=== PATIENT | male | born 1955 | race Caucasian/White ===

== ENCOUNTER → 2017-01-31 | Outpatient (REF) | payer OTHER, MEDICARE ==
[~2017-01-31] MED LIST: /AUGM875TA; /CELE20CA; /ESOM40CA OR; /MOXI40TA PO; ADV500INH INH; ALDA25TA2 PO; ALLO10TA PO; ALLO300T2 PO; ASPI81TA31 OR; COLA50CA3 PO; COLC0.6T OR; COMBAER6 INH; DEPA250T32 PO; DEPA500T OR; DEPA500T2 PO; DUONSOL NEB; EFFE75CA75 OR; FINA5TAB2 PO; FLOM5CAP PO; FOLI1TAB86 PO; FOLI400T OR; IBUP200T2 PO; LASI40TA PO; LISI5TAB PO; MOM30SS PO; MULTCAP PO; MULTIVIT PO; NIAS750T3 OR; NICO4GUM8 PO; OCEA0.65; PERC5TAB8; PRED10TA2 PO; PROS5TAB PO; REQU2TAB3 PO; RISP2TAB30 PO; RISP4TAB OR; STOO1CAP7 PO; TYLE325T5 PO; VICO5TAB PO; VITA10002 PO; VITA100041 PO; WELL75TA PO; XIFA550T PO; ZOCO20TA PO; ZOCO40TA OR; drisdol PO
[2017-01-31 12:45] LABS: MEAN CORPUSCULAR HEMOGLOBIN 33.7 pg (27.0-33.0); MEAN CORPUSCULAR HGB CONC 35.8 g/dl (32.0-36.5); RED CELL DISTRIBUTION WIDTH 13.2 % (11.5-14.5); WHITE BLOOD COUNT 6.3 K/mm3 (4.0-10.0)
[2017-01-31 13:03] LABS: ALBUMIN 4.2 GM/DL (3.2-5.2); ALBUMIN/GLOBULIN RATIO 1.27 (1.00-1.93); ALKALINE PHOSPHATASE 51 U/L (45-117); ALT/SGPT 27 U/L (12-78); ANION GAP 10 MEQ/L (8-16); AST/SGOT 13 U/L (15-37); BILIRUBIN,TOTAL 0.5 MG/DL (0.2-1.0); BLOOD UREA NITROGEN 13 MG/DL (7-18); CALCIUM LEVEL 9.3 MG/DL (8.8-10.2); CARBON DIOXIDE LEVEL 30 MEQ/L (21-32); CHLORIDE LEVEL 92 MEQ/L (98-107); CHOLESTEROL LEVEL 165 MG/DL (<200); CREATININE FOR GFR 0.93 MG/DL (0.70-1.30); GLOMERULAR FILTRATION RATE > 60.0 (>49); GLUCOSE, FASTING 87 MG/DL (80-110); SODIUM LEVEL 132 MEQ/L (136-145); TOTAL PROTEIN 7.5 GM/DL (6.4-8.2); TRIGLYCERIDES LEVEL 96 MG/DL (<150); URIC ACID 5.1 MG/DL (3.5-7.2)
== END ==
LOC: M SFHCADAM 11:04
PROVIDERS: ATTEND Family Medicine
DX: K70.30 Alcoholic cirrhosis of liver without ascites (principal); E78.5 Hyperlipidemia, unspecified; M10.9 Gout, unspecified; F31.9 Bipolar disorder, unspecified; E55.9 Vitamin D deficiency, unspecified

== ENCOUNTER → 2017-02-22 | Outpatient (CLI) | payer OTHER, MEDICARE ==
--- NOTE | 2017-02-22 09:37 | REP ---
ORBIT, TWO VIEWS: HISTORY: Foreign body. The sinuses are clear. There is no fracture, bone lesion, or radiopaque foreign body. IMPRESSION: Normal study. Signed by Brett Bañuelos MD 02/22/2017 09:59 A
== END ==
LOC: M RAD 08:42
PROVIDERS: ATTEND Psychiatry & Neurology Neurology
DX: S00.35XA Superficial foreign body of nose, initial encounter (principal); X58.XXXA Exposure to other specified factors, initial encounter; Y92.89 Other specified places as the place of occurrence of the external cause; Y93.89 Activity, other specified; Y99.8 Other external cause status

== ENCOUNTER → 2017-03-05 | Outpatient (CLI) | payer OTHER, MEDICARE ==
--- NOTE | 2017-03-05 10:00 | REP ---
CT CHEST WITHOUT IV CONTRAST: CT chest performed in the axial plane without IV contrast. Sagittal and coronal reconstruction images are performed. Comparison is made with multiple prior examination dating back to 04/02/2014, most recent is 03/01/2016. There is again somewhat nodular thickening along the right major fissure which has remained stable since 2013. Another smaller area of nodular thickening along the left major fissure is also stable. Scattered interstitial fibrotic changes appear similar to the prior studies. There are diffuse emphysematous changes. There is fibroatelectatic change in the lingula, which is stable. There is a calcified granuloma in the right pericardial region anteriorly. A couple of scattered tiny calcified granulomas are seen in the lungs as well. No mediastinal, hilar or chest wall lymphadenopathy is seen. There is n pleural or pericardial effusion. There are scattered atherosclerotic calcifications of the thoracic aorta without aneurysm. The heart is normal in size. There are degenerative changes of the spine. In the visualized portions of the upper abdomen, the gallbladder is visualized on the most inferior image containing a gallstone. Only the neck of the gallbladder is seen. There is a cyst in the upper pole of the left kidney. IMPRESSION: Stable benign nodular thickening along both major fissures as above. Underlying emphysematous and fibrotic changes. Calcified granulomas. Gallstones seen in the gallbladder, only partially visualized on the most inferior image. Signed by Yohan Headley MD 03/05/2017 04:21 P
== END ==
LOC: M RAD 09:03
PROVIDERS: ATTEND Internal Medicine
DX: R91.8 Other nonspecific abnormal finding of lung field (principal)

== ENCOUNTER → 2017-03-13 | Outpatient (CLI) | payer OTHER, MEDICARE | LOC: M SMT 10:19 | PROVIDERS: ATTEND Urology | DX: Z12.5 Encounter for screening for malignant neoplasm of prostate (principal) ==

== ENCOUNTER → 2017-03-20 | Outpatient (CLI) | payer OTHER, MEDICARE ==
--- NOTE | 2017-03-21 05:58 | REP ---
Clinical: Cirrhosis and left upper quadrant pain. Technique: Real time shirley scale ultrasound examination using curved array transducer. Findings: Liver demonstrates diffuse fatty infiltration without focal hepatic lesion identified. The pancreas is limited in evaluation but visualized portions appear grossly normal. The spleen is upper limits of normal in size without significant focal splenic lesion identified; 2 cm echogenic focus within the spleen is nonspecific and its appearance by ultrasound is relatively unremarkable. Gallbladder demonstrates 11 mm gallstone without wall thickening or pericholecystic fluid to suggest acute cholecystitis. No biliary ductal dilatation is appreciated and the common bile duct measures 4 mm diameter. The bilateral kidneys are normal in reniform shape without hydronephrosis. Right kidney measures 11.9 x 5.1 x 4.9 cm. Left kidney measures 11.2 x 6.1 x 5.2 cm with 1.9 cm and 2.0 cm cysts. Abdominal aorta is normal in appearance and measures 2.0 cm maximal diameter. No ascites. Impression: 1. Hepatosteatosis without focal hepatic lesion. 2. Cholelithiasis. 3. No ascites. 4. Left renal cysts up to 2 cm diameter. 5. 2 cm echogenic focus in the spleen is relatively unremarkable and nonspecific by ultrasound evaluation and is not identifiable when compared to CT dated 03/05/2017 and 11/16/2015. Signed by Froylan Olivo MD 03/21/2017 05:49 A
== END ==
LOC: M WHC 09:19
PROVIDERS: ATTEND Family Medicine
DX: R10.12 Left upper quadrant pain (principal)

== ENCOUNTER → 2017-06-10 | Outpatient (CLI) | payer OTHER, MEDICARE ==
[~2017-06-10] MED LIST changes: -RISP2TAB30 PO; +RISP2TAB32 PO; +VITA-182 PO; -VITA100041 PO
[2017-06-10 18:50] LABS: ALBUMIN/GLOBULIN RATIO 1.18 (1.00-1.93); BILIRUBIN,DIRECT 0.1 MG/DL (0.0-0.2); BILIRUBIN,TOTAL 0.4 MG/DL (0.2-1.0); TOTAL PROTEIN 7.4 GM/DL (6.4-8.2)
== END ==
LOC: M SMT 15:05
PROVIDERS: ATTEND Nurse Practitioner Family
DX: Z79.899 Other long term (current) drug therapy (principal)

== ENCOUNTER → 2017-07-10 | Outpatient (CLI) | payer OTHER ==
[2017-07-10 18:44] LABS: ALBUMIN 4.2 GM/DL (3.2-5.2); ALBUMIN/GLOBULIN RATIO 1.24 (1.00-1.93); ALKALINE PHOSPHATASE 45 U/L (45-117); ALT/SGPT 35 U/L (12-78); ANION GAP 7 MEQ/L (8-16); AST/SGOT 23 U/L (15-37); BILIRUBIN,TOTAL 0.6 MG/DL (0.2-1.0); BLOOD UREA NITROGEN 17 MG/DL (7-18); CALCIUM LEVEL 9.1 MG/DL (8.8-10.2); CARBON DIOXIDE LEVEL 30 MEQ/L (21-32); CHLORIDE LEVEL 99 MEQ/L (98-107); CREATININE FOR GFR 1.14 MG/DL (0.70-1.30); GLOMERULAR FILTRATION RATE > 60.0 (>49); GLUCOSE, FASTING 89 MG/DL (80-110); SODIUM LEVEL 136 MEQ/L (136-145); TOTAL PROTEIN 7.6 GM/DL (6.4-8.2)
[2017-07-10 18:45] LABS: BASO # 0.1 K/mm3 (0.0-0.2); BASO % 0.8 % (0.0-1.0); EOS # 0.1 K/mm3 (0.0-0.50); EOS % 0.8 % (0.0-3.0); LARGE UNSTAINED CELL # 0.1 K/mm3 (0.0-0.4); LARGE UNSTAINED CELL % 1.6 % (0.0-4.0); LYMPH # 1.1 K/mm3 (1.5-4.5); LYMPH % 12.4 % (24.0-44.0); MEAN CORPUSCULAR HEMOGLOBIN 35.1 pg (27.0-33.0); MEAN CORPUSCULAR HGB CONC 35.5 g/dl (32.0-36.5); MEAN CORPUSCULAR VOLUME 98.6 fl (80.0-96.0); MONO # 0.6 K/mm3 (0.0-0.8); MONO % 7.2 % (0.0-5.0); NEUTROPHILS # 5.8 K/mm3 (1.8-7.7); NEUTROPHILS % 77.2 % (36.0-66.0); PLATELET COUNT, AUTOMATED 259 k/mm3 (150-450); RED CELL DISTRIBUTION WIDTH 12.9 % (11.5-14.5); WHITE BLOOD COUNT 7.6 K/mm3 (4.0-10.0)
[2017-07-10 18:50] LABS: FOLATE > 24.0 NG/ML
[2017-07-10 18:53] LABS: POTASSIUM SERUM 5.3 MEQ/L (3.5-5.1)
[2017-07-10 19:26] LABS: VITAMIN B12 LEVEL 469 PG/ML
== END ==
LOC: M SMT 13:30
PROVIDERS: ATTEND Psychiatry & Neurology Neurology
DX: E03.9 Hypothyroidism, unspecified (principal); N18.9 Chronic kidney disease, unspecified; G25.0 Essential tremor; D51.9 Vitamin B12 deficiency anemia, unspecified; E55.9 Vitamin D deficiency, unspecified

== ENCOUNTER → 2017-08-20 | Outpatient (CLI) | payer OTHER ==
[2017-08-20 18:12] LABS: INR 0.89
== END ==
LOC: M SMT 15:04
PROVIDERS: ATTEND Physical Medicine & Rehabilitation
DX: M54.2 Cervicalgia (principal)

== ENCOUNTER → 2017-09-10 | Outpatient (CLI) | payer OTHER | LOC: M SMT 12:59 | PROVIDERS: ATTEND Urology | DX: R39.15 Urgency of urination (principal) ==

== ENCOUNTER → 2017-10-07 | Outpatient (CLI) | payer OTHER, MEDICARE ==
--- NOTE | 2017-10-07 11:21 | REP ---
RIGHT UPPER QUADRANT ULTRASOUND: Real-time sonographic evaluation of right upper quadrant performed and compared to prior studies, the most recent of which is 03/20/2017. There are gallstones in the gallbladder. The largest is 2.4 cm in diameter. There is no gallbladder wall thickening or pericholecystic fluid. There is no intrahepatic or extrahepatic biliary dilatation, common bile duct measuring 4 mm in diameter. Liver demonstrates diffuse heterogeneous increased echotexture compatible with diffuse fibrofatty infiltration. No gross liver or pancreatic mass is seen. There is no pancreatic duct dilatation. Right kidney is normal in size and echotexture with no hydronephrosis, with a length of 12 cm. IMPRESSION: Gallstones in the gallbladder without gallbladder wall thickening, pericholecystic fluid, or biliary dilatation. Diffuse fibrofatty infiltration of the liver.
== END ==
LOC: M WHC 08:47
PROVIDERS: ATTEND Family Medicine
DX: K70.30 Alcoholic cirrhosis of liver without ascites (principal)

== ENCOUNTER → 2017-10-07 | Outpatient (REF) | payer OTHER, MEDICARE ==
[2017-10-07 13:47] LABS: MEAN CORPUSCULAR HEMOGLOBIN 33.3 pg (27.0-33.0); MEAN CORPUSCULAR HGB CONC 33.4 g/dl (32.0-36.5); MEAN CORPUSCULAR VOLUME 99.5 fl (80.0-96.0); PLATELET COUNT, AUTOMATED 266 10^3/uL (150-450); RED CELL DISTRIBUTION WIDTH 12.8 % (11.5-14.5); WHITE BLOOD COUNT 5.4 10^3/uL (4.0-10.0)
[2017-10-07 13:56] LABS: INR 0.88
[2017-10-07 14:01] LABS: VITAMIN B12 LEVEL 548 PG/ML (247-911)
[2017-10-07 14:02] LABS: FOLATE > 24.0 NG/ML (>5.4)
[2017-10-07 14:10] LABS: ALBUMIN 3.9 GM/DL (3.2-5.2); ALBUMIN/GLOBULIN RATIO 1.11 (1.00-1.93); ALKALINE PHOSPHATASE 51 U/L (45-117); ALT/SGPT 31 U/L (12-78); ANION GAP 7 MEQ/L (8-16); AST/SGOT 12 U/L (7-37); BILIRUBIN,TOTAL 0.4 MG/DL (0.2-1.0); BLOOD UREA NITROGEN 18 MG/DL (7-18); CALCIUM LEVEL 9.9 MG/DL (8.8-10.2); CARBON DIOXIDE LEVEL 32 MEQ/L (21-32); CHLORIDE LEVEL 101 MEQ/L (98-107); CREATININE FOR GFR 1.17 MG/DL (0.70-1.30); FREE T4 0.92 NG/DL (0.76-1.46); GLOMERULAR FILTRATION RATE > 60.0 (>49); GLUCOSE, FASTING 116 MG/DL (80-110); POTASSIUM SERUM 4.7 MEQ/L (3.5-5.1); SODIUM LEVEL 140 MEQ/L (136-145); TOTAL PROTEIN 7.4 GM/DL (6.4-8.2)
== END ==
LOC: M SFHCADAM 08:16
PROVIDERS: ATTEND Physician Assistant
DX: K70.30 Alcoholic cirrhosis of liver without ascites (principal); D52.9 Folate deficiency anemia, unspecified; R53.83 Other fatigue

== ENCOUNTER → 2017-10-28 | Outpatient (REF) | payer OTHER, MEDICARE ==
[2017-10-28 14:07] LABS: ALBUMIN 3.6 GM/DL (3.2-5.2); ALBUMIN/GLOBULIN RATIO 1.03 (1.00-1.93); BILIRUBIN,DIRECT 0.1 MG/DL (0.0-0.2); BILIRUBIN,TOTAL 0.3 MG/DL (0.2-1.0); TOTAL PROTEIN 7.1 GM/DL (6.4-8.2)
== END ==
LOC: M LABDRWAD 12:26
PROVIDERS: ATTEND Nurse Practitioner Family
DX: F31.10 Bipolar disorder, current episode manic without psychotic features, unspecified (principal)

== ENCOUNTER → 2017-12-13 | Outpatient (CLI) | payer OTHER, MEDICARE ==
[2017-12-13 21:14] LABS: BASO % 0.6 % (0.0-1.0); EOS # 0.1 10^3/uL (0.0-0.50); EOS % 1.1 % (0.0-3.0); HEMATOCRIT 44.4 % (42.0-52.0); HEMOGLOBIN 14.8 g/dl (14.0-18.0); IMMATURE GRANULOCYTE % 0.3 % (0-0); LYMPH # 1.2 10^3/uL (1.5-4.5); LYMPH % 18.9 % (24.0-44.0); MEAN CORPUSCULAR HEMOGLOBIN 33.6 pg (27.0-33.0); MEAN CORPUSCULAR HGB CONC 33.3 g/dl (32.0-36.5); MEAN CORPUSCULAR VOLUME 100.7 fl (80.0-96.0); MONO # 0.7 10^3/uL (0.0-0.8); NEUTROPHILS # 4.3 10^3/uL (1.8-7.7); NEUTROPHILS % 68.1 % (36.0-66.0); PLATELET COUNT, AUTOMATED 214 10^3/uL (150-450); RED BLOOD COUNT 4.41 10^6/uL (4.30-6.10); RED CELL DISTRIBUTION WIDTH 12.1 % (11.5-14.5); WHITE BLOOD COUNT 6.3 10^3/uL (4.0-10.0)
[2017-12-13 21:54] LABS: ANION GAP 8 MEQ/L (8-16); BLOOD UREA NITROGEN 19 MG/DL (7-18); CARBON DIOXIDE LEVEL 27 MEQ/L (21-32); CHLORIDE LEVEL 101 MEQ/L (98-107); CREATININE FOR GFR 1.04 MG/DL (0.70-1.30); GLOMERULAR FILTRATION RATE > 60.0 (>49); GLUCOSE, FASTING 108 MG/DL (80-110); NT-PRO BNP 20 PG/ML (<125); POTASSIUM SERUM 4.6 MEQ/L (3.5-5.1); SODIUM LEVEL 136 MEQ/L (136-145)
== END ==
LOC: M ADAMS 09:23
DX: R06.02 Shortness of breath (principal); R63.5 Abnormal weight gain
CPT/HCPCS: 80048

== ENCOUNTER → 2018-02-10 | Outpatient (REF) | payer OTHER, MEDICARE | LOC: M LAB REF 20:34 | DX: J02.9 Acute pharyngitis, unspecified (principal) | CPT/HCPCS: 87081 ==

== ENCOUNTER → 2018-03-20 | Outpatient (CLI) | payer OTHER, MEDICARE | LOC: M RAD 08:23 | DX: F17.210 Nicotine dependence, cigarettes, uncomplicated (principal) | CPT/HCPCS: G0297 ==

== ENCOUNTER → 2018-03-31 | Outpatient (CLI) | payer OTHER, MEDICARE ==
[2018-03-31 14:37] LABS: PSA SCREENING 0.15 NG/ML (< 4.0)
== END ==
LOC: M SMT 10:16
DX: Z12.5 Encounter for screening for malignant neoplasm of prostate (principal)
CPT/HCPCS: G0103

== ENCOUNTER → 2018-04-03 | Outpatient (CLI) | payer OTHER, MEDICARE | LOC: M WHC 08:06 | DX: K70.30 Alcoholic cirrhosis of liver without ascites (principal) ==

== ENCOUNTER 2018-06-18 12:03 | Outpatient (RCR) | payer MEDICARE, OTHER | END 2018-06-24 | disposition home or self-care (01) | LOC: M CR 12:03 | DX: J44.9 Chronic obstructive pulmonary disease, unspecified (principal); Z51.89 Encounter for other specified aftercare | CPT/HCPCS: G0424 ==

== ENCOUNTER 2018-06-25 15:23 | Outpatient (RCR) | payer MEDICARE, OTHER | END 2018-07-25 | LOC: M CR 15:23 → M PR 07-02 10:36 | DX: J44.9 Chronic obstructive pulmonary disease, unspecified (principal); Z51.89 Encounter for other specified aftercare | CPT/HCPCS: G0424 ==

== ENCOUNTER → 2018-07-24 | Outpatient (REF) | payer MEDICARE, OTHER ==
[2018-07-24 12:20] LABS: HEMATOCRIT 42.9 % (42.0-52.0); HEMOGLOBIN 14.8 g/dl (13.5-17.5); MEAN CORPUSCULAR HEMOGLOBIN 34.3 pg (27.0-33.0); MEAN CORPUSCULAR HGB CONC 34.5 g/dl (32.0-36.5); MEAN CORPUSCULAR VOLUME 99.3 fl (80.0-96.0); PLATELET COUNT, AUTOMATED 241 10^3/uL (150-450); RED BLOOD COUNT 4.32 10^6/uL (4.30-6.10); RED CELL DISTRIBUTION WIDTH 11.9 % (11.5-14.5); WHITE BLOOD COUNT 6.6 10^3/uL (4.0-10.0)
[2018-07-24 12:39] LABS: INR 0.92; PROTHROMBIN TIME 12.5 SECONDS (12.1-14.4)
[2018-07-24 13:29] LABS: ALBUMIN 3.6 GM/DL (3.2-5.2); ALBUMIN/GLOBULIN RATIO 0.95 (1.00-1.93); ALKALINE PHOSPHATASE 47 U/L (45-117); ALT/SGPT 46 U/L (12-78); ANION GAP 7 MEQ/L (8-16); AST/SGOT 19 U/L (7-37); BILIRUBIN,TOTAL 0.4 MG/DL (0.2-1.0); BLOOD UREA NITROGEN 14 MG/DL (7-18); CALCIUM LEVEL 9.1 MG/DL (8.8-10.2); CARBON DIOXIDE LEVEL 28 MEQ/L (21-32); CHLORIDE LEVEL 105 MEQ/L (98-107); CHOLESTEROL LEVEL 161 MG/DL (<200); CREATININE FOR GFR 1.05 MG/DL (0.70-1.30); FREE T4 0.81 NG/DL (0.76-1.46); GLOMERULAR FILTRATION RATE > 60.0 (>49); GLUCOSE, FASTING 92 MG/DL (70-100); HDL CHOLESTEROL 50 MG/DL (>40); LDL CHOLESTEROL 81.4 MG/DL (<100); NON-HDL-C 111 MG/DL; POTASSIUM SERUM 4.7 MEQ/L (3.5-5.1); SODIUM LEVEL 140 MEQ/L (136-145); TOTAL PROTEIN 7.4 GM/DL (6.4-8.2); TRIGLYCERIDES LEVEL 148 MG/DL (<150); VALPROIC ACID (DEPAKOTE) 83.2 UG/ML (50.0-100.0)
[2018-07-25 11:29] LABS: ALPHA FETOPROTEIN TUMOR QUANT 5.8 NG/ML (<8.1)
== END ==
LOC: M SFHCADAM 08:57
DX: F31.89 Other bipolar disorder (principal); J44.9 Chronic obstructive pulmonary disease, unspecified; E78.5 Hyperlipidemia, unspecified; G25.1 Drug-induced tremor; K70.30 Alcoholic cirrhosis of liver without ascites; E55.9 Vitamin D deficiency, unspecified
CPT/HCPCS: 84443

== ENCOUNTER → 2018-10-09 | Outpatient (CLI) | payer MEDICARE, OTHER | LOC: M WHC 08:34 | DX: K80.20 Calculus of gallbladder without cholecystitis without obstruction (principal); K70.30 Alcoholic cirrhosis of liver without ascites | CPT/HCPCS: 76705 ==

== ENCOUNTER → 2018-10-12 | Outpatient (REF) | payer MEDICARE, OTHER | LOC: M LAB REF 17:21 | DX: J02.9 Acute pharyngitis, unspecified (principal) | CPT/HCPCS: 87081 ==

== ENCOUNTER → 2018-10-13 | Outpatient (CLI) | payer MEDICARE, OTHER ==
[2018-10-13 13:45] LABS: APPEARANCE, URINE CLEAR (CLEAR); BACTERIA, URINE AUTO NEGATIVE (NEGATIVE); BILIRUBIN, URINE AUTO NEGATIVE (NEGATIVE); BLOOD, URINE BLOOD NEGATIVE (NEGATIVE); COLOR, URINE YELLOW (YELLOW); GLUCOSE, URINE (UA) AUTO NEGATIVE (NEGATIVE); KETONE, URINE AUTO TRACE mg/dL (NEGATIVE); LEUKOCYTE ESTERASE, URINE AUTO NEGATIVE (NEGATIVE); NITRITE, URINE AUTO NEGATIVE (NEGATIVE); PROTEIN, URINE AUTO NEGATIVE (NEGATIVE); RBC, URINE AUTO 0 /HPF (0-3); SPECIFIC GRAVITY URINE AUTO 1.013 (1.002-1.035); SQUAMOUS EPITHELIAL CELL UR AU 0 /HPF (0-6); UROBILINOGEN, URINE AUTO 0.2 mg/dL (0.0-2.0); WBC, URINE AUTO 0 /HPF (0-3)
[2018-10-14 14:14] LABS: PSA TOTAL 0.7 ng/mL (0.0-4.0)
== END ==
LOC: M SMT 11:14
DX: N40.1 Benign prostatic hyperplasia with lower urinary tract symptoms (principal)
CPT/HCPCS: 84154

== ENCOUNTER → 2019-01-12 | Outpatient (REF) | payer MEDICARE, OTHER ==
[~2019-01-12] MED LIST changes: +DICL0.1S; +FLOM0.4C39 PO; -FLOM5CAP PO; +VENTAER INH; +[UNRECOGNIZED DRUG - OTHER] INH
[2019-01-12 18:28] LABS: BASO % 0.2 % (0.0-1.0); EOS # 0.2 10^3/uL (0.0-0.50); EOS % 2.3 % (0.0-3.0); HEMATOCRIT 42.4 % (42.0-52.0); HEMOGLOBIN 14.5 g/dl (13.5-17.5); LYMPH # 1.2 10^3/uL (1.5-4.5); LYMPH % 13.5 % (24.0-44.0); MEAN CORPUSCULAR HGB CONC 34.2 g/dl (32.0-36.5); MEAN CORPUSCULAR VOLUME 99.3 fl (80.0-96.0); MONO % 10.5 % (0.0-5.0); NEUTROPHILS # 6.6 10^3/uL (1.8-7.7); NEUTROPHILS % 73.2 % (36.0-66.0); PLATELET COUNT, AUTOMATED 238 10^3/uL (150-450); RED BLOOD COUNT 4.27 10^6/uL (4.30-6.10)
[2019-01-12 18:33] LABS: BLOOD UREA NITROGEN 11 MG/DL (7-18); CALCIUM LEVEL 8.9 MG/DL (8.8-10.2); CARBON DIOXIDE LEVEL 25 MEQ/L (21-32); CHLORIDE LEVEL 103 MEQ/L (98-107); CREATININE FOR GFR 1.21 MG/DL (0.70-1.30); GLOMERULAR FILTRATION RATE > 60.0 (>49); GLUCOSE, FASTING 106 MG/DL (70-100); MAGNESIUM LEVEL 2.2 MG/DL (1.8-2.4); POTASSIUM SERUM 4.4 MEQ/L (3.5-5.1); SODIUM LEVEL 137 MEQ/L (136-145)
== END ==
LOC: M SFHCADAM 13:47
PROVIDERS: ATTEND Physician Assistant Medical
DX: R19.5 Other fecal abnormalities (principal)
CPT/HCPCS: 80048; 83735; 85025; 87507; G0463

== ENCOUNTER → 2019-01-16 | Outpatient (CLI) | payer MEDICARE, OTHER ==
--- NOTE | 2019-01-16 17:54 | REP ---
Supine abdomen single AP view: The bowel gas pattern is normal. The ascending and descending colon are excluded at the film margins. There are surgical clips in the abdomen bilaterally. There is degenerative disease and scoliosis in the lumbar spine. There is spina bifida occulta versus bilateral laminectomies at L5 . Impression: Normal bowel gas pattern. Electronically Signed by Yohan Greenfield MD 01/16/2019 05:45 P
== END ==
LOC: M ADAMS 16:21
PROVIDERS: ATTEND Physician Assistant
DX: M41.86 Other forms of scoliosis, lumbar region (principal); R19.5 Other fecal abnormalities
CPT/HCPCS: 74018; G0463

== ENCOUNTER → 2019-06-24 | Outpatient (CLI) | payer MEDICARE, OTHER ==
[~2019-06-24] MED LIST changes: -/CELE20CA; -/ESOM40CA OR; -/MOXI40TA PO; +AVEL1TAB2 PO; +CELE1CAP4; +NEXI1CAP3 OR
--- NOTE | 2019-06-24 10:37 | REP ---
Clinical: Lung screening. History smoking. Comparison: 03/20/2018, 01/19/2016 Technique: Axial low-dose noncontrast images from the thoracic inlet to the upper abdomen using lung screening technique. Findings: The lung alvarez are well-aerated and demonstrate early advanced COPD/emphysematous changes with scattered scarring similar to prior examination. Small area of opacity inseparable from the left major fissure measures 6 mm and appears less pronounced than prior examination suggesting small scar (image 51). No acute consolidation, significant nodule or mass lesion is appreciated. No pleural effusion/reaction or pneumothorax. Tracheobronchial tree is patent. Mediastinum demonstrates mild atherosclerotic changes of the coronary arteries without cardiomegaly. Impression: 1. Lung-RADS category II. 2. Chronic COPD/emphysematous changes with scattered scarring. 3. Previously identified density inseparable from the right major fissure appears less pronounced and likely represents small scar. 4. Management recommendations include annual low-dose CT evaluation. Electronically Signed by Froylan Olivo MD 06/24/2019 10:28 A
== END ==
LOC: M RAD 09:43
PROVIDERS: ATTEND Internal Medicine Critical Care Medicine
DX: Z12.2 Encounter for screening for malignant neoplasm of respiratory organs (principal); Z87.891 Personal history of nicotine dependence

== ENCOUNTER → 2019-08-14 | Outpatient (REF) | payer MEDICARE, OTHER | LOC: M SFHCADAM 08:01 | PROVIDERS: ATTEND Family Medicine | DX: K70.30 Alcoholic cirrhosis of liver without ascites (principal); I50.32 Chronic diastolic (congestive) heart failure; R73.01 Impaired fasting glucose; E78.5 Hyperlipidemia, unspecified; M54.5 Low back pain; F31.9 Bipolar disorder, unspecified; Z53.9 Procedure and treatment not carried out, unspecified reason ==

== ENCOUNTER → 2019-08-14 | Outpatient (CLI) | payer MEDICARE, OTHER ==
[2019-08-14 12:59] LABS: HEMATOCRIT 44.5 % (42.0-52.0); HEMOGLOBIN 14.9 g/dl (13.5-17.5); MEAN CORPUSCULAR HEMOGLOBIN 34.8 pg (27.0-33.0); MEAN CORPUSCULAR HGB CONC 33.5 g/dl (32.0-36.5); PLATELET COUNT, AUTOMATED 240 10^3/uL (150-450); RED BLOOD COUNT 4.28 10^6/uL (4.30-6.10); WHITE BLOOD COUNT 6.3 10^3/uL (4.0-10.0)
[2019-08-14 13:10] LABS: ALBUMIN 3.9 GM/DL (3.2-5.2); ALT/SGPT 42 U/L (12-78); BILIRUBIN,TOTAL 0.5 MG/DL (0.2-1.0); BLOOD UREA NITROGEN 17 MG/DL (7-18); CALCIUM LEVEL 9.7 MG/DL (8.8-10.2); CARBON DIOXIDE LEVEL 26 MEQ/L (21-32); CHLORIDE LEVEL 98 MEQ/L (98-107); CHOLESTEROL LEVEL 144 MG/DL (<200); CHOLESTEROL RISK RATIO 2.618 (<5); CREATININE FOR GFR 1.19 MG/DL (0.70-1.30); GLOMERULAR FILTRATION RATE > 60.0 (>49); GLUCOSE, FASTING 105 MG/DL (70-100); HDL CHOLESTEROL 55 MG/DL (>40); LDL CHOLESTEROL 66 MG/DL (<100); NON-HDL-C 89 MG/DL; SODIUM LEVEL 136 MEQ/L (136-145); TOTAL PROTEIN 7.4 GM/DL (6.4-8.2); TRIGLYCERIDES LEVEL 115 MG/DL (<150); VALPROIC ACID (DEPAKOTE) 95.6 UG/ML (50.0-100.0)
[2019-08-14 15:05] LABS: HEMOGLOBIN A1c 5.9 %
== END ==
LOC: M SMT 08:38
PROVIDERS: ATTEND Family Medicine
DX: I50.32 Chronic diastolic (congestive) heart failure (principal); R73.01 Impaired fasting glucose; K70.30 Alcoholic cirrhosis of liver without ascites; E78.5 Hyperlipidemia, unspecified; M54.5 Low back pain; F31.9 Bipolar disorder, unspecified; F31.89 Other bipolar disorder

== ENCOUNTER → 2019-08-19 | Outpatient (CLI) | payer MEDICARE, OTHER ==
--- NOTE | 2019-08-19 10:02 | REP ---
Abdominal right upper quadrant ultrasound in a patient with known alcoholic cirrhosis. Comparison is 10/09/2018. There is a 12 ml mobile gallbladder calculus, unchanged. There is no gallbladder wall thickening or pericholecystic fluid. There is no intrahepatic or extrahepatic biliary duct dilatation. The common biliary duct measures 5.5 mm in diameter. The the hepatic parenchyma is hyperechoic compatible with the clinical diagnosis of cirrhosis. There are no hepatic masses. The liver is mildly enlarged measuring up to 19.5 cm craniocaudad in the midclavicular line. The visualized pancreatic parenchyma is unremarkable. The right kidney measures 11.0 x 4.7 x 4.6 cm and is normal size. There is no right renal calculus or hydronephrosis. There is no solid or cystic mass. There is no right upper quadrant ascites. Impression: There is a single mobile gallbladder calculus, unchanged. The hepatic parenchyma is hyperechoic, unchanged. There are no hepatic masses. There is no biliary duct dilatation. Otherwise, negative right upper quadrant abdominal ultrasound. Electronically Signed by Yohan Greenfield MD 08/19/2019 09:53 A
== END ==
LOC: M RAD 08:50
PROVIDERS: ATTEND Family Medicine
DX: K70.30 Alcoholic cirrhosis of liver without ascites (principal); K80.20 Calculus of gallbladder without cholecystitis without obstruction

== ENCOUNTER → 2019-10-28 | Outpatient (REF) | payer MEDICARE, OTHER | LOC: M SMT 12:46 → M LABDRWAD 12:46 | PROVIDERS: ATTEND Nurse Practitioner Women's Health | DX: Z12.5 Encounter for screening for malignant neoplasm of prostate (principal) | CPT/HCPCS: 36415; G0103 ==

== ENCOUNTER → 2020-01-27 | Outpatient (REF) | payer MEDICARE, OTHER | LOC: M SFHCADAM 07:56 | PROVIDERS: ATTEND Family Medicine | DX: K72.90 Hepatic failure, unspecified without coma (principal); K70.30 Alcoholic cirrhosis of liver without ascites; D52.9 Folate deficiency anemia, unspecified; E53.8 Deficiency of other specified B group vitamins ==

== ENCOUNTER → 2020-01-29 | Outpatient (REF) | payer MEDICARE, OTHER ==
[2020-01-29 13:20] LABS: BASO % 0.6 % (0.0-1.0); EOS # 0.1 10^3/uL (0.0-0.5); HEMATOCRIT 46.8 % (42.0-52.0); HEMOGLOBIN 15.7 g/dl (13.5-17.5); LYMPH # 1.6 10^3/uL (1.5-5.0); LYMPH % 24.6 % (24.0-44.0); MEAN CORPUSCULAR HEMOGLOBIN 33.3 pg (27.0-33.0); MEAN CORPUSCULAR HGB CONC 33.5 g/dl (32.0-36.5); MEAN CORPUSCULAR VOLUME 99.2 fl (80.0-96.0); MONO # 0.7 10^3/uL (0.0-0.8); MONO % 11.6 % (0.0-5.0); NEUTROPHILS # 3.9 10^3/uL (1.5-8.5); NEUTROPHILS % 61.9 % (36.0-66.0); PLATELET COUNT, AUTOMATED 230 10^3/uL (150-450); RED BLOOD COUNT 4.72 10^6/uL (4.30-6.10); WHITE BLOOD COUNT 6.3 10^3/uL (4.0-10.0)
[2020-01-29 13:32] LABS: ALBUMIN 3.7 GM/DL (3.2-5.2); ALT/SGPT 32 U/L (12-78); BILIRUBIN,TOTAL 0.5 MG/DL (0.2-1.0); BLOOD UREA NITROGEN 13 MG/DL (7-18); CALCIUM LEVEL 9.6 MG/DL (8.8-10.2); CARBON DIOXIDE LEVEL 32 MEQ/L (21-32); CHLORIDE LEVEL 99 MEQ/L (98-107); CHOLESTEROL LEVEL 190 MG/DL (<200); CHOLESTEROL RISK RATIO 4.318 (<5); CREATININE FOR GFR 1.11 MG/DL (0.70-1.30); GLOMERULAR FILTRATION RATE > 60.0 (>49); GLUCOSE, FASTING 124 MG/DL (70-100); HDL CHOLESTEROL 44 MG/DL (>40); LDL CHOLESTEROL 105 MG/DL (<100); NON-HDL-C 146 MG/DL; POTASSIUM SERUM 4.8 MEQ/L (3.5-5.1); SODIUM LEVEL 136 MEQ/L (136-145); TOTAL PROTEIN 7.3 GM/DL (6.4-8.2); TRIGLYCERIDES LEVEL 203 MG/DL (<150)
[2020-01-29 13:52] LABS: HEMOGLOBIN A1c 6.5 %
== END ==
LOC: M LABDRWAD 12:47
PROVIDERS: ATTEND Nurse Practitioner Family
DX: K72.90 Hepatic failure, unspecified without coma (principal); K70.30 Alcoholic cirrhosis of liver without ascites; D52.9 Folate deficiency anemia, unspecified; Z79.899 Other long term (current) drug therapy

== ENCOUNTER → 2020-01-29 | Outpatient (REF) | payer MEDICARE, OTHER ==
[2020-01-29 13:26] LABS: ALBUMIN 3.7 GM/DL (3.2-5.2); ALT/SGPT 33 U/L (12-78); BILIRUBIN,TOTAL 0.5 MG/DL (0.2-1.0); BLOOD UREA NITROGEN 14 MG/DL (7-18); CALCIUM LEVEL 9.7 MG/DL (8.8-10.2); CARBON DIOXIDE LEVEL 32 MEQ/L (21-32); CHLORIDE LEVEL 99 MEQ/L (98-107); CREATININE FOR GFR 1.12 MG/DL (0.70-1.30); GLOMERULAR FILTRATION RATE > 60.0 (>49); GLUCOSE, FASTING 125 MG/DL (70-100); POTASSIUM SERUM 4.8 MEQ/L (3.5-5.1); SODIUM LEVEL 136 MEQ/L (136-145); TOTAL PROTEIN 7.4 GM/DL (6.4-8.2)
[2020-01-29 13:34] LABS: FOLATE > 24.0 NG/ML; VITAMIN B12 LEVEL 996 PG/ML
== END ==
LOC: M LABDRWAD 12:43
PROVIDERS: ATTEND Family Medicine
DX: K72.90 Hepatic failure, unspecified without coma (principal); K70.30 Alcoholic cirrhosis of liver without ascites; D52.9 Folate deficiency anemia, unspecified

== ENCOUNTER → 2020-02-01 | Outpatient (CLI) | payer MEDICARE, OTHER ==
--- NOTE | 2020-02-01 11:02 | REP ---
Right upper quadrant sonography: History: Cirrhosis. Findings: There is a 1.1 x 1.0 cm shadowing calculus in the gallbladder dependent portion. Gallbladder wall is not visibly thickened. No pericholecystic fluid is seen. Liver parenchyma is somewhat difficult to penetrate sonographically raising question of fatty infiltration. It is borderline in size with midclavicular line vertical span of 18.6 cm. Normal direction flow is seen in the main portal vein. The main portal vein is near the upper range of normal in size measuring 1.6 cm. The common bile duct is normal measuring 0.3 cm in greatest diameter. Limited views of the pancreas show no abnormality. There is no evidence of ascites or right renal abnormality. The right kidney measures 11.7 x 4.8 x 4.2 cm. Impression: Cholelithiasis. Mildly prominent liver size question fatty infiltration. Electronically Signed by Jm Morrow MD 02/01/2020 05:40 P
== END ==
LOC: M RAD 08:54
PROVIDERS: ATTEND Physician Assistant
DX: K70.30 Alcoholic cirrhosis of liver without ascites (principal)

== ENCOUNTER → 2020-09-21 | Outpatient (REF) | payer MEDICARE, OTHER ==
[~2020-09-21] MED LIST changes: +CVS250CA2 PO; -STOO1CAP7 PO
== END ==
LOC: M LABDRWAD 12:44
PROVIDERS: ATTEND Nurse Practitioner Family
DX: F31.89 Other bipolar disorder (principal); Z51.81 Encounter for therapeutic drug level monitoring

== ENCOUNTER → 2020-09-21 | Outpatient (REF) | payer MEDICARE, OTHER ==
[2020-09-21 12:36] LABS: HEMOGLOBIN 15.6 g/dl (13.5-17.5); MEAN CORPUSCULAR HEMOGLOBIN 34.4 pg (27.0-33.0); MEAN CORPUSCULAR HGB CONC 33.2 g/dl (32.0-36.5); MEAN CORPUSCULAR VOLUME 103.8 fl (80.0-96.0); PLATELET COUNT, AUTOMATED 188 10^3/uL (150-450); RED BLOOD COUNT 4.53 10^6/uL (4.30-6.10); WHITE BLOOD COUNT 5.1 10^3/uL (4.0-10.0)
[2020-09-21 13:06] LABS: ALBUMIN 3.7 GM/DL (3.2-5.2); ALT/SGPT 63 U/L (12-78); BILIRUBIN,TOTAL 0.5 MG/DL (0.2-1.0); BLOOD UREA NITROGEN 16 MG/DL (7-18); CALCIUM LEVEL 9.3 MG/DL (8.8-10.2); CARBON DIOXIDE LEVEL 29 MEQ/L (21-32); CHLORIDE LEVEL 102 MEQ/L (98-107); CHOLESTEROL LEVEL 165 MG/DL (<200); CHOLESTEROL RISK RATIO 3.055 (<5); CREATININE FOR GFR 1.25 MG/DL (0.70-1.30); GLOMERULAR FILTRATION RATE > 60.0 (>49); GLUCOSE, FASTING 127 MG/DL (70-100); HDL CHOLESTEROL 54 MG/DL (>40); LDL CHOLESTEROL 89 MG/DL (<100); NON-HDL-C 111 MG/DL; POTASSIUM SERUM 4.6 MEQ/L (3.5-5.1); SODIUM LEVEL 138 MEQ/L (136-145); TOTAL PROTEIN 7.4 GM/DL (6.4-8.2); TRIGLYCERIDES LEVEL 111 MG/DL (<150); URIC ACID 6.7 MG/DL (3.5-7.2)
== END ==
LOC: M SFHCADAM 08:27
PROVIDERS: ATTEND Family Medicine
DX: D52.9 Folate deficiency anemia, unspecified (principal); K70.30 Alcoholic cirrhosis of liver without ascites; E78.5 Hyperlipidemia, unspecified; M10.9 Gout, unspecified; F31.89 Other bipolar disorder; Z51.81 Encounter for therapeutic drug level monitoring; Z12.5 Encounter for screening for malignant neoplasm of prostate
CPT/HCPCS: 80053; 80061; 80164; 84550; 85027; G0103

== ENCOUNTER 2020-11-07 15:19 | Emergency (ER) | payer MEDICARE, OTHER ==
[~2020-11-07] VITALS: Ht 175.3 cm; Wt 134.1 kg
[2020-11-07] MEDS ORDERED: ANOR1AER INH (16:18)
[2020-11-07] MEDS ORDERED: XIFA550T PO (16:29)
[2020-11-07] MEDS ORDERED: ALBU8.5H INH (16:29)
[2020-11-07] MEDS ORDERED: ARIP1TAB6 PO (16:29)
[2020-11-07] MEDS ORDERED: OXYB10TA23 PO (16:29)
[2020-11-07] MEDS ORDERED: FURO20TA2 PO (16:29)
[2020-11-07] MEDS ORDERED: D31000TA2 PO (16:29)
[2020-11-07] MEDS ORDERED: DIVA500T9 PO ×2 (16:29)
[2020-11-07] MEDS ORDERED: MYRB50TA PO (16:29)
[2020-11-07] MEDS ORDERED: RISP-11 PO (16:29)
[2020-11-07] MEDS ORDERED: TAMS1CAP17 PO (16:29)
[2020-11-07] MEDS ORDERED: FOLI1TAB11 PO (16:29)
[2020-11-07] MEDS ORDERED: PROS5TAB PO (16:29)
[2020-11-07] MEDS ORDERED: SIMV20TA22 PO (16:29)
[2020-11-07] MEDS ORDERED: GABA-843 PO (16:29)
[2020-11-07] MEDS ORDERED: ESOM40CA35 PO (16:29)
[2020-11-07] MEDS ORDERED: ALLO100T PO (16:29)
[2020-11-07] MEDS ORDERED: FUROSEMIDE 40MG/4ML VIAL (J1940) IV ONE (16:30)
[2020-11-07] MEDS ORDERED: ALBUTEROL 90 MCG/ACT 8GM HFA INHALER INH ONE (16:30)
[2020-11-07] MEDS ORDERED: COMBIVENT RESPIMAT 100-20MCG INHALER 4GM INH ONE (16:30)
--- NOTE | 2020-11-07 16:44 | REP ---
INDICATION: DYSPNEA/COUGH. COMPARISON: PA and lateral chest dated 07/16/2016. TECHNIQUE: Single AP view of the chest performed portably with the patient sitting. FINDINGS: The lung alvarez are clear. Cardiac size is normal. The ivet, mediastinum and skeletal structures are unremarkable. IMPRESSION: Essentially negative portable chest <Electronically signed by Yohan Greenfield > 11/07/20 1640
[2020-11-07 17:17] LABS: VENOUS BASE EXCESS 3.2 (-2.0-2.0); VENOUS HCO3 29.7 MEQ/L (23.0-27.0); VENOUS O2 SATURATION 72.2 % (60.0-80.0); VENOUS PARTIAL PRESSURE CO2 51.4 mmHg (38.0-50.0); VENOUS PARTIAL PRESSURE O2 40.5 mmHg (30.0-50.0); VENOUS PH 7.379 UNITS (7.330-7.430); VENOUS STANDARD HCO3 26.6 MEQ/L; VENOUS TOTAL CO2 31.2 MEQ/L (24.0-28.0)
[2020-11-07 17:31] LABS: BASO % 0.3 % (0.0-1.0); EOS % 0.5 % (0.0-3.0); HEMATOCRIT 45.2 % (42.0-52.0); HEMOGLOBIN 15.1 g/dl (13.5-17.5); LYMPH # 1.5 10^3/uL (1.5-5.0); LYMPH % 20.8 % (24.0-44.0); MEAN CORPUSCULAR HEMOGLOBIN 33.9 pg (27.0-33.0); MEAN CORPUSCULAR HGB CONC 33.4 g/dl (32.0-36.5); MEAN CORPUSCULAR VOLUME 101.6 fl (80.0-96.0); MONO # 0.8 10^3/uL (0.0-0.8); MONO % 11.1 % (0.0-5.0); NEUTROPHILS # 4.9 10^3/uL (1.5-8.5); NEUTROPHILS % 66.9 % (36.0-66.0); PLATELET COUNT, AUTOMATED 187 10^3/uL (150-450); RED BLOOD COUNT 4.45 10^6/uL (4.30-6.10); WHITE BLOOD COUNT 7.4 10^3/uL (4.0-10.0)
[2020-11-07 17:45] LABS: ALBUMIN 3.8 GM/DL (3.2-5.2); ALT/SGPT 64 U/L (12-78); BILIRUBIN,DIRECT 0.2 MG/DL (0.0-0.2); BILIRUBIN,TOTAL 0.5 MG/DL (0.2-1.0); BLOOD UREA NITROGEN 19 MG/DL (7-18); CALCIUM LEVEL 9.5 MG/DL (8.8-10.2); CARBON DIOXIDE LEVEL 29 MEQ/L (21-32); CHLORIDE LEVEL 101 MEQ/L (98-107); CK-MB VALUE MASS 1.7 NG/ML (<3.6); CPK CREATINE PHOSPHOKINASE 83 U/L (39-308); CREATININE FOR GFR 1.29 MG/DL (0.70-1.30); GLOMERULAR FILTRATION RATE 59.1 (>49); GLUCOSE, FASTING 126 MG/DL (70-100); MB/CK RELATIVE INDEX 2.05 (< OR =4); NT-PRO BNP 25 PG/ML (<125); POTASSIUM SERUM 3.8 MEQ/L (3.5-5.1); SODIUM LEVEL 138 MEQ/L (136-145); TOTAL PROTEIN 7.7 GM/DL (6.4-8.2); TROPONIN I < 0.02 NG/ML (< 0.10)
[2020-11-07] MEDS ORDERED: COMBAER6 INH (18:37)
[2020-11-07 18:40] VITALS: BP 131/69
--- NOTE | 2020-11-08 05:52 | ECGEPIP ---
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
== END 2020-11-07 18:56 | disposition home or self-care (01) ==
LOC: M ED 15:19 → EDBD 15:19 → M ED 18:56
DX: J44.1 Chronic obstructive pulmonary disease with (acute) exacerbation (principal); I11.0 Hypertensive heart disease with heart failure; Z87.891 Personal history of nicotine dependence; Z88.1 Allergy status to other antibiotic agents; Z88.8 Allergy status to other drugs, medicaments and biological substances; Z79.51 Long term (current) use of inhaled steroids; Z79.899 Other long term (current) drug therapy
CPT/HCPCS: 71045; 80048; 80076; 82550; 82553; 82803; 83880; 84484; 85025; 93005; 93041; 94640; 94760; 96374; 99284; J1940

== ENCOUNTER → 2020-12-12 | Outpatient (CLI) | payer MEDICARE, OTHER ==
[~2020-12-12] MED LIST changes: +ALBU8.5H INH; +ALLO100T PO; +ANOR1AER INH; +ARIP1TAB6 PO; +D31000TA2 PO; +DIVA500T9 PO; +ESOM40CA35 PO; +FOLI1TAB11 PO; +FURO20TA2 PO; +GABA-282 PO; +MYRB50TA PO; +OXYB10TA23 PO; +RISP-11 PO; +SIMV20TA22 PO; +TAMS1CAP17 PO
--- NOTE | 2020-12-12 10:23 | REP ---
INDICATION: SCREENING COMPARISON: 06/24/2019 TECHNIQUE: Axial noncontrast images from the thoracic inlet to the upper abdomen using low-dose lung screening technique (LDCT). FINDINGS: Lung alvarez again demonstrate COPD/emphysematous changes with bronchiectasis and scattered scarring. Small 4 mm perifissural triangular density inseparable from the right major fissure likely represents scar. No acute consolidation, significant nodule or mass lesion. No effusion. No pneumothorax. Tracheobronchial tree is patent. Mediastinum demonstrates atherosclerotic changes to the thoracic aorta and coronary arteries. IMPRESSION: Lung-RADS category 2. Stable somewhat triangular perifissural density likely representing scar. No further suspicious consolidation, nodule or mass. Management recommendations include annual low-dose CT evaluation. <Electronically signed by Froylan Olivo > 12/12/20 1018
== END ==
LOC: M RAD 09:55
PROVIDERS: ATTEND Family Medicine
DX: Z12.2 Encounter for screening for malignant neoplasm of respiratory organs (principal); Z87.891 Personal history of nicotine dependence; J43.9 Emphysema, unspecified; R91.8 Other nonspecific abnormal finding of lung field; I70.0 Atherosclerosis of aorta; I25.10 Atherosclerotic heart disease of native coronary artery without angina pectoris

== ENCOUNTER → 2020-12-22 | Outpatient (REF) | payer MEDICARE, OTHER ==
[2020-12-22 12:51] LABS: HEMATOCRIT 47.9 % (42.0-52.0); MEAN CORPUSCULAR HEMOGLOBIN 34.9 pg (27.0-33.0); MEAN CORPUSCULAR HGB CONC 33.4 g/dl (32.0-36.5); MEAN CORPUSCULAR VOLUME 104.6 fl (80.0-96.0); PLATELET COUNT, AUTOMATED 211 10^3/uL (150-450); RED BLOOD COUNT 4.58 10^6/uL (4.30-6.10); WHITE BLOOD COUNT 5.9 10^3/uL (4.0-10.0)
[2020-12-22 13:47] LABS: ALBUMIN 3.7 GM/DL (3.2-5.2); ALT/SGPT 54 U/L (12-78); BILIRUBIN,TOTAL 0.4 MG/DL (0.2-1.0); BLOOD UREA NITROGEN 17 MG/DL (7-18); CALCIUM LEVEL 9.6 MG/DL (8.8-10.2); CARBON DIOXIDE LEVEL 30 MEQ/L (21-32); CHLORIDE LEVEL 101 MEQ/L (98-107); CHOLESTEROL LEVEL 210 MG/DL (<200); CHOLESTEROL RISK RATIO 4.038 (<5); CREATININE FOR GFR 1.25 MG/DL (0.70-1.30); FOLATE > 24.0 NG/ML (>5.4); GLOMERULAR FILTRATION RATE > 60.0 (>49); GLUCOSE, FASTING 251 MG/DL (70-100); HDL CHOLESTEROL 52 MG/DL (>40); LDL CHOLESTEROL 114 MG/DL (<100); NON-HDL-C 158 MG/DL; POTASSIUM SERUM 4.3 MEQ/L (3.5-5.1); SODIUM LEVEL 139 MEQ/L (136-145); TOTAL PROTEIN 7.4 GM/DL (6.4-8.2); TRIGLYCERIDES LEVEL 219 MG/DL (<150); VITAMIN B12 LEVEL 1304 PG/ML (247-911)
[2020-12-22 15:32] LABS: HEMOGLOBIN A1c 7.9 %
== END ==
LOC: M SFHCADAM 08:39
PROVIDERS: ATTEND Family Medicine
DX: K70.30 Alcoholic cirrhosis of liver without ascites (principal); R73.01 Impaired fasting glucose; E78.5 Hyperlipidemia, unspecified; E53.8 Deficiency of other specified B group vitamins

== ENCOUNTER 2021-01-19 00:17 | Emergency (ER) | payer MEDICARE, OTHER ==
[~2021-01-19] VITALS: Ht 175.3 cm; Wt 131.8 kg
--- OUTSIDE RECORDS SUMMARY | 2021-01-19 00:22 | CCD ---
Author Author [facility] Organization [facility] Address Unknown Phone Unavailable Care Team Providers Care Fish Hatchery Supervisor Name Role Phone Matthew Maynard Unavailable PROBLEMS Type Condition ICD9-CM Code [id number] Code Onset Dates Condition S tatus W/U Status Risk SNOMED Code Notes Problem Bipolar disorder F31.9 Active confirmed 137 03640 Problem Folate deficiency anemia D52.9 Active confirmed 10600871 Problem Hepatic dysfunction K76.9 Active confirmed 208067413 Problem Chronic diastolic heart failure I50.32 Active confi rmed 958040648 Problem History of alcoholism F10.21 Active confirmed 403971927 Problem Purpura D69.2 Active confirmed 199671229 tr aumatic purpura left arm Problem Pulmonary nodule R91.1 Active confirmed 309 953715 Problem Benign prostatic hyperplasia without lower urina ry tract symptoms N40.0 Active confirmed 990496311 Problem Impaired fasting glucose R73.01 Active confirmed 644656941 Problem COPD with exacerbation J44.1 Active confirmed 719673303 Problem Tobacco use Z72.0 Active confirmed 69140371 0 quit 1/15 Problem Gout M10.9 Active confirmed 06165033 Problem Hyperlipidemia E78.5 Active confirmed 06708 004 Problem Sleep disorder, unspecified G47.9 Active confirmed 83317478 Problem Chronic pain G89.29 Active confirmed 4074469 1 Problem Adverse reaction to antidepressant drug T43.205A Active confirmed 935751176 Problem COPD (chronic obstructive pulmonary disease) J44.9 Active confirmed 27669610 Problem Fatigue due to sleep pattern disturbance R53.83 Active confirmed 14429375 Problem GERD (gastroesophageal reflux disease) K21.9 A ctive confirmed 840105366 Problem Hypertensive heart disease without heart failure I 11.9 Active confirmed 20493672 Problem Back pain M54.9 Active confirmed 881424518 Problem Cirrhosis, alcoholic K70.30 Active confirmed 434930873 Problem Obesity E66.9 Active confirmed 379795176 Problem 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 Active confirmed 14119637 Problem Vitamin D deficiency E55.9 Active confirmed 80034497 Problem 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 Active confirmed 09988036 Problem Depression F32.9 Active confirmed 15209397 Problem Disc disease, degenerative, cervical M50.30 Act giacomo confirmed 99331250 Problem Lower urinary tract symptoms due to benign prost atic hyperplasia N40.1 Active confirmed 538922500 Problem Hepatic encephalopathy K72.90 Active confirmed 98680514 Problem Type 2 diabetes mellitus wit hout complication, without long-term current use of insulin E11.9 Active confirmed 821720150 Problem Chronic bilateral low back pain without sciatica M 54.5 Active confirmed 335511107 Problem 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 Active confir med 085574688 Problem Right leg pain M79.604 Active confirmed 2870 68499 Problem Lumbar spinal stenosis M48.06 Active confirmed 60584413 Problem Chronic obstructive pulmonary disease, unspecified COPD ty pe J44.9 Active confirmed 68439594 Problem Plantar wart B07.0 Active confirmed 7583875 8 Problem B12 deficiency E53.8 Active confirmed 82584 4004 Problem RUBIO (obstructive sleep apnea) G47.33 Active confirm ed 12099913 Problem 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 Active confirmed 293800249 ALLERGIES Allergen (clinical drug ingredient) Drug/Non Drug Allergy do cumented on EMR Reaction Allergy Type Onset Date Status Amoxicillin-Pot Clavulanate itching, swelling Drug Allergy Active benztropine agitation, confusion Non Drug Allergy Active pseudoephedrine Pseudoephedrine HCl(NDC Code:[address]-40) Hear t beats fast Drug Allergy Active clindamycin Clindamycin HCl(NDC Code:[address]-91) itching swelling, facial edema Drug Allergy Active regadenoson SOB/COPD exac (see 10/24/16 note) Non Drug Al lergy Active naproxen Naproxen(NDC Code:[address]-63) depression Drug Allergy Active ENCOUNTERS from 1955 to 2021-01-12 Encounter Location Date Provider Diagnosis [facility] [address] [place] [address] 10 Dec, 2020 Sergio Maynard COPD (chronic obstructive pulmonary disease) J44.9 ; Type 2 diabetes mellitus without complication, without long-term current use of insulin E11.9 and Drug or chemical induced diabetes mellitus without complications E09.9 IMMUNIZATIONS Vaccine Route Administration Date Status COVID-19 dose #1 given elsewhere Unspecified Unknown Dec 21, 2020 Administered Influenza 18 yrs & older Flublok IM Intramuscular Oct 14, 2020 Administered Influenza 6mo & up Fluzone IM Intramuscular Oct 01, 2017 Admi nistered Influenza 18 yrs & older Flublok IM Intramuscular Sep 17, 2018 Administered Influenza 18 yrs & older Flublok IM Intramuscular Oct 13, 2019 Administered Influenza 6mo & up Fluzone IM Intramuscular Oct 08, 2012 Admi nistered Influenza 6mo & up Fluzone IM Intramuscular Sep 25, 2016 Admi nistered Pneumococcal Adult 0.5mL Pneumovax 23 IM Intramuscular Oct 03 015 Administered Influenza 6mo & up Fluzone IM Intramuscular Oct 03, 2015 Admi nistered Influenza 6mo & up Fluzone Unknown Jan 05, 2016 Refus ed Pneumococcal 0.5mL Prevnar 13 IM Intramuscular March 24, 2014 A dministered Influenza 6mo & up Fluzone Unknown Jan 19, 2015 Refus ed Influenza 6mo & up Fluzone IM Intramuscular Sep 10, 2014 Admi nistered Influenza 6mo & up Fluzone IM Intramuscular Sep 10, 2013 Admi nistered SOCIAL HISTORY Tobacco Use: Social History Observation Description Date Details (start date - stop date) Former Smoker Sex Assigned At : Social History Observation Description Sex Assigned At Unknown Audit Question Answer Notes Interpretation: Alcohol Education Total Score: 0 Language: Question Answer Notes Languages spoken: Divehi Sexual Hx: Question Answer Notes Had sex in the last 12 months (vaginal, oral, or anal)? No Have you ever had an STD? No Drug and Alcohol Question Answer Notes Interpretation: No problems reported Total Score: 0 BMI Care Goal Follow-Up Question Answer Notes Above Normal BMI Follow-Up Dietary management educatio n, guidance, and counseling Tobacco Use: Question Answer Notes Are you a: former smoker quit 2014 How long has it been since you last smoked? 1-5 years REASON FOR REFERRAL No Information VITAL SIGNS No information MEDICATIONS Medication SIG (Take, Route, Frequency, Duration) Notes Start Da te End Date Status ProAir HFA 108 (90 Base) mcg/act 2 puffs as needed Inhalation qid prn Not-Taking May Have - as directed four wheeled wal ker with seat as directed J44.9, M54.9 for 99 days Sep, Active Combivent Respimat 20-100 MCG/ACT INHALE ONE PUFF BY M RAFAEL THREE TIMES A DAY Inhalation Active Shower Chair without wheels as directed DX : M48.06, J 44.9 Daily Use for 30 days Jan, Active Xifaxan 550 MG 1 tablet Orally Twice a day for 90 days Active Multivitamins 1 capsule Orally once a day Active Walker - Heavy duty (current weight i s 309), rolling walker with the feet DX:J44.9,M54.9,I50.32 DX:J44.9,M54.9,I50.32 for 90 day(s) March Active Allopurinol 100 mg 1 tablet Orally Once a day for 90 day(s) Active Finasteride 5 MG TAKE ONE TABLET BY MOUTH ONCE A DAY Oral for 90 Active Tamsulosin HCl 0.4 MG TAKE ONE CAPSULE BY MOUTH 30 MINUTES AFTER THE SAME MEAL EACH DAY ONCE A DAY Oral for 90 Active Nexium 40 MG 1 capsule Orally Once a day for 90 days Active Risperidone 4 MG TAKE ONE TABLET BY MOUTH AT BEDTIME Oral for 90 Active Aripiprazole 5 MG TAKE ONE TABLET BY MOUTH AT BEDTIME Oral for 90 Not-Taking Vitamin D 1000 UNIT 1 tablet Orally Once a day for 90 days Active Folic Acid 1 MG 1 tablet Orally once a day for 90 day(s) Active Divalproex Sodium ER 500 MG TAKE ONE TABLET BY MOUTH E VERY MORNING AND TWO TABLETS AT BEDTIME Oral for 90 N ot-Taking Anoro Ellipta 62.5-25 MCG/INH 1 puff Inhalation Once a day Active Vitamin D3 25 MCG (1000 UT) TAKE ONE TABLET BY MOUTH ONCE A DAY for 9 0 Active Myrbetriq 50 MG TAKE ONE TABLET BY MOUTH ONCE A DAY Oral for 90 Active Simvastatin 20 MG 1 tablet in the evening Oral ly Once a day in the evening for 90 days Active Depakote ER 500 MG 2 tablets am 1 tab pm Orally bid Active Ipratropium-Albuterol 20-100 MCG/ACT 1 puff Inhalation tid Not-Taking PROCEDURES No Information RESULTS No Results REASON FOR VISIT 4 month MEDICAL (GENERAL) HISTORY Type Description Date Medical History Type 2 DM dx 12/15 (prob from yesy Rosa ich was d/c 12/15) Medical History COPD- Pulmonary [facility] 04/09 FEV1 1.83, ratio 56% Medical History diverticulosis/h/o diverticulitis Medical History tobacco abuse/Quit 12/09 Medical History alcohol abuse Medical History Dysthymic disorder- Dr Garcia [facility] Medical History Esophageal reflux Medical History metabolic syndrome/IFG- Iwwxtysht07/15 Medical History left helix actinic keratosis Medical History Pulmonary Nodule- Following with [facility] Pulm Dr Beltran 08/09 CT, 03/11, 03/12, 06/12-- no sig findings Medical History hyperlipidemia Medical History Congestive heart failure/HHD PET stress study [facility] 06/06 no ischemia- [facility] 07/09; PET NST at [facility] 10/10: EF 74%, no perfusion abnl Medical History Liver/Spleen Scan, done at [facility], 08/10/2013:" Mild hepatomegaly; mild hepatic dysfunction; the spleen is normal in size."- cirrhosis- We do liver US/AFP q 6 mo,does notneed to follow with GI/Deo any more; liver US 08/10 nl; US 03/11 steatohepatitis, nothing acute; 10/12--no changes, US unchanged 08/13, 02/11, AFP neg 07/2019, 01/14 Medical History lumbar and cervical Spinal S tenosis/Chronic back Pain- [facility], then [facility] (injectios, nerve blocks) Medical History Neuropathy in feet and hands- [facility]- Ali Medical History Sleep Study 12/09 Abn Home sl eep test- baseline hypoxia, patsy martinez phen. [facility]- Mod Sev RUBIO- BIPAP pending 07/10 ([facility]) Medical History BPH- Following with Urology Medical History testosterone deficiency, dx 06/07; not a candidate for TRT (cardiac, central RUBIO) Medical History left renal cysts CT 10/09, s aw nephro 2015 (benign, no f/u advised) Medical History prediabetes (misdiagnosed as T2DM by pre vious provider (AM ROLFER) Medical History tremors/Tarditive Dyskinesia --drug induced (Depakote/Risperdal), saw neuro in [facility] 07/10 Parkinson's Ruled Medical History probable subclavian steal left arm (see 3/17) Medical History RUBIO on CPAP Medical History H zoster left abd 09/13 Surgical History colonoscopy 01/04 Surgical History hernia repair 1956 Surgical History Vasectomy 1996 Surgical History teeth removed 06/2016 Hospitalization History CHF. 12/07 Hospitalization History ruptured bowel 2009 Goals Section No Information Health Concerns No Information MEDICAL EQUIPMENT No Information MENTAL STATUS No Information FUNCTIONAL STATUS No Information ASSESSMENTS Encounter Date Diagnosis Assessment Notes Treatment Notes Treatm ent Clinical Notes Dec, COPD (chronic obstructive pulmonary disease) (IC D-10 - J44.9) will bring in next week for O2 sat rest/walking, see if qualifies for O2 Dec, Type 2 diabetes mellitus wit hout complication, without long-term current use of insulin (ICD-10 - E11.9) HgbA1c went 5.9 to 7.9 on Abilifym, which was d/c by MH l;ast week. Will recheck labs in 6 weeks, if not trending back to nl will start metformin Dec, Drug or chemical induced lynn betes mellitus without complications (ICD-10 - E09.9) PLAN OF TREATMENT Treatment Notes Assessment Notes Clinical Notes COPD (chronic obstructive pulmonary disease) will bring in next week for O2 sat rest/walking, see if qualifies for O2 Type 2 diabetes mellitus without complic ation, without long-term current use of insulin HgbA1c went 5.9 to 7.9 on Ab ilifym, which was d/c by MH l;ast week. Will recheck labs in 6 weeks, if not trending back to nl will start metformin Future Test Test Name Order Date Basic Metabolic Profile (BMP) [id number] HEMOGLOBIN A1c [id number] Next Appt Details 1 Week RW, 6 wks JW Reason: Provider Name:Lisa Browning, 1 10:00:00 AM, [id number], [place], [address], Provider Name:Danny Kimbrough, 07-14 02:30:00 PM, [address] [facility], [address], [place], [address], Insurance Providers Payer Name Payer Address Payer Phone Insured Name Patient Relati onship to Insured Coverage Start Date Coverage End Date MEDICARE Part A and B [address] [facility] [id number] [phone] BEBA GODINEZ self [facility] [address] [address] [facility] [id number] BEBA GODINEZ [id number] [facility] [address] [address] [facility] [phone] BEBA GODINEZ self
--- OUTSIDE RECORDS SUMMARY | 2021-01-19 00:23 | CCD ---
Author Author Abhinav Mello MD [facility] Organization Abhinav Mello MD [facility] Address [address] [address] Phone Care Team Providers Care Territory Representative Name Role Phone Deo Dudley PORTILLO Unavailable [phone] Aleyda RUTLEDGE, Matthew PP [phone] Reason for Referral No Reason for Referral Recorded Problems Includes: Active, inactive, and resolved Problems All Visits Onset Date - Time Resolved Date - Time Provider Co ndition Status Cataract Senile Posterior Subcapsular Polar 07/26/2020 - 12:00AM Dudley Desouza DO Active Borderline Glaucoma Open Angle with Borderline Finding s Both Eyes 10/23/2017 - 12:00AM Dudley Desouza DO Active Cataract Senile Nuclear 10/23/2017 - 12:00AM Dudley Monroe [facility] DO Active Diabetes Mellitus Type 2 Without Complication 09/12/2017 - 12:00 AM Dudley Desouza DO Active Corneal Degeneration Arcus Senilis 09/12/2017 - 12:00AM Dudley Desouza DO Active Dry Eye Syndrome 09/12/2017 - 12:00AM Dudley sofia DO Active Vitreous Disorders Degeneration 09/12/2017 - 12:00AM Abisai Desouza DO Active Plan of Treatment Pending Tests Order Diagnosis Results Due Ordering Provi sofia Testing Ordered - Visual Field Visual Field 24-2 Type 2 di abetes mellitus without complications 01/22/21 Dudley Desouza DO Testing Ordered - OCT OCT DISC Type 2 diabetes mellitus w ithout complications 01/22/21 Dudley Desouza DO Future Appointments Date Time Location Provider 6 Month Follow-Up OCT Disc 02/07/2021 12:50PM Abhinav conley MD [facility] Dudley Brunnerkaveh PORTILLO Assessments Includes: Assessments for all patient encounters Findings Encounter Date 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 VISUAL FIE LD 24-2 with Dudley Brunnerkaveh PORTILLO 12/08/2020 Acute atopic conjunctivitis TRIAGE NON URGENT with Dudley verma DO 09/19/2020 Herpes zoster (shingles) TRIAGE NON URGENT with Dudley Wein kaveh DO 09/19/2020 Dry eye syndrome 10 Month Follow-Up with Dudley sofia DO 07/26/2020 Nuclear senile cataract 10 Month Follow-Up with Dudley Kannan linn DO 07/26/2020 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 10 Month F ollow-Up with Dudley Deo DO 07/26/2020 Posterior subcapsular polar senile cataract 10 Month F ollow-Up with Dudley Deo DO 07/26/2020 Type 2 diabetes mellitus without complication 10 Month Follow-Up with Dudley Deo DO 07/26/2020 Dry eye syndrome Insertion of Punctal Plug IN OFFICE-NEED AUTH with Dudley Desouza DO 01/11/2020 Dry eye syndrome Insertion of Punctal Plug IN OFFICE-NEED AUTH with Dudley Deo DO 10/01/2019 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 VISUAL FIE LD 24-2 with Dudley Deo DO 07/02/2019 Dry eye syndrome 6 Month Follow-Up with Dudley Desouza DO 06/09/2019 Nuclear senile cataract 6 Month Follow-Up with Dudley thakkar DO 06/09/2019 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 6 Month Fo llow-Up with Dudley Desouza DO 06/09/2019 Type 2 diabetes mellitus without complication 6 Month Follow-Up with Dudley Desouza DO 06/09/2019 Nuclear senile cataract 7 Month Follow-Up and Testing with Abisai Desouza DO 11/28/2018 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 7 Month Fo llow-Up and Testing with Dudley Desouza DO 11/28/2018 Type 2 diabetes mellitus without complication 7 Month Follow-Up and Testing with Dudley Desouza DO 11/28/2018 Dry eye syndrome 6 Month Follow-Up with Dudley Desouza DO 04/30/2018 Nuclear senile cataract 6 Month Follow-Up with Dudley thakkar DO 04/30/2018 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 6 Month Fo llow-Up with Dudley Desouza DO 04/30/2018 Type 2 diabetes mellitus without complication 6 Month Follow-Up with Dudley Desouza DO 04/30/2018 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 VISUAL FIE LD 24-2 with Dudley Desouza DO 02/03/2018 Dry eye syndrome Cataract Evaluation with Dudley Alvaresadele in DO 10/23/2017 Nuclear senile cataract Cataract Evaluation with Dudley Pagan rodney DO 10/23/2017 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 Cataract E valuation with Dudley Desouza DO 10/23/2017 Vitreous degeneration Cataract Evaluation with Dudley Borja bijan DO 10/23/2017 Arcus senilis was observed NEW PATIENT with Dudley Figueroa n DO 09/12/2017 Dry eye syndrome NEW PATIENT with Dudley Desouza DO 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 NEW PATIEN T with Dudley Desouza DO 09/12/2017 Type 2 diabetes mellitus without complication NEW KATELYNN ENT with Dudley Desouza DO 09/12/2017 Vitreous degeneration NEW PATIENT with Dudley Desouza DO 09/12/2017 Instructions Instructions not supported for this document typeNo Instructions Recorded Medical Equipment - Implanted Devices Includes: Current and historical DevicesNo Medical Equipment Recorded Medications Includes: Current and historical Medications Current Medications (continue as prescribed) Depakote 500MG Oral Tablet Delayed Release 09/12/2017 Provider: Diagnosis: Past Medications on file Wellbutrin SR 150MG Oral Tablet Extended Release 12 Ho ur 09/12/2017 - 01/11/2020 Provider: Diagnosis: Pilocarpine HCl 1% Ophthalmic Solution 09/12/2017 - 12/11/19 18 Provider: Dudley Desouza DO Diagnosis: use one drop once a day in both eyes in the evening Medications Administered Includes: Administered Medications in patient's chartNo Administered Medications Recorded Vital Signs Includes: Vital Signs from 01/10/2020 through 01/10/2021No Vital Signs Recorded For Specified Dates Results Includes: Results from 01/10/2020 through 01/10/2021No Results Recorded For Specified Dates History of Present Illness History of Present Illness not supported for this document typeNo History of Present Illness Recorded Social History Description Last Updated No consumption of alcohol 07/26/2020 No tobacco use 07/26/2020 Not using drugs 07/26/2020 Previous smoking history 07/26/2020 Smoking status : Former smoker 07/26/2020 Procedures and Surgical History Includes: Procedures from 01/10/2020 through 01/10/2021 Procedures Code Diagnosis Performing Provider Service Location Service Date Visual Field (WAIVER OF LIABILITY ON FILE (ABN)) 33434 Open angle with borderline findings, low risk, bilateral Dudley Cox MD [facility] 12/08/2020 Intermediate Eye Exam Established Patient [id number] Zoster without complications, Acute atopic conjunctivitis, bilateral Dudley Olivier MD [facility] 09/19/2020 Intermediate Eye Exam Established Patient 19334 Type 2 diabetes mellitus without complications, Open angle with borderline findings, low risk, bilateral, Age- related nuclear cataract, bilateral, Dry eye syndrome of bilateral lacrimal glands Dudley Baker MD [facility] 07/26/2020 Insertion of Punctum Plug (Bilateral Procedure) 90831 Dry eye syndrome of bilateral lacrimal glands Dudley Baker MD [facility] 01/11/2020 Surgical History Last Updated No surgical / procedural history 07/26/2020 Medical History Includes: Medical History in patient's chart Description Last Updated History of arthritis 07/26/2020 History of the retina was normal 06/09/2019 07/26/2020 Reported medical history Spinal Stenosis, Anxiety, De pression, Low T 07/26/2020 History of diabetes mellitus Type 2 Dx: 2008 A1C: unknown with Dr. Maynard in January FBS: does not check 07/26/2020 Currently wearing eyeglasses 07/26/2020 No recent change in medical history 07/26/2020 Family History Includes: Family History in patient's chart Description Last Updated Maternal history of arthritis 07/26/2020 Maternal history of family history of cancer 0 Maternal history of thyroid disorder 07/26/2020 Paternal history of arthritis 07/26/2020 Paternal history of family history of cancer 0 Review of Systems Review of Systems not supported for this document typeNo Review of Systems Recorded Mental Status Mental Status not supported for this document typeNo Mental Status Recorded Functional Status Functional Status not supported for this document typeNo Functional Status Recorded Physical Exam Physical Exam not supported for this document typeNo Physical Exam Recorded Immunizations Includes: Immunizations in patient's chartNo Immunizations Recorded Allergies Includes: Active, inactive, and resolved AllergiesNo Known Allergies Encounters Includes: Encounters from 01/10/2020 through 01/10/2021 Encounter Provider Location Date Check-In Time Check-Out Time D iagnosis VISUAL FIELD 24-2 Dudley Baker MD [facility] 8:49AM 9:05AM Borderline Glaucoma Open Ang le with Borderline Findings Both Eyes TRIAGE NON URGENT Dudley Baker MD [facility] 07/26/2020 8:30AM 9:39AM Herpes Zoster (Shingles), Co njunctivitis Acute Atopic 10 Month Follow-Up Dudley Baker MD [facility] 12:12PM 1:16PM Cataract Senile Nuclear, Dry Eye Syndrome, Borderline 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, Diabetes Mellitus Type 2 Without Complication, Cataract Senile Posterior Subcapsular Polar Insertion of Punctal Plug IN OFFICE-NEED AUTH Dudley Baker MD [facility] 01/11/2020 12:27PM 12:54PM Dry Eye Syndr ome Insurance Includes: Active Insurance Policies Plan Name Member ID Group # Subscriber Relationship Effective Da rohan 1 - Medicare Part B [facility] ([facility]) [id number] Terrence meyersman Self 2 - [employer] /PRIOR AUTHS NEEDED [id number] Clarke meadows Godinez Self 3 - [employer] /PRIOR AUTHS NEEDED [id number] Omid Pena Advance Directives Includes: Current Advance DirectivesNo Advance Directives Recorded Health Concerns Includes: Active Health ConcernsNo Active Health Concerns Recorded Goals Includes: Active GoalsNo Active Goals Recorded Interventions Includes: Interventions for active GoalsNo Interventions Recorded Evaluations & Outcomes Includes: Evaluations & Outcomes for active GoalsNo Outcomes Recorded
--- OUTSIDE RECORDS SUMMARY | 2021-01-19 00:23 | CCD | Continuity of Care Document ---
Author Author Terrence GARZA DPM Organization Unknown Address [address] [place] [address], [facility] [address] [place] [address] Phone [phone] Care Team Providers Care Biodiesel Plant Manager Name Role Phone Rosa M Leahy [phone] Problems Active Problems Provider Date Tenosynovitis Foot & Ankle Micah Garza DPM Onset: 08/01 Onychomycosis Micah Garza DPM Onset: 03/30/2014 Social History Type Date Description Comments Sex Unknown ETOH Use Has consumed alcohol in the past Tobacco Use Start: Unknown End: Unknown Patient is a former smoker Allergies, Adverse Reactions, Alerts Active Allergies Reaction Severity Comments Date Codeine upset stomach 08/01/2012 Pseudoephedrine heart palputations 2011 Sulfa 12/16/2020 Naproxen 12/16/2020 Clindamycin 12/16/2020 Regadenoson 12/16/2020 Gabapentin Doesn't work 12/16/2020 Benztropine 12/16/2020 Medications Active Medications SIG Qnty Indications Ordering Provide r Date Anoro Ellipta 62.5-25mcg/Inh Aeros ol Inhale 1 puff By Mouth Once A Day Unknown Furosemide 20mg Tablets Take One Tablet By Mouth Daily as Needed Unknown Risperidone 2mg Tablets Take One Tablet By Mouth AT Bedtime Unknown Myrbetriq 50mg Tablets ER 24HR Take One Tablet By Mouth Once A Day Unknown Depakote Unknown Allopurinol Unknown Simvastatin Unknown Nexium Unknown Xifaxan Unknown Risperdal Unknown Folic Acid Unknown Vitamin D Unknown Proscar Unknown Immunizations Description No Information Available Vital Signs Date Vital Result Comment 12/16/2020 2:42pm Height 69 inches 5'9" Weight 295.00 lb BP Systolic 114 mmHg BP Diastolic 80 mmHg Heart Rate 113 /min BMI (Body Mass Index) 43.6 kg/m2 08/01/2012 8:32am Height 69 inches 5'9" Weight 240.00 lb BMI (Body Mass Index) 35.4 kg/m2 Results Description No Information Available Procedures Description No Information Available Medical Devices Description No Information Available Encounters Description No Information Available Assessments Description No Information Available Plan of Treatment Future Appointment(s):* 02/24/2021 2:00 pm - Beto Garza DPM at [facility] Functional Status Description No Information Available Mental Status Description No Information Available Referrals Description No Information Available
--- OUTSIDE RECORDS SUMMARY | 2021-01-19 00:23 | CCD ---
Author Author [facility] Organization [facility] Address Unknown Phone Unavailable Care Team Providers Care Stock Transfer Clerk Name Role Phone Matthew Maynard Unavailable PROBLEMS Type Condition ICD9-CM Code ACE22-AV Code Onset Dates Condition S tatus SNOMED Code Notes Problem Chronic diastolic heart failure I50.32 Active 567894244 Problem Bipolar disorder F31.9 Active 73153395 Problem Pulmonary nodule R91.1 Active 770516928 Problem Gout M10.9 Active 07197342 Problem Hyperlipidemia E78.5 Active 50876799 Problem Folate deficiency anemia D52.9 Active 9739515 0 Problem Hepatic dysfunction K76.9 Active 046903827 Problem 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 Active 026138 01 Problem Vitamin D deficiency E55.9 Active 91094151 Problem 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 Active 01426554 Problem Depression F32.9 Active 38604453 Problem Impaired fasting glucose R73.01 Active 2008338 07 Problem Tobacco use Z72.0 Active 979213081 quit /15 Problem Lumbar spinal stenosis M48.06 Active 88525581 Problem Right leg pain M79.604 Active 246891065 Problem Chronic pain G89.29 Active 08013562 Problem B12 deficiency E53.8 Active 315681854 Problem Sleep disorder, unspecified G47.9 Active 3989 8005 Problem Adverse reaction to antidepressant drug T43.205A Active 805811912 Problem COPD (chronic obstructive pulmonary disease) J44.9 Active 12177862 Problem Fatigue due to sleep pattern disturbance R53.83 Active 85806901 Problem GERD (gastroesophageal reflux disease) K21.9 A ctive 071419106 Problem Hypertensive heart disease without heart failure I 11.9 Active 31279509 Problem Back pain M54.9 Active 067494796 Problem Cirrhosis, alcoholic K70.30 Active 115416959 Problem Obesity E66.9 Active 616199012 Problem COPD with exacerbation J44.1 Active 109994406 Problem Benign prostatic hyperplasia without lower urina ry tract symptoms N40.0 Active 505698363 Problem Disc disease, degenerative, cervical M50.30 Act giacomo 71647801 Problem RUBIO (obstructive sleep apnea) G47.33 Active 78 272125 Problem Purpura D69.2 Active 197643041 traumatic purp ura left arm Problem 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 Active 4 04845862 Problem History of alcoholism F10.21 Active 703439036 Problem Chronic bilateral low back pain without sciatica M 54.5 Active 939383902 Problem Lower urinary tract symptoms due to benign prost atic hyperplasia N40.1 Active 286726171 Problem Hepatic encephalopathy K72.90 Active 28638076 Problem Chronic obstructive pulmonary disease, unspecified COPD ty pe J44.9 Active 55131834 Problem Plantar wart B07.0 Active 95345765 ALLERGIES Allergen (clinical drug ingredient) Drug/Non Drug Allergy do cumented on EMR Reaction Allergy Type Onset Date Status benztropine agitation, confusion Non Drug Allergy Active pseudoephedrine Pseudoephedrine HCl([facility] Code:[address]-97) Hear t beats fast Drug Allergy Active regadenoson SOB/COPD exac (see 10/24/16 note) Non Drug Al lergy Active clindamycin Clindamycin HCl([facility] Code:[address]-12) itching swelling, facial edema Drug Allergy Active gabapentin "didn't work" Non Drug Allergy Activ e naproxen Naproxen([facility] Code:[address]-54) depression Drug Allergy Active Amoxicillin-Pot Clavulanate itching, swelling Drug Allergy Active ENCOUNTERS from 1955 to 2020-12-21 Encounter Location Date Provider Diagnosis [facility] [address] [place] [address] Nov, Sergio Maynard IMMUNIZATIONS Vaccine Route Administration Date Status Influenza (18 yrs & older) Flublok IM Intramuscular Oct 14, 2020 Administered Pneumococcal Adult 0.5mL (Pneumovax 23) IM Intramuscular Oct 03, 2015 Administered Influenza (18 yrs & older) Flublok IM Intramuscular Sep 17, 2018 Administered Influenza (18 yrs & older) Flublok IM Intramuscular Oct 13, 2019 Administered Influenza (6mo & up) Fluzone IM Intramuscular Oct 08, 2012 Ad ministered Pneumococcal 0.5mL (Prevnar 13) IM Intramuscular March 24, 2014 Administered Influenza (6mo & up) Fluzone IM Intramuscular Oct 01, 2017 Ad ministered Influenza (6mo & up) Fluzone IM Intramuscular Sep 25, 2016 Ad ministered Influenza (6mo & up) Fluzone Unknown Jan 05, 2016 Ref used Influenza (6mo & up) Fluzone IM Intramuscular Oct 03, 2015 Ad ministered Influenza (6mo & up) Fluzone Unknown Jan 19, 2015 Ref used Influenza (6mo & up) Fluzone IM Intramuscular Sep 10, 2014 Ad ministered Influenza (6mo & up) Fluzone IM Intramuscular Sep 10, 2013 Ad ministered SOCIAL HISTORY Tobacco Use: Social History Observation Description Date Details (start date - stop date) Former Smoker Sex Assigned At : Social History Observation Description Sex Assigned At Unknown Audit Question Answer Notes Total Score: 0 Interpretation: Alcohol Education Language: Question Answer Notes Languages spoken: Mohawk Sexual Hx: Question Answer Notes Had sex in the last 12 months (vaginal, oral, or anal)? No Have you ever had an STD? No Drug and Alcohol Question Answer Notes Total Score: 0 Interpretation: No problems reported BMI Care Goal Follow-Up Question Answer Notes [...] Notes Start Da te End Date Status Valtrex 500 MG 1 tablet Orally bid for 5 day(s) Sep, Not-Taking ProAir HFA 108 (90 Base) mcg/act 2 puffs as needed Inhalation qid prn Active Folic Acid 1 MG 1 tablet Orally once a day for 90 day(s) Active Gabapentin 300 MG 1 capsule Orally bid for 14 day(s) 2019 Not-Taking Anoro Ellipta 62.5-25 MCG/INH 1 puff Inhalation Once a day Active Finasteride 5 MG TAKE ONE TABLET BY MOUTH ONCE A DAY Oral for 90 Active Combivent Respimat 20-100 MCG/ACT INHALE ONE PUFF BY M OUTH THREE TIMES A DAY Inhalation Active Simvastatin 20 MG 1 tablet in the evening Oral ly Once a day in the evening for 90 days Active Furosemide 20 MG 1 tablet Orally Once a day as needed Not-Taking PredniSONE 20 MG 2 tablets Orally Once a day for 5 day(s) Aug, Not-Taking Aripiprazole 5 MG TAKE ONE TABLET BY MOUTH AT BEDTIME Oral for 90 Active Multivitamins 1 capsule Orally once a day Active Depakote ER 500 MG 1 tab in the morning 2 tabs at night Orally bid Active Myrbetriq 50 MG TAKE ONE TABLET BY MOUTH ONCE A DAY Oral for 90 Active Probiotic - 1 capsule Orally Twice a day Dec, Not-Taking Nexium 40 MG 1 capsule Orally Once a day for 90 days Active Allopurinol 100 mg 1 tablet Orally Once a day for 90 day(s) Active Risperidone 4 MG TAKE ONE TABLET BY MOUTH AT BEDTIME Oral for 90 Active Vitamin D 1000 UNIT 1 tablet Orally Once a day for 90 days Active Tamsulosin HCl 0.4 MG TAKE ONE CAPSULE BY MOUTH 30 MINUTES AFTER THE SAME MEAL EACH DAY ONCE A DAY Oral for 90 Active Divalproex Sodium ER 500 MG TAKE ONE TABLET BY MOUTH E VERY MORNING AND TWO TABLETS AT BEDTIME Oral for 90 A ctive Ipratropium-Albuterol 20-100 MCG/ACT 1 puff Inhalation tid Active Valacyclovir HCl 1 GM 1 tablet Orally three times daily for 7 da y(s) Aug, Not-Taking Metamucil Not-Taking PredniSONE 20 MG 1 tablet Orally bid for 5 day(s) Sep, Not-Taking Terbinafine HCl 1 % 1 application Externally bid for 7 day(s) Oct, Not-Taking Gabapentin 300 MG 1 capsule Orally bid for 90 days Apr, Not-Taking Walker - Heavy duty (current weight i s 309), rolling walker with the feet DX:J44.9,M54.9,I50.32 DX:J44.9,M54.9,I50.32 for 90 day(s) March Active Shower Chair without wheels as directed DX : M48.06, J 44.9 Daily Use for 30 days Jan, Active Xifaxan 550 MG 1 tablet Orally Twice a day for 90 days Active May Have - as directed four wheeled wal fidelia with seat as directed J44.9, M54.9 for 99 days Sep, Active PROCEDURES No Information RESULTS No Results REASON FOR VISIT phone visit MEDICAL (GENERAL) HISTORY Type Description Date Medical History COPD- Pulmonary [facility] 04/09 FEV1 1.83, ratio 56% Medical History diverticulosis/h/o diverticulitis Medical History tobacco abuse/Quit 12/09 Medical History alcohol abuse Medical History Dysthymic disorder- Dr Garcia [facility] Medical History Esophageal reflux Medical History metabolic syndrome/IFG- [id number]/15 Medical History left helix actinic keratosis Medical History Pulmonary Nodule- Following with [facility] Pulm Dr Beltran 08/09 CT, 03/11, 03/12, 06/12-- no sig findings Medical History hyperlipidemia Medical History Congestive heart failure/HHD PET stress study [facility] 06/06 no ischemia- [facility] 07/09; PET NST at [facility] 10/10: EF 74%, no perfusion abnl Medical History Liver/Spleen Scan, done at 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 12/07 Hospitalization History ruptured bowel 2009 Goals Section No Information Health Concerns No Information MEDICAL EQUIPMENT No Information MENTAL STATUS No Information FUNCTIONAL STATUS No Information ASSESSMENTS No Information PLAN OF TREATMENT Medication Medication Name Sig Start Date Stop Date ProAir HFA 108 (90 Base) mcg/act 2 puffs as needed Inhalation qi d prn Ipratropium-Albuterol 20-100 MCG/ACT 1 puff Inhalation tid Anoro Ellipta 62.5-25 MCG/INH 1 puff Inhalation Once a day Combivent Respimat 20-100 MCG/ACT INHALE ONE PUFF BY M OUTH THREE TIMES A DAY Inhalation Next Appt Details Provider Name:Matthew Maynard, 2020-12 08:30:00 AM, [address], [place], [address], Provider Name:Lisa Browning, 1 10:00:00 AM, [address] [facility], [place], [address], Provider Name:Danny Kimbrough, 07-14 02:30:00 PM, [address] [facility], [address] Floor, [place], [address], Insurance Providers Payer Name Payer Address Payer Phone Insured Name Patient Relati onship to Insured Coverage Start Date Coverage End Date MEDICARE Part A and B [address] [facility] [id number] BEBA GODINEZ self [employer]MR [facility] [address] [id number] [facility] [id number] BEBA GODINEZ self [facility] [address] [address] [facility] [place] [id number] BEBA GODINEZ [id number]
--- OUTSIDE RECORDS SUMMARY | 2021-01-19 00:23 | CCD ---
Author Author [facility] Organization [facility] Address Unknown Phone Unavailable Care Team Providers Care Roll Press Operator Name Role Phone Lisa Browning Unavailable PROBLEMS Type Condition ICD9-CM Code [id number] Code Onset Dates Condition S tatus SNOMED Code Notes Problem Chronic diastolic heart failure I50.32 Active 908264491 Problem Bipolar disorder F31.9 Active 83084019 Problem Pulmonary nodule R91.1 Active 149252366 Problem Gout M10.9 Active 62465221 Problem Hyperlipidemia E78.5 Active 87400166 Problem Folate deficiency anemia D52.9 Active 5930323 0 Problem Hepatic dysfunction K76.9 Active 466714801 Problem 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 Active 137121 01 Problem Vitamin D deficiency E55.9 Active 14091885 Problem 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 Active 96620433 Problem Depression F32.9 Active 53888310 Problem Impaired fasting glucose R73.01 Active 2659347 07 Problem Tobacco use Z72.0 Active 701945745 quit 1/15 Problem Lumbar spinal stenosis M48.06 Active 05662865 Problem Right leg pain M79.604 Active 289304373 Problem Chronic pain G89.29 Active 59809094 Problem B12 deficiency E53.8 Active 319658547 Problem Sleep disorder, unspecified G47.9 Active 3989 8005 Problem Adverse reaction to antidepressant drug T43.205A Active 775196550 Problem COPD (chronic obstructive pulmonary disease) J44.9 Active 80755311 Problem Fatigue due to sleep pattern disturbance R53.83 Active 67664632 Problem GERD (gastroesophageal reflux disease) K21.9 A ctive 969057118 Problem Hypertensive heart disease without heart failure I 11.9 Active 31973483 Problem Back pain M54.9 Active 191054546 Problem Cirrhosis, alcoholic K70.30 Active 717620914 Problem Obesity E66.9 Active 862005748 Problem COPD with exacerbation J44.1 Active 569135816 Problem Benign prostatic hyperplasia without lower urina ry tract symptoms N40.0 Active 636929618 Problem Disc disease, degenerative, cervical M50.30 Act giacomo 61442942 Problem RUBIO (obstructive sleep apnea) G47.33 Active 78 120374 Problem Purpura D69.2 Active 366597625 traumatic purp ura left arm Problem 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 Active 4 21784495 Problem History of alcoholism F10.21 Active 652383999 Problem Chronic bilateral low back pain without sciatica M 54.5 Active 545990742 Problem Lower urinary tract symptoms due to benign prost atic hyperplasia N40.1 Active 881234237 Problem Hepatic encephalopathy K72.90 Active 76742370 Problem Chronic obstructive pulmonary disease, unspecified COPD ty pe J44.9 Active 83157460 Problem Plantar wart B07.0 Active 10462303 ALLERGIES Allergen (clinical drug ingredient) Drug/Non Drug Allergy do cumented on EMR Reaction Allergy Type Onset Date Status benztropine agitation, confusion Non Drug Allergy Active pseudoephedrine Pseudoephedrine HCl([facility] Code:[address]-52) Hear t beats fast Drug Allergy Active regadenoson SOB/COPD exac (see 10/24/16 note) Non Drug Al lergy Active clindamycin Clindamycin HCl(ND Code:[address]-64) itching swelling, facial edema Drug Allergy Active gabapentin "didn't work" Non Drug Allergy Activ e naproxen Naproxen(ND Code:[address]-82) depression Drug Allergy Active Amoxicillin-Pot Clavulanate itching, swelling Drug Allergy Active ENCOUNTERS from 1953 to 2020-12-02 Encounter Location Date Provider Diagnosis [facility] [address] [place] [address] Oct Lisa Recore Lower urinary tract symptoms due to sarthak gn prostatic hyperplasia N40.1 ; Frequency of micturition R35.0 ; Nocturia R35.1 and Prostate cancer screening Z12.5 IMMUNIZATIONS Vaccine Route Administration Date Status Influenza [...] Education Language: Question Answer Notes Languages spoken: Korean Sexual Hx: Question Answer Notes Had sex [...] REASON FOR REFERRAL No Information VITAL SIGNS Weight 279 lbs Oct, Height 69 in Oct, BMI 41.20 kg/m2 Oct, Heart Rate 79 /min Oct, Respiratory Rate 18 /min Oct, Temperature 97.4 degrees Fahrenheit Oct, Oximetry 96% Oct, Blood pressure systolic 138 mm Hg Oct, Blood pressure diastolic 80 mm Hg Oct, MEDICATIONS Medication SIG (Take, Route, Frequency, Duration) [...] days Sep, Active PROCEDURES No Information RESULTS Component Value Reference Range PSA SCREENING Reviewed date:10/28/2019 14:14:49 Interpretation: Performing Lab:[facility], [facility] [address] [id number] , ,[id number] PSA SCREENING 0.12 < 4.00 REASON FOR VISIT LUTS, BPH MEDICAL (GENERAL) HISTORY Type Description Date Medical History COPD- Pulmonary [facility] 04/09 FEV1 1.83, ratio 56% Medical History diverticulosis/h/o diverticulitis Medical History tobacco abuse/Quit 12/09 Medical History alcohol abuse Medical History Dysthymic disorder- Dr Garcia [facility] Medical History Esophageal reflux Medical History metabolic syndrome/IFG- Dpkfbvfyi79/15 Medical History left helix actinic keratosis Medical History Pulmonary Nodule- Following with [facility] Pul Dr Beltran 08/09 CT, 03/11, 03/12, 06/12-- no sig findings Medical History hyperlipidemia Medical History Congestive heart failure/HHD PET stress study [facility] 06/06 no ischemia- [facility] 07/09; PET NST at [facility] 10/10: EF 74%, no perfusion abnl Medical History Liver/Spleen Scan, done at [facility], 08/10/2013:" Mild hepatomegaly; mild hepatic dysfunction; the spleen is normal in size."- cirrhosis- We do liver US/AFP q 6 mo,does notneed to follow with GI/Deo any more; liver US 08/10 nl; US 03/11 steatohepatitis, nothing acute; 10/12--no changes, US unchanged 08/13, 02/11, AFP neg 07/2019, 01/14 Medical History lumbar and cervical Spinal S tenosis/Chronic back Pain- [facility], then [facility] (injectios, nerve blocks) Medical [...] as T2DM by pre vious 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 12/07 Hospitalization History ruptured bowel 2008 Goals Section No Information Health Concerns No Information MEDICAL EQUIPMENT No Information MENTAL STATUS No Information FUNCTIONAL STATUS No Information ASSESSMENTS Encounter Date Diagnosis Assessment Notes Treatment Notes Treatm ent Clinical Notes Oct, Lower urinary tract symptoms due to benign prostatic hyperplasia (ICD-10 - N40.1) Oct, Frequency of micturition (ICD-10 - R35.0) Oct, Nocturia (ICD-10 - R35.1) Oct, Prostate cancer screening (ICD-10 - Z12.5) PLAN OF TREATMENT Medication Medication Name Sig Start Date Stop Date ProAir HFA 108 (90 Base) mcg/act 2 puffs as needed Inhalation qi d prn Ipratropium-Albuterol 20-100 MCG/ACT 1 puff Inhalation tid Anoro Ellipta 62.5-25 MCG/INH 1 puff Inhalation Once a day Combivent Respimat 20-100 MCG/ACT INHALE ONE PUFF BY M OUTH THREE TIMES A DAY Inhalation Next Appt Details 6 Months Reason:BPH/LUTS Provider Name:Danny Kimbrough, 12-22 02:00:00 PM, [address], [address], [place], [address], Provider Name:Matthew Maynard, 2020-12 08:30:00 AM, [address], [place], [address], Provider Name:Lisa Browning, 1 10:00:00 AM, [address], [place], [address], Follow Up:6 MonthsBPH/LUTS Insurance Providers Payer Name Payer Address Payer Phone Insured Name Patient Relati onship to Insured Coverage Start Date Coverage End Date MEDICARE Part A and B [address] [facility] [phone] BEBA GODINEZ self UMR [facility] [address] [address] [facility] T [id number] BEBA GODINEZ [id number] UMR [facility] [address] [address] [facility] [address] BEBA GODINEZ self
--- OUTSIDE RECORDS SUMMARY | 2021-01-19 00:24 | CCD ---
Author Author [facility] Organization [facility] Address Unknown Phone Unavailable Care Team Providers Care Director Of Product Management Name Role Phone Matthew Maynard Unavailable PROBLEMS Type Condition ICD9-CM Code [id number] Code Onset Dates Condition S tatus SNOMED Code Notes Problem Chronic diastolic heart failure I50.32 Active 459430036 Problem Bipolar disorder F31.9 Active 21128826 Problem Pulmonary nodule R91.1 Active 479729846 Problem Gout M10.9 Active 94954710 Problem Hyperlipidemia E78.5 Active 72406554 Problem Folate deficiency anemia D52.9 Active 1762110 0 Problem Hepatic dysfunction K76.9 Active 828149756 Problem 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 Active 838689 01 Problem Vitamin D deficiency E55.9 Active 36629898 Problem 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 Active 27613987 Problem Depression F32.9 Active 56538942 Problem Impaired fasting glucose R73.01 Active 1162548 07 Problem Tobacco use Z72.0 Active 322762184 quit /15 Problem Lumbar spinal stenosis M48.06 Active 98845539 Problem Right leg pain M79.604 Active 632778068 Problem Chronic pain G89.29 Active 80078301 Problem B12 deficiency E53.8 Active 541658839 Problem Sleep disorder, unspecified G47.9 Active 3989 8005 Problem Adverse reaction to antidepressant drug T43.205A Active 629964836 Problem COPD (chronic obstructive pulmonary disease) J44.9 Active 12856605 Problem Fatigue due to sleep pattern disturbance R53.83 Active 65989789 Problem GERD (gastroesophageal reflux disease) K21.9 A ctive 575560992 Problem Hypertensive heart disease without heart failure I 11.9 Active 42300815 Problem Back pain M54.9 Active 454198295 Problem Cirrhosis, alcoholic K70.30 Active 203558321 Problem Obesity E66.9 Active 849572179 Problem COPD with exacerbation J44.1 Active 037207324 Problem Benign prostatic hyperplasia without lower urina ry tract symptoms N40.0 Active 903312845 Problem Disc disease, degenerative, cervical M50.30 Act giacomo 84744017 Problem RUBIO (obstructive sleep apnea) G47.33 Active 78 312459 Problem Purpura D69.2 Active 698863607 traumatic purp ura left arm Problem 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 Active 4 01838455 Problem History of alcoholism F10.21 Active 882908625 Problem Chronic bilateral low back pain without sciatica M 54.5 Active 696026457 Problem Lower urinary tract symptoms due to benign prost atic hyperplasia N40.1 Active 044185822 Problem Hepatic encephalopathy K72.90 Active 67526841 Problem Chronic obstructive pulmonary disease, unspecified COPD ty pe J44.9 Active 34607559 Problem Plantar wart B07.0 Active 52278392 ALLERGIES Allergen (clinical drug ingredient) Drug/Non Drug Allergy do cumented on EMR Reaction Allergy Type Onset Date Status benztropine agitation, confusion Non Drug Allergy Active pseudoephedrine Pseudoephedrine HCl([facility] Code:[address]-01) Hear t beats fast Drug Allergy Active regadenoson SOB/COPD exac (see 10/24/16 note) Non Drug Al lergy Active clindamycin Clindamycin HCl(ND Code:[address]-02) itching swelling, facial edema Drug Allergy Active gabapentin "didn't work" Non Drug Allergy Activ e naproxen Naproxen(ND Code:[address]-24) depression Drug Allergy Active Amoxicillin-Pot Clavulanate itching, swelling Drug Allergy Active ENCOUNTERS from 1953 to 2020-11-15 Encounter Location Date Provider Diagnosis [facility] [address] [place] [address] Sep, Sergio Maynard Encounter for screening for lung cancer Z12.2 IMMUNIZATIONS Vaccine Route Administration Date Status Influenza (18 yrs & older) Flublok IM Intramuscular Oct 14, 2020 Administered Influenza (6mo & up) Fluzone IM Intramuscular Oct 01, 2017 Ad ministered Influenza (18 yrs & older) Flublok IM Intramuscular Sep 17, 2018 Administered Influenza (18 yrs & older) Flublok IM Intramuscular Oct 13, 2019 Administered Influenza (6mo & up) Fluzone IM Intramuscular Oct 08, 2012 Ad ministered Influenza (6mo & up) Fluzone IM Intramuscular Sep 25, 2016 Ad ministered Pneumococcal Adult 0.5mL (Pneumovax 23) IM Intramuscular Oct 03, 2015 Administered Influenza (6mo & up) Fluzone IM Intramuscular Oct 03, 2015 Ad ministered Influenza (6mo & up) Fluzone Unknown Jan 05, 2016 Ref used Pneumococcal 0.5mL (Prevnar 13) IM Intramuscular March 24, 2014 Administered Influenza (6mo & up) Fluzone Unknown Jan [...] Education Language: Question Answer Notes Languages spoken: Danish Sexual Hx: Question Answer Notes Had sex [...] Notes Start Da te End Date Status Nexium 40 MG 1 capsule Orally Once a day for 90 days Active Furosemide 20 MG 1 tablet Orally Once a day as needed Not-Taking Vitamin D 1000 UNIT 1 tablet Orally Once a day for 90 days Active Walker - Heavy duty (current weight i s 309), rolling walker with the feet DX:J44.9,M54.9,I50.32 DX:J44.9,M54.9,I50.32 for 90 day(s) March Active Flomax 0.4 MG 1 capsule 30 minutes after t he same meal each day Orally Once a day for 90 day(s) Active Ipratropium-Albuterol 20-100 MCG/ACT 1 puff Inhalation tid for 9 0 day(s) Oct, Active Proscar 5 mg 1 tablet Orally Once a day for 90 day(s) Active Gabapentin 300 MG 1 capsule Orally bid for 14 day(s) 2019 Not-Taking Folic Acid 1 MG 1 tablet Orally once a day for 90 day(s) Active Xifaxan 550 MG 1 tablet Orally Twice a day for 90 days Active Valtrex 500 MG 1 tablet Orally bid for 5 day(s) Sep, Not-Taking Multivitamins 1 capsule Orally once a day Active Probiotic - 1 capsule Orally Twice a day Dec, Not-Taking PredniSONE 20 MG 2 tablets Orally Once a day for 5 day(s) Aug, Not-Taking May Have - as directed four wheeled wal ker with seat as directed J44.9, M54.9 for 99 days Sep, Active Myrbetriq 50 MG 1 tablet Orally Once a day for 90 day(s) 0 Oct, Active Depakote ER 500 MG 1 tab in the morning 2 tabs at night Orally bid Active Terbinafine HCl 1 % 1 application Externally bid for 7 day(s) Oct, Not-Taking PredniSONE 20 MG 1 tablet Orally bid for 5 day(s) Sep, Not-Taking Anoro Ellipta 62.5-25 MCG/INH 1 puff Inhalation Once a day Active Shower Chair without wheels as directed DX : M48.06, J 44.9 Daily Use for 30 days Jan, Active ProAir HFA 108 (90 Base) mcg/act 2 puffs as needed Inh alation qid prn for 90 day(s) Active Risperdal 4 MG 1 tablet Orally Once a day Aug, Active Valacyclovir HCl 1 GM 1 tablet Orally three times daily for 7 da y(s) Aug, Not-Taking Simvastatin 20 MG 1 tablet in the evening Oral ly Once a day in the evening for 90 days Active Gabapentin 300 MG 1 capsule Orally bid for 90 days Apr, Not-Taking Metamucil Not-Taking Allopurinol 100 mg 1 tablet Orally Once a day for 90 day(s) Active PROCEDURES No Information RESULTS No Results REASON FOR VISIT low dose lung screen MEDICAL (GENERAL) HISTORY Type Description Date Medical History COPD- Pulmonary [facility] 04/09 FEV1 1.83, ratio 56% Medical History diverticulosis/h/o diverticulitis Medical History tobacco abuse/Quit 12/09 Medical History alcohol abuse Medical History Dysthymic disorder- Dr Garcia [facility] Medical History Esophageal reflux Medical History metabolic syndrome/IFG- Acaxiskzj08/15 Medical History left helix actinic keratosis Medical History Pulmonary Nodule- Following with [facility] Pulm Dr Beltran 08/09 CT, 03/11, 03/12, 06/12-- no sig findings Medical History hyperlipidemia Medical History Congestive heart failure/HHD PET stress study [facility] 06/06 no ischemia- [facility] 07/09; PET NST at 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 12/07 Hospitalization History ruptured bowel 2009 Goals Section No Information Health Concerns No Information MEDICAL EQUIPMENT No Information MENTAL STATUS No Information FUNCTIONAL STATUS No Information ASSESSMENTS Encounter Date Diagnosis Assessment Notes Treatment Notes Treatm ent Clinical Notes Sep, Encounter for screening for lung cancer (ICD-10 - Z12.2) PLAN OF TREATMENT Medication Medication Name Sig Start Date Stop Date Ipratropium-Albuterol 20-100 MCG/ACT 1 puff Inhalation tid f or 90 day(s) Oct, Anoro Ellipta 62.5-25 MCG/INH 1 puff Inhalation Once a day Treatment Notes Test Name Order Date Low Dose Lung Screening CT Chest 2020-11-15 Next Appt Details Provider Name:Danny Kimbrough, 12-22 02:00:00 PM, [address] [facility], [address], [place], [address], Provider Name:Matthew Maynard, 2020-12 08:30:00 AM, [address], [place], [address], Provider Name:Lisa Browning, 1 10:00:00 AM, [address], [place], [address], Insurance Providers Payer Name Payer Address Payer Phone Insured Name Patient Relati onship to Insured Coverage Start Date Coverage End Date MEDICARE Part A and B [address] [facility] [phone] BEBA GODINEZ [facility] [address] [address] [place] [address] BEBA GODINEZ [id number] [employer] [address] [address] [facility] [phone] BEBA GODINEZ
--- OUTSIDE RECORDS SUMMARY | 2021-01-19 00:24 | CCD ---
Author Author [facility] Organization [facility] Address Unknown Phone Unavailable Care Team Providers Care Rubber Covering Machine Operator Name Role Phone Matthew Maynard Unavailable PROBLEMS Type Condition ICD9-CM Code LPS10-CK Code Onset Dates Condition S tatus SNOMED Code Notes Problem Chronic diastolic heart failure I50.32 Active 299860390 Problem Bipolar disorder F31.9 Active 33401201 Problem Pulmonary nodule R91.1 Active 167282587 Problem Gout M10.9 Active 51640824 Problem Hyperlipidemia E78.5 Active 01739195 Problem Folate deficiency anemia D52.9 Active 8695569 0 Problem Hepatic dysfunction K76.9 Active 648813901 Problem 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 Active 536905 01 Problem Vitamin D deficiency E55.9 Active 14810260 Problem 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 Active 53651663 Problem Depression F32.9 Active 45405401 Problem Impaired fasting glucose R73.01 Active 4877983 07 Problem Tobacco use Z72.0 Active 587799434 quit /15 Problem Lumbar spinal stenosis M48.06 Active 69073757 Problem Right leg pain M79.604 Active 858985008 Problem Chronic pain G89.29 Active 96626930 Problem B12 deficiency E53.8 Active 756015392 Problem Sleep disorder, unspecified G47.9 Active 3989 8005 Problem Adverse reaction to antidepressant drug T43.205A Active 706359240 Problem COPD (chronic obstructive pulmonary disease) J44.9 Active 84804794 Problem Fatigue due to sleep pattern disturbance R53.83 Active 04633453 Problem GERD (gastroesophageal reflux disease) K21.9 A ctive 158424591 Problem Hypertensive heart disease without heart failure I 11.9 Active 83724828 Problem Back pain M54.9 Active 007874525 Problem Cirrhosis, alcoholic K70.30 Active 315145651 Problem Obesity E66.9 Active 871928655 Problem COPD with exacerbation J44.1 Active 666165078 Problem Benign prostatic hyperplasia without lower urina ry tract symptoms N40.0 Active 092824208 Problem Disc disease, degenerative, cervical M50.30 Act giacomo 42665263 Problem RUBIO (obstructive sleep apnea) G47.33 Active 78 425961 Problem Purpura D69.2 Active 451649738 traumatic purp ura left arm Problem 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 Active 4 92812067 Problem History of alcoholism F10.21 Active 487381140 Problem Chronic bilateral low back pain without sciatica M 54.5 Active 253118348 Problem Lower urinary tract symptoms due to benign prost atic hyperplasia N40.1 Active 336236780 Problem Hepatic encephalopathy K72.90 Active 31986160 Problem Chronic obstructive pulmonary disease, unspecified COPD ty pe J44.9 Active 84732450 Problem Plantar wart B07.0 Active 53604212 ALLERGIES Allergen (clinical drug ingredient) Drug/Non Drug Allergy do cumented on EMR Reaction Allergy Type Onset Date Status benztropine agitation, confusion Non Drug Allergy Active pseudoephedrine Pseudoephedrine HCl([facility][NOTE 3] Code:[address]-52) Hear t beats fast Drug Allergy Active regadenoson SOB/COPD exac (see 10/24/16 note) Non Drug Al lergy Active clindamycin Clindamycin HCl([facility][NOTE 3] Code:[address]-64) itching swelling, facial edema Drug Allergy Active gabapentin "didn't work" Non Drug Allergy Activ e naproxen Naproxen(ND Code:[address]-65) depression Drug Allergy Active Amoxicillin-Pot Clavulanate itching, swelling Drug Allergy Active ENCOUNTERS from 1953 to 2020-11-10 Encounter Location Date Provider Diagnosis [address] [address] Oct, Matthew Maynard IMMUNIZATIONS Vaccine Route Administration Date Status [...] Education Language: Question Answer Notes Languages spoken: Macedonian Sexual Hx: Question Answer Notes Had sex [...] Information RESULTS No Results REASON FOR VISIT PA Xifaxan 550mg tablets, BID MEDICAL (GENERAL) HISTORY Type Description Date Medical History COPD- Pulmonary [facility] 04/09 FEV1 1.83, ratio 56% Medical History diverticulosis/h/o diverticulitis Medical History tobacco abuse/Quit 12/09 Medical History alcohol abuse Medical History Dysthymic disorder- Dr Garcia [facility] Medical History Esophageal reflux Medical History metabolic syndrome/IFG- Xnffmtmli41/15 Medical History left helix actinic keratosis Medical History Pulmonary Nodule- Following with [facility] Pulm Dr Beltran 08/09 CT, 03/11, 03/12, 06/12-- no sig findings Medical History hyperlipidemia Medical History Congestive heart failure/HHD PET stress study [facility] 06/06 no ischemia- [facility] 07/09; PET NST at [facility] 10/10: EF 74%, no perfusion abnl Medical History Liver/Spleen Scan, done at [facility], 08/10/2013:" Mild hepatomegaly; mild hepatic dysfunction; the spleen is normal in size."- cirrhosis- We do liver US/AFP q 6 mo,does notneed to follow with GI/Deo any more; liver US 08/10 nl; US 03/11 steatohepatitis, nothing acute; 10/12--no changes, US unchanged 08/13, 02/11, AFP neg 07/2019, 01/14 Medical History lumbar and cervical Spinal S tenosis/Chronic back Pain- [facility] Pain Mgmt, then [facility] (injectios, nerve [...] as 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) Medical History tremors/Tarditive Dyskinesia --drug induced (Depakote/Risperdal), [...] MCG/INH 1 puff Inhalation Once a day Next Appt Details Provider Name:Danny Kimbruogh, 12-22 02:00:00 PM, [address] [facility], 1st Floor, [place], [address], Provider Name:Matthew Maynard, 2020-12 08:30:00 AM, [address], [place], [address], Provider Name:Lisa Browning, 1 10:00:00 AM, [address], [place], [address], Insurance Providers Payer Name Payer Address Payer Phone Insured Name Patient Relati onship to Insured Coverage Start Date Coverage End Date [facility] [address] [id number] [facility] [phone] BEBA GODINEZ self [facility] [address] [address] [place] [address] BEBA GODINEZ [id number] MEDICARE Part A and B [address] [facility] [phone] BEBA GODINEZ self
--- OUTSIDE RECORDS SUMMARY | 2021-01-19 00:24 | CCD ---
Author Author [facility] Organization [facility] Address Unknown Phone Unavailable Care Team Providers Care Ski Patrol Name Role Phone Matthew Maynard Unavailable PROBLEMS Type Condition ICD9-CM Code IYH74-KE Code Onset Dates Condition S tatus SNOMED Code Notes Problem Chronic diastolic heart failure I50.32 Active 843259866 Problem Bipolar disorder F31.9 Active 92904190 Problem Pulmonary nodule R91.1 Active 600564793 Problem Gout M10.9 Active 13315846 Problem Hyperlipidemia E78.5 Active 30007399 Problem Folate deficiency anemia D52.9 Active 0262463 0 Problem Hepatic dysfunction K76.9 Active 434944684 Problem 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 Active 934434 01 Problem Vitamin D deficiency E55.9 Active 28179953 Problem 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 Active 81475195 Problem Depression F32.9 Active 95547318 Problem Impaired fasting glucose R73.01 Active 0148963 07 Problem Tobacco use Z72.0 Active 247347679 quit 1/15 Problem Lumbar spinal stenosis M48.06 Active 61834008 Problem Right leg pain M79.604 Active 138076046 Problem Chronic pain G89.29 Active 91435774 Problem B12 deficiency E53.8 Active 031134015 Problem Sleep disorder, unspecified G47.9 Active 3989 8005 Problem Adverse reaction to antidepressant drug T43.205A Active 333435711 Problem COPD (chronic obstructive pulmonary disease) J44.9 Active 88205344 Problem Fatigue due to sleep pattern disturbance R53.83 Active 63987625 Problem GERD (gastroesophageal reflux disease) K21.9 A ctive 729196227 Problem Hypertensive heart disease without heart failure I 11.9 Active 41592982 Problem Back pain M54.9 Active 543775993 Problem Cirrhosis, alcoholic K70.30 Active 868735763 Problem Obesity E66.9 Active 411900357 Problem COPD with exacerbation J44.1 Active 901272229 Problem Benign prostatic hyperplasia without lower urina ry tract symptoms N40.0 Active 873225012 Problem Disc disease, degenerative, cervical M50.30 Act giacomo 51894093 Problem RUBIO (obstructive sleep apnea) G47.33 Active 78 430498 Problem Purpura D69.2 Active 021271375 traumatic purp ura left arm Problem 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 Active 4 09135361 Problem History of alcoholism F10.21 Active 041873745 Problem Chronic bilateral low back pain without sciatica M 54.5 Active 770695475 Problem Lower urinary tract symptoms due to benign prost atic hyperplasia N40.1 Active 125828306 Problem Hepatic encephalopathy K72.90 Active 43829929 Problem Chronic obstructive pulmonary disease, unspecified COPD ty pe J44.9 Active 42686743 Problem Plantar wart B07.0 Active 02721876 ALLERGIES Allergen (clinical drug ingredient) Drug/Non Drug Allergy do cumented on EMR Reaction Allergy Type Onset Date Status benztropine agitation, confusion Non Drug Allergy Active pseudoephedrine Pseudoephedrine HCl([facility] Code:[address]-45) Hear t beats fast Drug Allergy Active regadenoson SOB/COPD exac (see 10/24/16 note) Non Drug Al lergy Active clindamycin Clindamycin HCl(ND Code:[address]-56) itching swelling, facial edema Drug Allergy Active gabapentin "didn't work" Non Drug Allergy Activ e naproxen Naproxen(ND Code:[address]-74) depression Drug Allergy Active Amoxicillin-Pot Clavulanate itching, swelling Drug Allergy Active ENCOUNTERS from 1953 to 2020-11-24 Encounter Location Date Provider Diagnosis [id number] [place] [address] Oct, Sergio Maynard Chronic obstructive pulmonary disease, unspecified COPD type J44.9 ; Folate deficiency anemia D52.9 ; B12 deficiency E53.8 ; Hepatic encephalopathy K72.90 ; Chronic diastolic heart failure I50.32 ; Lower urinary tract symptoms due to benign prostatic hyperplasia N40.1 ; RUBIO (obstructive sleep apnea) G47.33 ; Cirrhosis, alcoholic K70.30 ; Encounter for screening for lung cancer Z12.2 ; Hyperlipidemia E78.5 and Impaired fasting glucose R73.01 IMMUNIZATIONS Vaccine Route Administration Date Status Influenza [...] Education Language: Question Answer Notes Languages spoken: Arabic Sexual Hx: Question Answer Notes Had sex [...] tablet Orally bid for 5 day(s) Sep, 20 Not-Taking ProAir HFA 108 (90 Base) mcg/act [...] Twice a day for 90 days Active March Have - as directed four wheeled wal ker with seat as directed J44.9, M54.9 for 99 days Sep, Active PROCEDURES No Information RESULTS No Results REASON FOR VISIT questions about referrals MEDICAL (GENERAL) HISTORY Type Description Date Medical History COPD- Pulmonary [facility] 04/09 FEV1 1.83, ratio 56% Medical History diverticulosis/h/o diverticulitis Medical History tobacco abuse/Quit 12/09 Medical History alcohol abuse Medical History Dysthymic disorder- Dr Garcia [facility] Medical History Esophageal reflux Medical History metabolic syndrome/IFG- Bnevsldyg92/15 Medical History left helix actinic keratosis Medical History Pulmonary Nodule- Following with [facility] Pul Dr Beltran 08/09 CT, 03/11, 03/12, 06/12-- no sig findings Medical History hyperlipidemia Medical History Congestive heart failure/HHD PET stress study [facility] 06/06 no ischemia- [facility] 07/09; PET NST at [facility] 10/10: EF 74%, no perfusion abnl Medical History Liver/Spleen Scan, done at [facility], 08/10/2013:" Mild hepatomegaly; mild hepatic dysfunction; the spleen is normal in size."- cirrhosis- We do liver US/AFP q 6 mo,does notneed to follow with GI/Deo any more; liver US 08/10 nl; US 03/11 steatohepatitis, nothing acute; 10/12--no changes, US unchanged 08/13, 02/11, AFP neg 07/2019, 01/14 Medical History lumbar and cervical Spinal S tenosis/Chronic back Pain- [facility] Pain Mgmt, then [facility] Spine and Wellness (injectios, nerve blocks) [...] as 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) Medical History tremors/Tarditive Dyskinesia --drug induced (Depakote/Risperdal), [...] Treatment Notes Treatm ent Clinical Notes Oct, Chronic obstructive pulmonar y disease, unspecified COPD type (ICD- 10 - J44.9) Oct, Folate deficiency anemia (ICD-10 - D52.9) Oct, B12 deficiency (ICD-10 - E53.8) Oct, Hepatic encephalopathy (ICD-10 - K72.90) Oct, Chronic diastolic heart failure (ICD-10 - I50.32 ) Oct, Lower urinary tract symptoms due to benign prostatic hyperplasia (ICD-10 - N40.1) Oct, RUBIO (obstructive sleep apnea) (ICD-10 - G47.33) Oct, Cirrhosis, alcoholic (ICD-10 - K70.30) AFP and US done 01/14 and 02/11Oct, Encounter for screening for lung cancer (ICD-10 - Z12.2) has scheduled in Oct, Hyperlipidemia (ICD-10 - E78.5) Oct, Impaired fasting glucose (ICD-10 - R73.01) PLAN OF TREATMENT Medication Medication Name Sig Start Date Stop Date ProAir HFA 108 (90 Base) mcg/act 2 puffs as needed Inhalation qi d prn Ipratropium-Albuterol 20-100 MCG/ACT 1 puff Inhalation tid Anoro Ellipta 62.5-25 MCG/INH 1 puff Inhalation Once a day Combivent Respimat 20-100 MCG/ACT INHALE ONE PUFF BY M AMERICAJesús THREE TIMES A DAY Inhalation Treatment Notes Assessment Notes Clinical Notes Cirrhosis, alcoholic AFP and US done and 02/11 Encounter for screening for lung cancer has scheduled in November Appt Details has 01/15 Reason: Provider Name:Danny Jose F Kaylan, 12-22 02:00:00 PM, [address] [facility], 1st Floor, [place], [address], Provider Name:Matthew Maynard, 2020-12 08:30:00 AM, [address], [place], [address], Provider Name:Lisa Browning, 1 10:00:00 AM, [address], [place], [address], Insurance Providers Payer Name Payer Address Payer Phone Insured Name Patient Relati onship to Insured Coverage Start Date Coverage End Date MEDICARE Part A and B [address] [facility] [phone] BEBA GODINEZ self [facility] SEC [address] [address] [facility] [place] [address] BEBA GODINEZ [id number] [employer] [facility] [address] [address] [facility] [id number] BEBA GODINEZ self
--- OUTSIDE RECORDS SUMMARY | 2021-01-19 00:24 | CCD ---
Author Author [facility] Organization [facility] Address Unknown Phone Unavailable Care Team Providers Care Compliance Vice President Name Role Phone Matthew Maynard Unavailable PROBLEMS Type Condition ICD9-CM Code NTA56-MS Code Onset Dates Condition S tatus SNOMED Code Notes Problem Chronic diastolic heart failure I50.32 Active 949215458 Problem Bipolar disorder F31.9 Active 98481668 Problem Pulmonary nodule R91.1 Active 815347133 Problem Gout M10.9 Active 62856706 Problem Hyperlipidemia E78.5 Active 87816402 Problem Folate deficiency anemia D52.9 Active 4701227 0 Problem Hepatic dysfunction K76.9 Active 942666131 Problem 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 Active 958152 01 Problem Vitamin D deficiency E55.9 Active 77486661 Problem 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 Active 04600434 Problem Depression F32.9 Active 53700069 Problem Impaired fasting glucose R73.01 Active 2854930 07 Problem Tobacco use Z72.0 Active 370948165 quit /15 Problem Lumbar spinal stenosis M48.06 Active 98220512 Problem Right leg pain M79.604 Active 627596230 Problem Chronic pain G89.29 Active 47598103 Problem B12 deficiency E53.8 Active 449597058 Problem Sleep disorder, unspecified G47.9 Active 3989 8005 Problem Adverse reaction to antidepressant drug T43.205A Active 054470395 Problem COPD (chronic obstructive pulmonary disease) J44.9 Active 89357761 Problem Fatigue due to sleep pattern disturbance R53.83 Active 66543053 Problem GERD (gastroesophageal reflux disease) K21.9 A ctive 925705383 Problem Hypertensive heart disease without heart failure I 11.9 Active 42745476 Problem Back pain M54.9 Active 878841434 Problem Cirrhosis, alcoholic K70.30 Active 367018878 Problem Obesity E66.9 Active 688463045 Problem COPD with exacerbation J44.1 Active 835595233 Problem Benign prostatic hyperplasia without lower urina ry tract symptoms N40.0 Active 812911636 Problem Disc disease, degenerative, cervical M50.30 Act giacomo 92637501 Problem RUBIO (obstructive sleep apnea) G47.33 Active 78 509776 Problem Purpura D69.2 Active 565826894 traumatic purp ura left arm Problem 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 Active 4 80630248 Problem History of alcoholism F10.21 Active 622166478 Problem Chronic bilateral low back pain without sciatica M 54.5 Active 432795437 Problem Lower urinary tract symptoms due to benign prost atic hyperplasia N40.1 Active 585101162 Problem Hepatic encephalopathy K72.90 Active 32045395 Problem Chronic obstructive pulmonary disease, unspecified COPD ty pe J44.9 Active 02959809 Problem Plantar wart B07.0 Active 39846738 ALLERGIES Allergen (clinical drug ingredient) Drug/Non Drug Allergy do cumented on EMR Reaction Allergy Type Onset Date Status benztropine agitation, confusion Non Drug Allergy Active pseudoephedrine Pseudoephedrine HCl([facility] Code:[address]-24) Hear t beats fast Drug Allergy Active regadenoson SOB/COPD exac (see 10/24/16 note) Non Drug Al lergy Active clindamycin Clindamycin HCl(ND Code:[address]-96) itching swelling, facial edema Drug Allergy Active gabapentin "didn't work" Non Drug Allergy Activ e naproxen Naproxen(ND Code:[address]-19) depression Drug Allergy Active Amoxicillin-Pot Clavulanate itching, swelling Drug Allergy Active ENCOUNTERS from 1953 to 2020-11-11 Encounter Location Date Provider Diagnosis [address] [place] [address] Oct, Sergio Maynard Chronic obstructive pulmonary disease, [...] 2015 Administered Influenza (6mo & up) Fluzone Unknown [...] Education Language: Question Answer Notes Languages spoken: Upper Sorbian Sexual Hx: Question Answer Notes Had sex [...] Information RESULTS No Results REASON FOR VISIT [facility] ED [phone] MEDICAL (GENERAL) HISTORY Type Description Date Medical History COPD- Pulmonary [facility] 04/09 FEV1 1.83, ratio 56% Medical History diverticulosis/h/o diverticulitis Medical History tobacco abuse/Quit 12/09 Medical History alcohol abuse Medical History Dysthymic disorder- Dr Garcia [facility] Medical History Esophageal reflux Medical History metabolic syndrome/IFG- Jhdkgnpod99/15 Medical History left helix actinic keratosis Medical History Pulmonary Nodule- Following with [facility] Pulm Dr Beltran 08/09 CT, 03/11, 03/12, 06/12-- no sig findings Medical History hyperlipidemia Medical History Congestive heart failure/HHD PET stress study [facility] 06/06 no ischemia- [facility] 07/09; PET NST at [facility] 10/10: EF 74%, no perfusion abnl Medical History Liver/Spleen Scan, done at [facility], 08/10/2013:" Mild hepatomegaly; mild hepatic dysfunction; the spleen is normal in size."- cirrhosis- We do liver US/AFP q 6 mo,does notneed to follow with GI/Deo any more; liver US 08/10 nl; US 03/11 steatohepatitis, nothing acute; 10/12--no changes, US unchanged 08/13, 02/11, AFP neg 07/2019, 01/14 Medical History lumbar and cervical Spinal S tenosis/Chronic back Pain- [facility] Pain Mgmt, then [facility] Spine and Wellness (injectios, nerve blocks) [...] as T2DM by pre vious 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) Medical History tremors/Tarditive Dyskinesia --drug induced (Depakote/Risperdal), [...] puff Inhalation Once a day Treatment Notes Assessment Notes Clinical Notes Cirrhosis, alcoholic AFP and US done and 02/11 Encounter for screening for lung cancer has scheduled in November Appt Details has in Dec Reason: Provider Name:Danny Kimbrough, 12-22 02:00:00 PM, [address] [facility], 1st Floor, [place], [address], Provider Name:Matthew Aleyda, 2020-12 08:30:00 AM, [address], [place], [address], Provider Name:Lisa Kumar Nallely, 1 10:00:00 AM, [address], [place], [address], Insurance Providers Payer Name Payer Address Payer Phone Insured Name Patient Relati onship to Insured Coverage Start Date Coverage End Date MEDICARE Part A and B [address] [place] [phone] BEBA GODINEZ self [facility] [address] [address] [facility] [place] [phone] BEBA GODINEZ [id number] [facility] [address] [address] [facility] [phone] BEBA GODINEZ self
--- OUTSIDE RECORDS SUMMARY | 2021-01-19 00:25 | CCD ---
Author Author [facility] Organization [facility] Address Unknown Phone Unavailable Care Team Providers Care Cognos Name Role Phone Lisa Browning Unavailable PROBLEMS Type Condition ICD9-CM Code [id number] Code Onset Dates Condition S tatus SNOMED Code Notes Problem Chronic diastolic heart failure I50.32 Active 475883493 Problem Bipolar disorder F31.9 Active 26541623 Problem Pulmonary nodule R91.1 Active 754537916 Problem Gout M10.9 Active 07395728 Problem Hyperlipidemia E78.5 Active 53574650 Problem Folate deficiency anemia D52.9 Active 1200501 0 Problem Hepatic dysfunction K76.9 Active 068613616 Problem 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 Active 879261 01 Problem Vitamin D deficiency E55.9 Active 96565162 Problem 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 Active 63877587 Problem Depression F32.9 Active 54515335 Problem Impaired fasting glucose R73.01 Active 7847192 07 Problem Tobacco use Z72.0 Active 183589352 quit /15 Problem Lumbar spinal stenosis M48.06 Active 71732810 Problem Right leg pain M79.604 Active 092067450 Problem Chronic pain G89.29 Active 22955379 Problem B12 deficiency E53.8 Active 980042581 Problem Sleep disorder, unspecified G47.9 Active 3989 8005 Problem Adverse reaction to antidepressant drug T43.205A Active 481263467 Problem COPD (chronic obstructive pulmonary disease) J44.9 Active 67199945 Problem Fatigue due to sleep pattern disturbance R53.83 Active 29001492 Problem GERD (gastroesophageal reflux disease) K21.9 A ctive 729525056 Problem Hypertensive heart disease without heart failure I 11.9 Active 31605218 Problem Back pain M54.9 Active 131465277 Problem Cirrhosis, alcoholic K70.30 Active 616059291 Problem Obesity E66.9 Active 029438638 Problem COPD with exacerbation J44.1 Active 742136958 Problem Benign prostatic hyperplasia without lower urina ry tract symptoms N40.0 Active 758386854 Problem Disc disease, degenerative, cervical M50.30 Act giacomo 87371681 Problem RUBIO (obstructive sleep apnea) G47.33 Active 78 244463 Problem Purpura D69.2 Active 944785073 traumatic purp ura left arm Problem 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 Active 4 48193829 Problem History of alcoholism F10.21 Active 784660361 Problem Chronic bilateral low back pain without sciatica M 54.5 Active 165529786 Problem Lower urinary tract symptoms due to benign prost atic hyperplasia N40.1 Active 063979517 Problem Hepatic encephalopathy K72.90 Active 59118571 Problem Chronic obstructive pulmonary disease, unspecified COPD ty pe J44.9 Active 24213350 Problem Plantar wart B07.0 Active 01896884 ALLERGIES Allergen (clinical drug ingredient) Drug/Non Drug Allergy do cumented on EMR Reaction Allergy Type Onset Date Status benztropine agitation, confusion Non Drug Allergy Active pseudoephedrine Pseudoephedrine HCl([facility] Code:[address]-07) Hear t beats fast Drug Allergy Active regadenoson SOB/COPD exac (see 10/24/16 note) Non Drug Al lergy Active clindamycin Clindamycin HCl(ND Code:[address]-07) itching swelling, facial edema Drug Allergy Active gabapentin "didn't work" Non Drug Allergy Activ e naproxen Naproxen(ND Code:[address]-55) depression Drug Allergy Active Amoxicillin-Pot Clavulanate itching, swelling Drug Allergy Active ENCOUNTERS from 1953 to 2020-10-27 Encounter Location Date Provider Diagnosis [facility] [address] [place] [address] Oct Lisa Recolandry Lower urinary tract symptoms due to sarthak gn prostatic hyperplasia N40.1 ; Frequency of micturition R35.0 and Nocturia R35.1 IMMUNIZATIONS Vaccine Route Administration Date Status Influenza [...] Education Language: Question Answer Notes Languages spoken: Djiboutian Sexual Hx: Question Answer Notes Had sex [...] FOR REFERRAL No Information VITAL SIGNS Weight 292 lbs Oct, Height 69 in Oct, BMI 43.12 kg/m2 Oct, Heart Rate 82 /min Oct, Respiratory Rate 22 /min Oct, Temperature 96.1 degrees Fahrenheit Oct, Oximetry 95% Oct, Blood pressure systolic 132 mm Hg Oct, Blood pressure diastolic 80 mm Hg Oct, MEDICATIONS Medication SIG (Take, Route, Frequency, Duration) Notes Start Da te End Date Status Myrbetriq 50 MG 1 tablet Orally Once a day for 90 day(s) 0 1 Oct, 2020 Active Terbinafine HCl 1 % 1 application Externally bid for 7 day(s) Oct, Not-Taking Gabapentin 300 MG 1 capsule Orally bid for 90 days Apr, Not-Taking Multivitamins 1 capsule Orally once a day Active Gabapentin 300 MG 1 capsule Orally bid for 14 day(s) 2019 Not-Taking Probiotic - 1 capsule Orally Twice a day Dec, Not-Taking Valtrex 500 MG 1 tablet Orally bid for 5 day(s) Sep, Not-Taking Risperdal 4 MG 1 tablet Orally Once a day Aug, Active Shower Chair without wheels as directed DX : M48.06, J 44.9 Daily Use for 30 days Jan, Active Depakote ER 500 MG 1 tab in the morning 2 tabs at night Orally bid Active PredniSONE 20 MG 2 tablets Orally Once a day for 5 day(s) Aug, Not-Taking Furosemide 20 MG 1 tablet Orally Once a day as needed Not-Taking PredniSONE 20 MG 1 tablet Orally bid for 5 day(s) Sep, Not-Taking Valacyclovir HCl 1 GM 1 tablet Orally three times daily for 7 da y(s) Aug, Not-Taking Allopurinol 100 mg 1 tablet Orally Once a day for 90 day(s) Active Walker - Heavy duty (current weight i s 309), rolling walker with the feet DX:J44.9,M54.9,I50.32 DX:J44.9,M54.9,I50.32 for 90 day(s) March Active Folic Acid 1 MG 1 tablet Orally once a day for 90 day(s) Active Nexium 40 MG 1 capsule Orally Once a day for 90 days Active Metamucil Not-Taking Proscar 5 mg 1 tablet Orally Once a day for 90 day(s) Active Simvastatin 20 MG 1 tablet in the evening Oral ly Once a day in the evening for 90 days Active Anoro Ellipta 62.5-25 MCG/INH 1 puff Inhalation Once a day Active Vitamin D 1000 UNIT 1 tablet Orally Once a day for 90 days Active Xifaxan 550 MG 1 tablet Orally Twice a day for 90 days Active Flomax 0.4 MG 1 capsule 30 minutes after t he same meal each day Orally Once a day for 90 day(s) Active May Have - as directed four wheeled [place] with seat as directed J44.9, M54.9 for 99 days Sep, Active ProAir HFA 108 (90 Base) mcg/act 2 puffs as needed Inh alation qid prn for 90 day(s) Active PROCEDURES No Information RESULTS No Results REASON FOR VISIT 6 month f/u MEDICAL (GENERAL) HISTORY Type Description Date Medical History COPD- Pulmonary [facility] 04/09 FEV1 1.83, ratio 56% Medical History diverticulosis/h/o diverticulitis Medical History tobacco abuse/Quit 12/09 Medical History alcohol abuse Medical History Dysthymic disorder- Dr Garcia [facility] Medical History Esophageal reflux Medical History metabolic syndrome/IFG- Vbcrlfvrb05/15 Medical History left helix actinic keratosis Medical History Pulmonary Nodule- Following with [facility] Pulm Dr Beltran 08/09 CT, 03/11, 03/12, 06/12-- no sig findings Medical History hyperlipidemia Medical History Congestive heart failure/HHD PET stress study [facility] 06/06 no ischemia- [facility] 07/09; PET NST at [facility] 10/10: EF 74%, no perfusion abnl Medical History Liver/Spleen Scan, done at [facility], 08/10/2013:" Mild hepatomegaly; mild hepatic dysfunction; the spleen is normal in size."- cirrhosis- We do liver US/AFP q 6 mo,does notneed to follow with GI/Deo any more; liver US 08/10 nl; US 03/11 steatohepatitis, nothing acute; 10/12--no changes, US unchanged 08/13, 02/11, AFP neg 07/2019, 01/14 Medical History lumbar and cervical Spinal S tenosis/Chronic back Pain- [facility], then [facility] (injectios, nerve blocks) Medical [...] as T2DM by pre vious provider ([facility]) Medical History tremors/Tarditive Dyskinesia --drug induced (Depakote/Risperdal), [...] - R35.0) Oct, Nocturia (ICD-10 - R35.1) PLAN OF TREATMENT Medication Medication Name Sig Start Date Stop Date Myrbetriq 50 MG 1 tablet Orally Once a day for 90 day(s) Oct, Next Appt Details 6 Months Reason: Provider Name:Danny Kimbrough, 12-22 02:00:00 PM, [address] [facility], [address], [place], [address], Provider Name:Matthew Maynard, 2020-12 08:30:00 AM, [address], [place], [address], Provider Name:Lisa Browning, 1 10:00:00 AM, [address], [place], [address], Insurance Providers Payer Name Payer Address Payer Phone Insured Name Patient Relati onship to Insured Coverage Start Date Coverage End Date R [facility] [address] [address] [facility] [phone] BEBA GODINEZ self [facility] SEC [address] [address] [facility] [place] [phone] BEBA GODINEZ [id number] MEDICARE Part A and B [address] [facility] [phone] BEBA GODINEZ self
--- OUTSIDE RECORDS SUMMARY | 2021-01-19 00:25 | CCD ---
Author Author [facility] Organization [facility] Address Unknown Phone Unavailable Care Team Providers Care Heel Emery Buffer Name Role Phone Lisa Browning Unavailable PROBLEMS Type Condition ICD9-CM Code ZSE17-OU Code Onset Dates Condition S tatus SNOMED Code Notes Problem Chronic diastolic heart failure I50.32 Active 054038723 Problem Bipolar disorder F31.9 Active 17632682 Problem Pulmonary nodule R91.1 Active 341693067 Problem Gout M10.9 Active 71589820 Problem Hyperlipidemia E78.5 Active 75964972 Problem Folate deficiency anemia D52.9 Active 7991019 0 Problem Hepatic dysfunction K76.9 Active 817921856 Problem 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 Active 094632 01 Problem Vitamin D deficiency E55.9 Active 63682821 Problem 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 Active 72432073 Problem Depression F32.9 Active 58208849 Problem Impaired fasting glucose R73.01 Active 7194619 07 Problem Tobacco use Z72.0 Active 953407587 quit /15 Problem Lumbar spinal stenosis M48.06 Active 16010644 Problem Right leg pain M79.604 Active 550464873 Problem Chronic pain G89.29 Active 75642497 Problem B12 deficiency E53.8 Active 892622357 Problem Sleep disorder, unspecified G47.9 Active 3989 8005 Problem Adverse reaction to antidepressant drug T43.205A Active 531349777 Problem COPD (chronic obstructive pulmonary disease) J44.9 Active 53410434 Problem Fatigue due to sleep pattern disturbance R53.83 Active 92412629 Problem GERD (gastroesophageal reflux disease) K21.9 A ctive 847804310 Problem Hypertensive heart disease without heart failure I 11.9 Active 73693808 Problem Back pain M54.9 Active 155178894 Problem Cirrhosis, alcoholic K70.30 Active 632498752 Problem Obesity E66.9 Active 993129482 Problem COPD with exacerbation J44.1 Active 110823551 Problem Benign prostatic hyperplasia without lower urina ry tract symptoms N40.0 Active 029732717 Problem Disc disease, degenerative, cervical M50.30 Act giacomo 53378071 Problem RUBIO (obstructive sleep apnea) G47.33 Active 78 740403 Problem Purpura D69.2 Active 500283847 traumatic purp ura left arm Problem 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 Active 4 01591708 Problem History of alcoholism F10.21 Active 488281479 Problem Chronic bilateral low back pain without sciatica M 54.5 Active 985375084 Problem Lower urinary tract symptoms due to benign prost atic hyperplasia N40.1 Active 711215699 Problem Hepatic encephalopathy K72.90 Active 62700359 Problem Chronic obstructive pulmonary disease, unspecified COPD ty pe J44.9 Active 03913277 Problem Plantar wart B07.0 Active 97649552 ALLERGIES Allergen (clinical drug ingredient) Drug/Non Drug Allergy do cumented on EMR Reaction Allergy Type Onset Date Status benztropine agitation, confusion Non Drug Allergy Active pseudoephedrine Pseudoephedrine HCl([facility] Code:[address]-28) Hear t beats fast Drug Allergy Active regadenoson SOB/COPD exac (see 10/24/16 note) Non Drug Al lergy Active clindamycin Clindamycin HCl(ND Code:[address]-56) itching swelling, facial edema Drug Allergy Active gabapentin "didn't work" Non Drug Allergy Activ e naproxen Naproxen(ND Code:[address]-68) depression Drug Allergy Active Amoxicillin-Pot Clavulanate itching, swelling Drug Allergy Active ENCOUNTERS from 1953 to 2020-10-24 Encounter Location Date Provider Diagnosis [facility] Urology [address] [place] [address] Oct Lisa Recolandry Lower urinary tract symptoms [...] 23) IM Intramuscular Oct 03, 2015 Administered Pneumococcal 0.5mL (Prevnar 13) IM Intramuscular March [...] Education Language: Question Answer Notes Languages spoken: Kazakh Sexual Hx: Question Answer Notes Had sex [...] Notes Start Da te End Date Status Oxybutynin Chloride ER 10 MG 1 tablet Orally Once a day for 90 day(s) Active Xifaxan 550 MG 1 tablet Orally Twice a day for 90 days Active Gabapentin 300 MG 1 capsule Orally bid for 14 day(s) 2019 Active PredniSONE 20 MG 2 tablets Orally Once a day for 5 day(s) Aug, Not-Taking Flomax 0.4 MG 1 capsule 30 minutes after t he same meal each day Orally Once a day for 90 day(s) Active Gabapentin 300 MG 1 capsule Orally bid for 90 days Apr, Not-Taking Walker - Heavy duty (current weight i s 309), rolling walker with the feet DX:J44.9,M54.9,I50.32 DX:J44.9,M54.9,I50.32 for 90 day(s) March Active Simvastatin 20 MG 1 tablet in the evening Oral ly Once a day in the evening for 90 days Active Proscar 5 mg 1 tablet Orally Once a day for 90 day(s) Active Folic Acid 1 MG 1 tablet Orally once a day for 90 day(s) Active Metamucil Not-Taking Nexium 40 MG 1 capsule Orally Once a day for 90 days Active Probiotic - 1 capsule Orally Twice a day Dec, Not-Taking ProAir HFA 108 (90 Base) mcg/act 2 puffs as needed Inh alation qid prn for 90 day(s) Active Anoro Ellipta 62.5-25 MCG/INH 1 puff Inhalation Once a day Active Vitamin D 1000 UNIT 1 tablet Orally Once a day for 90 days Active Terbinafine HCl 1 % 1 application Externally bid for 7 day(s) Oct, Not-Taking Valacyclovir HCl 1 GM 1 tablet Orally three times daily for 7 da y(s) Aug, Not-Taking Furosemide 20 MG 1 tablet Orally Once a day as needed Not-Taking Multivitamins 1 capsule Orally once a day Active May Have - as directed four wheeled wal ker with seat as directed J44.9, M54.9 for 99 days Sep, Active Shower Chair without wheels as directed DX : M48.06, J 44.9 Daily Use for 30 days Jan, Active Allopurinol 100 mg 1 tablet Orally Once a day for 90 day(s) Active Valtrex 500 MG 1 tablet Orally bid for 5 day(s) Sep, 20 Active Depakote ER 500 MG 1 tab in the morning 2 tabs at night Orally bid Active Risperdal 4 MG 1 tablet Orally Once a day Aug, Active PredniSONE 20 MG 1 tablet Orally bid for 5 day(s) Sep, Active PROCEDURES No Information RESULTS Component Value Reference Range PSA SCREENING Reviewed date:10/28/2019 14:14:49 Interpretation: Performing Lab:[facility], [facility] [address] [address] , ,[place] [address] PSA SCREENING 0.12 < 4.00 REASON FOR VISIT LUTS, BPH MEDICAL (GENERAL) HISTORY Type Description Date Medical History COPD- Pulmonary [email or web address] 04/09 FEV1 1.83, ratio 56% Medical History diverticulosis/h/o diverticulitis Medical History tobacco abuse/Quit 12/09 Medical History alcohol abuse Medical History Dysthymic disorder- Dr Garcia [facility] Medical History Esophageal reflux Medical History metabolic syndrome/IFG- Fjgwdvltq15/15 Medical History left helix actinic keratosis Medical History Pulmonary Nodule- Following with [facility] [[email or web address] Pulm Dr Beltran 08/09 CT, 03/11, 03/12, 06/12-- no sig findings Medical History hyperlipidemia Medical History Congestive heart failure/HHD PET stress study [facility] 06/06 no ischemia- [facility] 07/09; PET NST at [facility] 10/10: EF 74%, no perfusion abnl Medical History Liver/Spleen Scan, done at [facility], 08/10/2013:" Mild hepatomegaly; mild hepatic dysfunction; the spleen is normal in size."- cirrhosis- We do liver US/AFP q 6 mo,does notneed to follow with GI/Deo any more; liver US 08/10 nl; US 03/11 steatohepatitis, nothing acute; 10/12--no changes, US unchanged 08/13, 02/11, AFP neg 07/2019, 01/14 Medical History lumbar and cervical Spinal S tenosis/Chronic back Pain- [facility], then [facility] [[email or web address] Spine and Wellness (injectios, nerve blocks) Medical [...] as T2DM by pre vious provider ([facility]) Medical History tremors/Tarditive Dyskinesia --drug induced (Depakote/Risperdal), saw neuro [place] 07/10 Parkinson's Ruled Medical History probable subclavian steal left arm (see 02/08) Medical History RUBIO on CPAP Surgical History colonoscopy 01/04 Surgical History hernia [...] Medication Name Sig Start Date Stop Date Valtrex 500 MG 1 tablet Orally bid for 5 day(s) Sep, PredniSONE 20 MG 1 tablet Orally bid for 5 day(s) Sep, Gabapentin 300 MG 1 capsule Orally bid for 14 day(s) Sep, 0 Next Appt Details 6 Months Reason:BPH/LUTS Provider Name:Lisa Browning, 1 10:15:00 AM, [address], [place], [address], Provider Name:Danny Kimbrough, 12-22 02:00:00 PM, [address] [facility], 1[address] Floor, [place], [address], Provider Name:Matthew Maynard, 2020-12 08:30:00 AM, [address] [place] [address], [address], Follow Up:6 MonthsBPH/LUTS Insurance Providers Payer Name Payer Address Payer Phone Insured Name Patient Relati onship to Insured Coverage Start Date Coverage End Date MEDICARE Part A and B [address] [facility] [id number] BEBA GODINEZ self [facility] [address] [id number] [facility] [phone] BEBA GODINEZ self [facility] [address] [address] [facility] [id number] BEBA GODINEZ [id number]
--- OUTSIDE RECORDS SUMMARY | 2021-01-19 00:26 | CCD ---
Author Author [facility] Organization [facility] Address Unknown Phone Unavailable Care Team Providers Care Overnight Stocker Name Role Phone Kocan, J Sita TOWING PILOT Unavailable Unavailable Kocan, J Sita TOWING PILOT Unavailable Unavailable Kocan, J Sita TOWING PILOT Unavailable Unavailable Kocan, J Sita TOWING PILOT Unavailable Unavailable Kocan, J Sita TOWING PILOT Unavailable Unavailable Kocan, J Sita TOWING PILOT Unavailable Unavailable Kocan, J Sita TOWING PILOT Unavailable Unavailable Kocan, J Sita TOWING PILOT Unavailable Unavailable Kocan, J Sita TOWING PILOT Unavailable Unavailable Kocan, J Sita TOWING PILOT Unavailable Unavailable Kocan, J Sita TOWING PILOT Unavailable Unavailable Kocan, J Sita TOWING PILOT Unavailable Unavailable Kocan, J Sita TOWING PILOT Unavailable Unavailable Stacy Ortega MD Unavailable Unavailable Stacy Ortega MD Unavailable Unavailable Stacy Ortega MD Unavailable Unavailable Stacy Ortega MD Unavailable Unavailable Stacy Ortega MD Unavailable Unavailable Stacy Ortega MD Unavailable Unavailable Stacy Ortega MD Unavailable Unavailable Stacy Ortega MD Unavailable Unavailable Stacy Ortega MD Unavailable Unavailable Stacy Ortega MD Unavailable Unavailable Ortega, Stacy Nunez MD Unavailable Unavailable Ortega, Stacy Nunez MD Unavailable Unavailable Ortega, Stacy Nunez MD Unavailable Unavailable Ortega, Stacy Nunez MD Unavailable Unavailable Ortega, Stacy Nunez MD Unavailable Unavailable Ortega, Stacy Nunez MD Unavailable Unavailable Ortega, Stacy Nunez MD Unavailable Unavailable Ortega, Stacy Nunez MD Unavailable Unavailable Ortega, Stacy Nunez MD Unavailable Unavailable Ortega, Stacy Nunez MD Unavailable Unavailable Ortega, Stacy Nunez MD Unavailable Unavailable Ortega, Stacy Nunez MD Unavailable Unavailable Ortega, Stacy Nunez MD Unavailable Unavailable Ortega, Stacy Nunez MD Unavailable Unavailable Ortega, Stacy Nunez MD Unavailable Unavailable Ortega, Stacy Nunez MD Unavailable Unavailable Ortega, Stacy Nunez MD Unavailable Unavailable Ortega, Stacy Nunez MD Unavailable Unavailable Ortega, Stacy Nunez MD Unavailable Unavailable Ortega, Stacy Nunez MD Unavailable Unavailable Ortega, Stacy Nunez MD Unavailable Unavailable Ortega, Stacy Nunez MD Unavailable Unavailable Ortega, Stacy Nunez MD Unavailable Unavailable Ortega, Stacy Nunez MD Unavailable Unavailable Ortega, Stacy Nunez MD Unavailable Unavailable Ortega, Stacy Nunez MD Unavailable Unavailable Ortega, Stacy Nunez MD Unavailable Unavailable Ortega, Stacy Nunez MD Unavailable Unavailable Ortega, Stacy Nunez MD Unavailable Unavailable Ortega, Stacy Nunez MD Unavailable Unavailable Ortega, Stacy Nunez MD Unavailable Unavailable Ortega, Stacy Nunez MD Unavailable Unavailable Ortega, Stacy Nunez MD Unavailable Unavailable Rotega, Stacy Nunez MD Unavailable Unavailable Ortega, Stacy Nunez MD Unavailable Unavailable Ortega, Stacy Nunez MD Unavailable Unavailable Ortega, Stacy Nunez MD Unavailable Unavailable Ortega, Stacy Nunez MD Unavailable Unavailable Rogel, M Barratt PA Unavailable Unavailable Rogel, M Barratt PA Unavailable Unavailable Rogel, M Barratt PA Unavailable Unavailable Rogel, M Barratt PA Unavailable Unavailable Rogel, M Barratt PA Unavailable Unavailable Rogel, M Barratt PA Unavailable Unavailable Rogel, M Barratt PA Unavailable Unavailable Rogel, M Barratt PA Unavailable Unavailable Rogel, M Barratt PA Unavailable Unavailable Rogel, M Barratt PA Unavailable Unavailable Rogel, M Barratt PA Unavailable Unavailable Rogel, M Barratt PA Unavailable Unavailable Rogel, M Barratt PA Unavailable Unavailable Rogel, M Barratt PA Unavailable Unavailable Rogel, M Barratt PA Unavailable Unavailable Rogel, M Barratt PA Unavailable Unavailable Rogel, M Barratt PA Unavailable Unavailable Rogel, M Barratt PA Unavailable Unavailable Rogel, M Barratt PA Unavailable Unavailable Rogel, M Barratt PA Unavailable Unavailable Rogel, M Barratt PA Unavailable Unavailable Rogel, M Barratt PA Unavailable Unavailable Rogel, M Barratt PA Unavailable Unavailable Rogel, M Barratt PA Unavailable Unavailable Rogel, M Barratt PA Unavailable Unavailable Rogel, M Barratt PA Unavailable Unavailable Rogel, M Barratt PA Unavailable Unavailable Rogel, M Barratt PA Unavailable Unavailable Rogel, M Barratt PA Unavailable Unavailable Rogel, M Barratt PA Unavailable Unavailable Rogel, M Barratt PA Unavailable Unavailable Rogel, M Barratt PA Unavailable Unavailable Rogel, M Barratt PA Unavailable Unavailable Rogel, M Barratt PA Unavailable Unavailable Rogel, M Barratt PA Unavailable Unavailable Rogel, M Barratt PA Unavailable Unavailable Rogel, M Barratt PA Unavailable Unavailable Rogel, M Barratt PA Unavailable Unavailable Rogel, M Barratt PA Unavailable Unavailable Rogel, M Barratt PA Unavailable Unavailable Rogel, M Barratt PA Unavailable Unavailable Rgoel, M Barratt PA Unavailable Unavailable Rogel, M Barratt PA Unavailable Unavailable Rogel, M Barratt PA Unavailable Unavailable Rogel, M Barratt PA Unavailable Unavailable Rogel, M Barratt PA Unavailable Unavailable Rogel, M Barratt PA Unavailable Unavailable Rogel, M Barratt PA Unavailable Unavailable Rogel, M Barratt PA Unavailable Unavailable Rogel, M Barratt PA Unavailable Unavailable Rogel, M Barratt PA Unavailable Unavailable Rogel, M Barratt PA Unavailable Unavailable Rogel, M Barratt PA Unavailable Unavailable Rogel, M Barratt PA Unavailable Unavailable NED GTZ MD Unavailable Unavailable ULISSESNED MD Unavailable Unavailable ULISSESNED MD Unavailable Unavailable NED GTZ MD Unavailable Unavailable NED GTZ MD Unavailable Unavailable NED GTZ MD Unavailable Unavailable NED GTZ MD Unavailable Unavailable ULISSESNED MD Unavailable Unavailable ULISSESNED MD Unavailable Unavailable ULISSESNED MD Unavailable Unavailable ULISSESNED MD Unavailable Unavailable ULISSESNED MD Unavailable Unavailable ULISSESNED MD Unavailable Unavailable ULISSESNED MD Unavailable Unavailable ULISSESNED MD Unavailable Unavailable ULISSESNED MD Unavailable Unavailable NED GTZ MD Unavailable Unavailable NED GTZ MD Unavailable Unavailable ULISSESNED MD Unavailable Unavailable ULISSESNED MD Unavailable Unavailable ULISSESNED MD Unavailable Unavailable ULISSESNED MD Unavailable Unavailable NED GTZ MD Unavailable Unavailable NED GTZ MD Unavailable Unavailable NED GTZ MD Unavailable Unavailable ULISSESNED MD Unavailable Unavailable ULISSESNED MD Unavailable Unavailable ULISSESNED MD Unavailable Unavailable ULISSESNED MD Unavailable Unavailable ULISSES, MARINO MD Unavailable Unavailable ULISSES, MARINO MD Unavailable Unavailable ULISSES, MARINO MD Unavailable Unavailable ULISSES, MARINO MD Unavailable Unavailable ULISSES, MARINO MD Unavailable Unavailable ULISSES, MARINO MD Unavailable Unavailable ULISSES, MARINO MD Unavailable Unavailable ULISSES, MARINO MD Unavailable Unavailable ULISSES, MARINO MD Unavailable Unavailable ULISSES, MARINO MD Unavailable Unavailable ULISSES, MARINO MD Unavailable Unavailable ULISSES, MARINO MD Unavailable Unavailable ULISSES, MARINO MD Unavailable Unavailable ULISSES, MARINO MD Unavailable Unavailable ULISSES, MARINO MD Unavailable Unavailable ULISSES, MARINO MD Unavailable Unavailable ULISSES, MARINO MD Unavailable Unavailable ULISSES, MARINO MD Unavailable Unavailable ULISSES, MARINO MD Unavailable Unavailable ULISSES, MARINO MD Unavailable Unavailable ULISSES, MARINO MD Unavailable Unavailable ULISSES, MARINO MD Unavailable Unavailable ULISSES, MARINO MD Unavailable Unavailable ULISSES, MARINO MD Unavailable Unavailable ULISSES, MARINO MD Unavailable Unavailable Larry DESOUZAEW DO Unavailable [phone] Larry DESOUZA ESTELLE DO Unavailable [phone] Larry DESOUZAEW DO Unavailable [phone] Larry DESOUZA ESTELLE DO Unavailable [phone] Larry DESOUZA ESTELLE DO Unavailable [phone] Larry DESOUZA ESTELLE DO Unavailable [phone] Larry DESOUZA ESTELLE DO Unavailable [phone] Larry DESOUZA ESTELLE DO Unavailable [phone] Larry DESOUZA ESTELLE DO Unavailable [phone] Larry DESOUZA ESTELLE DO Unavailable [phone] Larry DESOUZA ESTELLE DO Unavailable [phone] Larry DESOUZA ESTELLE DO Unavailable [phone] Larry DESOUZA ESTELLE DO Unavailable [phone] Larry DESOUZA ESTELLE DO Unavailable [phone] Larry DESOUZA ESTELLE DO Unavailable [phone] Larry DESOUZA ESTELLE DO Unavailable [phone] Larry DESOUZA ESTELLE DO Unavailable [phone] Larry DESOUZA ESTELLE DO Unavailable [phone] Larry DESOUZA DO Unavailable [phone] Larry DESOUZA DO Unavailable [phone] Larry DESOUZA DO Unavailable [phone] Re-disclosure Warning The records that you are about to access may contain information from federally-assisted alcohol or drug abuse programs. If such information is present, then the following federally mandated warning applies: This information has been disclosed to you from records protected by federal confidentiality rules (42 CFR part 2). The federal rules prohibit you from making any further disclosure of this information unless further disclosure is expressly permitted by the written consent of the person to whom it pertains or as otherwise permitted by 42 CFR part 2. A general authorization for the release of medical or other information is NOT sufficient for this purpose. The Federal rules restrict any use of the information to criminally investigate or prosecute any alcohol or drug abuse patient.The records that you are about to access may contain highly sensitive health information, the redisclosure of which is protected by Article 27-F of the [facility] Public Health law. If you continue you may have access to information: Regarding HIV / AIDS; Provided by facilities licensed or operated by the [facility] Office of Mental Health; or Provided by the [facility] Office for People With Developmental Disabilities. If such information is present, then the following [facility] mandated warning applies: This information has been disclosed to you from confidential records which are protected by state law. State law prohibits you from making any further disclosure of this information without the specific written consent of the person to whom it pertains, or as otherwise permitted by law. Any unauthorized further disclosure in violation of state law may result in a fine or usp sentence or both. A general authorization for the release of medical or other information is NOT sufficient authorization for further disc losure. Allergies and Adverse Reactions Type Description Substance Reaction Status Data Source(s ) Allergy to substance No Known Allergies No known allergies (situation ) ALIE (Abhinav Burnham MD [facility]) Allergy to substance No Known Allergies No known allergies (situation ) ALIE (Abhinav Burnham MD [facility]) Drug allergy Naproxen Naproxen depression Active eCW1 ([facility]) Drug allergy Pseudoephedrine HCl Pseudoephedrine Heart beats fast Ac tive eCW1 ([facility]) Drug allergy Clindamycin HCl Clindamycin itching swelling, facial padilla ma Active eCW1 ([facility]) regadenoson regadenoson regadenoson SOB/COPD exac (see 10/24/16 note ) Active eC1 ([facility]) benztropine benztropine benztropine mesylate 1 MG/ML Inj ectable Solution agitation, confusion Active eCW1 ([facility]) Amoxicillin-Pot Clavulanate Amoxicillin-Pot Clavulanate Amox icillin-Pot Clavulanate itching, swelling Active eCW1 ([facility]) Family History Family Member Name Family Member Gender Family Member Status Date o f Status Description Data Source(s) Unknown Unknown Problem MEDENT ([facility]) Unknown Female Problem MEDENT ([facility]) Unknown Female Problem MEDENT ([facility]) Unknown Unknown Problem [facility] ([facility] Unknown Unknown Problem MED[facility] ([facility] Unknown Unknown Problem MEDENT ([facility]) Unknown Unknown Problem MEDENT ([facility]) Encounters Encounter Providers Location Date Indications Data Source(s ) TeleMedicine Est. Pt. Level 3 [address] [place] [address] 01/04/2021 12:00:00 AM EST eCW1 ([facility]) Unknown [address] [facility] [address] 12/19/2020 12:00:00 AM EST eCW1 ([facility]) Outpatient<td ID="encounterTypeDescripti onID0">VISUAL FIELD 24-2</td><td>Estelle Desouza DO</td><td>Abhinav Mello MD [facility]</td><td>12/08/2020</td><td>8:49AM</td><td>9:05AM</td><td><content ID="encounterDiagnosisID0-0">Borderline 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</content></td> Attender: ESTELLE Garrett MD [facility] 12/08/2020 08:49:00 AM EST - 12/08/2020 09:05:00 AM ES T Borderline 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 ALIE (Abhinav Burnham MD [facility]) Borderline Glaucoma Open Angle with Bord chloe Findings Both Eyes TeleMedicine Est. Pt. Level 2 [address] [place] [address] 11/23/2020 12:00:00 AM EST eCW1 ([facility]) TeleMedicine Est. Pt. Level 3 [address] [place] [address] 11/09/2020 12:00:00 AM EST eCW1 ([facility]) Unknown [address] [facility] [address] 11/07/2020 12:00:00 AM EST eCW1 ([facility]) Outpatient [address] [facility] [address] 10/25/2020 12:00:00 AM EST eCW1 ([facility]) [facility] Dermatology [address] [place] [address] 10/25/2020 12:00:00 AM EST eCW1 ([facility]) Outpatient [address] [facility] [place] [address] 10/14/2020 12:00:00 AM EST eCW1 ([facility]) Unknown [address] [facility] [place] [address] 10/10/2020 12:00:00 AM EST eCW1 ([facility]) Outpatient [address] [facility] [place] [address] 09/27/2020 12:00:00 AM EST eCW1 ([facility]) Unknown [address] [facility] [place] [address] 09/26/2020 12:00:00 AM EST eCW1 ([facility]) Unknown [address] [facility] [place] [address] 09/25/2020 12:00:00 AM EDT eCW1 ([facility]) [place] [address] [facility] [address] 09/23/2020 12:00:00 AM EDT eCW1 ([facility]) [place] [address] [facility] [address] 09/19/2020 12:00:00 AM EDT eCW1 ([facility]) [place] [address] [facility] [address] 09/19/2020 12:00:00 AM EDT eCW1 ([facility]) Outpatient Attender: Sita Cormier RNPAttender: NED GTZ MD [email or web address] 09/14/2020 12:00:00 AM EDT [facility] [place] [address] [facility] [address] 09/05/2020 12:00:00 AM EDT eCW1 ([facility]) [place] [address] [facility] [address] 09/01/2020 12:00:00 AM EDT eCW1 ([facility]) Outpatient<td ID="encounterTypeDescripti onID2">10 Month Follow- Up</td><td>Estelle Desouza DO</td><td>Abhinav Mello MD [facility]</td><td>07/26/2020</td><td>12:12PM</td><td>1:16PM</td><td><content ID="encounterDiagnosisID2-0">Cataract Senile Nuclear</content>, <content ID="encounterDiagnosisID2-1">Dry Eye Syndrome</content>, <content ID="encounterDiagnosisID2-2">Borderline 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</content>, <content ID="encounterDiagnosisID2-3">Diabetes Mellitus Type 2 Without Complication</content>, <content ID="encounterDiagno sisID2-4">Cataract Senile Posterior Subcapsular Polar</content></td> Attender: ESTELLE Baker MD [facility] 07/26/2020 12:12:00 PM EDT - 07/26/2020 01:16:00 PM EDT Cataract Senile Posterior Subcapsular Po larCataract Senile Posterior Subcapsular PolarBorderline 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Cataract Senile NuclearBorderline 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Cataract Senile NuclearDiabetes Mellitus Type 2 Without ComplicationDry Eye SyndromeDiabetes Mellitus Type 2 Without ComplicationDry Eye Syndrome ALIE (Abhinav Burnham MD [facility]) Cataract Senile Posterior Subcapsular Po lar Cataract Senile Posterior Subcapsular Po lar Borderline Glaucoma Open Angle with Bord chloe Findings Both Eyes Cataract Senile Nuclear Borderline Glaucoma Open Angle with Bord chloe Findings Both Eyes Cataract Senile Nuclear Diabetes Mellitus Type 2 Without Complic ation Dry Eye Syndrome Diabetes Mellitus Type 2 Without Complic ation Dry Eye Syndrome Outpatient<td ID="encounterTypeDescripti onID1">TRIAGE NON URGENT</td><td>Estelle Desozua DO</td><td>Abhinav Mello MD [facility]</td><td>09/19/2020</td><td>07/26/2020 8:30AM</td><td>9:39AM</td><td> <content ID="encounterDiagnosisID1-0">Herpes Zoster (Shingles)</content>, <content ID="encounterDiagnosisID1-1">Conjunctivitis Acute Atopic</content></td> Attender: ESTELLE Baker MD [facility] 11/2019 08:30:00 AM EDT - 09/19/2020 09:39:00 AM EDT Conjunctivitis Acute AtopicHerpes Zoster (Shingles) ALIE (Abhinav Burnham MD [facility]) Conjunctivitis Acute Atopic Herpes Zoster (Shingles) [place] [address] [facility] [address] 06/08/2020 12:00:00 AM EDT eCW1 ([facility]) [facility] [place] [address] [facility] [address] 06/07/2020 12:00:00 AM EDT eCW1 ([facility] [place]) Outpatient Attender: NED GTZ MD [email or web address] 0 12:00:00 AM EDT - 06/01/2020 09:32:15 AM EDT [facility] [place] [address] [facility] [address] 05/12/2020 12:00:00 AM EDT eCW1 [facility]) Outpatient Attender: NED CAALSJPAbdullahiMAXIMUS 05/11/2020 12:00:[address] [facility] [place] [address] [facility] [address] 05/09/2020 12:00:00 AM EDT eCW1 ([facility]) [place] [address] [facility] [address] 05/09/2020 12:00:00 AM EDT eCW1 ([facility]) [place] [address] [facility] [address] 04/26/2020 12:00:00 AM EDT eCW1 ([facility]) [facility] [address] [facility] [address] 04/19/2020 12:00:00 AM EDT eCW1 ([facility]) [facility] [address] [facility] [place] [address] 04/19/2020 12:00:00 AM EDT eCW1 ([facility]) [facility] [place] [address] [place] [address], [place] [address] 04/11/2020 12:00:00 AM EDT eCW1 ([facility] [place]) [facility] [address] [facility] [address] 03/28/2020 12:00:00 AM EDT eCW1 ([facility] [place]) [facility] [address] [facility] [place] [address] 03/28/2020 12:00:00 AM EDT eCW1 ([facility] [place]) [facility] [place] [address] [facility] [address] 03/24/2020 12:00:00 AM EDT eCW1 ([facility]) Outpatient Referrer: Louie GLOVER 03/16/2020 10:59:0 0 AM EDT [facility] [place] [address] [facility] [address] 02/23/2020 12:00:00 AM EDT eCW1 ([facility] [place]) [facility] [place] [address] [facility] [address] 02/11/2020 12:00:00 AM EDT eCW1 ([facility] [place] [place] [address] [facility] [address] 01/26/2020 12:00:00 AM EST eCW1 ([facility]) [facility] [place] [address] [facility] [address] 01/25/2020 12:00:00 AM EST eCW1 ([facility]) [facility] [address] [facility] [place] [address] 01/25/2020 12:00:00 AM EST eCW1 ([facility]) Outpatient Referrer: Louie GLOVER 01/12/2020 01:50:0 0 PM EST [facility] Outpatient Referrer: Louie GLOVER 01/12/2020 01:47:0 0 PM EST [facility] Outpatient<td ID="encounterTypeDescripti onID3">Insertion of Punctal Plug IN OFFICE-NEED AUTH</td><td>Estelle Desouza DO</td><td>Abhinav Mello MD [facility]</td><td>01/11/2020</td><td>12:27PM</td><td>12:54PM</td><td><content ID="encounterDiagnosisID3-0">Dry Eye Syndrome</content></td> Attender: ESTELLE Baker MD [facility] 01/11/2020 12:27:00 PM EST - 01/11/2020 12:54:00 PM EST Dry Eye SyndromeDry Eye Syndrome ALIE (Abhinav Burnham MD [facility]) Dry Eye Syndrome Dry Eye Syndrome Outpatient Referrer: Louie GLOVER 01/08/2020 01:40:0 0 PM EST [facility] Outpatient Referrer: Louie GLOVER 01/08/2020 01:38:0 0 PM EST [facility] Outpatient Referrer: Enrique Ortega MD 01/08/2020 01:27:00 PM EST [facility] Outpatient Referrer: Enrique Ortega MD 01/08/2020 12:47:00 PM EST [facility] Outpatient Attender: Louie GLOVER Physical Therapy 09:30:00 AM EST MEDENT ([facility]) [facility] [address] [place] [address] [address] 01/07/2020 12:00:00 AM EST eCW1 ([facility]) [place] [address] [facility] [address] 12/16/2019 12:00:00 AM EST eCW1 ([facility]) Immunizations Vaccine Date Status Description Data Source(s) COVID-19 VACCINE, MRNA-1273, LNP-S (MODERNA)/PF 01/17/2021 1 2:00:00 AM EST completed [facility] COVID-19 dose #1 given elsewhere Unspecified 12/21/2020 04:5 3:00 PM EST completed eCW1 ([facility]) COVID-19 VACCINE, MRNA-1273, LNP-S (MODERNA)/PF 12/21/2020 1 2:00:00 AM EST completed [facility] influenza, recombinant, quadrIvalent,injectable, prese rvative free 10/14/2020 08:22:00 AM EST completed eCW1 ([facility]) influenza, recombinant, quadrIvalent,injectable, prese rvative free 10/14/2020 08:22:00 AM EST completed eCW1 ([facility]) influenza, recombinant, quadrIvalent,injectable, prese rvative free 10/14/2020 08:22:00 AM EST completed eCW1 ([facility]) influenza, recombinant, quadrIvalent,injectable, prese rvative free 10/14/2020 08:22:00 AM EST completed eCW1 ([facility]) influenza, recombinant, quadrIvalent,injectable, prese rvative free 10/14/2020 08:22:00 AM EST completed eCW1 ([facility]) influenza, recombinant, quadrIvalent,injectable, prese rvative free 10/14/2020 08:22:00 AM EST completed eCW1 ([facility]) influenza, recombinant, quadrIvalent,injectable, prese rvative free 10/14/2020 08:22:00 AM EST completed eCW1 ([facility]) influenza, recombinant, quadrIvalent,injectable, prese rvative free 10/14/2020 08:22:00 AM EST completed eCW1 ([facility]) influenza, recombinant, quadrIvalent,injectable, prese rvative free 10/14/2020 08:22:00 AM EST completed eCW1 ([facility]) influenza, recombinant, quadrIvalent,injectable, prese rvative free 10/14/2020 08:22:00 AM EST completed [facility]CW1 [facility] [facility]) Medications Medication Brand Name Start Date Product Form Dose Route Admi nistrative Instructions Pharmacy Instructions Status Indications Reaction Description Data Source(s) 2 mg 11/29/2020 12:00:00 AM EST tablet 30 TAKE ONE TABLET BY MOUTH AT BEDTIME TAKE ONE TABLET BY MOUTH AT BEDTIME SOLD: 11/29/2020 [facility] 15 mg 11/29/2020 12:00:00 AM EST tablet 30 TAKE ONE TABLET BY MOUTH AT BEDTIME TAKE ONE TABLET BY MOUTH AT BEDTIME SOLD: 11/29/2020 [facility] Ipratropium-Albuterol 20-100 MCG/ACT UNK 11/09/2020 12:00: 00 AM EST 1.0 {puff} active Ipratropium-Albuterol 20 -100 MCG/ACT eCW1 ([facility]) Ipratropium-Albuterol 20-100 MCG/ACT UNK 11/09/2020 12:00: 00 AM EST 1.0 {puff} active Ipratropium-Albuterol 20 -100 MCG/ACT eCW1 ([facility]) Ipratropium-Albuterol 20-100 MCG/ACT UNK 11/09/2020 12:00: 00 AM EST 1.0 {puff} active Ipratropium-Albuterol 20 -100 MCG/ACT eCW1 ([facility]) 20-100 mcg/actuation 11/08/2020 12:00:00 AM EST mist 4 INHALE 1 PUFF BY MOUTH THREE TIMES A DAY INHALE 1 PUFF BY MOUTH THREE TIMES A DAY SOLD: 11/08/2020 [facility] Myrbetriq 50 MG UNK 10/25/2020 12:00:00 AM EST 1.0 {tablet} active Myrbetriq 50 MG eCW1 ([facility]) Myrbetriq 50 MG UNK 10/25/2020 12:00:00 AM EST 1.0 {tablet} active Myrbetriq 50 MG eCW1 ([facility]) Myrbetriq 50 MG UNK 10/25/2020 12:00:00 AM EST 1.0 {tablet} active Myrbetriq 50 MG eCW1 ([facility]) Myrbetriq 50 MG UNK 10/25/2020 12:00:00 AM EST 1.0 {tablet} active Myrbetriq 50 MG eCW1 ([facility]) gabapentin 300 MG Oral Capsule Gabapentin 300 MG Gabapentin 300 MG 09/27/2020 12:00:00 AM EST 1.0 {capsule} active G abapentin 300 MG eCW1 ([facility]) gabapentin 300 MG Oral Capsule Gabapentin 300 MG Gabapentin 300 MG 09/27/2020 12:00:00 AM EST 1.0 {capsule} active G abapentin 300 MG eCW1 ([facility]) valacyclovir 500 MG Oral Tablet [Valtrex] Valtrex 500 MG Ana trex 500 MG 09/27/2020 12:00:00 AM EST 1.0 {tablet} active Valtrex 500 MG eCW1 ([facility]) gabapentin 300 MG Oral Capsule Gabapentin 300 MG Gabapentin 300 MG 09/27/2020 12:00:00 AM EST 1.0 {capsule} suspended Gabapentin 300 MG eCW1 ([facility]) Prednisone 20 MG Oral Tablet PredniSONE 20 MG PredniSONE 20 MG 09/27/2020 12:00:00 AM EST 1.0 {tablet} suspended PredniSONE 20 MG eCW1 ([facility]) 500 mg 09/27/2020 12:00:00 AM EST tablet 10 TAKE ONE TABLET BY MOUTH TWICE A DAY FOR 5 DAYS TAKE ONE TABLET BY MOUTH TWICE A DAY FOR 5 DAYS SOLD: 09/27/2020 [facility] valacyclovir 500 MG Oral Tablet [Valtrex] Valtrex 500 MG Ana trex 500 MG 09/27/2020 12:00:00 AM EST 1.0 {tablet} active Valtrex 500 MG eCW1 ([facility]) valacyclovir 500 MG Oral Tablet [Valtrex] Valtrex 500 MG Ana trex 500 MG 09/27/2020 12:00:00 AM EST 1.0 {tablet} active Valtrex 500 MG eCW1 ([facility]) valacyclovir 500 MG Oral Tablet [Valtrex] Valtrex 500 MG Ana trex 500 MG 09/27/2020 12:00:00 AM EST 1.0 {tablet} active Valtrex 500 MG eCW1 ([facility]) gabapentin 300 MG Oral Capsule Gabapentin 300 MG Gabapentin 300 MG 09/27/2020 12:00:00 AM EST 1.0 {capsule} suspended Gabapentin 300 MG eCW1 ([facility]) gabapentin 300 MG Oral Capsule Gabapentin 300 MG Gabapentin 300 MG 09/27/2020 12:00:00 AM EST 1.0 {capsule} suspended Gabapentin 300 MG eCW1 ([facility]) gabapentin 300 MG Oral Capsule Gabapentin 300 MG Gabapentin 300 MG 09/27/2020 12:00:00 AM EST 1.0 {capsule} suspended Gabapentin 300 MG eCW1 ([facility]) 20 mg 09/27/2020 12:00:00 AM EST tablet 10 TAKE ONE TABLET BY MOUTH TWICE A DAY FOR 5 DAYS TAKE ONE TABLET BY MOUTH TWICE A DAY FOR 5 DAYS SOLD: 2019 [facility] Prednisone 20 MG Oral Tablet PredniSONE 20 MG PredniSONE 20 MG 09/27/2020 12:00:00 AM EST 1.0 {tablet} suspended PredniSONE 20 MG eCW1 ([facility]) Prednisone 20 MG Oral Tablet PredniSONE 20 MG PredniSONE 20 MG 09/27/2020 12:00:00 AM EST 1.0 {tablet} active Pr edniSONE 20 MG eCW1 ([facility]) Prednisone 20 MG Oral Tablet PredniSONE 20 MG PredniSONE 20 MG 09/27/2020 12:00:00 AM EST 1.0 {tablet} suspended PredniSONE 20 MG eCW1 ([facility]) valacyclovir 500 MG Oral Tablet [Valtrex] Valtrex 500 MG Ana trex 500 MG 09/27/2020 12:00:00 AM EST 1.0 {tablet} suspended Valtrex 500 MG eCW1 ([facility]) Prednisone 20 MG Oral Tablet PredniSONE 20 MG PredniSONE 20 MG 09/27/2020 12:00:00 AM EST 1.0 {tablet} active Pr edniSONE 20 MG eCW1 ([facility]) valacyclovir 500 MG Oral Tablet [Valtrex] Valtrex 500 MG Ana trex 500 MG 09/27/2020 12:00:00 AM EST 1.0 {tablet} suspended Valtrex 500 MG eCW1 ([facility]) valacyclovir 500 MG Oral Tablet [Valtrex] Valtrex 500 MG Ana trex 500 MG 09/27/2020 12:00:00 AM EST 1.0 {tablet} active Valtrex 500 MG eCW1 ([facility]) valacyclovir 500 MG Oral Tablet [Valtrex] Valtrex 500 MG Ana trex 500 MG 09/27/2020 12:00:00 AM EST 1.0 {tablet} suspended Valtrex 500 MG eCW1 ([facility]) Prednisone 20 MG Oral Tablet PredniSONE 20 MG PredniSONE 20 MG 09/27/2020 12:00:00 AM EST 1.0 {tablet} suspended PredniSONE 20 MG eCW1 ([facility]) Prednisone 20 MG Oral Tablet PredniSONE 20 MG PredniSONE 20 MG 09/27/2020 12:00:00 AM EST 1.0 {tablet} active Pr edniSONE 20 MG eCW1 ([facility]) Prednisone 20 MG Oral Tablet PredniSONE 20 MG PredniSONE 20 MG 09/27/2020 12:00:00 AM EST 1.0 {tablet} active Pr edniSONE 20 MG eCW1 ([facility]) gabapentin 300 MG Oral Capsule Gabapentin 300 MG Gabapentin 300 MG 09/27/2020 12:00:00 AM EST 1.0 {capsule} active G abapentin 300 MG eCW1 ([facility]) Prednisone 20 MG Oral Tablet PredniSONE 20 MG PredniSONE 20 MG 09/27/2020 12:00:00 AM EST 1.0 {tablet} suspended PredniSONE 20 MG eCW1 ([facility]) valacyclovir 500 MG Oral Tablet [Valtrex] Valtrex 500 MG Ana trex 500 MG 09/27/2020 12:00:00 AM EST 1.0 {tablet} suspended Valtrex 500 MG eCW1 ([facility]) gabapentin 300 MG Oral Capsule Gabapentin 300 MG Gabapentin 300 MG 09/27/2020 12:00:00 AM EST 1.0 {capsule} active G abapentin 300 MG eCW1 ([facility]) Prednisone 20 MG Oral Tablet PredniSONE 20 MG PredniSONE 20 MG 09/27/2020 12:00:00 AM EST 1.0 {tablet} suspended PredniSONE 20 MG eCW1 ([facility]) gabapentin 300 MG Oral Capsule Gabapentin 300 MG Gabapentin 300 MG 09/27/2020 12:00:00 AM EST 1.0 {capsule} suspended Gabapentin 300 MG eCW1 ([facility]) valacyclovir 500 MG Oral Tablet [Valtrex] Valtrex 500 MG Ana trex 500 MG 09/27/2020 12:00:00 AM EST 1.0 {tablet} suspended Valtrex 500 MG eCW1 ([facility]) valacyclovir 500 MG Oral Tablet [Valtrex] Valtrex 500 MG Ana trex 500 MG 09/27/2020 12:00:00 AM EST 1.0 {tablet} suspended Valtrex 500 MG eCW1 ([facility]) gabapentin 300 MG Oral Capsule Gabapentin 300 MG Gabapentin 300 MG 09/27/2020 12:00:00 AM EST 1.0 {capsule} active G abapentin 300 MG eCW1 ([facility]) valacyclovir 500 MG Oral Tablet [Valtrex] Valtrex 500 MG Ana trex 500 MG 09/27/2020 12:00:00 AM EST 1.0 {tablet} suspended Valtrex 500 MG eCW1 ([facility]) gabapentin 300 MG Oral Capsule Gabapentin 300 MG Gabapentin 300 MG 09/27/2020 12:00:00 AM EST 1.0 {capsule} suspended Gabapentin 300 MG eCW1 ([facility]) Prednisone 20 MG Oral Tablet PredniSONE 20 MG PredniSONE 20 MG 09/27/2020 12:00:00 AM EST 1.0 {tablet} active Pr edniSONE 20 MG eCW1 ([facility]) 300 mg 09/27/2020 12:00:00 AM EST capsule 28 TAKE ONE CAPSULE BY MOUTH TWICE A DAY FOR 14 DAYS TAKE ONE CAPSULE BY MOUTH TWICE A DAY FOR 14 DAYS SOLD : 09/27/2020 [facility] Prednisone 20 MG Oral Tablet PredniSONE 20 MG PredniSONE 20 MG 09/27/2020 12:00:00 AM EST 1.0 {tablet} suspended PredniSONE 20 MG eCW1 ([facility]) valacyclovir 500 MG Oral Tablet [Valtrex] Valtrex 500 MG Ana trex 500 MG 09/27/2020 12:00:00 AM EST 1.0 {tablet} active Valtrex 500 MG eCW1 ([facility]) gabapentin 300 MG Oral Capsule Gabapentin 300 MG Gabapentin 300 MG 09/27/2020 12:00:00 AM EST 1.0 {capsule} active G abapentin 300 MG eCW1 ([facility]) gabapentin 300 MG Oral Capsule Gabapentin 300 MG Gabapentin 300 MG 09/27/2020 12:00:00 AM EST 1.0 {capsule} suspended Gabapentin 300 MG eCW1 ([facility]) Prednisone 20 MG Oral Tablet PredniSONE 20 MG PredniSONE 20 MG 09/27/2020 12:00:00 AM EST 1.0 {tablet} active Pr edniSONE 20 MG eCW1 ([facility]) Prednisone 20 MG Oral Tablet PredniSONE 20 MG PredniSONE 20 MG 09/19/2020 12:00:00 AM EDT 2.0 {tablets} suspended PredniSONE 20 MG eCW1 ([facility]) Prednisone 20 MG Oral Tablet PredniSONE 20 MG PredniSONE 20 MG 09/19/2020 12:00:00 AM EDT 2.0 {tablets} active P redniSONE 20 MG eCW1 ([facility]) Prednisone 20 MG Oral Tablet PredniSONE 20 MG PredniSONE 20 MG 09/19/2020 12:00:00 AM EDT 2.0 {tablets} suspended PredniSONE 20 MG eCW1 ([facility]) Prednisone 20 MG Oral Tablet PredniSONE 20 MG PredniSONE 20 MG 09/19/2020 12:00:00 AM EDT 2.0 {tablets} suspended PredniSONE 20 MG eCW1 ([facility]) valacyclovir 1000 MG Oral Tablet Valacyclovir HCl 1 GM Valac yclovir HCl 1 GM 09/19/2020 12:00:00 AM EDT 1.0 {tablet} suspende d Valacyclovir HCl 1 GM eCW1 ([facility]) valacyclovir 1000 MG Oral Tablet Valacyclovir HCl 1 GM Valac yclovir HCl 1 GM 09/19/2020 12:00:00 AM EDT 1.0 {tablet} suspende d Valacyclovir HCl 1 GM eCW1 ([facility]) valacyclovir 1000 MG Oral Tablet Valacyclovir HCl 1 GM Valac yclovir HCl 1 GM 09/19/2020 12:00:00 AM EDT 1.0 {tablet} suspende d Valacyclovir HCl 1 GM eCW1 ([facility]) valacyclovir 1000 MG Oral Tablet Valacyclovir HCl 1 GM Valac yclovir HCl 1 GM 09/19/2020 12:00:00 AM EDT 1.0 {tablet} active Valacyclovir HCl 1 GM eCW1 ([facility]) valacyclovir 1000 MG Oral Tablet Valacyclovir HCl 1 GM Valac yclovir HCl 1 GM 09/19/2020 12:00:00 AM EDT 1.0 {tablet} suspende d Valacyclovir HCl 1 GM eCW1 ([facility]) 1 gram 09/19/2020 12:00:00 AM EDT tablet 21 TAKE ONE TABLET BY MOUTH THREE TIMES A DAY FOR 7 DAYS TAKE ONE TABLET BY MOUTH THREE TIMES A DAY FOR 7 DAYS SOLD: 09/19/2020 [facility] 20 mg 09/19/2020 12:00:00 AM EDT tablet 10 TAKE TWO TABLETS BY MOUTH EVERY DAY TAKE TWO TABLETS BY MOUTH EVERY DAY SOLD: 09/19/2020 [facility] Prednisone 20 MG Oral Tablet PredniSONE 20 MG PredniSONE 20 MG 09/19/2020 12:00:00 AM EDT 2.0 {tablets} suspended PredniSONE 20 MG eCW1 ([facility]) Prednisone 20 MG Oral Tablet PredniSONE 20 MG PredniSONE 20 MG 09/19/2020 12:00:00 AM EDT 2.0 {tablets} suspended PredniSONE 20 MG eCW1 ([facility]) valacyclovir 1000 MG Oral Tablet Valacyclovir HCl 1 GM Valac yclovir HCl 1 GM 09/19/2020 12:00:00 AM EDT 1.0 {tablet} suspende d Valacyclovir HCl 1 GM eCW1 ([facility]) Prednisone 20 MG Oral Tablet PredniSONE 20 MG PredniSONE 20 MG 09/19/2020 12:00:00 AM EDT 2.0 {tablets} suspended PredniSONE 20 MG eCW1 ([facility]) valacyclovir 1000 MG Oral Tablet Valacyclovir HCl 1 GM Valac yclovir HCl 1 GM 09/19/2020 12:00:00 AM EDT 1.0 {tablet} suspende d Valacyclovir HCl 1 GM eCW1 ([facility]) valacyclovir 1000 MG Oral Tablet Valacyclovir HCl 1 GM Valac yclovir HCl 1 GM 09/19/2020 12:00:00 AM EDT 1.0 {tablet} suspende d Valacyclovir HCl 1 GM eCW1 ([facility]) valacyclovir 1000 MG Oral Tablet Valacyclovir HCl 1 GM Valac yclovir HCl 1 GM 09/19/2020 12:00:00 AM EDT 1.0 {tablet} active Valacyclovir HCl 1 GM eCW1 ([facility]) valacyclovir 1000 MG Oral Tablet Valacyclovir HCl 1 GM Valac yclovir HCl 1 GM 09/19/2020 12:00:00 AM EDT 1.0 {tablet} suspende d Valacyclovir HCl 1 GM eCW1 ([facility]) valacyclovir 1000 MG Oral Tablet Valacyclovir HCl 1 GM Valac yclovir HCl 1 GM 09/19/2020 12:00:00 AM EDT 1.0 {tablet} suspende d Valacyclovir HCl 1 GM eCW1 ([facility]) valacyclovir 1000 MG Oral Tablet Valacyclovir HCl 1 GM Valac yclovir HCl 1 GM 09/19/2020 12:00:00 AM EDT 1.0 {tablet} suspende d Valacyclovir HCl 1 GM eCW1 ([facility]) Prednisone 20 MG Oral Tablet PredniSONE 20 MG PredniSONE 20 MG 09/19/2020 12:00:00 AM EDT 2.0 {tablets} suspended PredniSONE 20 MG eCW1 ([facility]) Prednisone 20 MG Oral Tablet PredniSONE 20 MG PredniSONE 20 MG 09/19/2020 12:00:00 AM EDT 2.0 {tablets} suspended PredniSONE 20 MG eCW1 ([facility]) Prednisone 20 MG Oral Tablet PredniSONE 20 MG PredniSONE 20 MG 09/19/2020 12:00:00 AM EDT 2.0 {tablets} suspended PredniSONE 20 MG eCW1 ([facility]) Prednisone 20 MG Oral Tablet PredniSONE 20 MG PredniSONE 20 MG 09/19/2020 12:00:00 AM EDT 2.0 {tablets} suspended PredniSONE 20 MG eCW1 ([facility]) valacyclovir 1000 MG Oral Tablet Valacyclovir HCl 1 GM Valac yclovir HCl 1 GM 09/19/2020 12:00:00 AM EDT 1.0 {tablet} suspende d Valacyclovir HCl 1 GM eCW1 ([facility]) Prednisone 20 MG Oral Tablet PredniSONE 20 MG PredniSONE 20 MG 09/19/2020 12:00:00 AM EDT 2.0 {tablets} suspended PredniSONE 20 MG eCW1 ([facility]) Prednisone 20 MG Oral Tablet PredniSONE 20 MG PredniSONE 20 MG 09/19/2020 12:00:00 AM EDT 2.0 {tablets} active P redniSONE 20 MG eCW1 ([facility]) valacyclovir 1000 MG Oral Tablet Valacyclovir HCl 1 GM Valac yclovir HCl 1 GM 09/19/2020 12:00:00 AM EDT 1.0 {tablet} suspende d Valacyclovir HCl 1 GM eCW1 ([facility]) Prednisone 20 MG Oral Tablet PredniSONE 20 MG PredniSONE 20 MG 09/19/2020 12:00:00 AM EDT 2.0 {tablets} suspended PredniSONE 20 MG eCW1 ([facility]) Prednisone 20 MG Oral Tablet PredniSONE 20 MG PredniSONE 20 MG 09/19/2020 12:00:00 AM EDT 2.0 {tablets} suspended PredniSONE 20 MG eCW1 ([facility]) valacyclovir 1000 MG Oral Tablet Valacyclovir HCl 1 GM Valac yclovir HCl 1 GM 09/19/2020 12:00:00 AM EDT 1.0 {tablet} suspende d Valacyclovir HCl 1 GM eCW1 ([facility]) Walker - Walker - 03/28/2020 12:00:00 AM EDT activ e Walker - eCW1 ([facility]) Walker - Walker - 03/28/2020 12:00:00 AM EDT activ e Walker - eCW1 ([facility]) Walker - Walker - 03/28/2020 12:00:00 AM EDT activ e Walker - eCW1 ([facility]) Walker - Walker - 03/28/2020 12:00:00 AM EDT activ e Walker - eCW1 ([facility]) Walker - Walker - 03/28/2020 12:00:00 AM EDT activ e Walker - eCW1 ([facility]) Walker - Walker - 03/28/2020 12:00:00 AM EDT activ e Walker - eCW1 ([facility]) Walker - Walker - 03/28/2020 12:00:00 AM EDT activ e Walker - eCW1 ([facility]) Walker - Walker - 03/28/2020 12:00:00 AM EDT activ e Walker - eCW1 ([facility]) Walker - Walker - 03/28/2020 12:00:00 AM EDT activ e Walker - eCW1 ([facility]) Walker - Walker - 03/28/2020 12:00:00 AM EDT active with 4 wheels and seat eCW1 ([facility]) Walker - Walker - 03/28/2020 12:00:00 AM EDT activ e Walker - eCW1 ([facility]) Walker - Walker - 03/28/2020 12:00:00 AM EDT activ e Walker - eCW1 ([facility]) Walker - Walker - 03/28/2020 12:00:00 AM EDT activ e Walker - eCW1 ([facility]) Walker - Walker - 03/28/2020 12:00:00 AM EDT activ e Walker - eCW1 ([facility]) Walker - Walker - 03/28/2020 12:00:00 AM EDT activ e Walker - eCW1 ([facility]) Walker - Walker - 03/28/2020 12:00:00 AM EDT activ e Walker - eCW1 ([facility]) Walker - Walker - 03/28/2020 12:00:00 AM EDT activ e Walker - eCW1 ([facility]) Walker - Walker - 03/28/2020 12:00:00 AM EDT activ e Walker - eCW1 ([facility]) Walker - Walker - 03/28/2020 12:00:00 AM EDT activ e Walker - eCW1 ([facility]) Walker - Walker - 03/28/2020 12:00:00 AM EDT activ e Walker - eCW1 ([facility]) Walker - Walker - 03/28/2020 12:00:00 AM EDT activ e Walker - eCW1 ([facility]) Walker - Walker - 03/28/2020 12:00:00 AM EDT activ e Walker - eCW1 ([facility]) Walker - Walker - 03/28/2020 12:00:00 AM EDT activ e Walker - eCW1 ([facility]) Diclofenac Sodium 0.01 MG/MG Topical Gel [Voltaren] Voltaren 01/29/2020 12:00:00 AM EST active [facility] ([facility]) 12 HR Bupropion Hydrochloride 150 MG Ext ended Release Oral Tablet [Wellbutrin] Wellbutrin SR 150MG Oral Tablet Extended Release 12 Hour Wellbutrin SR 150MG Oral Tablet Extended Release 12 Hour 09/12/2017 12:00:00 AM EDT 1 aborted 12 HR bupropion hydr ochloride 150 MG Extended Release Oral Tablet [Wellbutrin] ALIE (Abhinav Burnham MD [facility]) Insurance Providers Payer name Policy type / Coverage type Policy ID Covered republican ID Covered republican's relationship to carbajal Policy Carbajal Plan Information MEDICARE [id number] SP [id number] P[address] [facility] [id number] [place]2 [id number] [facility] [id number] SP [id number] [employer] [place] Other 0 Family Dep [facility] Omid Sandersman 0 [employer] [place] Other 0 Self 0 Medicare Part B [facility] 0 Se lf 0 UMR [facility] [id number] WI2 [id number] UMR [facility] [id number] SP [id number] UMR [id number] Spo [id number] UMR [id number] Anma [id number] MEDICARE [id number] Amna [id number] P45 [employer] [place] Other 0 Family Dep lazarus Godinez 0 [employer] [place] Other 0 Self 0 Medicare Part B of [place] Other 0 Se lf 0 UMR O [id number] S [id number] MEDICARE C [id number] S [id number] P45 UMR O [id number] S [id number] UMR F [id number] SELF [id number] UMR F [id number] SPOUSE [id number] Medicare C [id number] SELF [id number] P45 ANSI-Commercial [id number] ANSI-Medicare Part B [id number] ANSI-Not a Secondary Insurance [id number] ANSI-Commercial [id number] ANSI-Not a Secondary Insurance [id number] ANSI-Medicare Part B [id number] ANSI-Commercial [id number] ANSI-Medicare Part B [id number] ANSI-Not a Secondary Insurance [id number] Umr (pr) Medigap Part B [id number] Family Dependent [id number] Umr (pr) Medigap Part B [id number] Self [id number] [place] [id number] Self [id number] ANSI-Not a Secondary Insurance [id number] ANSI-Medicare Part B [id number] ANSI-Commercial [id number] UMR U [id number] Self [id number] MEDICARE A [id number] Self [id number] P45 UMR U [id number] Spouse [id number] Umr (pr) Medigap Part B [id number] Family Dependent [id number] Umr (pr) Medigap Part B [id number] Self [id number] [place] [id number] Self [id number] Umr (pr) Medigap Part B [id number] Family Dependent [id number] Umr (pr) Medigap Part B [id number] Self [id number] [place] [id number] Self [id number] Umr (pr) Medigap Part B [id number] Family Dependent [id number] Umr (pr) Medigap Part B [id number] Self [id number] [place] [id number] Self [id number] MEDICARE [id number] SP [id number] A UMR [facility] [id number] SP [id number] Umr (pr) Medigap Part B [id number] Family Dependent [id number] Umr (pr) Medigap Part B [id number] Self [id number] [place] [id number] Self [id number] ANSI-Commercial [id number] ANSI-Medicare Part B [id number] ANSI-Not a Secondary Insurance [id number] ANSI-Commercial [id number] ANSI-Medicare Part B [id number] ANSI-Not a Secondary Insurance [id number] ANSI-Medicare Part B [id number] ANSI-Commercial [id number] ANSI-Not a Secondary Insurance [id number] ANSI-Medicare Part B [id number] ANSI-Not a Secondary Insurance [id number] ANSI-Commercial [id number] ANSI-Medicare Part B [id number] ANSI-Not a Secondary Insurance [id number] ANSI-Commercial [id number] ANSI-Not a Secondary Insurance [id number] ANSI-Commercial [id number] ANSI-Medicare Part B [id number] ANSI-Commercial [id number]e ANSI-Medicare Part B 68028w70-7m7v-4678-20s5-154v324b2o5v 81991c27-5l5a-2761-31l6-051j701k2u5e ANSI-Not a Secondary Insurance 36k61054-25l0-467t-1gu5-852w5 k7j17dw 82r27061-78r3-270y-7vt1-999z0q9r56rk ANSI-Not a Secondary Insurance f4ob2m86-qcb1-8y85-i456-9624o sr2w7u1 p7ap2i17-gtq0-2o76-h964-5013wek5v9b2 ANSI-Commercial 6ji62yt4-q53b-8zpc-d9n7-5094l736q78g 2jn17pc3-j79v-0wzt-b7k2-2822g024k48s ANSI-Medicare Part B [id number]-imk0-2zve-e67s-444576867h4e 0l20hq47-gmx6-8vte-n93d-957918113u5z ANSI-Medicare Part B [id number]-1tmg-2a61-54yc9u0sk557 58240290-p55s-5qog-9p96-85qe3n9nn134 ANSI-Not a Secondary Insurance f9554tt1-38u9-35p2-al31-k59m4 vf8avm9 c6112mm9-63o6-54w1-ri47-n17d0br5xlj5 ANSI-Commercial 27u31z08-1879-5b62-t4u8-50831abp358y 87j53v27-3869-6n94-a8z8-73095brb186g ANSI-Commercial av97ck9f-y1t3-358l-5s42-06d8ob88p072 jh14rv0f-p0e2-875f-5c42-87m1xm74j110 ANSI-Medicare Part B [id number]-x7269q58v10t o6662351-vg00-73p7-0254-d9359a49g47c ANSI-Not a Secondary Insurance 7d5j0slg-9600-8i43-3w1y-d8h76 9p92z3n 5o8w6owg-6518-7u87-0s2m-m5x485y79p8t ANSI-Not a Secondary Insurance 83n5m080-99d3-906y-ja41-a0s0w g1t915i 96r5k694-02h7-850g-aj28-t9y9bn2h618g ANSI-Commercial 8a7549b2-122m-9381-2n7y-6441n7w5f57g 4h6179u3-468n-7616-5p0f-5256y2m6g94a ANSI-Medicare Part B [id number]-[id number] 2604497d-yap6-6h01-iw26-93m549d30669 [facility] [id number] Self [id number] ANSI-Not a Secondary Insurance s3z68xz5-1oa1-9t8n-di50-qmr6z 37320ro f1u99ei1-3yv5-7t2n-jx88-nzq8b80060ww ANSI-Commercial 719dkqpa-2280-8i5e9c9s-6216-72644t4dl3hu 464zfdbf-0912-9u1s7d8q-5340-37853m6xm6gk ANSI-Medicare Part B [id number]-ff3x-q71117t01m9a 3m442432-61f0-254v-vg8j-k71167s97m9f ANSI-Commercial xn4l378a-4c82-2v8w-42d4-zo2n1330t298 kg7l275u-3d12-0n6k-64n2-gf0b0594q504 ANSI-Not a Secondary Insurance 113rd3cs-93s0-9cia-l635-2y246 k7xpcg7 628lk7vo-13a5-0rng-p333-8n372v2izzi9 ANSI-Medicare Part B [id number]-5jz6-0y54-vv0320151q3c v2q14055-03xf-2ks6-2r83-jn6520021r2d ANSI-Not a Secondary Insurance k9m65742-9p42-2t16-4g48-6w860 91b61l5 z9b63600-5b80-8q75-8e40-1v97789y26a8 ANSI-Commercial 64390732-868o-2loc-oqcf-r8qg49at601b 71916080-979z-4krg-ytjv-i6sa63gn924h ANSI-Medicare Part B [id number]-95w1-prib-9tc88in06728 r62w33b3-511z-97w2-lzay-5hf08ey06671 [employer] Medigap Part B [id number] Family Dependent [id number] [employer] Medigap Part B [id number] Self [id number] Medicare Natl Gov't Servi Medicare Primary [id number] Self [id number] ANSI-Commercial ywi5qen4-3b05-8518-dj7m-qu4n4o304m74 sgb2eso2-3g94-2871-iu9n-nm7k5v126l10 ANSI-Medicare Part B 17qzx84n-0783-25dq-21vn-2z235kg9fn08 72txz64k-8022-51au-34yy-5s978ep4dz17 ANSI-Not a Secondary Insurance 4471cm03-1os8-0124-81qu-67057 2200441 4547fm68-8rb2-8591-04pm-653825932212 UMR F [id number] SELF [id number] UMR F [id number] SPOUSE [id number] ANSI-Medicare Part B [id number]-iia1-a231idym944z u36q6h42-4p88-1dw3-hcb4-y083wlfs815n ANSI-Not a Secondary Insurance 6x4f1c2o-h255-3o2q-wv7m-ae4d2 0z145yh 0z3c8v0h-u926-6a3n-ie2p-cn5z89w312bt ANSI-Commercial 9w14e30i-4258-37v0-zb89-u6dw63v3g11z 2c58w66c-7897-83m1-hh90-n5fr40g5g96b [facility] [id number] [facility] [id number] ANSI-Medicare Part B [id number]-90k6-695w-cx220vexu044 s9h5096q-97wm-20y7-411c-ux740umjg417 ANSI-Commercial 26637e98-9n76-9a1t-73ku-05cc98e962qg 55285y20-3l93-8k9u-06om-42kv02d990br ANSI-Not a Secondary Insurance 28485h84-u161-4l4v-gyg7-42657 36sw229 43305z86-o831-9g8h-evp8-4406006tu558 [facility] [id number] SELF [id number] Medicare C [id number] SELF [id number] Medicare C [id number] SELF [id number] A ANSI-Not a Secondary Insurance [id number] ANSI-Medicare Part B [id number] ANSI-Commercial [id number] ANSI-Commercial [id number] ANSI-Medicare Part B [id number] ANSI-Not a Secondary Insurance [id number] ANSI-Not a Secondary Insurance [id number] ANSI-Medicare Part B [id number] ANSI-Commercial [id number] ANSI-Commercial [id number] ANSI-Not a Secondary Insurance [id number] ANSI-Medicare Part B [id number] [facility]MR [facility] [id number] SP [id number] UMR [facility] [id number] WI2 [id number] MEDICARE [id number] SP [id number] A [facility] [id number] WI2 [id number] UMR [facility] [id number] WI2 [id number] UMR [facility] [id number] WI2 [id number] R [facility] [id number] WI2 [id number] Umr (pr) Medigap Part B [id number] Self [id number] [place] B [id number] Self [id number] Umr (pr) Commercial [id number] Family Dependent [id number] UMR U [id number] Spouse [id number] MEDICARE A [id number] Self [id number] A Umr (pr) Medigap Part B [id number] Self [id number] [place] Med[place] Part B [id number] Self [id number] Umr (pr) Commercial [id number] Family Dependent [id number] UMR O [id number] S [id number] MEDICARE C [id number] S [id number] A Umr (pr) Medigap Part B [id number] Self [id number] [place] Med[place] Part B [id number] Self [id number] Umr (pr) Commercial [id number] Family Dependent [id number] UMR [facility] [id number] SP [id number] POMCO U [id number] Self [id number] POMCO U [id number] Spouse [id number] POMCO [id number] WI2 [id number] POMCO [id number] SP [id number] UMR F [id number] SPOUSE [id number] [place] / UMR F [id number] SELF [id number] [place] / UMR F [id number] SPOUSE [id number] POMCO [id number] WI2 [id number] POMCO [id number] SP [id number] POMCO [id number] SP [id number] [place] Medigap Part B [id number] Self [id number] Medicare Natl Gov't Servi Medigap Part B [id number] Self [id number] [place] Commercial [id number] Family Dependent [id number] POMCO [id number] SP [id number] [place] Medigap Part B [id number] Self [id number] [phone] Medicare Natl Gov't Servi Medigap Part B [id number] Self [id number] [place] Commercial [id number] Family Dependent [id number] Medicare Natl Gov't Servi Medigap Part B [id number] Self [id number] [place] Medigap Part B [id number] Family Dependent [id number] [place] Commercial [id number] Self [id number] POMCO PPO O [id number] S [id number] POMCO PPO O [id number] P [id number] Ghi/Emblem HLTH (pr) Medigap Part B [id number] Family Depende nt [id number] Ghi/Emblem HLTH (pr) Medigap Part B [id number] Self [id number] [place] (pr) Medigap Part B [id number] Self [id number] [place] Med[place] Part B [id number] Self [id number] [place] (pr) Commercial [id number] Family Dependent 8 [id number] [place] F [id number] SELF [id number] [place] F [id number] SPOUSE [id number] Ghi/Emblem HLTH (pr) Medigap Part B [id number] Family Depende nt [id number] Ghi/Emblem HLTH (pr) Medigap Part B [id number] Self [id number] [place] (pr) Medigap Part B [id number] Self [id number] Medicare [facility] Medigap Part B [id number] Self [id number] [place] (pr) Commercial [id number] Family Dependent 8 [id number] Ghi/Emblem HLTH (pr) Medigap Part B [id number] Family Depende nt [id number] Ghi/Emblem HLTH (pr) Medigap Part B [id number] Self [id number] [place] (pr) Medigap Part B [id number] Self [id number] Medicare [facility] Medigap Part B [id number] Self [id number] [place] (pr) Commercial [id number] Family Dependent 8 [id number] [place] Medigap Part B [id number] Self [id number] [place] Medigap Part B [id number] Family Dependent [id number] Medicare Natl Gov't Servi Medicare Primary [id number] Self [id number] POMCO [id number] WI2 [id number] Ghi/Emblem HLTH (pr) Medigap Part B [id number] Family Depende nt [id number] Ghi/Emblem HLTH (pr) Medigap Part B [id number] Self [id number] [place] (pr) Medigap Part B [id number] Self [id number] [place] Med[place] Part B [id number] Self [id number] [place] (pr) Commercial [id number] Family Dependent 8 [id number] Ghi/Emblem HLTH (pr) Medigap Part B [id number] Family Depende nt [id number] Ghi/Emblem HLTH (pr) Medigap Part B [id number] Self [id number] [place] (pr) Medigap Part B [id number] Self [id number] [place] Med[place] Part B [id number] Self [id number] [place] (pr) Commercial [id number] Family Dependent 8 [id number] Ghi/Emblem HLTH (pr) Medigap Part B [id number] Family Depende nt [id number] Ghi/Emblem HLTH (pr) Medigap Part B [id number] Self [id number] [place] (pr) Medigap Part B [id number] Self [id number] [place] Med[place] Part B [id number] Self [id number] [place] (pr) Commercial [id number] Family Dependent 8 [id number] POMCO [id number] SP [id number] POMCO [id number] SP [id number] MEDICARE [id number] SP [id number] A POMCO [id number] WI2 [id number] POMCO [id number] SP [id number] POMCO [id number] WI2 [id number] POMCO [id number] SP [id number] POMCO [id number] WI2 [id number] POMCO [id number] WI2 [id number] POMCO [id number] SP [id number] POMCO [id number] SP [id number] POMCO [id number] WI2 [id number] Ghi/Emblem HLTH (pr) Medigap Part B Family Depende nt Ghi/Emblem HLTH (pr) Medigap Part B Self [place] (pr) Medigap Part B [place] Part B Self [place] (pr) Commercial Family Dependent POMCO [id number] WI2 [id number] Pom[place] Commercial Self Medicare [facility] Medicare Primary Self [place] Commercial Family Dependent [place] Medigap Part B Self Medicare [facility] Medicare Primary Self [place] Commercial Family Dependent POMCO [id number] WI2 [id number] POMCO -O/P [id number] 18 [id number] MEDICARE -O/P [id number] 18 [id number] POMCO -O/P [id number] 01 [id number] [employer] [id number] SP [id number] POMCO PPO P [id number] P [id number] POMCO PPO S [id number] S [id number] Problems, Conditions, and Diagnoses Code Display Name Description Problem Type Effective Dates Data Source(s) 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.9 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 Problem 01/04/2021 12:00:00 AM EST eCW1 ([facility]) E11.9 [id number] Type 2 diabetes hayley itus without complication, without long-term current use of insulin Problem 01/04/2021 12:00:00 AM EST eCW1 ([facility]) 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 I10 Essential (primary) hypertension Essential (primary) h ypertension Diagnosis 06/01/2020 08:43:[address] [facility] R91.8 Other nonspecific abnormal finding of bo ng field Other nonspecific abnormal finding of bo Diagnosis 05/11/2020 09:07:07 AM EDT [facility] E29.1 Testicular hypofunction Testicular hypofunction Diagno sis 05/11/2020 09:07:[address] [facility] Z86.79 Personal history of other diseases of th e circulatory system Personal history of other diseases of th Diagnosis 05/11/2020 09:07:07 AM EDT [facility] I31.3 Pericardial effusion (noninflammatory) P ericardial effusion (noninflammatory) Diagnosis 05/11/2020 09:07:[address] [facility] G47.33 Obstructive sleep apnea (adult) (pediatr ic) Obstructive sleep apnea (adult) (pediatr Diagnosis 05/11/2020 09:07:[address] [facility] E66.9 Obesity, unspecified Obesity, unspecified Diagnosis 05/11/2020 09:07:[address] [facility] F41.8 Other specified anxiety disorders Other specifie d anxiety disorders Diagnosis 05/11/2020 09:07:07 AM EDT [facility] J44.9 Chronic obstructive pulmonary disease, u nspecified Chronic obstructive pulmonary disease, u Diagnosis 05/11/2020 09:07:[address] [facility] E78.5 Hyperlipidemia, unspecified Hyperlipidemia, unspecifie d Diagnosis 05/11/2020 09:07:[address] [facility] M19.90 Unspecified osteoarthritis, unspecified site Unspecified osteoarthritis, unspecified Diagnosis 05/11/2020 09:07:[address] [facility] Surgeries/Procedures Procedure Description Date Indications Data Source(s) Visual Field (WAIVER OF LIABILITY ON FILE (ABN)) Visua l Field (WAIVER OF LIABILITY ON FILE (ABN)) 12/08/2020 12:00:00 AM EST ALIE (Abhinav Burnham MD [facility]) Immunization: Flublok Quadrivalent (18 years & older) 0.5mL IM (Influenza) 10/14/2020 12:00:00 AM EST eCW1 ([facility]) Intermediate Eye Exam Established Patient Intermediate Eye Exam Established Patient 09/19/2020 12:00:00 AM EDT ALIE (Luis Burnham MD [facility]) No surgical / procedural history No surgical / procedural hi story 07/26/2020 12:00:00 AM EDT ALIE (Abhinav Burnham MD [facility]) Intermediate Eye Exam Established Patient Intermediate Eye Exam Established Patient 07/26/2020 12:00:00 AM EDT ALIE (Luis Burnham MD [facility]) Intermediate Eye Exam Established Patient Intermediate Eye Exam Established Patient 07/26/2020 12:00:00 AM EDT ALIE (Luis Burnham MD [facility]) uro PVR (Post Voiding Residual) Bladder Scan 0 12:00:00 AM EDT eCW1 ([facility]) Remote Evaluation with Patient by an MD/QHP 02/11/2020 12:00:00 AM EDT eCW1 ([facility]) Insertion of Punctum Plug (Bilateral Procedure) Insert ion of Punctum Plug (Bilateral Procedure) 01/11/2020 12:00:00 AM EST ALIE (Sara Burnham MD [facility]) Results ID Date Data Source 01/12/2020 12:00:00 AM EST [facility] ology Imaging Louie Rogel Pa-C Patient Name: BEBA GODINEZ [id number] [facility] Date of : 1955 89 [facility]: [facility]2020[facility] [place] [address]#: Fax: [phone] EXAM: MRI KNEE LEFT WITHOUT CONTRASTCLINICAL INFORMATION: Meniscus tear. The patient complains of left kneepain for two years and states that his steroid injections are no longerworking.There are no comparison studies.3T multiplanar MRI imaging of the left knee was obtained using varioussequences.There is a small joint effusion.There is cartigalgenous surface irregularity of the lateral and medialfacets of the patellofemoral compartment. There is T2 signal in thepatellar lateral facet. These findings are compatible with patellofemoralchondromalacia. There is no fissuring or osteochondral defect.The articular cartilage in the medial and lateral compartments demonstratesno surface irregularity. No increased signal. No fissuring. Nosubcortical edema. No evidence of medial or lateral compartmentchondromalacia.There are small osteophytes of the femoral condyles consistent with mildosteoarthritis.There is focal T2 signal at the medial margin of the medial meniscus,possibly representing meniscocapsular separation.The medial and lateral menisci are otherwise unremarkable.The anterior and posterior cruciate ligaments are unremarkable.The medial and lateral collateral ligaments are unremarkable.The quadriceps and patellar tendons are unremarkable.IMPRESSION:Patellofemoral chondromalacia as described.Questionable medial meniscocapsular separation at the medial joint line.Mild tricompartment osteoarthritis.No osteochondral defects or subcortical marrow edema.The articular cartilage is otherwise unremarkable.Otherwise, negative left knee MRI.Accredited by the [employer] in MR.Yohan Jackson, MDDJW/jmcThank you for referring BEBA GODINEZ to our office. Electronically Signed - YOHAN JACKSON MD 01/12/20 16:32 Name Value Range Interpretation Code Description Data Carolina rce(s) Supporting Document(s) Procedure Social History Code Duration Value Status Description Data Source(s ) Smoking 01/12/2021 12:00:00 AM EST Former Smoker completed Former Smoker eCW1 ([facility]) Smoking 11/23/2020 12:00:00 AM EST Former Smoker completed Former Smoker eCW1 ([facility]) Smoking 11/23/2020 12:00:00 AM EST Former Smoker completed Former Smoker eCW1 ([facility]) Smoking 11/23/2020 12:00:00 AM EST Former Smoker completed Former Smoker eCW1 ([facility]) Smoking 11/09/2020 12:00:00 AM EST Former Smoker completed Former Smoker eCW1 ([facility]) Smoking 11/09/2020 12:00:00 AM EST Former Smoker completed Former Smoker eCW1 ([facility]) Smoking 11/09/2020 12:00:00 AM EST Former Smoker completed Former Smoker eCW1 ([facility]) Smoking 10/25/2020 12:00:00 AM EST Former Smoker completed Former Smoker eCW1 ([facility]) Smoking 09/27/2020 12:00:00 AM EST Former Smoker completed Former Smoker eCW1 ([facility]) Smoking 09/27/2020 12:00:00 AM EST Former Smoker completed Former Smoker eCW1 ([facility]) Smoking 09/27/2020 12:00:00 AM EST Former Smoker completed Former Smoker eCW1 ([facility]) Smoking 09/27/2020 12:00:00 AM EST Former Smoker completed Former Smoker eCW1 ([facility]) Smoking 09/27/2020 12:00:00 AM EST Former Smoker completed Former Smoker eCW1 ([facility]) Smoking 09/27/2020 12:00:00 AM EST Former Smoker completed Former Smoker eCW1 ([facility]) Smoking 09/23/2020 12:00:00 AM EDT Former Smoker completed Former Smoker eCW1 ([facility]) Smoking 09/19/2020 12:00:00 AM EDT Former Smoker completed Former Smoker eCW1 ([facility]) Smoking 07/26/2020 01:22:21 PM EDT Ex-smoker (finding) [facility] Ex-smoker (finding) ROMULUS (Abhinav Burnham MD [facility]) Smoking 06/08/2020 12:00:00 AM EDT Former Smoker completed Former Smoker eCW1 ([facility]) Smoking 06/08/2020 12:00:00 AM EDT Former Smoker completed Former Smoker eCW1 ([facility]) Smoking 06/08/2020 12:00:00 AM EDT Former Smoker completed Former Smoker eCW1 ([facility]) Smoking 04/26/2020 12:00:00 AM EDT Former Smoker completed Former Smoker eCW1 ([facility]) Smoking 04/26/2020 12:00:00 AM EDT Former Smoker completed Former Smoker eCW1 ([facility]) Smoking 04/26/2020 12:00:00 AM EDT Former Smoker completed Former Smoker eCW1 ([facility]) Vital Signs ID Date Data Source UNK Name Value Range Interpretation Code Description Data Source(s) Body height 69 [in_i] 69 [in_i] [facility] ([facility] 5'9" Body mass index (BMI) [Ratio] 43.6 kg/m2 43.6 k g/m2 [facility] ([facility] Heart rate 113 /min 113 /min [facility] ([facility] Diastolic blood pressure 80 mm[Hg] 80 mm[Hg] [facility] ([facility] Systolic blood pressure 114 mm[Hg] 114 mm[Hg] M EDENT ([facility] Body weight 295.00 [lb_av] 295.00 [lb_av] MEDEN T ([facility] Diastolic blood pressure 80 mm[Hg] 80 mm[Hg] eCW1 ([facility]) Systolic blood pressure 132 mm[Hg] 132 mm[Hg] e CW1 ([facility]) Body temperature 96.1 [degF] 96.1 [degF] eCW1 ( [facility]) Respiratory rate 22 /min 22 /min eCW1 ([facility]) Heart rate 82 /min 82 /min eCW1 ([facility]) Body mass index (BMI) [Ratio] 43.12 kg/m2 43.12 kg/m2 eCW1 ([facility]) Body height 69 [in_i] 69 [in_i] eCW1 ([facility]) Body weight 292 [lb_av] 292 [lb_av] eCW1 ([facility]) Diastolic blood pressure 86 mm[Hg] 86 mm[Hg] eCW1 ([facility]) Systolic blood pressure 140 mm[Hg] 140 mm[Hg] e CW1 ([facility]) Body temperature 97.1 [degF] 97.1 [degF] eCW1 ( [facility]) Respiratory rate 22 /min 22 /min eCW1 ([facility]) Heart rate 86 /min 86 /min eCW1 ([facility]) Body mass index (BMI) [Ratio] 42.97 kg/m2 42.97 kg/m2 eCW1 ([facility]) Body height 69 [in_i] 69 [in_i] eCW1 ([facility]) Body weight 291 [lb_av] 291 [lb_av] eCW1 ([facility]) Diastolic blood pressure 80 mm[Hg] 80 mm[Hg] eCW1 ([facility]) Systolic blood pressure 132 mm[Hg] 132 mm[Hg] e CW1 ([facility]) Body temperature 98.1 [degF] 98.1 [degF] eCW1 ( [facility]) Respiratory rate 20 /min 20 /min eCW1 ([facility]) Heart rate 131 /min 131 /min eCW1 ([facility]) Body mass index (BMI) [Ratio] 43.56 kg/m2 43.56 kg/m2 eCW1 ([facility]) Body height 69 [in_i] 69 [in_i] eCW1 ([facility]) Body weight 295 [lb_av] 295 [lb_av] eCW1 ([facility]) Diastolic blood pressure 82 mm[Hg] 82 mm[Hg] eCW1 ([facility]) Systolic blood pressure 126 mm[Hg] 126 mm[Hg] e CW1 ([facility]) Body temperature 97.5 [degF] 97.5 [degF] eCW1 ( [facility]) Respiratory rate 20 /min 20 /min eCW1 ([facility]) Heart rate 135 /min 135 /min eCW1 ([facility]) Body mass index (BMI) [Ratio] 43.71 kg/m2 43.71 kg/m2 eCW1 ([facility]) Body height 69 [in_i] 69 [in_i] eCW1 ([facility]) Body weight 296.0 [lb_av] 296.0 [lb_av] eCW1 ([facility]) Diastolic blood pressure 80 mm[Hg] 80 mm[Hg] eCW1 ([facility]) Systolic blood pressure 140 mm[Hg] 140 mm[Hg] e CW1 ([facility]) Body temperature 96.9 [degF] 96.9 [degF] eCW1 ( [facility]) Respiratory rate 20 /min 20 /min eCW1 ([facility]) Heart rate 110 /min 110 /min eCW1 ([facility]) Body mass index (BMI) [Ratio] 43.85 kg/m2 43.85 kg/m2 eCW1 ([facility]) Body height 69 [in_i] 69 [in_i] eCW1 ([facility]) Body weight 297 [lb_av] 297 [lb_av] eCW1 ([facility]) Diastolic blood pressure 66 mm[Hg] 66 mm[Hg] eCW1 ([facility]) Systolic blood pressure 124 mm[Hg] 124 mm[Hg] e CW1 ([facility]) Body temperature 97.9 [degF] 97.9 [degF] eCW1 ( [facility]) Respiratory rate 18 /min 18 /min eCW1 ([facility]) Heart rate 99 /min 99 /min eCW1 ([facility]) Body mass index (BMI) [Ratio] 43.41 kg/m2 43.41 kg/m2 eCW1 ([facility]) Body height 69 [in_i] 69 [in_i] eCW1 ([facility]) Body weight 294 [lb_av] 294 [lb_av] eCW1 ([facility]) Patient Treatment Plan of Care Planned Activity Planned Date Details Description Data Source (s) Ipratropium-Albuterol 20-100 MCG/ACT 11/09/2020 12:00:00 AM EST eCW1 ([facility]) Ipratropium-Albuterol 20-100 MCG/ACT 11/09/2020 12:00:00 AM EST eCW1 ([facility]) Ipratropium-Albuterol 20-100 MCG/ACT 11/09/2020 12:00:00 AM EST eCW1 ([facility]) Myrbetriq 50 MG 10/25/2020 12:00:00 AM EST eCW1 ([facility]) gabapentin 300 MG Oral Capsule 09/27/2020 12:00:00 AM EST eCW1 ([facility]) Prednisone 20 MG Oral Tablet 09/27/2020 12:00:00 AM EST eCW1 ([facility]) valacyclovir 500 MG Oral Tablet [Valtrex] 09/27/2020 12:00:00 AM ES T eCW1 ([facility]) gabapentin 300 MG Oral Capsule 09/27/2020 12:00:00 AM EST eCW1 ([facility]) Prednisone 20 MG Oral Tablet 09/27/2020 12:00:00 AM EST eCW1 ([facility]) valacyclovir 500 MG Oral Tablet [Valtrex] 09/27/2020 12:00:00 AM ES T eCW1 ([facility]) gabapentin 300 MG Oral Capsule 09/27/2020 12:00:00 AM EST eCW1 ([facility]) Prednisone 20 MG Oral Tablet 09/27/2020 12:00:00 AM EST eCW1 ([facility]) valacyclovir 500 MG Oral Tablet [Valtrex] 09/27/2020 12:00:00 AM ES T eCW1 ([facility]) gabapentin 300 MG Oral Capsule 09/27/2020 12:00:00 AM EST eCW1 ([facility]) Prednisone 20 MG Oral Tablet 09/27/2020 12:00:00 AM EST eCW1 ([facility]) valacyclovir 500 MG Oral Tablet [Valtrex] 09/27/2020 12:00:00 AM ES T eCW1 ([facility]) gabapentin 300 MG Oral Capsule 09/27/2020 12:00:00 AM EST eCW1 ([facility]) Prednisone 20 MG Oral Tablet 09/27/2020 12:00:00 AM EST eCW1 ([facility]) valacyclovir 500 MG Oral Tablet [Valtrex] 09/27/2020 12:00:00 AM ES T eCW1 ([facility]) gabapentin 300 MG Oral Capsule 09/27/2020 12:00:00 AM EST eCW1 ([facility]) Prednisone 20 MG Oral Tablet 09/27/2020 12:00:00 AM EST eCW1 ([facility]) valacyclovir 500 MG Oral Tablet [Valtrex] 09/27/2020 12:00:00 AM ES T eCW1 ([facility]) valacyclovir 1000 MG Oral Tablet 09/19/2020 12:00:00 AM EDT eCW1 ([facility]) Prednisone 20 MG Oral Tablet 09/19/2020 12:00:00 AM EDT eCW1 ([facility]) Walker - 03/28/2020 12:00:00 AM EDT e CW1 ([facility]) Walker - 03/28/2020 12:00:00 AM EDT e CW1 ([facility])
[2021-01-19] MEDS ORDERED: COMBAER6 INH (00:42)
[2021-01-19] MEDS ORDERED: ONDANSETRON 4MG/2ML VIAL IV ONE (01:15)
[2021-01-19 01:55] LABS: BASO % 0.3 % (0.0-1.0); EOS % 0.2 % (0.0-3.0); HEMATOCRIT 45.5 % (42.0-52.0); HEMOGLOBIN 15.4 g/dl (13.5-17.5); LYMPH # 0.9 10^3/uL (1.5-5.0); LYMPH % 8.6 % (24.0-44.0); MEAN CORPUSCULAR HEMOGLOBIN 34.5 pg (27.0-33.0); MEAN CORPUSCULAR HGB CONC 33.8 g/dl (32.0-36.5); MEAN CORPUSCULAR VOLUME 101.8 fl (80.0-96.0); MONO # 1.3 10^3/uL (0.0-0.8); MONO % 12.6 % (2.0-8.0); NEUTROPHILS # 7.8 10^3/uL (1.5-8.5); NEUTROPHILS % 77.8 % (36.0-66.0); PLATELET COUNT, AUTOMATED 180 10^3/uL (150-450); RED BLOOD COUNT 4.47 10^6/uL (4.30-6.10)
--- OUTSIDE RECORDS SUMMARY | 2021-01-19 01:57 | CCD ---
Author Author [facility] Organization [facility] Address Unknown Phone Unavailable Care Team Providers Care Customer Support Associate Name Role Phone Kocan, J Sita CARE MANAGER CNA Unavailable Unavailable Kocan, J Sita CARE MANAGER CNA Unavailable Unavailable Kocan, J Sita CARE MANAGER CNA Unavailable Unavailable Kocan, J Sita CARE MANAGER CNA Unavailable Unavailable Kocan, J Sita CARE MANAGER CNA Unavailable Unavailable Kocan, J Sita CARE MANAGER CNA Unavailable Unavailable Kocan, J Sita CARE MANAGER CNA Unavailable Unavailable Kocan, J Sita CARE MANAGER CNA Unavailable Unavailable Kocan, J Sita CARE MANAGER CNA Unavailable Unavailable Kocan, J Sita CARE MANAGER CNA Unavailable Unavailable Kocan, J Sita CARE MANAGER CNA Unavailable Unavailable Kocan, J Sita CARE MANAGER CNA Unavailable Unavailable Kocan, J Sita CARE MANAGER CNA Unavailable Unavailable Stacy Ortega MD Unavailable Unavailable [...] Unavailable ULISSES, MARINO MD Unavailable Unavailable ULISSES, MRAINO MD Unavailable Unavailable ULISSES, MARINO MD Unavailable Unavailable ULISSES, MARINO MD Unavailable Unavailable ULISSES, MARINO MD Unavailable Unavailable ULISSES, MARINO MD Unavailable Unavailable Larry DESOUZAEW DO Unavailable [phone] Larry DESOUZA ESETLLE DO Unavailable [phone] Larry DESOUZAEW DO [...] Unavailable [phone] Larry DESOUZA DO Unavailable [phone] Larry DESOUZA DO Unavailable [phone] Larry DESOUZA DO Unavailable [phone] Re-disclosure Warning The records that you are [...] is protected by Article 27-F of the [place] [facility] Public Health law. If you continue you may have access to information: Regarding HIV / AIDS; Provided by facilities licensed or operated by the [facility] Office of Mental Health; or Provided by the [facility] Office for People With Developmental Disabilities. If such information is present, then the following [facility] mandated warning applies: This information has been [...] allergies (situation ) ALIE (Abhinav Burnham MD [facility]) Allergy to substance No Known Allergies No known allergies (situation ) ALIE (Abhinav Burnham MD [facility]) Drug allergy Naproxen Naproxen depression [facility] Drug allergy Pseudoephedrine HCl Pseudoephedrine Heart beats fast Ac tive eCW1 ([facility]) Drug allergy Clindamycin HCl Clindamycin itching swelling, facial padilla ma Active eCW1 ([facility]) regadenoson regadenoson regadenoson SOB/COPD exac (see 10/24/16 note ) Active eC1 ([facility]) benztropine benztropine benztropine mesylate 1 MG/ML Inj ectable Solution agitation, confusion Active eCW1 ([facility]) Amoxicillin-Pot Clavulanate Amoxicillin-Pot Clavulanate Amox icillin-Pot Clavulanate itching, swelling Active eCW1 ([facility]) Family History Family Member Name Family Member Gender Family Member Status Date o f Status Description Data Source(s) Unknown Unknown Problem MEDENT ([facility]) Unknown Female Problem MEDENT ([facility]) Unknown Female Problem MEDENT ([facility]) Unknown Unknown Problem [facility] Unknown Unknown Problem [facility] ([facility] Unknown Unknown Problem MEDENT ([facility] Unknown Unknown Problem MEDENT ([facility]) Encounters Encounter Providers Location Date Indications Data Source(s ) TeleMedicine Est. Pt. Level 3 [address] [place] [address] 01/04/2021 12:00:00 AM EST eCW1 ([facility]) Unknown [address] [facility] [address] 12/19/2020 12:00:00 AM EST eCW1 ([facility]) Outpatient<td ID="encounterTypeDescripti onID0">VISUAL FIELD 24-2</td><td>Estelle Desouza DO</td><td>Abhinav Mello MD [facility]</td><td>12/08/2020</td><td>8:49AM</td><td>9:05AM</td><td><content ID="encounterDiagnosisID0-0">Borderline 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</content></td> Attender: ESTELLE Garrett MD [facility] 12/08/2020 08:49:00 AM EST - 12/08/2020 09:05:00 AM ES T Borderline 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 ALIE (Abhinav Burnham MD [facility]) Borderline Glaucoma Open Angle with Bord chloe Findings Both Eyes TeleMedicine Est. Pt. Level 2 [address] [place] [address] 11/23/2020 12:00:00 AM EST eCW1 ([facility]) TeleMedicine Est. Pt. Level 3 [address] [place] [address] 11/09/2020 12:00:00 AM EST eCW1 ([facility]) Unknown [address] [facility] [address] 11/07/2020 12:00:00 AM EST eCW1 ([facility]) Outpatient [address] [facility] [address] 10/25/2020 12:00:00 AM EST eCW1 ([facility]) [facility] [address] [place] [address] 10/25/2020 12:00:00 AM EST eCW1 ([facility]) Outpatient [address] [facility] [place] [address] 10/14/2020 12:00:00 AM EST eCW1 ([facility]) Unknown [address] [facility] [place] [address] 10/10/2020 12:00:00 AM EST eCW1 ([facility]) Outpatient [address] [facility] [place] [address] 09/27/2020 12:00:00 AM EST eCW1 ([facility]) Unknown [address] [facility] [place] [address] 09/26/2020 12:00:00 AM EST eCW1 ([facility]) Unknown [address] [facility] [place] [address] 09/25/2020 12:00:00 AM EDT eCW1 ([facility]) [place] [address] [facility] [address] 09/23/2020 12:00:00 AM EDT eCW1 ([facility]) [place] [address] [facility] [address] 09/19/2020 12:00:00 AM EDT eCW1 ([facility]) [place] [address] [facility] [address] 09/19/2020 12:00:00 AM EDT eCW1 ([facility]) Outpatient Attender: Sita Cormier RNPAttender: NED GTZ MD [email or web address] 09/14/2020 12:00:00 AM EDT [facility] [place] [address] [facility] [address] 09/05/2020 12:00:00 AM EDT eCW1 ([facility]) [place] [address] [facility] [address] 09/01/2020 12:00:00 AM EDT eCW1 ([facility]) Outpatient<td ID="encounterTypeDescripti onID2">10 Month Follow- Up</td><td>Estelle Desouza DO</td><td>Abhinav Mello MD [facility]</td><td>07/26/2020</td><td>12:12PM</td><td>1:16PM</td><td><content ID="encounterDiagnosisID2-0">Cataract Senile Nuclear</content>, <content ID="encounterDiagnosisID2-1">Dry Eye Syndrome</content>, <content ID="encounterDiagnosisID2-2">Borderline 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</content>, <content ID="encounterDiagnosisID2-3">Diabetes Mellitus Type 2 Without Complication</content>, <content ID="encounterDiagno sisID2-4">Cataract Senile Posterior Subcapsular Polar</content></td> Attender: ESTELLE Baker MD [facility] 07/26/2020 12:12:00 PM EDT - 07/26/2020 01:16:00 PM EDT Cataract Senile Posterior Subcapsular Po larCataract Senile Posterior Subcapsular PolarBorderline 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Cataract Senile NuclearBorderline 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Cataract Senile NuclearDiabetes Mellitus Type 2 Without ComplicationDry Eye SyndromeDiabetes Mellitus Type 2 Without ComplicationDry Eye Syndrome ALIE (Abhinav Burnham MD [facility]) Cataract Senile Posterior Subcapsular Po lar Cataract Senile Posterior Subcapsular Po lar Borderline Glaucoma Open Angle with Bord chloe Findings Both Eyes Cataract Senile Nuclear Borderline Glaucoma Open Angle with Bord chloe Findings Both Eyes Cataract Senile Nuclear Diabetes Mellitus Type 2 Without Complic ation Dry Eye Syndrome Diabetes Mellitus Type 2 Without Complic ation Dry Eye Syndrome Outpatient<td ID="encounterTypeDescripti onID1">TRIAGE NON URGENT</td><td>Estelle Desouza DO</td><td>Abhinav Mello MD [facility]</td><td>09/19/2020</td><td>07/26/2020 8:30AM</td><td>9:39AM</td><td> <content ID="encounterDiagnosisID1-0">Herpes Zoster (Shingles)</content>, <content ID="encounterDiagnosisID1-1">Conjunctivitis Acute Atopic</content></td> Attender: ESTELLE Baker MD [facility] 11/2019 08:30:00 AM EDT - 09/19/2020 09:39:00 AM EDT Conjunctivitis Acute AtopicHerpes Zoster (Shingles) ALIE (Abhinav Burnham MD [facility]) Conjunctivitis Acute Atopic Herpes Zoster (Shingles) Out[place] [address] [facility] [address] 06/08/2020 12:00:00 AM EDT eCW1 ([facility]) [facility] [place] [address] [facility] [address] 06/07/2020 12:00:00 AM EDT eCW1 ([facility]) Outpatient Attender: NED GTZ MD [email or web address] 0 12:00:00 AM EDT - 06/01/2020 09:32:15 AM EDT [facility] [place] [address] [facility] [address] 05/12/2020 12:00:00 AM EDT eCW1 ([facility]) Outpatient Attender: NED CAALSJPAbdullahiMAXIMUS 05/11/2020 12:00:00 AM EDT [facility] [place] [address] [facility] [address] 05/09/2020 12:00:00 AM EDT eCW1 ([facility]) [place] [address] [facility] [place] [address] 05/09/2020 12:00:00 AM EDT eCW1 ([facility]) Out[place] [address] [facility] [place] [address] 04/26/2020 12:00:00 AM EDT eCW1 ([facility]) [facility] [address] [facility] [address] 04/19/2020 12:00:00 AM EDT eCW1 ([facility]) [facility] [address] [facility] [place] [address] 04/19/2020 12:00:00 AM EDT eCW1 ([facility]) [facility] [place] [address] [place] [address], [place] [address] 04/11/2020 12:00:00 AM EDT eCW1 ([facility]) [facility] [address] [facility] [place] [address] 03/28/2020 12:00:00 AM EDT eCW1 ([facility]) [facility] [address] [facility] [place] [address] 03/28/2020 12:00:00 AM EDT eCW1 ([facility]) [facility] [place] [address] [facility] [address] 03/24/2020 12:00:00 AM EDT eCW1 ([facility]) Outpatient Referrer: Louie GLOVER 03/16/2020 10:59:0 0 AM EDT [facility] [place] [address] [facility] [address] 02/23/2020 12:00:00 AM EDT eCW1 ([facility]) [facility] [place] [address] [facility] [place] [address] 02/11/2020 12:00:00 AM EDT eCW1 ([facility]) [facility] [place] [address] [facility] [address] 01/26/2020 12:00:00 AM EST eCW1 ([facility]) [facility] [place] [address] [facility] [address] 01/25/2020 12:00:00 AM EST eCW1 ([facility]) [facility] [address] [facility] [place] [address] 01/25/2020 12:00:00 AM EST eCW1 ([facility]) Outpatient Referrer: Louie GLOVER 01/12/2020 01:50:0 0 PM EST [facility] Outpatient Referrer: Louie GLOVER 01/12/2020 01:47:0 0 PM EST [facility] Outpatient<td ID="encounterTypeDescripti onID3">Insertion of Punctal Plug IN OFFICE-NEED AUTH</td><td>Estelle Desouza DO</td><td>Abhinav Mello MD [facility]</td><td>01/11/2020</td><td>12:27PM</td><td>12:54PM</td><td><content ID="encounterDiagnosisID3-0">Dry Eye Syndrome</content></td> Attender: ESTELLE Baker MD [facility] 01/11/2020 12:27:00 PM EST - 01/11/2020 12:54:00 PM EST Dry Eye SyndromeDry Eye Syndrome ALIE (Abhinav Burnham MD [facility]) Dry Eye Syndrome Dry Eye Syndrome Outpatient [...] [facility] 09:30:00 AM EST MEDENT ([facility]) [facility] [address] [place] [address], [place] [address] 01/07/2020 12:00:00 AM EST eCW1 ([facility]) [place] [address] [facility] [place] [address] 12/16/2019 12:00:00 AM EST eCW1 ([facility]) Immunizations Vaccine Date Status Description Data Source(s) COVID-19 VACCINE, MRNA-1273, LNP-S (MODERNA)/PF 01/17/2021 1 2:00:00 AM EST completed [facility] COVID-19 dose #1 given elsewhere Unspecified 12/21/2020 04:5 3:00 PM EST completed eCW1 ([facility]) COVID-19 VACCINE, MRNA-1273, LNP-S (MODERNA)/PF 12/21/2020 1 2:00:00 AM EST completed [facility] influenza, recombinant, quadrIvalent,injectable, prese rvative free 10/14/2020 08:22:00 AM EST completed eCW1 ([facility]) influenza, recombinant, quadrIvalent,injectable, prese rvative free 10/14/2020 08:22:00 AM EST completed eCW1 ([facility]) influenza, recombinant, quadrIvalent,injectable, prese rvative free 10/14/2020 08:22:00 AM EST completed eCW1 ([facility]) influenza, recombinant, quadrIvalent,injectable, prese rvative free 10/14/2020 08:22:00 AM EST completed eCW1 ([facility]) influenza, recombinant, quadrIvalent,injectable, prese rvative free 10/14/2020 08:22:00 AM EST completed eCW1 ([facility]) influenza, recombinant, quadrIvalent,injectable, prese rvative free 10/14/2020 08:22:00 AM EST completed eCW1 ([facility]) influenza, recombinant, quadrIvalent,injectable, prese rvative free 10/14/2020 08:22:00 AM EST completed eCW1 ([facility]) influenza, recombinant, quadrIvalent,injectable, prese rvative free 10/14/2020 08:22:00 AM EST completed eCW1 ([facility]) influenza, recombinant, quadrIvalent,injectable, prese rvative free 10/14/2020 08:22:00 AM EST completed eCW1 ([facility]) influenza, recombinant, quadrIvalent,injectable, prese rvative free 10/14/2020 08:22:00 AM EST completed eCW1 ([facility]) Medications Medication Brand Name Start Date Product [...] {puff} active Ipratropium-Albuterol 20 -100 MCG/ACT eCW1 ([facility]) Ipratropium-Albuterol 20-100 MCG/ACT UNK 11/09/2020 12:00: 00 AM EST 1.0 {puff} active Ipratropium-Albuterol 20 -100 MCG/ACT eCW1 ([facility]) Ipratropium-Albuterol 20-100 MCG/ACT UNK 11/09/2020 12:00: 00 AM EST 1.0 {puff} active Ipratropium-Albuterol 20 -100 MCG/ACT eCW1 ([facility]) 20-100 mcg/actuation 11/08/2020 12:00:00 AM EST mist 4 INHALE 1 PUFF BY MOUTH THREE TIMES A DAY INHALE 1 PUFF BY MOUTH THREE TIMES A DAY SOLD: 11/08/2020 [facility] Myrbetriq 50 MG UNK 10/25/2020 12:00:00 AM EST 1.0 {tablet} active Myrbetriq 50 MG eCW1 ([facility]) Myrbetriq 50 MG UNK 10/25/2020 12:00:00 AM EST 1.0 {tablet} active Myrbetriq 50 MG eCW1 ([facility]) Myrbetriq 50 MG UNK 10/25/2020 12:00:00 AM EST 1.0 {tablet} active Myrbetriq 50 MG eCW1 ([facility]) Myrbetriq 50 MG UNK 10/25/2020 12:00:00 AM EST 1.0 {tablet} active Myrbetriq 50 MG eCW1 ([facility]) gabapentin 300 MG Oral Capsule Gabapentin 300 MG Gabapentin 300 MG 09/27/2020 12:00:00 AM EST 1.0 {capsule} active G abapentin 300 MG eCW1 ([facility]) gabapentin 300 MG Oral Capsule Gabapentin 300 MG Gabapentin 300 MG 09/27/2020 12:00:00 AM EST 1.0 {capsule} active G abapentin 300 MG eCW1 ([facility]) valacyclovir 500 MG Oral Tablet [Valtrex] Valtrex 500 MG Ana trex 500 MG 09/27/2020 12:00:00 AM EST 1.0 {tablet} active Valtrex 500 MG eCW1 ([facility]) gabapentin 300 MG Oral Capsule Gabapentin 300 MG Gabapentin 300 MG 09/27/2020 12:00:00 AM EST 1.0 {capsule} suspended Gabapentin 300 MG eCW1 ([facility]) Prednisone 20 MG Oral Tablet PredniSONE 20 MG PredniSONE 20 MG 09/27/2020 12:00:00 AM EST 1.0 {tablet} suspended PredniSONE 20 MG eCW1 ([facility]) 500 mg 09/27/2020 12:00:00 AM EST tablet 10 TAKE ONE TABLET BY MOUTH TWICE A DAY FOR 5 DAYS TAKE ONE TABLET BY MOUTH TWICE A DAY FOR 5 DAYS SOLD: 09/27/2020 [facility] valacyclovir 500 MG Oral Tablet [Valtrex] Valtrex 500 MG Ana trex 500 MG 09/27/2020 12:00:00 AM EST 1.0 {tablet} active Valtrex 500 MG eCW1 ([facility]) valacyclovir 500 MG Oral Tablet [Valtrex] Valtrex 500 MG Ana trex 500 MG 09/27/2020 12:00:00 AM EST 1.0 {tablet} active Valtrex 500 MG eCW1 ([facility]) valacyclovir 500 MG Oral Tablet [Valtrex] Valtrex 500 MG Ana trex 500 MG 09/27/2020 12:00:00 AM EST 1.0 {tablet} active Valtrex 500 MG eCW1 ([facility]) gabapentin 300 MG Oral Capsule Gabapentin 300 MG Gabapentin 300 MG 09/27/2020 12:00:00 AM EST 1.0 {capsule} suspended Gabapentin 300 MG eCW1 ([facility]) gabapentin 300 MG Oral Capsule Gabapentin 300 MG Gabapentin 300 MG 09/27/2020 12:00:00 AM EST 1.0 {capsule} suspended Gabapentin 300 MG eCW1 ([facility]) gabapentin 300 MG Oral Capsule Gabapentin 300 MG Gabapentin 300 MG 09/27/2020 12:00:00 AM EST 1.0 {capsule} suspended Gabapentin 300 MG eCW1 ([facility]) 20 mg 09/27/2020 12:00:00 AM EST tablet 10 TAKE ONE TABLET BY MOUTH TWICE A DAY FOR 5 DAYS TAKE ONE TABLET BY MOUTH TWICE A DAY FOR 5 DAYS SOLD: 2019 [facility] Prednisone 20 MG Oral Tablet PredniSONE 20 MG PredniSONE 20 MG 09/27/2020 12:00:00 AM EST 1.0 {tablet} suspended PredniSONE 20 MG eCW1 ([facility]) Prednisone 20 MG Oral Tablet PredniSONE 20 MG PredniSONE 20 MG 09/27/2020 12:00:00 AM EST 1.0 {tablet} active Pr edniSONE 20 MG eCW1 ([facility]) Prednisone 20 MG Oral Tablet PredniSONE 20 MG PredniSONE 20 MG 09/27/2020 12:00:00 AM EST 1.0 {tablet} suspended PredniSONE 20 MG eCW1 ([facility]) valacyclovir 500 MG Oral Tablet [Valtrex] Valtrex 500 MG Ana trex 500 MG 09/27/2020 12:00:00 AM EST 1.0 {tablet} suspended Valtrex 500 MG eCW1 ([facility]) Prednisone 20 MG Oral Tablet PredniSONE 20 MG PredniSONE 20 MG 09/27/2020 12:00:00 AM EST 1.0 {tablet} active Pr edniSONE 20 MG eCW1 ([facility]) valacyclovir 500 MG Oral Tablet [Valtrex] Valtrex 500 MG Ana trex 500 MG 09/27/2020 12:00:00 AM EST 1.0 {tablet} suspended Valtrex 500 MG eCW1 ([facility]) valacyclovir 500 MG Oral Tablet [Valtrex] Valtrex 500 MG Ana trex 500 MG 09/27/2020 12:00:00 AM EST 1.0 {tablet} active Valtrex 500 MG eCW1 ([facility]) valacyclovir 500 MG Oral Tablet [Valtrex] Valtrex 500 MG Ana trex 500 MG 09/27/2020 12:00:00 AM EST 1.0 {tablet} suspended Valtrex 500 MG eCW1 ([facility]) Prednisone 20 MG Oral Tablet PredniSONE 20 MG PredniSONE 20 MG 09/27/2020 12:00:00 AM EST 1.0 {tablet} suspended PredniSONE 20 MG eCW1 ([facility]) Prednisone 20 MG Oral Tablet PredniSONE 20 MG PredniSONE 20 MG 09/27/2020 12:00:00 AM EST 1.0 {tablet} active Pr edniSONE 20 MG eCW1 ([facility]) Prednisone 20 MG Oral Tablet PredniSONE 20 MG PredniSONE 20 MG 09/27/2020 12:00:00 AM EST 1.0 {tablet} active Pr edniSONE 20 MG eCW1 ([facility]) gabapentin 300 MG Oral Capsule Gabapentin 300 MG Gabapentin 300 MG 09/27/2020 12:00:00 AM EST 1.0 {capsule} active G abapentin 300 MG eCW1 ([facility]) Prednisone 20 MG Oral Tablet PredniSONE 20 MG PredniSONE 20 MG 09/27/2020 12:00:00 AM EST 1.0 {tablet} suspended PredniSONE 20 MG eCW1 ([facility]) valacyclovir 500 MG Oral Tablet [Valtrex] Valtrex 500 MG Ana trex 500 MG 09/27/2020 12:00:00 AM EST 1.0 {tablet} suspended Valtrex 500 MG eCW1 ([facility]) gabapentin 300 MG Oral Capsule Gabapentin 300 MG Gabapentin 300 MG 09/27/2020 12:00:00 AM EST 1.0 {capsule} active G abapentin 300 MG eCW1 ([facility]) Prednisone 20 MG Oral Tablet PredniSONE 20 MG PredniSONE 20 MG 09/27/2020 12:00:00 AM EST 1.0 {tablet} suspended PredniSONE 20 MG eCW1 ([facility]) gabapentin 300 MG Oral Capsule Gabapentin 300 MG Gabapentin 300 MG 09/27/2020 12:00:00 AM EST 1.0 {capsule} suspended Gabapentin 300 MG eCW1 ([facility]) valacyclovir 500 MG Oral Tablet [Valtrex] Valtrex 500 MG Ana trex 500 MG 09/27/2020 12:00:00 AM EST 1.0 {tablet} suspended Valtrex 500 MG eCW1 ([facility]) valacyclovir 500 MG Oral Tablet [Valtrex] Valtrex 500 MG Ana trex 500 MG 09/27/2020 12:00:00 AM EST 1.0 {tablet} suspended Valtrex 500 MG eCW1 ([facility]) gabapentin 300 MG Oral Capsule Gabapentin 300 MG Gabapentin 300 MG 09/27/2020 12:00:00 AM EST 1.0 {capsule} active G abapentin 300 MG eCW1 ([facility]) valacyclovir 500 MG Oral Tablet [Valtrex] Valtrex 500 MG Ana trex 500 MG 09/27/2020 12:00:00 AM EST 1.0 {tablet} suspended Valtrex 500 MG eCW1 ([facility]) gabapentin 300 MG Oral Capsule Gabapentin 300 MG Gabapentin 300 MG 09/27/2020 12:00:00 AM EST 1.0 {capsule} suspended Gabapentin 300 MG eCW1 ([facility]) Prednisone 20 MG Oral Tablet PredniSONE 20 MG PredniSONE 20 MG 09/27/2020 12:00:00 AM EST 1.0 {tablet} active Pr edniSONE 20 MG eCW1 ([facility]) 300 mg 09/27/2020 12:00:00 AM EST capsule 28 TAKE ONE CAPSULE BY MOUTH TWICE A DAY FOR 14 DAYS TAKE ONE CAPSULE BY MOUTH TWICE A DAY FOR 14 DAYS SOLD : 09/27/2020 [facility] Prednisone 20 MG Oral Tablet PredniSONE 20 MG PredniSONE 20 MG 09/27/2020 12:00:00 AM EST 1.0 {tablet} suspended PredniSONE 20 MG eCW1 ([facility]) valacyclovir 500 MG Oral Tablet [Valtrex] Valtrex 500 MG Ana trex 500 MG 09/27/2020 12:00:00 AM EST 1.0 {tablet} active Valtrex 500 MG eCW1 ([facility]) gabapentin 300 MG Oral Capsule Gabapentin 300 MG Gabapentin 300 MG 09/27/2020 12:00:00 AM EST 1.0 {capsule} active G abapentin 300 MG eCW1 ([facility]) gabapentin 300 MG Oral Capsule Gabapentin 300 MG Gabapentin 300 MG 09/27/2020 12:00:00 AM EST 1.0 {capsule} suspended Gabapentin 300 MG eCW1 ([facility]) Prednisone 20 MG Oral Tablet PredniSONE 20 MG PredniSONE 20 MG 09/27/2020 12:00:00 AM EST 1.0 {tablet} active Pr edniSONE 20 MG eCW1 ([facility]) Prednisone 20 MG Oral Tablet PredniSONE 20 MG PredniSONE 20 MG 09/19/2020 12:00:00 AM EDT 2.0 {tablets} suspended PredniSONE 20 MG eCW1 ([facility]) Prednisone 20 MG Oral Tablet PredniSONE 20 MG PredniSONE 20 MG 09/19/2020 12:00:00 AM EDT 2.0 {tablets} active P redniSONE 20 MG eCW1 ([facility]) Prednisone 20 MG Oral Tablet PredniSONE 20 MG PredniSONE 20 MG 09/19/2020 12:00:00 AM EDT 2.0 {tablets} suspended PredniSONE 20 MG eCW1 ([facility]) Prednisone 20 MG Oral Tablet PredniSONE 20 MG PredniSONE 20 MG 09/19/2020 12:00:00 AM EDT 2.0 {tablets} suspended PredniSONE 20 MG eCW1 ([facility]) valacyclovir 1000 MG Oral Tablet Valacyclovir HCl 1 GM Valac yclovir HCl 1 GM 09/19/2020 12:00:00 AM EDT 1.0 {tablet} suspende d Valacyclovir HCl 1 GM eCW1 ([facility]) valacyclovir 1000 MG Oral Tablet Valacyclovir HCl 1 GM Valac yclovir HCl 1 GM 09/19/2020 12:00:00 AM EDT 1.0 {tablet} suspende d Valacyclovir HCl 1 GM eCW1 ([facility]) valacyclovir 1000 MG Oral Tablet Valacyclovir HCl 1 GM Valac yclovir HCl 1 GM 09/19/2020 12:00:00 AM EDT 1.0 {tablet} suspende d Valacyclovir HCl 1 GM eCW1 ([facility]) valacyclovir 1000 MG Oral Tablet Valacyclovir HCl 1 GM Valac yclovir HCl 1 GM 09/19/2020 12:00:00 AM EDT 1.0 {tablet} active Valacyclovir HCl 1 GM eCW1 ([facility]) valacyclovir 1000 MG Oral Tablet Valacyclovir HCl 1 GM Valac yclovir HCl 1 GM 09/19/2020 12:00:00 AM EDT 1.0 {tablet} suspende d Valacyclovir HCl 1 GM eCW1 ([facility]) 1 gram 09/19/2020 12:00:00 AM EDT tablet [...] 2.0 {tablets} suspended PredniSONE 20 MG eCW1 ([facility]) Prednisone 20 MG Oral Tablet PredniSONE 20 MG PredniSONE 20 MG 09/19/2020 12:00:00 AM EDT 2.0 {tablets} suspended PredniSONE 20 MG eCW1 ([facility]) valacyclovir 1000 MG Oral Tablet Valacyclovir HCl 1 GM Valac yclovir HCl 1 GM 09/19/2020 12:00:00 AM EDT 1.0 {tablet} suspende d Valacyclovir HCl 1 GM eCW1 ([facility]) Prednisone 20 MG Oral Tablet PredniSONE 20 MG PredniSONE 20 MG 09/19/2020 12:00:00 AM EDT 2.0 {tablets} suspended PredniSONE 20 MG eCW1 ([facility]) valacyclovir 1000 MG Oral Tablet Valacyclovir HCl 1 GM Valac yclovir HCl 1 GM 09/19/2020 12:00:00 AM EDT 1.0 {tablet} suspende d Valacyclovir HCl 1 GM eCW1 ([facility]) valacyclovir 1000 MG Oral Tablet Valacyclovir HCl 1 GM Valac yclovir HCl 1 GM 09/19/2020 12:00:00 AM EDT 1.0 {tablet} suspende d Valacyclovir HCl 1 GM eCW1 ([facility]) valacyclovir 1000 MG Oral Tablet Valacyclovir HCl 1 GM Valac yclovir HCl 1 GM 09/19/2020 12:00:00 AM EDT 1.0 {tablet} active Valacyclovir HCl 1 GM eCW1 ([facility]) valacyclovir 1000 MG Oral Tablet Valacyclovir HCl 1 GM Valac yclovir HCl 1 GM 09/19/2020 12:00:00 AM EDT 1.0 {tablet} suspende d Valacyclovir HCl 1 GM eCW1 ([facility]) valacyclovir 1000 MG Oral Tablet Valacyclovir HCl 1 GM Valac yclovir HCl 1 GM 09/19/2020 12:00:00 AM EDT 1.0 {tablet} suspende d Valacyclovir HCl 1 GM eCW1 ([facility]) valacyclovir 1000 MG Oral Tablet Valacyclovir HCl 1 GM Valac yclovir HCl 1 GM 09/19/2020 12:00:00 AM EDT 1.0 {tablet} suspende d Valacyclovir HCl 1 GM eCW1 ([facility]) Prednisone 20 MG Oral Tablet PredniSONE 20 MG PredniSONE 20 MG 09/19/2020 12:00:00 AM EDT 2.0 {tablets} suspended PredniSONE 20 MG eCW1 ([facility]) Prednisone 20 MG Oral Tablet PredniSONE 20 MG PredniSONE 20 MG 09/19/2020 12:00:00 AM EDT 2.0 {tablets} suspended PredniSONE 20 MG eCW1 ([facility]) Prednisone 20 MG Oral Tablet PredniSONE 20 MG PredniSONE 20 MG 09/19/2020 12:00:00 AM EDT 2.0 {tablets} suspended PredniSONE 20 MG eCW1 ([facility]) Prednisone 20 MG Oral Tablet PredniSONE 20 MG PredniSONE 20 MG 09/19/2020 12:00:00 AM EDT 2.0 {tablets} suspended PredniSONE 20 MG eCW1 ([facility]) valacyclovir 1000 MG Oral Tablet Valacyclovir HCl 1 GM Valac yclovir HCl 1 GM 09/19/2020 12:00:00 AM EDT 1.0 {tablet} suspende d Valacyclovir HCl 1 GM eCW1 ([facility]) Prednisone 20 MG Oral Tablet PredniSONE 20 MG PredniSONE 20 MG 09/19/2020 12:00:00 AM EDT 2.0 {tablets} suspended PredniSONE 20 MG eCW1 ([facility]) Prednisone 20 MG Oral Tablet PredniSONE 20 MG PredniSONE 20 MG 09/19/2020 12:00:00 AM EDT 2.0 {tablets} active P redniSONE 20 MG eCW1 ([facility]) valacyclovir 1000 MG Oral Tablet Valacyclovir HCl 1 GM Valac yclovir HCl 1 GM 09/19/2020 12:00:00 AM EDT 1.0 {tablet} suspende d Valacyclovir HCl 1 GM eCW1 ([facility]) Prednisone 20 MG Oral Tablet PredniSONE 20 MG PredniSONE 20 MG 09/19/2020 12:00:00 AM EDT 2.0 {tablets} suspended PredniSONE 20 MG eCW1 ([facility]) Prednisone 20 MG Oral Tablet PredniSONE 20 MG PredniSONE 20 MG 09/19/2020 12:00:00 AM EDT 2.0 {tablets} suspended PredniSONE 20 MG eCW1 ([facility]) valacyclovir 1000 MG Oral Tablet Valacyclovir HCl 1 GM Valac yclovir HCl 1 GM 09/19/2020 12:00:00 AM EDT 1.0 {tablet} suspende d Valacyclovir HCl 1 GM eCW1 ([facility]) Walker - Walker - 03/28/2020 12:00:00 AM EDT activ e Walker - eCW1 ([facility]) Walker - Walker - 03/28/2020 12:00:00 AM EDT activ e Walker - eCW1 ([facility]) Walker - Walker - 03/28/2020 12:00:00 AM EDT activ e Walker - eCW1 ([facility]) Walker - Walker - 03/28/2020 12:00:00 AM EDT activ e Walker - eCW1 ([facility]) Walker - Walker - 03/28/2020 12:00:00 AM EDT activ e Walker - eCW1 ([facility]) Walker - Walker - 03/28/2020 12:00:00 AM EDT activ e Walker - eCW1 ([facility]) Walker - Walker - 03/28/2020 12:00:00 AM EDT activ e Walker - eCW1 ([facility]) Walker - Walker - 03/28/2020 12:00:00 AM EDT activ e Walker - eCW1 ([facility]) Walker - Walker - 03/28/2020 12:00:00 AM EDT activ e Walker - eCW1 ([facility]) Walker - Walker - 03/28/2020 12:00:00 AM EDT active with 4 wheels and seat eCW1 ([facility]) Walker - Walker - 03/28/2020 12:00:00 AM EDT activ e Walker - eCW1 ([facility]) Walker - Walker - 03/28/2020 12:00:00 AM EDT activ e Walker - eCW1 ([facility]) Walker - Walker - 03/28/2020 12:00:00 AM EDT activ e Walker - eCW1 ([facility]) Walker - Walker - 03/28/2020 12:00:00 AM EDT activ e Walker - eCW1 ([facility]) Walker - Walker - 03/28/2020 12:00:00 AM EDT activ e Walker - eCW1 ([facility]) Walker - Walker - 03/28/2020 12:00:00 AM EDT activ e Walker - eCW1 ([facility]) Walker - Walker - 03/28/2020 12:00:00 AM EDT activ e Walker - eCW1 ([facility]) Walker - Walker - 03/28/2020 12:00:00 AM EDT activ e Walker - eCW1 ([facility]) Walker - Walker - 03/28/2020 12:00:00 AM EDT activ e Walker - eCW1 ([facility]) Walker - Walker - 03/28/2020 12:00:00 AM EDT activ e Walker - eCW1 ([facility]) Walker - Walker - 03/28/2020 12:00:00 AM EDT activ e Walker - eCW1 ([facility]) Walker - Walker - 03/28/2020 12:00:00 AM EDT activ e Walker - eCW1 ([facility]) Walker - Walker - 03/28/2020 12:00:00 AM EDT activ e Walker - eCW1 ([facility]) Diclofenac Sodium 0.01 MG/MG Topical Gel [Voltaren] [...] Oral Tablet [Wellbutrin] ALIE (Abhinav Burnham MD [facility]) Insurance Providers Payer name Policy type / Coverage type Policy ID Covered democrat ID Covered democrat's relationship to carbajal Policy Carbajal Plan Information MEDICARE [id number] SP [id number] [facility] [id number] WI2 [id number] [facility] [id number] SP [id number] [employer] Other 0 Family Dep [facility] Omid Sandersman 0 [employer] Other 0 Self 0 Medicare Part B [facility] 0 Se lf 0 UMR [facility] [id number] WI2 [id number] UMR [facility] [id number] SP [id number] UMR [id number] Spo [id number] UMR [id number] Amna [id number] MEDICARE [id number] Amna [id number] P45 [employer] [place] Other 0 Family Dep lazarus Godinez 0 [employer] [place] Other 0 Self 0 Medicare Part B of [place] Other 0 Se lf 0 UMR O [id number] S [id number] MEDICARE C [id number] S [id number] P45 UMR O [id number] S [id number] UMR F [id number] SELF [id number] UMR F [id number] SPOUSE [id number] Medicare C [id number] SELF [id number] P45 ANSI-Commercial [id number] ANSI-Medicare Part B [id number] ANSI-Not a Secondary Insurance [id number] ANSI-Commercial [id number]-4261-ra56-486f68mszboh [id number]-5700-[id number] ANSI-Not a Secondary Insurance [id number] ANSI-Medicare Part B [id number]-[id number] ANSI-Commercial [id number]-[id number] [id number]-35ff-[id number] ANSI-Medicare Part B [id number] ANSI-Not a Secondary Insurance [id number]-[id number] Umr (pr) Medigap Part B [id number] Family Dependent [id number] Umr (pr) Medigap Part B [id number] Self [id number] [place] Primary [id number] Self [id number] ANSI-Not a Secondary Insurance [id number]-13r9-2493-[id number] ANSI-Medicare Part B [id number] ANSI-Commercial [id number]-1qn4-g4bn-[id number]-2q6o-8ub5-e3yj-[id number] UMR U [id number] Self [id number] MEDICARE A [id number] Self [id number] [id number] UMR U [id number] Spouse [id number] Umr (pr) Medigap Part B [id number] Family Dependent [id number] Umr (pr) Medigap Part B [id number] Self [id number] [place] Primary [id number] Self [id number] Umr (pr) Medigap Part B [id number] Family Dependent [id number] Umr (pr) Medigap Part B [id number] Self [id number] [place] Medicare Primary [id number] Self [id number] Umr (pr) Medigap Part B [id number] Family Dependent [id number] Umr (pr) Medigap Part B [id number] Self [id number] [place] Primary [id number] Self [id number] MEDICARE [id number] SP [id number] A UMR [facility] [id number] SP [id number] Umr (pr) Medigap Part B [id number] Family Dependent [id number] Umr (pr) Medigap Part B [id number] Self [id number] [place] Primary [id number] Self [id number] ANSI-Commercial [id number] ANSI-Medicare Part B [id number] ANSI-Not a Secondary Insurance 63506pzq-p865-2008-3638-0iofm [id number]-j602-6322-5196-5nvlnjjexx78 ANSI-Commercial [id number]-r9e5-0438-n5d7-ifh355t15ars 9sj384xx-t0a6-6053-w6i9-plm722t24xsk ANSI-Medicare Part B [id number]-a47m-[id number] ANSI-Not a Secondary Insurance [id number]-k42w-w5830 a8c0k9p 20083032-5014-7bpf-u57i-y8627d8e8j1w ANSI-Medicare Part B [id number]-[id number] ANSI-Commercial [id number]-n142-5h7p-jf0t-131n2wdivf5s 3n8511z1-w266-8g4j-nh8u-401d1ypyik4k ANSI-Not a Secondary Insurance [id number]-1ywv-jwuz-1t7w3 95aq59z 8vc49184-719n-9cgr-zugv-3w0j883qw07q ANSI-Medicare Part B [id number]-bxw6-[id number] ANSI-Not a Secondary Insurance 416p8o3c-31eq-92i4-6441-4685c [id number] 648l1o9k-60wv-62q4-3058-0934kf353981 ANSI-Commercial 88326cba-87v7-1ce9-c122-0e0406r7ki8u 61144ggo-46e1-1io3-r147-6w1869d5yx5v ANSI-Medicare Part B [id number]-a8x0-0n6d0298w33t ANSI-Not a Secondary Insurance [id number]-0hw8-6643-i78c-2xa22 [id number] b4o953mm-0ge4-0724-w24b-9wk155498855 ANSI-Commercial 64m96103-pd98-0837-414g-00p6750897x7 85z31633-py13-2285-432b-03n5078811w4 ANSI-Not a Secondary Insurance q3v9h1q2-3049-8161-x038-0g8xt ka9ue62 t3i3b1u1-0578-7177-e734-0j5rris0jz02 ANSI-Commercial 79859872-59k2-806t-eebj-0bf5bx7i5213 92466892-35g7-555l-rfad-1mk4tt8l6495 ANSI-Medicare Part B [id number]-[id number] ANSI-Commercial bf3e9fi2-uj46-6720-70q2-139325346d7i ay0o6lo4-tw98-7684-17m5-714906821r5e ANSI-Medicare Part B [id number]-[id number] ANSI-Not a Secondary Insurance [id number]-4fy6-469s3 e3i76zg 90d39997-07p2-369c-5ob0-917u8p2z59kz ANSI-Not a Secondary Insurance u8yo1k76-dqz2-1x08-y142-0134n bq9n6r1 h1hq3l32-efb5-5k09-x057-4050bbu8k0b0 ANSI-Commercial 4ir89ss5-j67w-5jiy-b9q7-3174n135i25j 2is17ii0-q71r-3rry-v9w8-3564e068w33y ANSI-Medicare Part B [id number] 5s75lc59-lup2-3pmc-u71a-077242572v6r ANSI-Medicare Part B [id number]-p93x-4jgc-0g79-54pi1u6vj712 ANSI-Not a Secondary Insurance u1074li6-42o5-99t3-cm11-c76s3 jl8sph1 c8279an8-70d6-30g9-tb34-f22g9he3yvf6 ANSI-Commercial 72z73e52-9146-1x76-p9r5-85158jjw302u 69r16u09-9143-7c20-p9i6-91389bry819l ANSI-Commercial ub30oc0g-b4y0-417k-5j69-90o3rl97d807 uy33ld3x-q1s0-991f-9u89-86f5he93p773 ANSI-Medicare Part B [id number]-h9115y22z34y ANSI-Not a Secondary Insurance 4h4o3kof-2847-7x60-4e3u-v7z08 6r06a7m 9h6x5otg-3023-9v08-1e7r-w5g292z07t2g ANSI-Not a Secondary Insurance 43e8m705-54a0-171l-tm09-r7n4v j5m479n 45a9g213-24d0-707w-tj27-u7r3gr0b271d ANSI-Commercial 8i2382w4-264x-2748-4n6p-4032g9j4e94b 8d5550m9-423k-6794-5w4d-8511p2i4s59c ANSI-Medicare Part B [id number]-vsh6-1d20-mk91-89b879g98743 [facility] [id number] Self [id number] ANSI-Not a Secondary Insurance o7v46ca6-1sm2-2w3l-qa12-dcz0s 22764jq n3z29iq8-2xa4-5s2p-je14-ktw6s90471wv ANSI-Commercial 310qzhoz-8242-5n7b6o5z-7922-85679k7zy1hb 476mdbwx-1637-8i0w9d7d-5253-71259r1av6rr ANSI-Medicare Part B [id number]-uy7o-n04216j56e3q ANSI-Commercial vd7v530j-9l44-4a7e-09a4-rk5p5386h639 sb8s789q-0i37-5o0e-96q2-hu7b6367l867 ANSI-Not a Secondary Insurance 985od3gh-79x4-7hka-y953-5b961 v3wofs9 043or9md-20r6-4jqc-i091-1h670h7tkws1 ANSI-Medicare Part B [id number]-5ga2-4o66-va8597177i4o ANSI-Not a Secondary Insurance [id number]m673 59g58x3 p5g92492-7m87-6z12-0r50-7d72039r24z9 ANSI-Commercial 14571615-801u-2nlp-hkte-e2kd23bp369l 68402804-351h-3lzj-klhs-p0tb70ye397c ANSI-Medicare Part B [id number]-56n1-yvgx-7wm81re94188 [facility] Medigap Part B [id number] Family Dependent [id number] Umr[facility] Medigap Part B [id number] Self [id number] Medicare Natl Gov't Servi Medicare Primary [id number] Self [id number] ANSI-Commercial nlb6ekn2-7l97-6032-uu1y-hu7j5s006j13 hmm2naj1-6l67-2213-po6h-xp4c2x038t70 ANSI-Medicare Part B [id number] 23qmv73o-3224-95mi-47pt-4b739ra5no74 ANSI-Not a Secondary Insurance 3751lx60-6fi0-9682-92of-91843 [id number] 7553fq10-2iq8-9562-08zh-209570876259 UMR F [id number] SELF [id number] UMR F [id number] SPOUSE [id number] ANSI-Medicare Part B [id number]-[id number] y99j9s80-5p59-4iz0-dlx9-f925mpth980v ANSI-Not a Secondary Insurance 3p3w3c8p-r114-2h1j-tu7g-qg6s4 5q082la 0c8l9r2j-i218-4w2b-ny0a-ep9f19g381yt ANSI-Commercial 3u83i88a-7399-57h4-ao86-y3rw70h0t92r 6i48x75m-2692-41q3-hi89-l9cy15c2i81o [facility] [id number] [facility] [id number] ANSI-Medicare Part B [id number] [id number]-36o7-136h-dw108zufz245 ANSI-Commercial 24336e81-9b70-8f7v-01ku-29zm98r340ub 01558l30-8e88-2b3x-64ch-98px56h672mh ANSI-Not a Secondary Insurance 06050f25-g083-0v9n-iiz5-20462 38xq183 09649o41-w010-7z2i-wnj4-0978542qc543 [facility] [id number] SELF [id number] Medicare C [id number] SELF [id number] Medicare C [id number] SELF [id number] A ANSI-Not a Secondary Insurance q0x9u9l6-2w4w-6q47-wtx8-hk08t [id number] d4k2a3j0-8w9v-7l39-hqn8-he94ti141410 ANSI-Medicare Part B [id number]-8n103814k51q ANSI-Commercial 81b226n7-l370-802u-s4c0-w67e4fdz04xu 40l676d4-a307-487f-m5y2-j53c7fzb33aa ANSI-Commercial og22r1f2-7906-2187-16b5-83h998080lgh eu53h6s7-4467-3849-88f9-42b689985tbe ANSI-Medicare Part B [id number] 27lr63o9-9mi4-97n2-1mc1-680t8s7zn6td ANSI-Not a Secondary Insurance 552am916-00l9-49r2-3324-0704e 9n2075h 766nc280-83p8-46p2-8534-7364z7x9658s ANSI-Not a Secondary Insurance 80904vee-x74w-437n-4267-25v51 decef67 76842xey-d36e-888q-0133-38g49tdbyd11 ANSI-Medicare Part B [id number]-[id number] x1088ci7-1o96-6431-sk0x-k54j9t8f8108 ANSI-Commercial 00290572-5848-32r9-5hi6-sb022613bc63 61872819-1069-74b0-0cl0-co094043yg25 ANSI-Commercial sa4mx47v-xzc4-9x37-73yq-5qd63kiv9882 jn9ul14g-mfr5-9l00-73qv-2km54bzy2288 ANSI-Not a Secondary Insurance 3013z691-d306-3559-ioa4-31l58 47qh68s 6645t073-w426-2579-uit7-65y5238qm86r ANSI-Medicare Part B [id number]-2ne9-8wtj-[id number] UMR [facility] [id number] SP [id number] UMR [facility] [id number] WI2 [id number] MEDICARE [id number] SP [id number] A [facility] [id number] WI2 [id number] UMR [facility] [id number] WI2 [id number] UMR [facility] CARE [id number] WI2 [id number] R [facility] [id number] WI2 [id number] Umr (pr) Medigap Part B [id number] Self [id number] [place] Med[place] Part B [id number] Self [id number] Umr (pr) Commercial [id number] Family Dependent [id number] UMR U [id number] Spouse [id number] MEDICARE A [id number] Self [id number] A Umr (pr) Medigap Part B [id number] Self [id number] [place] Medig[place] Part B [id number] Self [id number] Umr (pr) Commercial [id number] Family Dependent [id number] UMR O [id number] S [id number] MEDICARE C [id number] S [id number] A Umr (pr) Medigap Part B [id number] Self [id number] [place] Medig[place] Part B [id number] Self [id number] Umr (pr) Commercial [id number] Family Dependent [id number] UMR [facility] [id number] SP [id number] [employer] U [id number] Self [id number] [facility] U [id number] Spouse [id number] [facility] [id number] WI2 [id number] [facility] [id number] SP [id number] UMR F [id number] SPOUSE [id number] [employer] / UMR F [id number] SELF [id number] [employer] / UMR F [id number] SPOUSE [id number] [facility] [id number] WI2 [id number] [facility] [id number] SP [id number] [facility] [id number] SP [id number] [employer] Medigap Part B [id number] Self [id number] Medicare Natl Gov't Servi Medigap Part B [id number] Self [id number] [employer] Commercial [id number] Family Dependent [id number] [facility] [id number] SP [id number] [employer] Medigap Part B [id number] Self [id number] Medicare Natl Gov't Servi Medigap Part B [id number] Self [id number] [place] Commercial [id number] Family Dependent [id number] Medicare Natl Gov't Servi Medigap Part B [id number] Self [id number] [place] Medigap Part B [id number] Family Dependent [id number] [place] Commercial [id number] Self [id number] POM[facility] PPO O [id number] S [id number] POM[facility] PPO O [id number] P [id number] Ghi/Emblem HLTH (pr) Medigap Part B [id number] Family Depende nt [id number] Ghi/Emblem HLTH (pr) Medigap Part B [id number] Self [id number] [place] (pr) Medigap Part B 757535349 Self [id number] [place] [id number] Self [id number] [place] (pr) Commercial [id number] Family Dependent 8 [id number] [place] F [id number] SELF [id number] [place] F [id number] SPOUSE [id number] Ghi/Emblem HLTH (pr) Medigap Part B 762356017 Family Depende nt [id number] Ghi/Emblem HLTH (pr) Medigap Part B 846465277 Self [id number] [place] (pr) Medigap Part B 385374263 Self 8906 46359 Medicare [facility] Medigap Part B [id number] Self [id number] [place] (pr) Commercial [id number] Family Dependent 8 [id number] Ghi/Emblem HLTH (pr) Medigap Part B 417840720 Family Depende nt [id number] Ghi/Emblem HLTH (pr) Medigap Part B [id number] Self [id number] [place] (pr) Medigap Part B 366347438 Self 8906 64708 Medicare [facility] Medigap Part B [id number] Self [id number] [place] (pr) Commercial [id number] Family Dependent 8 [id number] [place] Medigap Part B [id number] Self [id number] [id number] [place] Medigap Part B [id number] Family Dependent [id number] Medicare Natl Gov't Servi Medicare Primary [id number] Self [id number] POMCO [id number] WI2 [id number] Ghi/Emblem HLTH (pr) Medigap Part B 966630924 Family Depende nt [id number] Ghi/Emblem HLTH (pr) Medigap Part B 678903050 Self [id number] [place] (pr) Medigap Part B 281893258 Self [phone] [place] Med[place] Part B [id number] Self [id number] [place] (pr) Commercial [id number] Family Dependent 8 [id number] Ghi/Emblem HLTH (pr) Medigap Part B 037527833 Family Depende nt [id number] Ghi/Emblem HLTH (pr) Medigap Part B 729931656 Self [id number] [place] (pr) Medigap Part B 836488026 Self 8906 44208 [place] Med[place] Part B [id number] Self [id number] [place] (pr) Commercial [id number] Family Dependent 8 [id number] Ghi/Emblem HLTH (pr) Medigap Part B 412917920 Family Depende nt [id number] Ghi/Emblem HLTH (pr) Medigap Part B 735463341 Self [id number] [place] (pr) Medigap Part B 141810494 Self [id number] 86306 [place] Med[place] B [id number] Self [id number] [place] (pr) Commercial [id number] Family Dependent 8 [id number] POMCO [id number] SP [id number] POMCO [id number] SP [id number] MEDICARE [id number] SP [id number] POMCO [id number] WI2 [id number] POMCO [id number] SP [id number] POMCO [id number] WI2 [id number] POMCO [id number] SP [id number] POMCO [id number] WI2 [id number] POMCO [id number] WI2 [id number] POMCO [id number] SP [id number] POMCO [id number] SP [id number] POMCO [id number] WI2 [id number] Ghi/Emblem HLTH (pr) Medigap Part B Family Depende nt Ghi/Emblem HLTH (pr) Medigap Part B Self [place] (pr) Medigap Part B [place] Part B Self [place] (pr) Commercial Family Dependent POMCO [id number] WI2 [id number] [place] Commercial Self Medicare [facility] Medicare Primary Self [place] Commercial Family Dependent [place] Medigap Part B Self Medicare [facility] Medicare Primary Self [place] Commercial Family Dependent POMCO [id number] WI2 [id number] POMCO -O/P [id number] 18 [id number] MEDICARE -O/P [id number] 18 [id number] POMCO -O/P [id number] 01 [id number] [employer] [id number] SP [id number] [facility]OM[facility] PPO P [id number] P [id number] [facility]OM[facility] PPO S [id number] S [id number] Problems, Conditions, and Diagnoses Code Display Name Description Problem Type Effective Dates Data Source(s) E09.9 346274894 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 Problem 01/04/2021 12:00:00 AM EST eCW1 ([facility]) E11.9 839856180 Type 2 diabetes hayley itus without complication, without long-term current use of insulin Problem 01/04/2021 12:00:00 AM EST eCW1 ([facility]) 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 Problem 09/27/2020 12:00:00 AM EST eCW1 ([facility]) 366.14 Cataract Senile Posterior Subcapsular Po lar Cataract Senile Posterior Subcapsular Polar Problem 07/26/2020 12:00:00 AM EDT ALIE (Luis Burnham [facility]) 366.14 Cataract Senile Posterior Subcapsular Po lar Cataract Senile Posterior Subcapsular Polar Problem 07/26/2020 12:00:00 AM EDT ALIE (Luis Burnham MD [facility]) R06.02 Shortness of breath Shortness of breath Diagnosis 0 06/01/2020 08:43:36 AM EDT [facility] I10 Essential (primary) hypertension Essential (primary) h ypertension Diagnosis 06/01/2020 08:43:36 AM EDT [facility] R91.8 Other nonspecific abnormal finding of bo ng field Other nonspecific abnormal finding of bo Diagnosis 05/11/2020 09:07:07 AM EDT [facility] E29.1 Testicular hypofunction Testicular hypofunction Diagno sis 05/11/2020 09:07:07 AM EDT [facility] Z86.79 Personal history of other diseases of th e circulatory system Personal history of other diseases of th Diagnosis 05/11/2020 09:07:07 AM EDT [facility] I31.3 Pericardial effusion (noninflammatory) P ericardial effusion (noninflammatory) Diagnosis 05/11/2020 09:07:07 AM EDT [facility] G47.33 Obstructive sleep apnea (adult) (pediatr ic) Obstructive sleep apnea (adult) (pediatr Diagnosis 05/11/2020 09:07:07 AM EDT [facility] E66.9 Obesity, unspecified Obesity, unspecified Diagnosis 05/11/2020 09:07:07 AM EDT [facility] F41.8 Other specified anxiety disorders Other specifie d anxiety disorders Diagnosis 05/11/2020 09:07:07 AM EDT [facility] J44.9 Chronic obstructive pulmonary disease, u nspecified Chronic obstructive pulmonary disease, u Diagnosis 05/11/2020 09:07:07 AM EDT [facility] E78.5 Hyperlipidemia, unspecified Hyperlipidemia, unspecifie d Diagnosis 05/11/2020 09:07:07 AM EDT [facility] M19.90 Unspecified osteoarthritis, unspecified site Unspecified osteoarthritis, unspecified Diagnosis 05/11/2020 09:07:07 AM EDT [facility] [facility] Surgeries/Procedures Procedure Description Date Indications Data Source(s) Visual Field (WAIVER OF LIABILITY ON FILE (ABN)) Visua l Field (WAIVER OF LIABILITY ON FILE (ABN)) 12/08/2020 12:00:00 AM EST ALIE (Abhinav Burnham MD [facility]) Immunization: Flublok Quadrivalent (18 years & older) 0.5mL IM (Influenza) 10/14/2020 12:00:00 AM EST eCW1 ([facility]) Intermediate Eye Exam Established Patient Intermediate Eye Exam Established Patient 09/19/2020 12:00:00 AM EDT ALIE (Luis Burnham MD [facility]) No surgical / procedural history No surgical / procedural hi story 07/26/2020 12:00:00 AM EDT ALIE (Abhinav Burnham MD [facility]) Intermediate Eye Exam Established Patient Intermediate Eye Exam Established Patient 07/26/2020 12:00:00 AM EDT ALIE (Luis Burnham MD [facility]) Intermediate Eye Exam Established Patient Intermediate Eye Exam Established Patient 07/26/2020 12:00:00 AM EDT ALIE (Luis Burnham MD [facility]) uro PVR (Post Voiding Residual) Bladder Scan 0 12:00:00 AM EDT eCW1 ([facility]) Remote Evaluation with Patient by an MD/QHP 02/11/2020 12:00:00 AM EDT eCW1 ([facility]) Insertion of Punctum Plug (Bilateral Procedure) Insert ion of Punctum Plug (Bilateral Procedure) 01/11/2020 12:00:00 AM EST ALIE (Sara Burnham MD [facility]) Results ID Date Data Source 01/12/2020 12:00:00 AM EST [facility] ology Imaging Louie Rogel Pa-C Patient Name: BEBA GODINEZ [id number] [facility] Date of : 1955 89 Date [facility]: [facility]2020[facility] [place] [address]#: Fax: [phone] EXAM: MRI KNEE LEFT WITHOUT [...] unremarkable.Otherwise, negative left knee MRI.Accredited by the [employer] in MR.Yohan Jackson, MDDJW/jmcThank you for referring BEBA GODINEZ to our office. Electronically Signed - YOHAN JACKSON MD 01/12/20 16:32 Name Value Range Interpretation Code Description Data Carolina rce(s) Supporting Document(s) Procedure Social History Code Duration Value Status Description Data Source(s ) Smoking 01/12/2021 12:00:00 AM EST Former Smoker completed Former Smoker eCW1 ([facility]) Smoking 11/23/2020 12:00:00 AM EST Former Smoker completed Former Smoker eCW1 ([facility]) Smoking 11/23/2020 12:00:00 AM EST Former Smoker completed Former Smoker eCW1 ([facility]) Smoking 11/23/2020 12:00:00 AM EST Former Smoker completed Former Smoker eCW1 ([facility]) Smoking 11/09/2020 12:00:00 AM EST Former Smoker completed Former Smoker eCW1 ([facility]) Smoking 11/09/2020 12:00:00 AM EST Former Smoker completed Former Smoker eCW1 ([facility]) Smoking 11/09/2020 12:00:00 AM EST Former Smoker completed Former Smoker eCW1 ([facility]) Smoking 10/25/2020 12:00:00 AM EST Former Smoker completed Former Smoker eCW1 ([facility]) Smoking 09/27/2020 12:00:00 AM EST Former Smoker completed Former Smoker eCW1 ([facility]) Smoking 09/27/2020 12:00:00 AM EST Former Smoker completed Former Smoker eCW1 ([facility]) Smoking 09/27/2020 12:00:00 AM EST Former Smoker completed Former Smoker eCW1 ([facility]) Smoking 09/27/2020 12:00:00 AM EST Former Smoker completed Former Smoker eCW1 ([facility]) Smoking 09/27/2020 12:00:00 AM EST Former Smoker completed Former Smoker eCW1 ([facility]) Smoking 09/27/2020 12:00:00 AM EST Former Smoker completed Former Smoker eCW1 ([facility]) Smoking 09/23/2020 12:00:00 AM EDT Former Smoker completed Former Smoker eCW1 ([facility]) Smoking 09/19/2020 12:00:00 AM EDT Former Smoker completed Former Smoker eCW1 ([facility]) Smoking 07/26/2020 01:22:21 PM EDT Ex-smoker (finding) [facility] Ex-smoker (finding) TROY (Abhinav Burnham MD [facility]) Smoking 06/08/2020 12:00:00 AM EDT Former Smoker completed Former Smoker eCW1 ([facility]) Smoking 06/08/2020 12:00:00 AM EDT Former Smoker completed Former Smoker eCW1 ([facility]) Smoking 06/08/2020 12:00:00 AM EDT Former Smoker completed Former Smoker eCW1 ([facility]) Smoking 04/26/2020 12:00:00 AM EDT Former Smoker completed Former Smoker eCW1 ([facility]) Smoking 04/26/2020 12:00:00 AM EDT Former Smoker completed Former Smoker eCW1 ([facility]) Smoking 04/26/2020 12:00:00 AM EDT Former Smoker completed Former Smoker eCW1 ([facility]) Vital Signs ID Date Data Source UNK [...] blood pressure 80 mm[Hg] 80 mm[Hg] eCW1 ([facility]) Systolic blood pressure 132 mm[Hg] 132 mm[Hg] e CW1 ([facility]) Body temperature 96.1 [degF] 96.1 [degF] eCW1 ( [facility]) Respiratory rate 22 /min 22 /min eCW1 ([facility]) Heart rate 82 /min 82 /min eCW1 ([facility]) Body mass index (BMI) [Ratio] 43.12 kg/m2 43.12 kg/m2 eCW1 ([facility]) Body height 69 [in_i] 69 [in_i] eCW1 ([facility]) Body weight 292 [lb_av] 292 [lb_av] eCW1 ([facility]) Diastolic blood pressure 86 mm[Hg] 86 mm[Hg] eCW1 ([facility]) Systolic blood pressure 140 mm[Hg] 140 mm[Hg] e CW1 ([facility]) Body temperature 97.1 [degF] 97.1 [degF] eCW1 ( [facility]) Respiratory rate 22 /min 22 /min eCW1 ([facility]) Heart rate 86 /min 86 /min eCW1 ([facility]) Body mass index (BMI) [Ratio] 42.97 kg/m2 42.97 kg/m2 eCW1 ([facility]) Body height 69 [in_i] 69 [in_i] eCW1 ([facility]) Body weight 291 [lb_av] 291 [lb_av] eCW1 ([facility]) Diastolic blood pressure 80 mm[Hg] 80 mm[Hg] eCW1 ([facility]) Systolic blood pressure 132 mm[Hg] 132 mm[Hg] e CW1 ([facility]) Body temperature 98.1 [degF] 98.1 [degF] eCW1 ( [facility]) Respiratory rate 20 /min 20 /min eCW1 ([facility]) Heart rate 131 /min 131 /min eCW1 ([facility]) Body mass index (BMI) [Ratio] 43.56 kg/m2 43.56 kg/m2 eCW1 ([facility]) Body height 69 [in_i] 69 [in_i] eCW1 ([facility]) Body weight 295 [lb_av] 295 [lb_av] eCW1 ([facility]) Diastolic blood pressure 82 mm[Hg] 82 mm[Hg] eCW1 ([facility]) Systolic blood pressure 126 mm[Hg] 126 mm[Hg] e CW1 ([facility]) Body temperature 97.5 [degF] 97.5 [degF] eCW1 ( [facility]) Respiratory rate 20 /min 20 /min eCW1 ([facility]) Heart rate 135 /min 135 /min eCW1 ([facility]) Body mass index (BMI) [Ratio] 43.71 kg/m2 43.71 kg/m2 eCW1 ([facility]) Body height 69 [in_i] 69 [in_i] eCW1 ([facility]) Body weight 296.0 [lb_av] 296.0 [lb_av] eCW1 ([facility]) Diastolic blood pressure 80 mm[Hg] 80 mm[Hg] eCW1 ([facility]) Systolic blood pressure 140 mm[Hg] 140 mm[Hg] e CW1 ([facility]) Body temperature 96.9 [degF] 96.9 [degF] eCW1 ( [facility]) Respiratory rate 20 /min 20 /min eCW1 ([facility]) Heart rate 110 /min 110 /min eCW1 ([facility]) Body mass index (BMI) [Ratio] 43.85 kg/m2 43.85 kg/m2 eCW1 ([facility]) Body height 69 [in_i] 69 [in_i] eCW1 ([facility]) Body weight 297 [lb_av] 297 [lb_av] eCW1 ([facility]) Diastolic blood pressure 66 mm[Hg] 66 mm[Hg] eCW1 ([facility]) Systolic blood pressure 124 mm[Hg] 124 mm[Hg] e CW1 ([facility]) Body temperature 97.9 [degF] 97.9 [degF] eCW1 ( [facility]) Respiratory rate 18 /min 18 /min eCW1 ([facility]) Heart rate 99 /min 99 /min eCW1 ([facility]) Body mass index (BMI) [Ratio] 43.41 kg/m2 43.41 kg/m2 eCW1 ([facility]) Body height 69 [in_i] 69 [in_i] eCW1 ([facility]) Body weight 294 [lb_av] 294 [lb_av] eCW1 ([facility]) Patient Treatment Plan of Care Planned Activity Planned Date Details Description Data Source (s) Ipratropium-Albuterol 20-100 MCG/ACT 11/09/2020 12:00:00 AM EST eCW1 ([facility]) Ipratropium-Albuterol 20-100 MCG/ACT 11/09/2020 12:00:00 AM EST eCW1 ([facility]) Ipratropium-Albuterol 20-100 MCG/ACT 11/09/2020 12:00:00 AM EST eCW1 ([facility]) Myrbetriq 50 MG 10/25/2020 12:00:00 AM EST eCW1 ([facility]) gabapentin 300 MG Oral Capsule 09/27/2020 12:00:00 AM EST eCW1 ([facility]) Prednisone 20 MG Oral Tablet 09/27/2020 12:00:00 AM EST eCW1 ([facility]) valacyclovir 500 MG Oral Tablet [Valtrex] 09/27/2020 12:00:00 AM ES T eCW1 ([facility]) gabapentin 300 MG Oral Capsule 09/27/2020 12:00:00 AM EST eCW1 ([facility]) Prednisone 20 MG Oral Tablet 09/27/2020 12:00:00 AM EST eCW1 ([facility]) valacyclovir 500 MG Oral Tablet [Valtrex] 09/27/2020 12:00:00 AM ES T eCW1 ([facility]) gabapentin 300 MG Oral Capsule 09/27/2020 12:00:00 AM EST eCW1 ([facility]) Prednisone 20 MG Oral Tablet 09/27/2020 12:00:00 AM EST eCW1 ([facility]) valacyclovir 500 MG Oral Tablet [Valtrex] 09/27/2020 12:00:00 AM ES T eCW1 ([facility]) gabapentin 300 MG Oral Capsule 09/27/2020 12:00:00 AM EST eCW1 ([facility]) Prednisone 20 MG Oral Tablet 09/27/2020 12:00:00 AM EST eCW1 ([facility]) valacyclovir 500 MG Oral Tablet [Valtrex] 09/27/2020 12:00:00 AM ES T eCW1 ([facility]) gabapentin 300 MG Oral Capsule 09/27/2020 12:00:00 AM EST eCW1 ([facility]) Prednisone 20 MG Oral Tablet 09/27/2020 12:00:00 AM EST eCW1 ([facility]) valacyclovir 500 MG Oral Tablet [Valtrex] 09/27/2020 12:00:00 AM ES T eCW1 ([facility]) gabapentin 300 MG Oral Capsule 09/27/2020 12:00:00 AM EST eCW1 ([facility]) Prednisone 20 MG Oral Tablet 09/27/2020 12:00:00 AM EST eCW1 ([facility]) valacyclovir 500 MG Oral Tablet [Valtrex] 09/27/2020 12:00:00 AM ES T eCW1 ([facility]) valacyclovir 1000 MG Oral Tablet 09/19/2020 12:00:00 AM EDT eCW1 ([facility]) Prednisone 20 MG Oral Tablet 09/19/2020 12:00:00 AM EDT eCW1 ([facility]) Walker - 03/28/2020 12:00:00 AM EDT e CW1 ([facility]) Walker - 03/28/2020 12:00:00 AM EDT e CW1 ([facility])
[2021-01-19 02:23] LABS: ALBUMIN 3.4 GM/DL (3.2-5.2); BILIRUBIN,TOTAL 0.7 MG/DL (0.2-1.0); CALCIUM LEVEL 8.7 MG/DL (8.8-10.2); CREATININE FOR GFR 1.36 MG/DL (0.70-1.30); GLOMERULAR FILTRATION RATE 55.6 (>49); TOTAL PROTEIN 7.1 GM/DL (6.4-8.2)
--- NOTE | 2021-01-19 03:05 | REPVR ---
PROCEDURE INFORMATION: Exam: XR Chest Exam date and time: 01/19/2021 2:04 AM Age: 65 years old Clinical indication: Other: SOB TECHNIQUE: Imaging protocol: XR of the chest Views: 1 view. COMPARISON: [facility] PORTABLE CHEST X-RAY 11/07/2020 4:27 PM FINDINGS: Lungs: Persistent scarring or atelectasis in the right lung base. Lungs are otherwise clear. Pleural spaces: Unremarkable. No pleural effusion. No pneumothorax. Heart/Mediastinum: Unremarkable. No cardiomegaly. Bones/joints: Unremarkable. IMPRESSION: No acute findings. Electronically signed by: Clemente Pollock On 01/19/2021 03:06:03 AM
[2021-01-19 06:20] VITALS: BP 130/70
== END 2021-01-19 05:20 | disposition home or self-care (01) ==
LOC: M ED 00:17
DX: R53.1 Weakness (principal); T50.Z95A Adverse effect of other vaccines and biological substances, initial encounter; X58.XXXA Exposure to other specified factors, initial encounter; Y92.89 Other specified places as the place of occurrence of the external cause; I50.9 Heart failure, unspecified; J43.9 Emphysema, unspecified; K21.9 Gastro-esophageal reflux disease without esophagitis; N40.0 Benign prostatic hyperplasia without lower urinary tract symptoms; Z79.899 Other long term (current) drug therapy; Z88.0 Allergy status to penicillin; Z88.1 Allergy status to other antibiotic agents; Z88.8 Allergy status to other drugs, medicaments and biological substances

== ENCOUNTER → 2021-02-13 | Outpatient (REF) | payer MEDICARE, OTHER ==
[2021-02-13 13:20] LABS: CALCIUM LEVEL 9.4 MG/DL (8.8-10.2); CREATININE FOR GFR 1.38 MG/DL (0.70-1.30); GLOMERULAR FILTRATION RATE 54.7 (>49); POTASSIUM SERUM 4.6 MEQ/L (3.5-5.1)
== END ==
LOC: M SFHCADAM 09:00
PROVIDERS: ATTEND Family Medicine
DX: E11.9 Type 2 diabetes mellitus without complications (principal); Z51.81 Encounter for therapeutic drug level monitoring

== ENCOUNTER → 2021-03-24 | Outpatient (REF) | payer MEDICARE, OTHER ==
[2021-03-24 14:01] LABS: HEMOGLOBIN A1c 8.6 %
[2021-03-24 14:08] LABS: CALCIUM LEVEL 10.5 MG/DL (8.8-10.2); CREATININE FOR GFR 1.3 MG/DL (0.70-1.30); GLOMERULAR FILTRATION RATE 58.6 (>49); POTASSIUM SERUM 4.8 MEQ/L (3.5-5.1)
== END ==
LOC: M SFHCADAM 07:46
PROVIDERS: ATTEND Family Medicine
DX: E11.9 Type 2 diabetes mellitus without complications (principal)

== ENCOUNTER 2021-04-10 09:30 | Inpatient (IN) | payer MEDICARE, OTHER ==
[~2021-04-10] VITALS: Ht 177.8 cm; Wt 127.5 kg
[2021-04-10] MEDS ORDERED: ONDANSETRON 4MG/2ML VIAL IV ONE ×3 (09:55→13:10)
[2021-04-10] MEDS ORDERED: NS 1,000 ML IV SCH (09:55)
[2021-04-10] MEDS: MORPHINE 2 MG/ML 1ML VIAL (J2270) IV PRN ×2 (10:14→12:01)
[2021-04-10] MEDS ORDERED: ISOVUE-370 76% 100ML VIAL As Ordered ONE (10:14)
[2021-04-10 10:20] LABS: BASO % 0.2 % (0.0-1.0); EOS % 0.1 % (0.0-3.0); HEMATOCRIT 47.5 % (42.0-52.0); HEMOGLOBIN 15.9 g/dl (13.5-17.5); LYMPH # 0.5 10^3/uL (1.5-5.0); LYMPH % 4.4 % (24.0-44.0); MEAN CORPUSCULAR HEMOGLOBIN 34.3 pg (27.0-33.0); MEAN CORPUSCULAR HGB CONC 33.5 g/dl (32.0-36.5); MEAN CORPUSCULAR VOLUME 102.4 fl (80.0-96.0); MONO # 0.5 10^3/uL (0.0-0.8); MONO % 4.6 % (2.0-8.0); NEUTROPHILS # 9.7 10^3/uL (1.5-8.5); NEUTROPHILS % 90.2 % (36.0-66.0); PLATELET COUNT, AUTOMATED 218 10^3/uL (150-450); RED BLOOD COUNT 4.64 10^6/uL (4.30-6.10); WHITE BLOOD COUNT 10.8 10^3/uL (4.0-10.0)
[2021-04-10 10:46] LABS: ALBUMIN 3.6 GM/DL (3.2-5.2); ALT/SGPT 60 U/L (12-78); AMYLASE 56 U/L (25-115); BILIRUBIN,DIRECT < 0.1 MG/DL (0.0-0.2); BILIRUBIN,TOTAL 0.6 MG/DL (0.2-1.0); LIPASE 141 U/L (73-393); TOTAL PROTEIN 7.9 GM/DL (6.4-8.2)
[2021-04-10 11:23] LABS: INR 0.83; PARTIAL THROMBOPLASTIN TIME 23.4 SECONDS (24.2-38.5); PROTHROMBIN TIME 11.6 SECONDS (12.5-14.3)
--- NOTE | 2021-04-10 12:22 | REP ---
INDICATION: midepigast ain rad to mid back COMPARISON: The latest prior contrast-enhanced chest CT of 01/19/2016 in the latest prior chest CT of 12/12/2020 which is a low-dose screening CT of the lungs. TECHNIQUE: CT angiography chest attention aorta, after the intravenous administration of 75 cc Isovue 370. MIP reformatted 3D images of the thoracic aorta were obtained. FINDINGS: The thoracic aorta is within normal limits. There is no aneurysm, dissection, or abnormal narrowing. There is excellent visualization of the pulmonary arterial vasculature. No focal filling defects are present that would be considered consistent with acute pulmonary emboli. There are no pleural or pericardial effusions. There is no mediastinal or hilar adenopathy. The imaged upper abdomen is within normal limits. The imaged osseous structures are within normal limits for the patient's age. Evaluation of the lung alvarez shows emphysematous changes status quo. Note is again made of cylindrical bronchiectasis. Once again, there is a nodular density seen abutting the major fissure in the right lower lobe. This appears stable. No new abnormal nodules, masses, or opacities have developed. IMPRESSION: 1. There is no evidence of an aortic or other intrathoracic vascular abnormality as described above. 2. Stable appearing chronic lung field changes. <Electronically signed by Rickie Romeo > 04/10/21 [id number]
--- NOTE | 2021-04-10 12:37 | REP ---
INDICATION: midepigast ain rad to mid back. COMPARISON: 11/16/2015 the latest prior TECHNIQUE: Standard helical technique after the intravenous administration of 100 cc Isovue 370 FINDINGS: The liver, spleen, pancreas, adrenal glands, and kidneys are centrally unchanged. Although the previously noted left renal cysts have increased in size there remains simple in appearance. Since the last examination, cholelithiasis has developed. In addition, a mm sized calculus is now seen in the common bile duct. There is very subtle Larissa choledochal fatty infiltration. The abdominal aorta and para-aortic regions are within normal limits. There is no significant change in the appearance of the imaged osseous structures. Once again, there is bilateral L5 spondylolysis and chronic spinal degenerative changes. There is no significant change in appearance of the bowel loops or the mesenteries. There is no free fluid or free air. IMPRESSION: 1. Since the last examination there has been interim development of cholelithiasis and choledocholithiasis as described above. There is mild Larissa choledochal fatty infiltration consistent with inflammation. 2. Other findings as described above. <Electronically signed by Rickie Romeo > 04/10/21 [id number]
[2021-04-10] MEDS ORDERED: MEROPENEM INJ 1 GM in IV 1 EA IV ONE (13:05)
[2021-04-10] MEDS ORDERED: MORPHINE 2 MG/ML 1ML VIAL (J2270) IV PRN (13:10)
--- NOTE | 2021-04-10 13:35 | ECGEPIP ---
[facility] - ED Test Date: 2021-04-10 Pat Name: BEBA HERNANDEZ Department: Room: - Gender: Male [employer]: MARTY : 1955 Requested By: Eli Rice Order Number: [id number] Reading MD: Toshia Feldman Measurements Intervals [place] Rate: 79 P: 60 MO: 204 QRS: -9 QRSD: 96 T: 28 QT: 382 QTc: 438 Interpretive Statements Sinus rhythm with marked sinus arrhythmia Low voltage QRS prwp NSTTW abnormalities decreased rate 11/07/20 Electronically Signed on 04-10-2021 13:35:01 EDT by Toshia Feldman
[2021-04-10] MEDS ORDERED: AMMO12CR7 TOP (13:41)
[2021-04-10] MEDS ORDERED: ANOR1AER INH (13:41)
[2021-04-10] MEDS ORDERED: STEG5TAB PO (13:41)
[2021-04-10] MEDS ORDERED: METF850T4 PO (13:41)
[2021-04-10] MEDS ORDERED: COMBAER6 INH (13:41)
[2021-04-10] MEDS ORDERED: VITMTA PO (13:41)
[2021-04-10] MEDS ORDERED: NS 500 ML IV ONE (13:45)
[2021-04-10] MEDS ORDERED: MOM 30ML SUSPENSION UDC PO PRN (16:45)
[2021-04-10] MEDS ORDERED: MAALOX 30 ML SUSP *UDC PO PRN (16:45)
[2021-04-10] MEDS ORDERED: ONDANSETRON 4MG/2ML VIAL IV PRN (17:00)
--- NOTE | 2021-04-10 17:00 | REP ---
INDICATION: midepig pain radiating to mid back. COMPARISON: 01/19/2021. TECHNIQUE: Single portable AP view of the chest was performed. FINDINGS: There are stable chronic bibasilar fibrotic changes. No acute infiltrate is seen. There is stable biapical pleural thickening. The heart is not significantly enlarged. There is mild calcification of the thoracic aorta. The mediastinal silhouette is unchanged. IMPRESSION: No acute pulmonary disease.Stable chronic findings as above. <Electronically signed by Yohan Headley > 04/10/21 0811
[2021-04-10] MEDS ORDERED: LACTIC ACID 12% LOTION 225 GM BTL TOP PRN (17:10)
[2021-04-10 18:00] VITALS: BP 147/86
[2021-04-10] MEDS ORDERED: GLUCAGON INJ 1MG VIAL SC PRN (18:20)
[2021-04-10] MEDS ORDERED: DEXTROSE 50% 50 ML SYRINGE IV PRN (18:20)
[2021-04-10] MEDS ORDERED: GLUCOSE 4GM CHEW TABLET PO PRN (18:20)
[2021-04-10] MEDS: LR 1,000 ML IV SCH (18:22)
[2021-04-10] MEDS: FINASTERIDE 5 MG TAB PO SCH (18:22)
[2021-04-10] MEDS: TAMSULOSIN 0.4 MG CAP PO SCH (18:22)
[2021-04-10] MEDS: HumaLOG INSULIN (NovoLOG) PER UNIT SC SCH ×2 (18:38→21:00)
--- NOTE | 2021-04-10 18:42 | HPEPDOC ---
[facility] Medical History & Physical Date of Admission April 10, 2021 Date of Service: April 10, 2021 History and Physical CHIEF COMPLAINT: Abdominal pain HISTORY OF PRESENT ILLNESS: The patient reports that approximately 2 AM this morning he began to suffer from abdominal pain, he did have some radiation to his back as well, and being concerned he decided to present to the emergency department. He did have some nausea, no vomiting. Because of the fact that the pain was radiating to his back a chest x-ray and CT angiogram of the chest were performed, both of which were unremarkable for any acute changes, please see report for full details. On his CT abdomen and pelvis did show interim development of cholelithiasis and choledocholithiasis with mild pericoledochal fatty infiltration consistent with inflammation. Lipase and liver enzymes are within normal limits, but he did have an elevated lactic acidosis and white count, therefore he would qualify for sepsis with known etiology. The patient does have multiple allergies to antibiotics, therefore meropenem was selected as the most appropriate antibiotic. He was also given a bolus of fluid in the ED, and we'll continue him on fluids at this time as well. Dr. Casey was contacted by the ED provider since we do not have GI on at this time. Given that it is a small stone and his liver and pancreatic enzymes are not elevated, there is a strong suspicion that he might be able to pass the stone. He supposedly follow along with the case, I personally have not been able to get in contact with him despite trying to call, apparently he is in surgery. CODE STATUS: Full code PAST MEDICAL HISTORY: Type 2 diabetes mellitus COPD - requiring 2 L oxygen / Diverticulosis with history of diverticulitis Fatty liver disease Cirrhosis Tobacco abuse, quit 2014 Alcohol abuse, quit approximately 10 years ago Patient states that he has bipolar disorder, dysthymic disorder is listed in the chart GERD Metabolic syndrome Hyperlipidemia Congestive heart failure with preserved ejection fraction Lumbar and cervical spinal stenosis/chronic back pain Neuropathy in bilateral hands and feet Severe RUBIO and Monty-Hebert phenomenon, on BiPAP Benign prostatic hypertrophy Testosterone deficiency Tremors/tardive rwwdlpdmmk-llep-fmejxqs secondary to Depakote/Risperdal 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 Denies any illicit drug use. FAMILY HISTORY: Multiple family members with melanoma. REVIEW OF SYSTEMS: Constitutional: Patient denies fevers, chills, night sweats, recent weight gain/loss. HEENT: Patient denies blurred or double vision, transient visual disturbances, postnasal drip, epistaxis, sore throat, difficulty chewing or swallowing food. Cardiovascular: Patient denies chest discomfort/pain, palpitations, exertional dyspnea, orthopnea, edema of the extremities, claudication. Respiratory: Patient denies dyspnea, wheezing, cough, hemoptysis, sputum production. Gastrointestinal: Patient admits abdominal pain that radiates to his back and to nausea with only dry heaving, no vomiting. Denies diarrhea, constipation, melena, hematochezia, hematemesis, jaundice. PHYSICAL EXAMINATION: General: Awake, alert, oriented 3. He is not in any acute distress at this time HEENT: Head normocephalic atraumatic, conjunctiva are pink, sclera are nonicteric, buccal mucosa is pink and moist with no lesions in the oropharynx. Hearing is grossly intact to conversation. Respiratory: Clear to auscultation bilaterally with no wheezes, rales, or rhonchi. Cardiovascular: Regular rate and rhythm, with no rubs, gallops, or murmur. Abdomen: Soft, minimally tender to palpation, nondistended, no hepatosplenomegaly appreciated. Bowel sounds present. Extremities: 2+ pulses in the radial and dorsalis pedis bilaterally. No evidence of clubbing or cyanosis. ASSESSMENT: Choledocholithiasis with surrounding inflammation and suspicion for localized intra-abdominal infection Sepsis Lactic acidosis Leukocytosis Type 2 diabetes mellitus COPD - requiring 2 L oxygen 17/06 Fatty liver disease Bipolar disorder/dysthymic disorder GERD Hyperlipidemia Congestive heart failure with preserved ejection fraction, not in acute decompensation at this time Baseline tachycardia, he had a rate of 109 at his last outpatient family practice visit PLAN: Will admit the staff to [facility] floor. IV fluids with lactated Ringer's, bolus was already given in the emergency department. Meropenem 1 g IV every 8 hours Hold diabetic medications, and start on sliding scale insulin before meals and at bedtime Vital Signs Vital Signs Date Time Temp Pulse Resp B/P (MAP) Pulse Ox O2 Delivery O2 Flow Rate FiO2 04/10/21 18:00 98.6 124 20 147/86 (106) 96 Nasal Cannula 2.0 Laboratory Data Labs 24H Laboratory Tests 2 04/10/21 09:54: Immature Granulocyte % (Auto) 0.5, Neutrophils (%) (Auto) 90.2H, Lymphocytes (%) (Auto) 4.4L, Monocytes (%) (Auto) 4.6, Eosinophils (%) (Auto) 0.1, Basophils (%) (Auto) 0.2, Neutrophils # (Auto) 9.7H, Lymphocytes # (Auto) 0.5L, Monocytes # (Auto) 0.5, Eosinophils # (Auto) 0.0, Basophils # (Auto) 0.0, Nucleated Red Blood Cells % (auto) 0.0, Prothrombin Time 11.6L, Prothromb Time International Ratio 0.83, Activated Partial Thromboplast Time 23.4L, Lactic Acid Level 2.5*H, Total Bilirubin 0.6, Direct Bilirubin < 0.1, Aspartate Amino Transf (AST/SGOT) 52H, Alanine Aminotransferase (ALT/SGPT) 60, Alkaline Phosphatase 86, Total Protein 7.9, Albumin 3.6, Albumin/Globulin Ratio 0.8, Amylase Level 56, Lipase 141 04/10/21 10:06: POC Glucose (Misc Panel) 154H, POC Sodium (Misc Panel) 135L, POC Potassium (Misc Panel) 5.5H, POC Chloride (Misc Panel) 100, POC Total CO2 (Misc Panel) 30.0H, POC Blood Urea Nitrogen (Misc Panel 20, POC Ionized Calcium (Misc Panel) 4.3L, POC Creatinine (Misc Panel) 1.0, POC Hematocrit (Misc Panel) 48.0 04/10/21 11:04: POC Troponin I (Misc) 0.01 04/10/21 11:28: Urine Color YELLOW, Urine Appearance CLEAR, Urine pH 7.0, Urine Specific [place] 1.023, Urine Protein NEGATIVE, Urine Glucose (UA) 3+H, Urine Ketones 2+H, Urine Blood NEGATIVE, Urine Nitrite NEGATIVE, Urine Bilirubin NEGATIVE, Urine Urobilinogen 0.2, Urine Leukocyte Esterase NEGATIVE, Urine WBC (Auto) 0, Urine RBC (Auto) 0, Urine Hyaline Casts (Auto) 0, Urine Bacteria (Auto) NEGATIVE, Urine Squamous Epithelial Cells 0, Urine Sperm (Auto) 04/10/21 15:45: Lactic Acid Followup at 4 Hours 2.3*H 04/10/21 18:31: Bedside Glucose (Misc Panel) 153H CBC/BMP Laboratory Tests 04/10/21 09:54 Microbiology Microbiology 04/10/21 Respiratory Virus Panel (PCR) (TONY) - Final, Complete 04/10/21 Blood Culture, Received Pending 04/10/21 Blood Culture, Received Pending Home Medications Scheduled Allopurinol (Allopurinol) 100 Mg Tablet, 100 MG PO QHS Cholecalciferol (Vitamin D3) (Vitamin D3) 1,000 Unit Tablet, 1,000 UNITS PO DAILY Divalproex Sodium (Divalproex Sodium ER) 500 Mg Tab.er.24h, 1,000 MG PO DAILY Divalproex Sodium (Divalproex Sodium ER) 500 Mg Tab.er.24h, 500 MG PO QHS Ertugliflozin Pidolate (Steglatro) 5 Mg Tablet, 5 MG PO DAILY Esomeprazole Magnesium (Esomeprazole Magnesium Dr) 40 Mg Capsule.dr, 40 MG PO DAILY Finasteride (Proscar) 5 Mg Tablet, 5 MG PO QPM Folic Acid (Folic Acid) 1 Mg Tablet, 1 MG PO QHS Ipratropium/Albuterol Sulfate (Combivent Respimat 20-100 Mcg) 4 Gm Mist.inhal, 1 PUFF INH TID Metformin HCl (Metformin HCl) 850 Mg Tablet, 850 MG PO BID Mirabegron (Myrbetriq) 50 Mg Tab.er.24h, 50 MG PO QPM Multivitamins (Thera M Plus Tablet) 1 Each Tablet, 1 TAB PO DAILY Rifaximin (Xifaxan) 550 Mg Tablet, 550 MG PO BID Risperidone (Risperidone) 4 Mg Tablet, 4 MG PO QHS Simvastatin (Simvastatin) 20 Mg Tablet, 20 MG PO QHS Tamsulosin Hcl (Tamsulosin HCl) 0.4 Mg Capsule, 0.4 MG PO QPM Umeclidinium Brm/Vilanterol Tr (Anoro Ellipta 62.5-25 Mcg INH) 1 Each Blst.w.dev, 1 PUFF INH DAILY Scheduled PRN Ammonium Lactate (Ammonium Lactate) 12% Cream..g., 1 DOSE TOP DAILY PRN for DRY SKIN APPLY TO FEET Furosemide (Furosemide) 20 Mg Tablet, 20 MG PO DAILY PRN for SWELLING Allergies Coded Allergies: clindamycin (Verified Allergy, Intermediate, ITCHING, SWELLING, FACIAL EDEMA, 11/07/20) regadenoson (Verified Allergy, Intermediate, COPD EXACERBATION, 11/07/20) amoxicillin (Verified Allergy, Mild, ITCHING, SWELLING, 11/07/20) clavulanic acid (Verified Allergy, Mild, ITCHING, SWELLING, 11/07/20) benztropine (Verified Adverse Reaction, Intermediate, AGITATION, CONFUSION, 11/07/20) naproxen (Verified Adverse Reaction, Intermediate, DEPRESSION, 11/07/20) pseudoephedrine (Verified Adverse Reaction, Intermediate, TACHYCARDIA, 11/07/20) A-FIB/CHADSVASC A-FIB History Current/History of A-Fib/PAF?: No JUDE ALCALA DO April 10, 2021 18:42
[2021-04-10] MEDS: COMBIVENT RESPIMAT 100-20MCG INHALER 4GM INH SCH (19:39)
[2021-04-10] MEDS ORDERED: SIMVASTATIN 20 MG TAB PO SCH (21:00)
[2021-04-10] MEDS ORDERED: FOLIC ACID 1 MG TAB PO SCH (21:00)
[2021-04-10] MEDS: MEROPENEM INJ 1 GM in IV 1 EA IV SCH (21:30)
[2021-04-10] MEDS: risperiDONE 2 MG TAB PO SCH (21:31)
[2021-04-10] MEDS: DIVALPROEX 500MG *ER* TAB PO SCH (21:32)
[2021-04-10] MEDS: allopurinoL 100 MG TAB PO SCH (21:32)
[2021-04-10] MEDS: rifAXIMin 550 MG TAB (XIFAXAN) PO SCH (21:32)
[2021-04-10 22:00] VITALS: BP 124/65
[2021-04-10] MEDS: ACETAMINOPHEN TAB 650MG DOSE (2X325MG) PO PRN (23:23)
[2021-04-11] MEDS: LR 1,000 ML IV SCH ×3 (03:26→22:49)
--- NOTE | 2021-04-11 04:19 | CR.PDOC ---
General Surgery Consultation Date of Consultation 04/11/21 History and Physical CONSULT REPORT FOR: emergency room provider/hospitalist service REASON FOR CONSULTATION: abdominal pain HISTORY OF PRESENT ILLNESS: I was asked consult on the case of Mr. Godinez. He presented to the emergency room early this morning. He reportedly was woken at about 2 in the morning with severe midepigastric pain with radiation to his back area associated with nausea and vomiting. Reports severity of 10 out of 10 when this started. At that time that I saw him about 6:30 in the evening reports his pain is about 3 out of 10 though he is receiving narcotic pain medications with this. He denies any prior episodes of similar symptoms. He is known for a while that he has cholelithiasis no she he has never been symptomatic from it. Reportedly he also has liver cirrhosis that is being followed on with interval ultrasounds as well as test for AFP,CEA. He reports he was heavy drinker in the past but has been abstinent from alcohol since the diagnosis of liver cirrhosis. He is morbidly obese with a very protuberant abdomen. In the emergency room he was worked up and noted to have very minimal leukocytosis, normal LFTs, amylase and lipase but mildly e levated lactic acidosis. He had a CT abdomen and pelvis likewise CT angiography was performed. In particular and this CT abdomen and pelvis there is, in addition to the known cholelithiasis, a small calculi noted in the colon bile duct with mild pat-choledochal fatty infiltration/inflammation. He was subsequently admitted under the hospitalist service. We do not have gastroenterology service and consult this week, unfortunately. Type 2 diabetes mellitus COPD - requiring 2 L oxygen 17/06 Diverticulosis with history of diverticulitis Fatty liver disease Cirrhosis Tobacco abuse, quit 2014 Alcohol abuse, quit approximately 10 years ago Patient states that he has bipolar disorder, dysthymic disorder is listed in the chart GERD Metabolic syndrome Hyperlipidemia Congestive heart failure with preserved ejection fraction Lumbar and cervical spinal stenosis/chronic back pain Neuropathy in bilateral hands and feet Severe RUBIO and Monty-Hebert phenomenon, on BiPAP Benign prostatic hypertrophy Testosterone deficiency Tremors/tardive [id number] secondary to Depakote/Risperdal 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 . HOME MEDICATIONS: Please see below. REVIEW OF SYSTEMS: GENERAL: Symptoms are acute in nature otherwise was at his baseline. He denies any fevers or chills, any unexplained weight loss. NECK: Denies any neck pain. MUSCULOSKELETAL: Reports back pain but denies any chronic back pain. SKIN: Denies any history of jaundice. NEUROLOGIC: Denies any prior stroke. ENDOCRINE: Denies thyroid disease. Denies diabetes HEMATOLOGY/ONCOLOGY: Denies bleeding or clotting disorder. Patient is not on any anticoagulant HEART: Denies any chest pains, palpitations, paroxysmal dyspnea, orthopnea. PULMONARY: Denies chronic cough, dyspnea and wheezing. GASTROINTESTINAL: See HPI. Reports that he has been previously diagnosed with cirrhosis, compensated. He is on rifaximin for this.. GENITOURINARY: Denies dysuria, frequency, hematuria and nocturia. INFECTIOUS: Denies any recent upper respiratory tract infection, UTI, need for use of antibiotics. NUTRITION: Reports good appetite has baseline. PHYSICAL EXAMINATION: VITALS SIGNS: Please see below. GENERAL APPEARANCE: Patient seen sitting up on the room, was eating some Jell-O at the time that I saw him. Seems to be tolerating it. Reports his pain is about 3 out of 10. Over all looks fairly comfortable. SKIN: Warm and dry, no jaundice. HEENT: Normocephalic, atraumatic. [place] palpebral conjunctiva, anicteric sclerae. Lips and mucosa appear moist. NECK: Short, supple. LUNGS: Clear to auscultation bilaterally. No wheezing appreciated. HEART: No chest wall abnormalities. Regular rate and rhythm with no murmurs appreciated. ABDOMEN: Abdomen is morbidly obese, markedly to recurrent and rounded, somewhat distended though this is hard to ascertain given his body habitus, soft, he has a prior midline vertical incision just above the umbilicus from his exploratory laparotomy. No noticeable incisional hernia. . Mildly tender over the epigastric area on deep palpation without any rebound or guarding. Nontender over the right upper quadrant area.. EXTREMITIES: Mild peripheral edema ANCILLARIES: . LABORATORY DATA: Please see below. IMAGING STUDIES: CT abdomen and pelvis. I reviewed the imaging and this shows cholelithiasis also was noted a distal common bile duct stone. IMPRESSION AND PLAN: Patient has a known cholelithiasis, previously asymptomatic now presenting with pain secondary to choledocholithiasis. At this time no evidence of elevation of his LFTs nor any extrahepatic biliary tree dilation. He still has some mild symptoms. He rates this as 3 out of 10 pain and he seems to be requiring narcotic still to control his pain. He is tolerating by mouth clear liquids at this time. He is not showing severe inflammatory response though his heart rate is elevated in the 120s. It is hoped that he will pass his colon bile duct stone without any intervention. I will get an ultrasound in the morning to follow up on the choledocholithiasis if it is visible specially so that his LFTs remained normal. If his LFTs Elevated. His pain does not resolve he may need to ask our academic adviser to consider doing an ERCP. I explained to him that as a surgeon the role of cholecystectomy prevent recurrent attacks and would not solve the pain he is currently having from the choledocholithiasis. I will follow along at this point. Vital Signs Vital Signs Date Time Temp Pulse Resp B/P (MAP) Pulse Ox O2 Delivery O2 Flow Rate FiO2 04/10/21 22:00 98.1 108 18 124/65 (84) 94 Nasal Cannula 1.0 I&Os I&O- Last 24 Hours up to 6 AM 04/11/21 06:00 Intake Total 2200 ml Output Total 500 ml Balance 1700 ml Laboratory Data Labs 24H Laboratory Tests 2 04/10/21 09:54: Immature Granulocyte % (Auto) 0.5, Neutrophils (%) (Auto) 90.2H, Lymphocytes (%) (Auto) 4.4L, Monocytes (%) (Auto) 4.6, Eosinophils (%) (Auto) 0.1, Basophils (%) (Auto) 0.2, Neutrophils # (Auto) 9.7H, Lymphocytes # (Auto) 0.5L, Monocytes # (Auto) 0.5, Eosinophils # (Auto) 0.0, Basophils # (Auto) 0.0, Nucleated Red Bloo d Cells % (auto) 0.0, Prothrombin Time 11.6L, Prothromb Time International Ratio 0.83, Activated Partial Thromboplast Time 23.4L, Lactic Acid Level 2.5*H, Total Bilirubin 0.6, Direct Bilirubin < 0.1, Aspartate Amino Transf (AST/SGOT) 52H, Alanine Aminotransferase (ALT/SGPT) 60, Alkaline Phosphatase 86, Total Protein 7.9, Albumin 3.6, Albumin/Globulin Ratio 0.8, Amylase Level 56, Lipase 141 04/10/21 10:06: POC Glucose (Misc Panel) 154H, POC Sodium (Misc Panel) 135L, POC Potassium (Misc Panel) 5.5H, POC Chloride (Misc Panel) 100, POC Total CO2 (Misc Panel) 30.0H, POC Blood Urea Nitrogen (Misc Panel 20, POC Ionized Calcium (Misc Panel) 4.3L, POC Creatinine (Misc Panel) 1.0, POC Hematocrit (Misc Panel) 48.0 04/10/21 11:04: POC Troponin I (Misc) 0.01 04/10/21 11:28: Urine Color YELLOW, Urine Appearance CLEAR, Urine pH 7.0, Urine Specific [place] 1.023, Urine Protein NEGATIVE, Urine Glucose (UA) 3+H, Urine Ketones 2+H, Urine Blood NEGATIVE, Urine Nitrite NEGATIVE, Urine Bilirubin NEGATIVE, Urine Urobilinogen 0.2, Urine Leukocyte Esterase NEGATIVE, Urine WBC (Auto) 0, Urine RBC (Auto) 0, Urine Hyaline Casts (Auto) 0, Urine Bacteria (Auto) NEGATIVE, Urine Squamous Epithelial Cells 0, Urine Sperm (Auto) 04/10/21 15:45: Lactic Acid Followup at 4 Hours 2.3*H 04/10/21 18:31: Bedside Glucose (Misc Panel) 153H 04/10/21 19:53: Bedside Glucose (Misc Panel) 164H CBC/BMP Laboratory Tests 04/10/21 09:54 Microbiology Microbiology 04/10/21 Respiratory Virus Panel (PCR) (TONY) - Final, Complete 04/10/21 Blood Culture, Received Pending 04/10/21 Blood Culture, Received Pending Home Medications Scheduled Allopurinol (Allopurinol) 100 Mg Tablet, 100 MG PO QHS, (Reported) Cholecalciferol (Vitamin D3) (Vitamin D3) 1,000 Unit Tablet, 1,000 UNITS PO DAILY, (Reported) Divalproex Sodium (Divalproex Sodium ER) 500 Mg Tab.er.24h, 1,000 MG PO DAILY, (Reported) Divalproex Sodium (Divalproex Sodium ER) 500 Mg Tab.er.24h, 500 MG PO QHS, (Reported) Ertugliflozin Pidolate (Steglatro) 5 Mg Tablet, 5 MG PO DAILY, (Reported) Esomeprazole Magnesium (Esomeprazole Magnesium Dr) 40 Mg Capsule.dr, 40 MG PO DAILY, (Reported) Finasteride (Proscar) 5 Mg Tablet, 5 MG PO QPM, (Reported) Folic Acid (Folic Acid) 1 Mg Tablet, 1 MG PO QHS, (Reported) Ipratropium/Albuterol Sulfate (Combivent Respimat 20-100 Mcg) 4 Gm Mist.inhal, 1 PUFF INH TID, (Reported) Metformin HCl (Metformin HCl) 850 Mg Tablet, 850 MG PO BID, (Reported) Mirabegron (Myrbetriq) 50 Mg Tab.er.24h, 50 MG PO QPM, (Reported) Multivitamins (Thera M Plus Tablet) 1 Each Tablet, 1 TAB PO DAILY, (Reported) Rifaximin (Xifaxan) 550 Mg Tablet, 550 MG PO BID, (Reported) Risperidone (Risperidone) 4 Mg Tablet, 4 MG PO QHS, (Reported) Simvastatin (Simvastatin) 20 Mg Tablet, 20 MG PO QHS, (Reported) Tamsulosin Hcl (Tamsulosin HCl) 0.4 Mg Capsule, 0.4 MG PO QPM, (Reported) Umeclidinium Brm/Vilanterol Tr (Anoro Ellipta 62.5-25 Mcg INH) 1 Each Blst.w.dev, 1 PUFF INH DAILY, (Reported) Scheduled PRN Ammonium Lactate (Ammonium Lactate) 12% Cream..g., 1 DOSE TOP DAILY PRN for DRY SKIN, (Reported) APPLY TO FEET Furosemide (Furosemide) 20 Mg Tablet, 20 MG PO DAILY PRN for SWELLING, (Reported) Allergies Coded Allergies: clindamycin (Verified Allergy, Intermediate, ITCHING, SWELLING, FACIAL EDEMA, 11/07/20) regadenoson (Verified Allergy, Intermediate, COPD EXACERBATION, 11/07/20) amoxicillin (Verified Allergy, Mild, ITCHING, SWELLING, 11/07/20) clavulanic acid (Verified Allergy, Mild, ITCHING, SWELLING, 11/07/20) benztropine (Verified Adverse Reaction, Intermediate, AGITATION, CONFUSION, 11/07/20) naproxen (Verified Adverse Reaction, Intermediate, DEPRESSION, 11/07/20) pseudoephedrine (Verified Adverse Reaction, Intermediate, TACHYCARDIA, 11/07/20) AUTUMN MAK MD April 11, 2021 04:19
[2021-04-11] MEDS: MEROPENEM INJ 1 GM in IV 1 EA IV SCH ×3 (05:00→20:46)
[2021-04-11 06:00] VITALS: BP 132/66
[2021-04-11 06:04] LABS: HEMATOCRIT 45.2 % (42.0-52.0); HEMOGLOBIN 14.9 g/dl (13.5-17.5); MEAN CORPUSCULAR HEMOGLOBIN 34.3 pg (27.0-33.0); MEAN CORPUSCULAR VOLUME 104.1 fl (80.0-96.0); PLATELET COUNT, AUTOMATED 227 10^3/uL (150-450); RED BLOOD COUNT 4.34 10^6/uL (4.30-6.10); WHITE BLOOD COUNT 13.9 10^3/uL (4.0-10.0)
[2021-04-11 06:33] LABS: ALBUMIN 3.2 GM/DL (3.2-5.2); ALT/SGPT 84 U/L (12-78); BILIRUBIN,TOTAL 0.9 MG/DL (0.2-1.0); BLOOD UREA NITROGEN 11 MG/DL (7-18); CARBON DIOXIDE LEVEL 26 MEQ/L (21-32); CHLORIDE LEVEL 104 MEQ/L (98-107); CREATININE FOR GFR 1.04 MG/DL (0.70-1.30); GLOMERULAR FILTRATION RATE > 60.0 (>49); GLUCOSE, FASTING 126 MG/DL (70-100); POTASSIUM SERUM 4.1 MEQ/L (3.5-5.1); SODIUM LEVEL 135 MEQ/L (136-145); TOTAL PROTEIN 7.5 GM/DL (6.4-8.2)
[2021-04-11] MEDS: TIOTROPIUM INHALER/CAPSULE (SPIRIVA) INH SCH (07:20)
[2021-04-11] MEDS: COMBIVENT RESPIMAT 100-20MCG INHALER 4GM INH SCH ×3 (07:20→20:00)
--- NOTE | 2021-04-11 07:26 | REPVR ---
PROCEDURE INFORMATION: Exam: US Abdomen, Limited; Right Upper Quadrant Exam date and time: 04/11/2021 5:42 AM Age: 65 years old Clinical indication: Pain and abnormal findings; Abnormal radiologic finding of the abdomen; Radiologic exam and body structure: CT abd; Abdominal pain; Flank; Right upper quadrant (ruq); Additional info: Cbd stone seen on CT, follow up TECHNIQUE: Imaging protocol: US abdomen. Real time ultrasound with image documentation. Limited exam focused on the right upper quadrant. COMPARISON: ABDOMEN COMPLETE US 03/20/2017 9:28 AM FINDINGS: Liver: Heterogeneous enlarged liver measuring 22.1 cm. Gallbladder: 15 mm solitary stone in the gallbladder. Gallbladder wall is thickened measuring 8 mm. Mild Pericholecystic fluid. Findings are concerning for acute cholecystitis. Common bile duct: Common bile duct is not visualized. Pancreas: Pancreas is difficult to evaluate and partially seen. Right kidney: Right kidney is unremarkable measuring 12.3 cm. Intraperitoneal space: Trace free fluid adjacent to the gallbladder. IMPRESSION: 15 mm solitary stone in the gallbladder. Gallbladder wall is thickened measuring 8 mm. Mild Pericholecystic fluid. Findings are concerning for acute cholecystitis. Common bile duct is not visualized. Heterogeneous enlarged liver measuring 22.1 cm. Electronically signed by: Brittany Bautista On 04/11/2021 07:26:31 AM
[2021-04-11] MEDS: HumaLOG INSULIN (NovoLOG) PER UNIT SC SCH ×4 (07:30→21:00)
[2021-04-11] MEDS: rifAXIMin 550 MG TAB (XIFAXAN) PO SCH ×2 (08:20→20:46)
[2021-04-11] MEDS: ENOXAPARIN 40MG/0.4ML SYRINGE (J1650 PER 10MG) SC SCH (08:20)
[2021-04-11] MEDS: ACETAMINOPHEN TAB 650MG DOSE (2X325MG) PO PRN (08:21)
[2021-04-11] MEDS: DIVALPROEX 500MG *ER* TAB PO SCH ×2 (08:21→20:48)
[2021-04-11] MEDS ORDERED: VITAMIN D 1,000 INTERNATIONAL UNITS TABLET PO SCH (09:00)
[2021-04-11] MEDS ORDERED: MULTIVITAMINS/MINERALS THERAP 1 TAB PO SCH (09:00)
[2021-04-11] MEDS ORDERED: OMEPRAZOLE 20 MG CAP PO SCH (09:00)
[2021-04-11] MEDS: MORPHINE 4 MG/ML 1ML VIAL/SYRINGE (J2270) IV PRN ×3 (09:43→19:19)
--- NOTE | 2021-04-11 11:46 | IPNPDOC ---
Subjective Date Seen The patient was seen on 04/11/21. Subjective Chief Complaint/HPI Continues to have abdominal pain, poor appetite and intermittent nausea. Objective Physical Examination General Exam: Positive: Alert, Cooperative, No Acute Distress Eye Exam: Positive: PERRLA, Conjunctiva & lids normal, EOMI; Negative: Sclera icteric ENT Exam: Positive: Atraumatic, Mucous membr. moist/pink, Pharynx Normal Chest Exam: Positive: Clear to auscultation, Diminished Heart Exam: Positive: Rate Normal, Regular Rhythm, Normal S1, Normal S2; Negative: Murmurs, Rubs Abdomen Exam: Positive: Normal bowel sounds, Soft, Tenderness (RUQ, epigastrium); Negative: Hepatospenomegaly Extremity Exam: Negative: Clubbing, Cyanosis, Edema Assessment /Plan Assessment 65 year old male with multiple medical problems presented tot he ED with sudden onset mid epigastrium and right upper quadrant pain with nausea which started at 2 AM on 04/10/2021. Because of the fact that the pain was radiating to his back a chest x-ray and CT angiogram of the chest were performed, both of which were unremarkable for any acute changes, please see report for full details. On his CT abdomen and pelvis did show interim development of cholelithiasis and choledocholithiasis with mild pericholedochal fatty infiltration consistent with inflammation. Patient was admitted for choledocholithiasis versus acute cholecystitis Choledocholithiasis Continues to have persistent pain MRCP ordered to see if the stone has passed on, not This mild elevation of the LFTs today. If stone is seen in MRCP may need ERCP Acute cholecystitis Ultrasound abdomen and this morning is suggestive of acute cholecystitis. surgery is following Continue meropenem Morbid Obesity, BMI 40.2 Severe RUBIO and Monty-Hebert phenomenon, on BiPAP Type 2 diabetes mellitus Fingerstick before meals and at bedtime, clear liquids diet for now lispro before meals and at bedtime COPD with Chronic resp failure- requiring 2 L oxygen 24/7 Spiriva Alcoholic Cirrhosis Alcohol abuse, quit approximately 10 years ago Continue rifaximin Bipolar disorder, dysthymic disorder is listed in the chart Continue Depakote GERD PPI Hyperlipidemia On statin Benign prostatic hypertrophy Finasteride and Flomax Congestive heart failure with preserved ejection fraction Appears compensated Gout Allopurinol Other Chronic Medical Issues: Lumbar and cervical spinal stenosis/chronic back pain Neuropathy in bilateral hands and feet Testosterone deficiency Tremors/tardive kfylnmykxs-wcci-rblakoz secondary to Depakote/Risperdal 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, left arm Diverticulosis with history of diverticulitis Plan/VTE VTE Prophylaxis Ordered?: Yes VS, I&O, 24H, Fishbone Vital Signs/I&O Vital Signs Date Time Temp Pulse Resp B/P (MAP) Pulse Ox O2 Delivery O2 Flow Rate FiO2 04/11/21 09:53 17 04/11/21 09:43 Room Air 04/11/21 06:00 98.2 111 132/66 (88) 95 1.0 I&O- Last 24 Hours up to 6 AM 04/11/21 06:00 Intake Total 2800 ml Output Total 650 ml Balance 2150 ml Laboratory Data 24H LABS Laboratory Tests 2 04/10/21 15:45: Lactic Acid Followup at 4 Hours 2.3*H 04/10/21 18:31: Bedside Glucose (Misc Panel) 153H 04/10/21 19:53: Bedside Glucose (Misc Panel) 164H 04/11/21 05:33: Nucleated Red Blood Cells % (auto) 0.0, Anion Gap 5L, Glomerular Filtration Rate > 60.0, Calcium Level 9.0, Total Bilirubin 0.9, Aspartate Amino Transf (AST/SGOT) 65H, Alanine Aminotransferase (ALT/SGPT) 84H, Alkaline Phosphatase 84, C-Reactive Protein, Quantitative 7.20H, Total Protein 7.5, Albumin 3.2, Albumin/Globulin Ratio 0.7 CBC/BMP Laboratory Tests 04/11/21 05:33 Microbiology Microbiology 04/10/21 Respiratory Virus Panel (PCR) (TONY) - Final, Complete 04/10/21 Blood Culture - Preliminary, Resulted No growth after 24 hours . All specim... 04/10/21 Blood Culture - Preliminary, Resulted No growth after 24 hours . All specim... NIMESH WEBB MD April 11, 2021 11:46
[2021-04-11 14:00] VITALS: BP 141/80
[2021-04-11] MEDS: TAMSULOSIN 0.4 MG CAP PO SCH (17:59)
[2021-04-11] MEDS: FINASTERIDE 5 MG TAB PO SCH (17:59)
[2021-04-11] MEDS: allopurinoL 100 MG TAB PO SCH (20:47)
[2021-04-11] MEDS: risperiDONE 2 MG TAB PO SCH (20:47)
--- NOTE | 2021-04-11 21:16 | REPVR ---
PROCEDURE INFORMATION: Exam: MR Abdomen Without Contrast Exam date and time: 04/11/2021 8:10 PM Age: 65 years old Clinical indication: Abdominal pain; Epigastric; Patient HX: Fu cbd stone; Additional info: Ffup cbd stone TECHNIQUE: Imaging protocol: MR of the abdomen without contrast. COMPARISON: CT ABD/PEL W/IV CONTRAST ONLY 04/10/2021 11:37 AM FINDINGS: Liver: No mass. Gallbladder and bile ducts: Cholelithiasis. Common bile duct measures 4 mm. 4 mm calculus in the cystic duct. Gallbladder wall thickening. Trace pericholecystic fluid. Pancreas: Unremarkable. No ductal dilation. Spleen: Unremarkable. No splenomegaly. Adrenal glands: Unremarkable. No mass. Kidneys and ureters: Multiple left renal cysts with the largest measuring 4.1 cm at the upper pole. Stomach and bowel: Visualized stomach and intestines are unremarkable. Intraperitoneal space: No free fluid. Arteries: No abdominal aortic aneurysm. Bones/joints: Unremarkable. Soft tissues: Unremarkable. IMPRESSION: Cholelithiasis with findings suggestive of acute cholecystitis. No evidence for choledocholithiasis. COMMENTS: Consistent with the [employer]'s Incidental Findings Committee white paper (J Am Gudelia Radiol 2018): Any incidental renal lesion less than 1 cm or classified as too small to characterize, or any incidental cystic renal lesion characterized as simple-appearing, is likely benign. No follow-up imaging is recommended for these lesions per consensus recommendations based on imaging criteria. Electronically signed by: Marcin Lopez On 04/11/2021 21:16:19 PM
[2021-04-11 22:00] VITALS: BP 149/72
[2021-04-12] MEDS: MEROPENEM INJ 1 GM in IV 1 EA IV SCH ×3 (05:10→20:34)
[2021-04-12] MEDS: MORPHINE 4 MG/ML 1ML VIAL/SYRINGE (J2270) IV PRN ×5 (05:45→20:34)
[2021-04-12 06:00] VITALS: BP 118/68
[2021-04-12 06:05] LABS: HEMATOCRIT 41.7 % (42.0-52.0); MEAN CORPUSCULAR HEMOGLOBIN 34.2 pg (27.0-33.0); MEAN CORPUSCULAR HGB CONC 33.6 g/dl (32.0-36.5); PLATELET COUNT, AUTOMATED 190 10^3/uL (150-450); RED BLOOD COUNT 4.09 10^6/uL (4.30-6.10); WHITE BLOOD COUNT 16.5 10^3/uL (4.0-10.0)
[2021-04-12 06:41] LABS: ALBUMIN 2.8 GM/DL (3.2-5.2); ALT/SGPT 196 U/L (12-78); BILIRUBIN,TOTAL 1.4 MG/DL (0.2-1.0); BLOOD UREA NITROGEN 9 MG/DL (7-18); CALCIUM LEVEL 8.9 MG/DL (8.8-10.2); CARBON DIOXIDE LEVEL 27 MEQ/L (21-32); CHLORIDE LEVEL 101 MEQ/L (98-107); CREATININE FOR GFR 0.87 MG/DL (0.70-1.30); GLOMERULAR FILTRATION RATE > 60.0 (>49); GLUCOSE, FASTING 113 MG/DL (70-100); POTASSIUM SERUM 3.8 MEQ/L (3.5-5.1); SODIUM LEVEL 134 MEQ/L (136-145); TOTAL PROTEIN 7.1 GM/DL (6.4-8.2)
[2021-04-12] MEDS: HumaLOG INSULIN (NovoLOG) PER UNIT SC SCH ×4 (07:30→23:56)
[2021-04-12] MEDS: COMBIVENT RESPIMAT 100-20MCG INHALER 4GM INH SCH ×3 (07:47→19:41)
[2021-04-12] MEDS: TIOTROPIUM INHALER/CAPSULE (SPIRIVA) INH SCH (07:47)
[2021-04-12] MEDS: PANTOPRAZOLE 40MG VIAL (C9113 PER 1) IV SCH (08:48)
[2021-04-12] MEDS: DIVALPROEX 500MG *ER* TAB PO SCH ×2 (08:48→20:33)
[2021-04-12] MEDS: rifAXIMin 550 MG TAB (XIFAXAN) PO SCH ×2 (08:48→20:33)
[2021-04-12] MEDS: LR 1,000 ML IV SCH ×3 (08:49→23:56)
--- NOTE | 2021-04-12 10:35 | IPNPDOC ---
Text Note Date of Service The patient was seen on 04/12/21. NOTE Gen. surgery. Dr. Casey The patient is a 65-year-old male with known cholelithiasis, previously asymptomatic now presenting with pain secondary to choledocholithiasis. This morning, the patient states he is still having pain. He states once IV morphine wears off his pain as 7-8. With pain medications it is down to 4-5. The patient had morphine at 5:45 AM this morning and is asking for additional pain medication currently. He states any movement makes this pain worse. Afebrile. Heart rate 98, respiratory rate 20, blood pressure 118/68, 92% 2 L nasal cannula Sitting up in bed, awake and alert. Complains of pain with movement. Lungs with decreased breath sounds bilaterally, no wheezes or rales noted. S1 and S2 regular rate rhythm. Abdomen is protuberant, distended, tenderness with palpation in the epigastric area and right upper quadrant, no guarding but complains of pain with moving in the bed. WBC 16.5, hemoglobin 14.0. AST 122, ALT 196. Both increased from yesterday. Right upper quadrant ultrasound 04/11/21 indicating gallbladder wall thickening 8 mm, mild pericolic cystic fluid, concerning for acute cholecystitis. Common bile duct was not visualized. MRCP 04/11/21 with cholelithiasis and findings suggestive of cholecystitis. No evidence for choledocholithiasis. Common bile duct measured 4 mm. Assessment/plan Patient with history of cholelithiasis resenting with pain secondary to choledocholithiasis, acute cholecystitis. The patient is reviewed and discussed with Dr. Casey this morning. NPO. IVF IV meropenem Plan is to proceed with percutaneous cholecystostomy with IR. VS,Fishbone, I+O VS, Fishbone, I+O Laboratory Tests 04/12/21 05:33 Vital Signs Date Time Temp Pulse Resp B/P (MAP) Pulse Ox O2 Delivery O2 Flow Rate FiO2 04/12/21 08:48 18 04/12/21 06:00 98.0 98 118/68 (85) 92 Nasal Cannula 2.0 I&O- Last 24 Hours up to 6 AM 04/12/21 05:59 Intake Total 2520 ml Output Total 1500 ml Balance 1020 ml Adeline Telles April 12, 2021 10:35
--- NOTE | 2021-04-12 12:42 | IPNPDOC ---
Subjective Date Seen The patient was seen on 04/12/21. Subjective Chief Complaint/HPI Continues to have RUQ pain and needing morphine regularly every 4 to 6 hours. Could not tolerate clear liquids yesterday as the pain was getting worse with oral intake. Objective Physical Examination General Exam: Positive: Alert, Cooperative, No Acute Distress Eye Exam: Positive: PERRLA, Conjunctiva & lids normal, EOMI; Negative: Sclera icteric ENT Exam: Positive: Atraumatic, Mucous membr. moist/pink, Pharynx Normal Chest Exam: Positive: Clear to auscultation, Diminished Heart Exam: Positive: Rate Normal, Regular Rhythm, Normal S1, Normal S2; Negative: Murmurs, Rubs Abdomen Exam: Positive: Normal bowel sounds, Soft, Tenderness (RUQ, epigastrium); Negative: Hepatospenomegaly Extremity Exam: Negative: Clubbing, Cyanosis, Edema Assessment /Plan Assessment 65 year old male with multiple medical problems presented tot he ED with sudden onset mid epigastrium and right upper quadrant pain with nausea which started at 2 AM on 04/10/2021. Because of the fact that the pain was radiating to his back a chest x-ray and CT angiogram of the chest were performed, both of which were unremarkable for any acute changes, please see report for full details. On his CT abdomen and pelvis did show interim development of cholelithiasis and choledocholithiasis with mild pericholedochal fatty infiltration consistent with inflammation. Patient was admitted for choledocholithiasis and acute cholecystitis. Choledocholithiasis seems to have resolved as no stone seen in MRCP likey passed spontaneously. Choledocholithiasis resolved, No stone seen in MRCP, CBD 4 mm. Likely passed spontaneously. Acute cholecystitis Continue meropenem Planned for percutaneous cholecystostomy drain by IR today. Morbid Obesity, BMI 40.2 Severe RUBIO and Monty-Hebert phenomenon, on BiPAP Type 2 diabetes mellitus Fingerstick before meals and at bedtime, clear liquids diet for now lispro before meals and at bedtime COPD with Chronic resp failure- requiring 2 L oxygen 24/7 Spiriva Alcoholic Cirrhosis quit approximately 10 years ago Continue rifaximin Bipolar disorder, dysthymic disorder is listed in the chart Continue Depakote GERD PPI Hyperlipidemia On statin Benign prostatic hypertrophy Finasteride and Flomax Congestive heart failure with preserved ejection fraction Appears compensated Gout Allopurinol Plan/VTE VTE Prophylaxis Ordered?: Yes VS, I&O, 24H, Fishbone Vital Signs/I&O Vital Signs Date Time Temp Pulse Resp B/P (MAP) Pulse Ox O2 Delivery O2 Flow Rate FiO2 04/12/21 10:56 2.0 04/12/21 08:58 16 04/12/21 06:00 98.0 98 118/68 (85) 92 Nasal Cannula I&O- Last 24 Hours up to 6 AM 04/12/21 06:00 Intake Total 1970 ml Output Total 1350 ml Balance 620 ml Laboratory Data 24H LABS Laboratory Tests 2 04/11/21 16:35: Bedside Glucose (Misc Panel) 125H 04/11/21 21:04: Bedside Glucose (Misc Panel) 127H 04/12/21 05:33: Nucleated Red Blood Cells % (auto) 0.0, Anion Gap 6L, Glomerular Filtration Rate > 60.0, Calcium Level 8.9, Total Bilirubin 1.4#H, Aspartate Amino Transf (AST/SGOT) 122H, Alanine Aminotransferase (ALT/SGPT) 196H, Alkaline Phosphatase 104, Total Protein 7.1, Albumin 2.8L, Albumin/Globulin Ratio 0.7 04/12/21 11:34: Bedside Glucose (Misc Panel) 105 CBC/BMP Laboratory Tests 04/12/21 05:33 Microbiology Microbiology 04/10/21 Respiratory Virus Panel (PCR) (TONY) - Final, Complete 04/10/21 Blood Culture - Preliminary, Resulted No Growth after 48 hours. All Specime... 04/10/21 Blood Culture - Preliminary, Resulted No Growth after 48 hours. All Specime... NIMESH WEBB MD April 12, 2021 12:42
[2021-04-12 14:00] VITALS: BP 129/74
[2021-04-12] MEDS ORDERED: diphenhydrAMINE 50MG/ML VIAL (J1200) As Ordered ONE (15:14)
[2021-04-12] MEDS ORDERED: fentaNYL 100 MCG/2 ML INJECTION (J3010) As Ordered ONE (15:14)
[2021-04-12] MEDS ORDERED: MIDAZOLAM INJ 2MG/2ML VIAL (J2250 PER 1MG) As Ordered ONE (15:14)
[2021-04-12] MEDS ORDERED: LIDOCAINE 1% MDV 20ML VIAL As Ordered ONE (15:20)
[2021-04-12] MEDS: TAMSULOSIN 0.4 MG CAP PO SCH (18:16)
[2021-04-12] MEDS: FINASTERIDE 5 MG TAB PO SCH (18:16)
[2021-04-12] MEDS: risperiDONE 2 MG TAB PO SCH (20:33)
[2021-04-12] MEDS: allopurinoL 100 MG TAB PO SCH (20:33)
[2021-04-12 22:00] VITALS: BP 130/71
[2021-04-13] MEDS: MORPHINE 4 MG/ML 1ML VIAL/SYRINGE (J2270) IV PRN ×6 (00:02→20:49)
[2021-04-13] MEDS: MEROPENEM INJ 1 GM in IV 1 EA IV SCH ×3 (05:08→20:48)
[2021-04-13] MEDS: HumaLOG INSULIN (NovoLOG) PER UNIT SC SCH ×3 (05:42→18:00)
[2021-04-13 06:00] VITALS: BP 128/70
[2021-04-13 07:01] LABS: HEMATOCRIT 40.2 % (42.0-52.0); HEMOGLOBIN 13.5 g/dl (13.5-17.5); MEAN CORPUSCULAR HEMOGLOBIN 34.7 pg (27.0-33.0); MEAN CORPUSCULAR HGB CONC 33.6 g/dl (32.0-36.5); MEAN CORPUSCULAR VOLUME 103.3 fl (80.0-96.0); PLATELET COUNT, AUTOMATED 202 10^3/uL (150-450); RED BLOOD COUNT 3.89 10^6/uL (4.30-6.10)
[2021-04-13] MEDS: TIOTROPIUM INHALER/CAPSULE (SPIRIVA) INH SCH (07:35)
[2021-04-13 07:36] LABS: ALBUMIN 2.7 GM/DL (3.2-5.2); ALT/SGPT 619 U/L (12-78); BLOOD UREA NITROGEN 13 MG/DL (7-18); CALCIUM LEVEL 8.5 MG/DL (8.8-10.2); CARBON DIOXIDE LEVEL 25 MEQ/L (21-32); CHLORIDE LEVEL 102 MEQ/L (98-107); CREATININE FOR GFR 0.89 MG/DL (0.70-1.30); GLOMERULAR FILTRATION RATE > 60.0 (>49); GLUCOSE, FASTING 104 MG/DL (70-100); POTASSIUM SERUM 3.9 MEQ/L (3.5-5.1); SODIUM LEVEL 136 MEQ/L (136-145); TOTAL PROTEIN 6.3 GM/DL (6.4-8.2)
[2021-04-13] MEDS: COMBIVENT RESPIMAT 100-20MCG INHALER 4GM INH SCH ×3 (07:36→19:22)
[2021-04-13] MEDS: rifAXIMin 550 MG TAB (XIFAXAN) PO SCH ×2 (07:58→20:47)
[2021-04-13] MEDS: PANTOPRAZOLE 40MG VIAL (C9113 PER 1) IV SCH (07:59)
[2021-04-13] MEDS: DIVALPROEX 500MG *ER* TAB PO SCH ×2 (07:59→20:47)
[2021-04-13 08:33] LABS: BILIRUBIN,DIRECT 3.7 MG/DL (0.0-0.2)
[2021-04-13] MEDS: ENOXAPARIN 40MG/0.4ML SYRINGE (J1650 PER 10MG) SC SCH (09:00)
--- NOTE | 2021-04-13 09:58 | IRMSE ---
[facility] IR Moderate Sedation Eval. Date and Time Date: April 12, 2021 Time: 16:00 ASA Classification ASA Classification: III-Severe systemic dis. Mallampati Score: II NPO: Yes Obstructive Sleep Apnea: Yes Interval Plan: moderate sedation ROGER DOWNEY MD April 13, 2021 09:58
--- NOTE | 2021-04-13 10:07 | IRPON ---
IR Postoperative Note Date Of Procedure: April 12, 2021 Time Of Procedure: 16:00 IR Postoperative Note IR Cholecystostomy using CT guidance. IR Moderate sedation. Clinical Information:Acute cholecystitis. Deemed not a surgical candidate by surgery. Physician: Dr. Candelario. Procedure: The patient was advised of the benefits, risks, and alternatives of the procedure and informed consent was obtained. A time out was performed with verification of the patient's name, MRN, site of procedure, and type of procedure to be performed. Moderate sedation was performed by the physician including the presence of an independent trained RN, who assisted in monitoring the patient's level of consciousness and physiological status. Following the administration of Fentanyl and Versed, the physician spent 45 minutes of continuous fgwv-dr-glew time with the patient. The patient was placed in the supine position on the CT gantry and a scan was performed through the region of interest. This demonstrates large body habitus. There is bowel anterior to the liver and gallbladder. The only percutaneous window is laterally, measuring 20 cm skin to gallbladder. After marking the overlying skin, the patient was prepped and draped in the usual sterile fashion. The soft tissues overlying the anticipated puncture site were anesthetized with lidocaine. Through this anesthetized region, an 18 G Chiba needle was passed into the gallbladder, with difficulty as the length of our needle is only 15 cm. This was done under intermittent CT guidance.Bile was aspirated. An Amplatz wire was advanced into the gallbladder, under CT guidance. The needle was removed over the wire. A 10 Setswana all-purpose drain was passed, over the wire, under intermittent CT guidance but buckled in the subcutaneous fat and could not be advanced over the wire, into the gallbladder. Sample of bile was sent. The patient tolerated the procedure well and was returned to the PRU in stable condition. EBL: < 5 mL. Complications: None. Conclusion: 1. No anterior window for percutaneous cholecystostomy due to bowel. 2. Lateral window for percutaneous access to the gallbladder measures 20 cm, skin to gallbladder. 3. Failed cholecystostomy placement secondary to distance from skin to gallbladder and body habitus. Thank you for this referral. Cc ROGER Brownlee MD April 13, 2021 10:07
--- NOTE | 2021-04-13 11:31 | IPNPDOC ---
Text Note Date of Service The patient was seen on 04/13/21. NOTE Gen. surgery. Dr. Casey The patient is a 65-year-old male with known cholelithiasis, previously asymptomatic who presented with pain secondary to choledocholithiasis. The patient states his pain is about the same. He has had 3 doses of IV morphine so far today, last dose at 7:58 AM and states his pain is still 4-5. He states once IV morphine wears off his pain as 8-9. With pain medications it is down to 4-5, but not resolved. He is currently out of bed sitting in the chair. Afebrile. Heart rate 96, respiratory rate 18, blood pressure 128/70, 94 % 2 L nasal cannula Sitting in chair, awake and alert. Reports pain with movement. Lungs with decreased breath sounds bilaterally, no wheezes or rales noted. S1 and S2 regular rate rhythm. Abdomen is protuberant, distended, tenderness with palpation in the epigastric area and right upper quadrant, no guarding. Today's labs WBC 12.0, hemoglobin 13.5. Total bilirubin is noted to be 5.0, direct bilirubin 3.7, AST 650, ALT 619, alkaline phosphatase 430. LFTs are increased compared with yesterday. Imaging. Right upper quadrant ultrasound 04/11/21 indicating gallbladder wall thickening 8 mm, mild pericolic cystic fluid, concerning for acute cholecystitis. Common bile duct was not visualized. MRCP 04/11/21 with cholelithiasis and findings suggestive of cholecystitis. No evidence for choledocholithiasis. Common bile duct measured 4 mm. Assessment/plan Patient with history of cholelithiasis presenting with pain secondary to choledocholithiasis, acute cholecystitis. The patient is reviewed and examined by Dr. Casey this morning. Currently clear liquids IVF IV meropenem Attempted percutaneous cholecystostomy with IR, this was unable to be placed. LFTs are noted to be increased today suggestive of possible obstructing stone. Unable to proceed with ERCP as there is no gastroenterology coverage at this [facility]. Dr. Casey has discussed possible options including proceeding with cholecystectomy understanding of potential risks and complicated by the fact the patient has cirrhosis versus transfer for ERCP prior to proceeding with cholecystectomy. Plan is to pursue transfer for possible ERCP. Dr. Casey has discussed with Dr. Mendez, hospitalist. VS,Fishbone, I+O VS, Fishbone, I+O Laboratory Tests 04/13/21 06:48 Vital Signs Date Time Temp Pulse Resp B/P (MAP) Pulse Ox O2 Delivery O2 Flow Rate FiO2 04/13/21 11:04 2.0 04/13/21 08:08 18 04/13/21 06:00 98.5 96 128/70 (89) 94 Nasal Cannula I&O- Last 24 Hours up to 6 AM 04/13/21 06:00 Intake Total 1100 ml Output Total 1025 ml Balance 75 ml Adeline Telles April 13, 2021 11:31
[2021-04-13 14:00] VITALS: BP 146/74
--- NOTE | 2021-04-13 16:25 | DS.PDOC ---
Discharge Summary General Date of Admission April 11, 2021 at 11:46 Date of Discharge 04/13/21 Discharge Summary PROCEDURES PERFORMED DURING STAY: [None]. DISCHARGE DIAGNOSES: Choledocholithiasis Acute cholecystitis. 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 HOSPITAL COURSE: 65 year old male with multiple medical problems presented to the ED with sudden onset mid epigastrium and right upper quadrant pain with nausea which started at 2 AM on 04/10/2021. Because of the fact that the pain was radiating to his back a chest x-ray and CT angiogram of the chest were performed, both of which were unremarkable for any acute changes. On his CT abdomen and pelvis did show interim development of cholelithiasis and choledocholithiasis with mild pericholedochal fatty infiltration consistent with inflammation. Patient was admitted for choledocholithiasis and acute cholecystitis. An MRCP was performed which failed to reveal any stone on 04/11/21 so it was felt that the stone may have spontaneously passed. He still continued to have abdominal pain with mildly elevated AST and ALT. It was concluded that he may have ongoing acute cholecystitis. Patient was referred to IR on 04/12/21 for placement of a cholecystostomy drain however there was technical failure due to position of bowel and body habitus. IR was able to reach the GB with difficulty as needle was only 15 cm and his skin to gb depth was 20 cm and was able to aspirate some bile which was sent for culture. On 04/13/21 danilo remains in pain with poor appetite, unable to tolerate po diet and his LFTs have worsened with AST/ ALT of 650/619 and newly elevated alkaline phosphatase of 430. His bilirubin went up from 1.4 to 5.0 with a direct bili of 3.7. It seems like patient has CBD obstruction and needs an ERCP. Unfortunately we do not have GI coverage this week so the Pateint has been placed for transfer. Choledocholithiasis No stone seen in MRCP, CBD 4 mm on 04/11. Has IR manipulation of GB on 04/12/21 with now much elevated LFts and bilirubin Likely stones got dislodged from the GB and now causing CBD obstruction. Needs ERCP. Placed for transfer. No bed at [facility] or [facility], awaiting to hear back from [facility] continue meropenem. Acute cholecystitis Continue meropenem failed percutaneous cholecystostomy. Morbid Obesity, BMI 40.2 Severe RUBIO and Monty-Hebert phenomenon, on BiPAP at home 08/30 wit oxygen bleed in. Type 2 diabetes mellitus Fingerstick before meals and at bedtime, clear liquids diet for now lispro before meals and at bedtime COPD with Chronic resp failure- requiring 2 L oxygen 17/06 Spiriva Alcoholic Cirrhosis quit approximately 10 years ago Continue rifaximin compensated at present. Bipolar disorder, dysthymic disorder is listed in the chart Continue Depakote GERD PPI Hyperlipidemia On statin Benign prostatic hypertrophy Finasteride and Flomax Congestive heart failure with preserved ejection fraction Appears compensated Gout Allopurinol DISCHARGE MEDICATIONS: Please see below. ALLERGIES: Please see below. PHYSICAL EXAMINATION ON DISCHARGE: VITAL SIGNS: Please see below. General Exam: Positive: Alert, Cooperative, No Acute Distress Eye Exam: Positive: PERRLA, Conjunctiva & lids normal, EOMI; Negative: Sclera icteric ENT Exam: Positive: Atraumatic, Mucous membr. moist/pink, Pharynx Normal Chest Exam: Positive: Clear to auscultation, Diminished at tthe bases with some crackles. Heart Exam: Positive: Rate Normal, Regular Rhythm, Normal S1, Normal S2; Negative: Murmurs, Rubs Abdomen Exam: Positive: Normal bowel sounds, Soft, Tenderness (RUQ, epigastrium); No guarding or rigidity. Negative: Hepatosplenomegaly Extremity Exam: Negative: Clubbing, Cyanosis, Edema LABORATORY DATA: Please see below. ACTIVITY: [As tolerated]. DIET: Clear liquids DISCHARGE PLAN: Transfer to other facility DISCHARGE CONDITION: [Stable]. TIME SPENT ON DISCHARGE: 40 minutes. Vital Signs/I&Os Vital Signs Date Time Temp Pulse Resp B/P (MAP) Pulse Ox O2 Delivery O2 Flow Rate FiO2 04/13/21 14:34 16 04/13/21 14:00 98.3 96 146/74 (98) 95 Nasal Cannula 2.0 I&O- Last 24 Hours up to 6 AM 04/13/21 07:00 Intake Total 1100 ml Output Total 1025 ml Balance 75 ml Laboratory Data Labs 24H Laboratory Tests 2 04/12/21 16:49: Bedside Glucose (Misc Panel) 113 04/12/21 23:50: Bedside Glucose (Misc Panel) 111 04/13/21 05:33: Bedside Glucose (Misc Panel) 107 04/13/21 06:48: Nucleated Red Blood Cells % (auto) 0.0, Anion Gap 9, Glomerular Filtration Rate > 60.0, Calcium Level 8.5L, Total Bilirubin 5.0#H, Direct Bilirubin 3.7H, Aspar moyer Amino Transf (AST/SGOT) 650H, Alanine Aminotransferase (ALT/SGPT) 619H, Alkaline Phosphatase 430H, Total Protein 6.3L, Albumin 2.7L, Albumin/Globulin Ratio 0.8 04/13/21 11:18: Bedside Glucose (Misc Panel) 101 CBC/BMP Laboratory Tests 04/13/21 06:48 FSBS Laboratory Tests Test 04/12/21 16:49 04/12/21 23:50 04/13/21 05:33 04/13/21 11:18 Range/Units Bedside Glucose (Misc Panel) 113 111 107 101 80-115 MG/DL Microbiology Microbiology 04/12/21 Gram Stain - Final, Resulted 04/12/21 Body Fluid Culture, Resulted Pending 04/10/21 Respiratory Virus Panel (PCR) (TONY) - Final, Complete 04/10/21 Blood Culture - Preliminary, Resulted No Growth after 72 hours. All specime... 04/10/21 Blood Culture - Preliminary, Resulted No Growth after 72 hours. All specime... Discharge Medications Scheduled Allopurinol (Allopurinol) 100 Mg Tablet, 100 MG PO QHS, (Reported) Cefdinir (Cefdinir) 300 Mg Capsule, 300 MG PO BID Cholecalciferol (Vitamin D3) (Vitamin D3) 1,000 Unit Tablet, 1,000 UNITS PO DAILY Divalproex Sodium (Divalproex Sodium ER) 500 Mg Tab.er.24h, 1,000 MG PO DAILY, (Reported) Divalproex Sodium (Divalproex Sodium ER) 500 Mg Tab.er.24h, 500 MG PO QHS, (Reported) Ertugliflozin Pidolate (Steglatro) 5 Mg Tablet, 5 MG PO DAILY Esomeprazole Magnesium (Esomeprazole Magnesium Dr) 40 Mg Capsule.dr, 40 MG PO DAILY, (Reported) Finasteride (Proscar) 5 Mg Tablet, 5 MG PO QPM, (Reported) Folic Acid (Folic Acid) 1 Mg Tablet, 1 MG PO QHS, (Reported) Ipratropium/Albuterol Sulfate (Combivent Respimat 20-100 Mcg) 4 Gm Mist.inhal, 1 PUFF INH TID, (Reported) Metformin HCl (Metformin HCl) 850 Mg Tablet, 850 MG PO BID Metronidazole (Flagyl) 500 Mg Tablet, 500 MG PO TID Mirabegron (Myrbetriq) 50 Mg Tab.er.24h, 50 MG PO QPM Multivitamins (Thera M Plus Tablet) 1 Each Tablet, 1 TAB PO DAILY Rifaximin (Xifaxan) 550 Mg Tablet, 550 MG PO BID, (Reported) Risperidone (Risperidone) 4 Mg Tablet, 4 MG PO QHS, (Reported) Simvastatin (Simvastatin) 20 Mg Tablet, 20 MG PO QHS Tamsulosin Hcl (Tamsulosin HCl) 0.4 Mg Capsule, 0.4 MG PO QPM, (Reported) Umeclidinium Brm/Vilanterol Tr (Anoro Ellipta 62.5-25 Mcg INH) 1 Each Blst.w.dev, 1 PUFF INH DAILY, (Reported) Scheduled PRN Ammonium Lactate (Ammonium Lactate) 12% Cream..g., 1 DOSE TOP DAILY PRN for DRY SKIN, (Reported) APPLY TO FEET Furosemide (Furosemide) 20 Mg Tablet, 20 MG PO DAILY PRN for SWELLING, (Reported) Allergies Coded Allergies: clindamycin (Verified Allergy, Intermediate, ITCHING, SWELLING, FACIAL EDEMA, 11/07/20) regadenoson (Verified Allergy, Intermediate, COPD EXACERBATION, 11/07/20) amoxicillin (Verified Allergy, Mild, ITCHING, SWELLING, 11/07/20) clavulanic acid (Verified Allergy, Mild, ITCHING, SWELLING, 11/07/20) benztropine (Verified Adverse Reaction, Intermediate, AGITATION, CONFUSION, 11/07/20) naproxen (Verified Adverse Reaction, Intermediate, DEPRESSION, 11/07/20) pseudoephedrine (Verified Adverse Reaction, Intermediate, TACHYCARDIA, 11/07/20) NIMESH WEBB MD April 13, 2021 16:25
[2021-04-13] MEDS: FINASTERIDE 5 MG TAB PO SCH (17:51)
[2021-04-13] MEDS: TAMSULOSIN 0.4 MG CAP PO SCH (17:51)
[2021-04-13] MEDS: risperiDONE 2 MG TAB PO SCH (20:47)
[2021-04-13] MEDS: allopurinoL 100 MG TAB PO SCH (20:47)
[2021-04-13 22:00] VITALS: BP 137/82
[2021-04-14] MEDS: MORPHINE 4 MG/ML 1ML VIAL/SYRINGE (J2270) IV PRN ×2 (05:56→08:24)
[2021-04-14] MEDS: MEROPENEM INJ 1 GM in IV 1 EA IV SCH ×3 (05:57→20:17)
[2021-04-14 06:00] VITALS: BP 164/78
[2021-04-14] MEDS: HumaLOG INSULIN (NovoLOG) PER UNIT SC SCH ×5 (06:02→23:37)
[2021-04-14 06:51] LABS: HEMOGLOBIN 12.8 g/dl (13.5-17.5); MEAN CORPUSCULAR HEMOGLOBIN 34.1 pg (27.0-33.0); MEAN CORPUSCULAR HGB CONC 33.7 g/dl (32.0-36.5); MEAN CORPUSCULAR VOLUME 101.3 fl (80.0-96.0); PLATELET COUNT, AUTOMATED 220 10^3/uL (150-450); RED BLOOD COUNT 3.75 10^6/uL (4.30-6.10); WHITE BLOOD COUNT 10.2 10^3/uL (4.0-10.0)
[2021-04-14] MEDS: TIOTROPIUM INHALER/CAPSULE (SPIRIVA) INH SCH (07:22)
[2021-04-14] MEDS: COMBIVENT RESPIMAT 100-20MCG INHALER 4GM INH SCH ×3 (07:22→20:59)
[2021-04-14 07:59] LABS: ALBUMIN 2.6 GM/DL (3.2-5.2); ALT/SGPT 534 U/L (12-78); BILIRUBIN,TOTAL 1.9 MG/DL (0.2-1.0); BLOOD UREA NITROGEN 12 MG/DL (7-18); C REACTIVE PROTEIN QUANTITATIV 9.51 MG/DL (0.00-0.30); CALCIUM LEVEL 8.1 MG/DL (8.8-10.2); CARBON DIOXIDE LEVEL 27 MEQ/L (21-32); CHLORIDE LEVEL 101 MEQ/L (98-107); CREATININE FOR GFR 0.78 MG/DL (0.70-1.30); GLOMERULAR FILTRATION RATE > 60.0 (>49); GLUCOSE, FASTING 103 MG/DL (70-100); POTASSIUM SERUM 3.7 MEQ/L (3.5-5.1); SODIUM LEVEL 134 MEQ/L (136-145); TOTAL PROTEIN 6.2 GM/DL (6.4-8.2)
[2021-04-14] MEDS: PANTOPRAZOLE 40MG VIAL (C9113 PER 1) IV SCH (08:15)
[2021-04-14] MEDS: ENOXAPARIN 40MG/0.4ML SYRINGE (J1650 PER 10MG) SC SCH (08:15)
[2021-04-14] MEDS: rifAXIMin 550 MG TAB (XIFAXAN) PO SCH ×2 (08:16→20:16)
[2021-04-14] MEDS: DIVALPROEX 500MG *ER* TAB PO SCH ×2 (08:16→20:16)
--- NOTE | 2021-04-14 12:27 | IPNPDOC ---
Subjective Date Seen The patient was seen on 04/14/21. Subjective Chief Complaint/HPI Denies any abdominal pain today, tolerated full liquids diet yesterday. Had a good bowel movement. Will advance diet. LFTs looking better Objective Physical Examination General Exam: Positive: Alert, Cooperative, No Acute Distress Eye Exam: Positive: PERRLA, Conjunctiva & lids normal, EOMI; Negative: Sclera icteric ENT Exam: Positive: Atraumatic, Mucous membr. moist/pink, Pharynx Normal Chest Exam: Positive: Clear to auscultation, Diminished Heart Exam: Positive: Rate Normal, Regular Rhythm, Normal S1, Normal S2; Negative: Murmurs, Rubs Abdomen Exam: Positive: Normal bowel sounds, Soft, Tenderness (RUQ, epigastrium); Negative: Hepatospenomegaly Extremity Exam: Negative: Clubbing, Cyanosis, Edema Assessment /Plan Assessment 65 year old male with multiple medical problems presented to the ED with sudden onset mid epigastrium and right upper quadrant pain with nausea which started at 2 AM on 04/10/2021. Because of the fact that the pain was radiating to his back a chest x-ray and CT angiogram of the chest were performed, both of which were unremarkable for any acute changes. On his CT abdomen and pelvis did show interim development of cholelithiasis and choledocholithiasis with mild pericholedochal fatty infiltration consistent with inflammation. Patient was admitted for choledocholithiasis and acute cholecystitis. An MRCP was performed which failed to reveal any stone on 04/11/21 so it was felt that the stone may have spontaneously passed. He still continued to have abdominal pain with mildly elevated AST and ALT. It was concluded that he may have ongoing acute cholecystitis. Patient was referred to IR on 04/12/21 for placement of a cholecystostomy drain however there was technical failure due to position of bowel and body habitus. IR was able to reach the GB with difficulty as needle was only 15 cm and his skin to gb depth was 20 cm and was able to aspirate some bile which was sent for culture. On 04/13/21 danilo remains in pain with poor appetite, unable to tolerate po diet and his LFTs have worsened with AST/ ALT of 650/619 and newly elevated alkaline phosphatase of 430. His bilirubin went up from 1.4 to 5.0 with a direct bili of 3.7. It seems like patient has CBD obstruction and needs an ERCP. Unfortunately we do not have GI coverage this week so the Pateint has been placed for transfer. Choledocholithiasis No stone seen in MRCP, CBD 4 mm on 04/11. Has IR manipulation of GB on 04/12/21 then on 04/13 much elevated LFTs and bilirubin Likely stones got dislodged from the GB during IR procedure and caused CBD obstruction. Now looks like it has passed. will advance diet continue meropenem. Acute cholecystitis Continue meropenem failed percutaneous cholecystostomy. Morbid Obesity, BMI 40.2 Severe RUBIO and Monty-Hebert phenomenon, on BiPAP at home 08/30 wit oxygen bleed in. Type 2 diabetes mellitus Fingerstick before meals and at bedtime, clear liquids diet for now lispro before meals and at bedtime COPD with Chronic resp failure- requiring 2 L oxygen 17/06 Spiriva Alcoholic Cirrhosis quit approximately 10 years ago Continue rifaximin compensated at present. Bipolar disorder, dysthymic disorder is listed in the chart Continue Depakote GERD PPI Hyperlipidemia On statin Benign prostatic hypertrophy Finasteride and Flomax Congestive heart failure with preserved ejection fraction Appears compensated Gout Allopurinol Plan/VTE VTE Prophylaxis Ordered?: Yes VS, I&O, 24H, Fishbone Vital Signs/I&O Vital Signs Date Time Temp Pulse Resp B/P (MAP) Pulse Ox O2 Delivery O2 Flow Rate FiO2 04/14/21 08:34 16 04/14/21 06:00 98.0 99 164/78 (106) 93 Nasal Cannula 2.0 I&O- Last 24 Hours up to 6 AM 04/14/21 06:00 Intake Total 700 ml Output Total 1375 ml Balance -675 ml Laboratory Data 24H LABS Laboratory Tests 2 04/13/21 16:17: Bedside Glucose (Misc Panel) 99 04/14/21 01:00: Bedside Glucose (Misc Panel) 108 04/14/21 05:58: Bedside Glucose (Misc Panel) 116H 04/14/21 06:01: Nucleated Red Blood Cells % (auto) 0.0, Anion Gap 6L, Glomerular Filtration Rate > 60.0, Calcium Level 8.1L, Total Bilirubin 1.9#H, Aspartate Amino Transf (AST/SGOT) 328H, Alanine Aminotransferase (ALT/SGPT) 534H, Alkaline Phosphatase 497H, C-Reactive Protein, Quantitative 9.51H, Total Protein 6.2L, Albumin 2.6L, Albumin/Globulin Ratio 0.7 04/14/21 12:05: Bedside Glucose (Misc Panel) 93 CBC/BMP Laboratory Tests 04/14/21 06:01 Microbiology Microbiology 04/12/21 Gram Stain - Final, Resulted 04/12/21 Body Fluid Culture, Resulted Pending 04/10/21 Respiratory Virus Panel (PCR) (TONY) - Final, Complete 04/10/21 Blood Culture - Preliminary, Resulted No Growth after 72 hours. All specime... 04/10/21 Blood Culture - Preliminary, Resulted No Growth after 72 hours. All specime... NIMESH WEBB MD April 14, 2021 12:27
[2021-04-14] MEDS ORDERED: MORPHINE 2 MG/ML 1ML VIAL (J2270) IV PRN (14:35)
[2021-04-14 14:50] LABS: BILIRUBIN,DIRECT 1.2 MG/DL (0.0-0.2)
[2021-04-14 16:08] LABS: ALBUMIN 2.6 GM/DL (3.2-5.2); BILIRUBIN,DIRECT 0.7 MG/DL (0.0-0.2); BILIRUBIN,TOTAL 1.4 MG/DL (0.2-1.0); TOTAL PROTEIN 6.5 GM/DL (6.4-8.2)
[2021-04-14] MEDS: TAMSULOSIN 0.4 MG CAP PO SCH (17:53)
[2021-04-14] MEDS: FINASTERIDE 5 MG TAB PO SCH (17:53)
[2021-04-14] MEDS: risperiDONE 2 MG TAB PO SCH (20:16)
[2021-04-14] MEDS: allopurinoL 100 MG TAB PO SCH (20:16)
[2021-04-14 22:00] VITALS: BP 104/69
[2021-04-15] MEDS: HumaLOG INSULIN (NovoLOG) PER UNIT SC SCH ×3 (05:34→17:30)
[2021-04-15] MEDS: MEROPENEM INJ 1 GM in IV 1 EA IV SCH ×3 (05:44→22:49)
[2021-04-15 06:00] VITALS: BP 109/68
[2021-04-15 06:25] LABS: HEMATOCRIT 38.3 % (42.0-52.0); HEMOGLOBIN 12.7 g/dl (13.5-17.5); MEAN CORPUSCULAR HEMOGLOBIN 33.5 pg (27.0-33.0); MEAN CORPUSCULAR HGB CONC 33.2 g/dl (32.0-36.5); MEAN CORPUSCULAR VOLUME 101.1 fl (80.0-96.0); PLATELET COUNT, AUTOMATED 243 10^3/uL (150-450); RED BLOOD COUNT 3.79 10^6/uL (4.30-6.10); WHITE BLOOD COUNT 9.7 10^3/uL (4.0-10.0)
[2021-04-15 06:52] LABS: ALBUMIN 2.5 GM/DL (3.2-5.2); ALT/SGPT 396 U/L (12-78); BILIRUBIN,TOTAL 1.1 MG/DL (0.2-1.0); BLOOD UREA NITROGEN 9 MG/DL (7-18); CALCIUM LEVEL 8.5 MG/DL (8.8-10.2); CARBON DIOXIDE LEVEL 28 MEQ/L (21-32); CHLORIDE LEVEL 102 MEQ/L (98-107); GLOMERULAR FILTRATION RATE > 60.0 (>49); GLUCOSE, FASTING 121 MG/DL (70-100); POTASSIUM SERUM 3.4 MEQ/L (3.5-5.1); SODIUM LEVEL 136 MEQ/L (136-145); TOTAL PROTEIN 7.1 GM/DL (6.4-8.2)
[2021-04-15] MEDS: TIOTROPIUM INHALER/CAPSULE (SPIRIVA) INH SCH (07:14)
[2021-04-15] MEDS: COMBIVENT RESPIMAT 100-20MCG INHALER 4GM INH SCH ×3 (07:14→20:04)
[2021-04-15] MEDS: rifAXIMin 550 MG TAB (XIFAXAN) PO SCH ×2 (08:26→22:49)
[2021-04-15] MEDS: DIVALPROEX 500MG *ER* TAB PO SCH ×2 (08:26→22:49)
[2021-04-15] MEDS: PANTOPRAZOLE 40MG VIAL (C9113 PER 1) IV SCH (09:20)
[2021-04-15 09:30] VITALS: BP 132/70
[2021-04-15 14:00] VITALS: BP 110/70
[2021-04-15] MEDS: FINASTERIDE 5 MG TAB PO SCH (17:39)
[2021-04-15] MEDS: TAMSULOSIN 0.4 MG CAP PO SCH (17:39)
[2021-04-15] MEDS ORDERED: HumaLOG INSULIN (NovoLOG) PER UNIT SC SCH (21:00)
[2021-04-15 22:00] VITALS: BP 143/72
[2021-04-15] MEDS: allopurinoL 100 MG TAB PO SCH (22:49)
[2021-04-15] MEDS: risperiDONE 2 MG TAB PO SCH (22:49)
[2021-04-16] MEDS: MEROPENEM INJ 1 GM in IV 1 EA IV SCH ×2 (05:12→13:30)
[2021-04-16 06:00] VITALS: BP 133/67
[2021-04-16 06:39] LABS: MEAN CORPUSCULAR HEMOGLOBIN 34.4 pg (27.0-33.0); MEAN CORPUSCULAR HGB CONC 33.3 g/dl (32.0-36.5); MEAN CORPUSCULAR VOLUME 103.2 fl (80.0-96.0); PLATELET COUNT, AUTOMATED 260 10^3/uL (150-450); RED BLOOD COUNT 3.78 10^6/uL (4.30-6.10); WHITE BLOOD COUNT 9.4 10^3/uL (4.0-10.0)
[2021-04-16 06:58] LABS: ALBUMIN 2.5 GM/DL (3.2-5.2); ALT/SGPT 314 U/L (12-78); BILIRUBIN,TOTAL 0.8 MG/DL (0.2-1.0); BLOOD UREA NITROGEN 9 MG/DL (7-18); CALCIUM LEVEL 8.6 MG/DL (8.8-10.2); CARBON DIOXIDE LEVEL 27 MEQ/L (21-32); CHLORIDE LEVEL 105 MEQ/L (98-107); CREATININE FOR GFR 0.82 MG/DL (0.70-1.30); GLOMERULAR FILTRATION RATE > 60.0 (>49); GLUCOSE, FASTING 109 MG/DL (70-100); POTASSIUM SERUM 3.4 MEQ/L (3.5-5.1); SODIUM LEVEL 138 MEQ/L (136-145)
[2021-04-16] MEDS: TIOTROPIUM INHALER/CAPSULE (SPIRIVA) INH SCH (07:25)
[2021-04-16] MEDS: COMBIVENT RESPIMAT 100-20MCG INHALER 4GM INH SCH (07:25)
[2021-04-16] MEDS: HumaLOG INSULIN (NovoLOG) PER UNIT SC SCH ×2 (07:30→12:00)
[2021-04-16] MEDS ORDERED: POTASSIUM CHLORIDE 10 MEQ SR TABLET PO ONE (08:00)
[2021-04-16] MEDS: PANTOPRAZOLE 40MG VIAL (C9113 PER 1) IV SCH (08:38)
[2021-04-16] MEDS: DIVALPROEX 500MG *ER* TAB PO SCH (08:39)
[2021-04-16] MEDS: rifAXIMin 550 MG TAB (XIFAXAN) PO SCH (08:39)
[2021-04-16] MEDS ORDERED: CEFD300CAP PO (08:57)
[2021-04-16] MEDS ORDERED: SIMV20TA22 PO (08:57)
[2021-04-16] MEDS ORDERED: D31000TA2 PO (08:57)
[2021-04-16] MEDS ORDERED: FLAG500T PO (08:57)
[2021-04-16] MEDS ORDERED: METF850T4 PO (08:57)
[2021-04-16] MEDS ORDERED: STEG5TAB PO (08:57)
[2021-04-16] MEDS ORDERED: MYRB50TA PO (08:57)
[2021-04-16] MEDS ORDERED: VITMTA PO (08:58)
--- NOTE | 2021-04-16 12:50 | DS.PDOC ---
Discharge Summary General Date of Admission April 11, 2021 at 11:46 Date of Discharge 04/16/21 Discharge Summary PROCEDURES PERFORMED DURING STAY: Attempted IR guided cholecystostomy drain placement. DISCHARGE DIAGNOSES: Choledocholithiasis Acute cholecystitis. SECONDARY DIAGNOSIS: Morbid obesity Type 2 diabetes mellitus COPD - requiring 2 L oxygen 17/06 Diverticulosis with history of diverticulitis Cirrhosis of liver Tobacco abuse, quit 2014 Alcohol abuse, quit approximately 10 years ago Bipolar disorder, dysthymic disorder is listed in the chart GERD Hyperlipidemia Congestive heart failure with preserved ejection fraction Lumbar and cervical spinal stenosis/chronic back pain Neuropathy in bilateral hands and feet Severe RUBIO and Monty-Hebert phenomenon, on BiPAP Benign prostatic hypertrophy Testosterone deficiency Tremors/tardive imfheajovf-gmym-aoecsed secondary to Depakote/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 HOSPITAL COURSE: 65 year old male with multiple medical problems presented to the ED with sudden onset mid epigastrium and right upper quadrant pain with nausea which started at 2 AM on 04/10/2021. Because of the fact that the pain was radiating to his back a chest x-ray and CT angiogram of the chest were performed, both of which were unremarkable for any acute changes. On his CT ab domen and pelvis did show interim development of cholelithiasis and choledocholithiasis with mild pericholedochal fatty infiltration consistent with inflammation. Patient was admitted for choledocholithiasis and acute cholecystitis. An MRCP was performed which failed to reveal any stone on 04/11/21 so it was felt that the stone may have spontaneously passed. He still continued to have abdominal pain with mildly elevated AST and ALT. It was concluded that he may have ongoing acute cholecystitis. Patient was referred to IR on 04/12/21 for placement of a cholecystostomy drain however there was te chnical failure due to position of bowel and body habitus. IR was able to reach the GB with difficulty as needle was only 15 cm and his skin to gb depth was 20 cm and was able to aspirate some bile which was sent for culture. On 04/13/21 patient remains in pain with poor appetite, unable to tolerate po diet and his LFTs have worsened with AST/ ALT of 650/619 and newly elevated alkaline phosphatase of 430. His bilirubin went up from 1.4 to 5.0 with a direct bili of 3.7. It seems like patient has CBD obstruction and needs an ERCP. Unfortunately we do not have GI coverage this week so the Patient was placed for transfer. No hospital shad any bed on 04/13/21. On 04/14/21 morning patient's labs showed improvement and patient reported that his abdominal pain has resolved and he had a bowel movement and was starting to feel hungry. We concluded that he had passed the stone . His transfer was cancelled and his diet was advanced to full liquids which he tolerated. On 04/15/21 his labs continued to improve and his diet was advanced to low fat and low cholesterol diet. Today his labs showed further improvement iwth normalization of bilirubin and decreased liver enzymes. He is being discharged home with follow up set up with surgery in 2 weeks. Choledocholithiasis No stone seen in MRCP, CBD 4 mm on 04/11. Has IR manipulation of GB on 04/12/21 with now much elevated LFts and bilirubin Likely stones got dislodged from the GB and caused CBD obstruction. stone / sludge has now passed spontaneously and LFTs are improving. culture from the GB fluid grew staph epi. meropenem x 6 days in hospital will give cefdinir and metronidazole Acute cholecystitis meropenem x 6 days in hospital will give cefdinir and metronidazole failed percutaneous cholecystostomy by IR Follow up with Dr Casey . Morbid Obesity, BMI 40.2 Severe RUBIO and Monty-Hebert phenomenon, on BiPAP at home 08/30 wit oxygen bleed in. Type 2 diabetes mellitus restart home meds COPD with Chronic resp failure- requiring 2 L oxygen / Spiriva Alcoholic Cirrhosis quit approximately 10 years ago Continue rifaximin compensated at present. Bipolar disorder, dysthymic disorder is listed in the chart Continue Depakote GERD PPI Hyperlipidemia On statin Benign prostatic hypertrophy Finasteride and Flomax Congestive heart failure with preserved ejection fraction Appears compensated Gout Allopurinol PHYSICAL EXAMINATION ON DISCHARGE: VITAL SIGNS: Please see below. General Exam: Positive: Alert, Cooperative, No Acute Distress Eye Exam: Positive: PERRLA, Conjunctiva & lids normal, EOMI; Negative: Sclera icteric ENT Exam: Positive: Atraumatic, Mucous membr. moist/pink, Pharynx Normal Chest Exam: Positive: Clear to auscultation, Diminished Heart Exam: Positive: Rate Normal, Regular Rhythm, Normal S1, Normal S2; Negative: Murmurs, Rubs Abdomen Exam: Positive: Normal bowel sounds, Soft, Tenderness (RUQ, epigastrium); Negative: Hepatosplenomegaly Extremity Exam: Negative: Clubbing, Cyanosis, Edema LABORATORY DATA: Please see below. ACTIVITY: [As tolerated]. DIET: Low fat and low cholesterol, carb consistent. DISCHARGE PLAN: Home DISCHARGE INSTRUCTIONS: follow up with Dr Casey in 2 weeks follow up with PMD in 1 week DISCHARGE CONDITION: [Stable]. TIME SPENT ON DISCHARGE: 40 minutes. Vital Signs/I&Os Vital Signs Date Time Temp Pulse Resp B/P (MAP) Pulse Ox O2 Delivery O2 Flow Rate FiO2 04/16/21 09:00 2.0 04/16/21 06:00 98.5 84 20 133/67 (89) 93 Nasal Cannula I&O- Last 24 Hours up to 6 AM 04/16/21 06:00 Intake Total 920 ml Output Total 1725 ml Balance -805 ml Laboratory Data Labs 24H Laboratory Tests 2 04/15/21 17:06: Bedside Glucose (Misc Panel) 110 04/15/21 19:55: Bedside Glucose (Misc Panel) 125H 04/16/21 06:03: Nucleated Red Blood Cells % (auto) 0.0, Anion Gap 6L, Glomerular Filtration Rate > 60.0, Calcium Level 8.6L, Total Bilirubin 0.8, Aspartate Amino Transf (AST/SGOT) 107H, Alanine Aminotransferase (ALT/SGPT) 314H, Alkaline Phosphatase 421H, Total Protein 7.0, Albumin 2.5L, Albumin/Globulin Ratio 0.6 04/16/21 11:39: Bedside Glucose (Misc Panel) 123H CBC/BMP Laboratory Tests 04/16/21 06:03 FSBS Laboratory Tests Test 04/15/21 17:06 04/15/21 19:55 04/16/21 11:39 Range/Units Bedside Glucose (Misc Panel) 110 125 123 80-115 MG/DL Microbiology Microbiology 04/12/21 Gram Stain - Final, Complete 04/12/21 Body Fluid Culture - Final, Complete Staphylococcus Epidermidis 04/10/21 Respiratory Virus Panel (PCR) (TONY) - Final, Complete 04/10/21 Blood Culture - Final, Complete NO GROWTH AFTER 5 DAYS 04/10/21 Blood Culture - Final, Complete NO GROWTH AFTER 5 DAYS Discharge Medications Scheduled Allopurinol (Allopurinol) 100 Mg Tablet, 100 MG PO QHS, (Reported) Cefdinir (Cefdinir) 300 Mg Capsule, 300 MG PO BID Cholecalciferol (Vitamin D3) (Vitamin D3) 1,000 Unit Tablet, 1,000 UNITS PO DAILY Divalproex Sodium (Divalproex Sodium ER) 500 Mg Tab.er.24h, 1,000 MG PO DAILY, (Reported) Divalproex Sodium (Divalproex Sodium ER) 500 Mg Tab.er.24h, 500 MG PO QHS, (Reported) Ertugliflozin Pidolate (Steglatro) 5 Mg Tablet, 5 MG PO DAILY Esomeprazole Magnesium (Esomeprazole Magnesium Dr) 40 Mg Capsule.dr, 40 MG PO DAILY, (Reported) Finasteride (Proscar) 5 Mg Tablet, 5 MG PO QPM, (Reported) Folic Acid (Folic Acid) 1 Mg Tablet, 1 MG PO QHS, (Reported) Ipratropium/Albuterol Sulfate (Combivent Respimat 20-100 Mcg) 4 Gm Mist.inhal, 1 PUFF INH TID, (Reported) Metformin HCl (Metformin HCl) 850 Mg Tablet, 850 MG PO BID Metronidazole (Flagyl) 500 Mg Tablet, 500 MG PO TID Mirabegron (Myrbetriq) 50 Mg Tab.er.24h, 50 MG PO QPM Multivitamins (Thera M Plus Tablet) 1 Each Tablet, 1 TAB PO DAILY Rifaximin (Xifaxan) 550 Mg Tablet, 550 MG PO BID, (Reported) Risperidone (Risperidone) 4 Mg Tablet, 4 MG PO QHS, (Reported) Simvastatin (Simvastatin) 20 Mg Tablet, 20 MG PO QHS Tamsulosin Hcl (Tamsulosin HCl) 0.4 Mg Capsule, 0.4 MG PO QPM, (Reported) Umeclidinium Brm/Vilanterol Tr (Anoro Ellipta 62.5-25 Mcg INH) 1 Each Blst.w.dev, 1 PUFF INH DAILY, (Reported) Scheduled PRN Ammonium Lactate (Ammonium Lactate) 12% Cream..g., 1 DOSE TOP DAILY PRN for DRY SKIN, (Reported) APPLY TO FEET Furosemide (Furosemide) 20 Mg Tablet, 20 MG PO DAILY PRN for SWELLING, (Reported) Allergies Coded Allergies: clindamycin (Verified Allergy, Intermediate, ITCHING, SWELLING, FACIAL EDEMA, 11/07/20) regadenoson (Verified Allergy, Intermediate, COPD EXACERBATION, 11/07/20) amoxicillin (Verified Allergy, Mild, ITCHING, SWELLING, 11/07/20) clavulanic acid (Verified Allergy, Mild, ITCHING, SWELLING, 11/07/20) benztropine (Verified Adverse Reaction, Intermediate, AGITATION, CONFUSION, 11/07/20) naproxen (Verified Adverse Reaction, Intermediate, DEPRESSION, 11/07/20) pseudoephedrine (Verified Adverse Reaction, Intermediate, TACHYCARDIA, 11/07/20) NIMESH WEBB MD April 16, 2021 12:50
--- NOTE | 2021-04-16 13:15 | IPNPDOC ---
Subjective Date Seen The patient was seen on 04/15/21. Subjective Chief Complaint/HPI Abdominal pain has resolved, has tolerated full liquids yesterday. Will advance to low fat and low cholesterol. No fever or chills, did not need any morphine for 24 hours. Had a bowel movement. appetite better. Objective Physical Examination General Exam: Positive: Alert, Cooperative, No Acute Distress Eye Exam: Positive: PERRLA, Conjunctiva & lids normal, EOMI; Negative: Sclera icteric ENT Exam: Positive: Atraumatic, Mucous membr. moist/pink, Pharynx Normal Chest Exam: Positive: Clear to auscultation, Diminished Heart Exam: Positive: Rate Normal, Regular Rhythm, Normal S1, Normal S2; Negative: Murmurs, Rubs Abdomen Exam: Positive: Normal bowel sounds, Soft, Tenderness (RUQ, e pigastrium); Negative: Hepatospenomegaly Extremity Exam: Negative: Clubbing, Cyanosis, Edema Assessment /Plan Assessment 65 year old male with multiple medical problems presented to the ED with sudden onset mid epigastrium and right upper quadrant pain with nausea which started at 2 AM on 04/10/2021. Because of the fact that the pain was radiating to his back a chest x-ray and CT angiogram of the chest were performed, both of which were unremarkable for any acute changes. On his CT abdomen and pelvis did show interim development of cholelithiasis and choledocholithiasis with mild pericholedochal fatty infiltration consistent with inflammation. Patient was admitted for choledocholithiasis and acute cholecystitis. An MRCP was per formed which failed to reveal any stone on 04/11/21 so it was felt that the stone may have spontaneously passed. He still continued to have abdominal pain with mildly elevated AST and ALT. It was concluded that he may have ongoing acute cholecystitis. Patient was referred to IR on 04/12/21 for placement of a cholecystostomy drain however there was technical failure due to position of bowel and body habitus. IR was able to reach the GB with difficulty as needle was only 15 cm and his skin to gb depth was 20 cm and was able to aspirate some bile which was sent for culture. On 04/13/21 danilo remains in pain with poor appetite, unable to tolerate po diet and his LFTs have worsened with AST/ ALT of 650/619 and newly elevated alkaline phosphatase of 430. His bilirubin went up from 1.4 to 5.0 with a direct bili of 3.7. It seems like patient has CBD obstruction and needs an ERCP. Unfortunately we do not have GI coverage this week so the Pateint has been placed for transfer. Choledocholithiasis No stone seen in MRCP, CBD 4 mm on 04/11. Has IR manipulation of GB on 04/12/21 then on 04/13 much elevated LFTs and bilirubin Likely stones got dislodged from the GB during IR procedure and caused CBD obstruction. Now looks like it has passed. will advance diet continue meropenem. Acute cholecystitis Continue meropenem failed percutaneous cholecystostomy. Morbid Obesity, BMI 40.2 Severe RUBIO and Monty-Hebert phenomenon, on BiPAP at home 08/30 wit oxygen bleed in. Type 2 diabetes mellitus Fingerstick before meals and at bedtime, clear liquids diet for now lispro before meals and at bedtime COPD with Chronic resp failure- requiring 2 L oxygen 17/06 Spiriva Alcoholic Cirrhosis quit approximately 10 years ago Continue rifaximin compensated at present. Bipolar disorder, dysthymic disorder is listed in the chart Continue Depakote GERD PPI Hyperlipidemia On statin Benign prostatic hypertrophy Finasteride and Flomax Congestive heart failure with preserved ejection fraction Appears compensated Gout Allopurinol Plan/VTE VTE Prophylaxis Ordered?: Yes VS, I&O, 24H, Fishbone Vital Signs/I&O Vital Signs Date Time Temp Pulse Resp B/P (MAP) Pulse Ox O2 Delivery O2 Flow Rate FiO2 04/16/21 09:00 2.0 04/16/21 06:00 98.5 84 20 133/67 (89) 93 Nasal Cannula I&O- Last 24 Hours up to 6 AM 04/16/21 06:00 Intake Total 920 ml Output Total 1725 ml Balance -805 ml Laboratory Data 24H LABS Laboratory Tests 2 04/15/21 17:06: Bedside Glucose (Misc Panel) 110 04/15/21 19:55: Bedside Glucose (Misc Panel) 125H 04/16/21 06:03: Nucleated Red Blood Cells % (auto) 0.0, Anion Gap 6L, Glomerular Filtration Rate > 60.0, Calcium Level 8.6L, Total Bilirubin 0.8, Aspartate Amino Transf (AST/SGOT) 107H, Alanine Aminotransferase (ALT/SGPT) 314H, Alkaline Phosphatase 421H, Total Protein 7.0, Albumin 2.5L, Albumin/Globulin Ratio 0.6 04/16/21 11:39: Bedside Glucose (Misc Panel) 123H CBC/BMP Laboratory Tests 04/16/21 06:03 Microbiology Microbiology 04/12/21 Gram Stain - Final, Complete 04/12/21 Body Fluid Culture - Final, Complete Staphylococcus Epidermidis 04/10/21 Respiratory Virus Panel (PCR) (TONY) - Final, Complete 04/10/21 Blood Culture - Final, Complete NO GROWTH AFTER 5 DAYS 04/10/21 Blood Culture - Final, Complete NO GROWTH AFTER 5 DAYS NIMESH WEBB MD April 16, 2021 13:15
[2021-04-16 14:00] VITALS: BP 136/68
== END 2021-04-16 15:14 | disposition home or self-care (01) | DRG 445 ==
LOC: M ED 09:30 → M ED INP 15:04 → ENRESERV 17:30 → M MSPAV 17:59 → OBSVTOIN 04-11 11:46
PROVIDERS: ADMIT Neuromusculoskeletal Medicine & OMM; ATTEND Internal Medicine Nephrology
PROC: 0F943ZX Drainage of Gallbladder, Percutaneous Approach, Diagnostic (ICD-10-PCS; principal; 2021-04-12 14:30)
DX: K80.62 Calculus of gallbladder and bile duct with acute cholecystitis without obstruction (principal); G45.8 Other transient cerebral ischemic attacks and related syndromes; Z68.41 Body mass index [BMI] 40.0-44.9, adult; J96.10 Chronic respiratory failure, unspecified whether with hypoxia or hypercapnia; I50.32 Chronic diastolic (congestive) heart failure; E11.42 Type 2 diabetes mellitus with diabetic polyneuropathy; K76.0 Fatty (change of) liver, not elsewhere classified; K74.60 Unspecified cirrhosis of liver; F34.1 Dysthymic disorder; E78.5 Hyperlipidemia, unspecified; E88.01 Alpha-1-antitrypsin deficiency; M48.061 Spinal stenosis, lumbar region without neurogenic claudication; J44.9 Chronic obstructive pulmonary disease, unspecified; F10.11 Alcohol abuse, in remission; E66.01 Morbid (severe) obesity due to excess calories; M48.02 Spinal stenosis, cervical region; G47.33 Obstructive sleep apnea (adult) (pediatric); N40.0 Benign prostatic hyperplasia without lower urinary tract symptoms; G24.01 Drug induced subacute dyskinesia; Z87.891 Personal history of nicotine dependence; Z79.899 Other long term (current) drug therapy; Z88.1 Allergy status to other antibiotic agents; Z88.0 Allergy status to penicillin; Z88.6 Allergy status to analgesic agent; Z88.8 Allergy status to other drugs, medicaments and biological substances; Z99.81 Dependence on supplemental oxygen; Z53.09 Procedure and treatment not carried out because of other contraindication

== ENCOUNTER 2021-04-29 08:54 | Inpatient (IN) | payer MEDICARE, OTHER ==
[~2021-04-29] VITALS: Ht 177.8 cm; Wt 118.9 kg
[~2021-04-29 08:54] MED LIST changes: +AMMO12CR7 TOP; +CEFD300CAP PO; +FLAG500T PO; +METF850T4 PO; +STEG5TAB PO; +VITMTA PO
[2021-04-29 09:39] LABS: BASO % 0.5 % (0.0-1.0); EOS # 0.1 10^3/uL (0.0-0.5); EOS % 1.5 % (0.0-3.0); HEMATOCRIT 44.5 % (42.0-52.0); HEMOGLOBIN 14.7 g/dl (13.5-17.5); LYMPH # 0.9 10^3/uL (1.5-5.0); LYMPH % 9.9 % (24.0-44.0); MONO # 0.7 10^3/uL (0.0-0.8); MONO % 8.2 % (2.0-8.0); NEUTROPHILS # 6.8 10^3/uL (1.5-8.5); NEUTROPHILS % 79.4 % (36.0-66.0); PLATELET COUNT, AUTOMATED 338 10^3/uL (150-450); RED BLOOD COUNT 4.32 10^6/uL (4.30-6.10); WHITE BLOOD COUNT 8.6 10^3/uL (4.0-10.0)
--- NOTE | 2021-04-29 11:08 | REP ---
INDICATION: ruq pain COMPARISON: None. TECHNIQUE: Real time shirley scale ultrasound examination using curved array transducer. FINDINGS: Gallbladder demonstrates sludge and small stones with wall thickening to 5.2 mm and pericholecystic fluid consistent with acute cholecystitis. No evidence for biliary ductal dilatation. Hepatosteatosis noted without focal hepatic lesion. The pancreas is incompletely evaluated due to interposed bowel gas. The right kidney is normal in reniform shape without hydronephrosis and measures 10.5 x 5.4 x 4.3 cm. IMPRESSION: Findings consistent with acute cholecystitis and correlation is recommended. Hepatosteatosis. <Electronically signed by Froylan Olivo > 04/29/21 1101
[2021-04-29 12:20] LABS: RSV AMPLIFICATION NEGATIVE (NEGATIVE)
[2021-04-29 12:20] LABS: ALBUMIN 3.3 GM/DL (3.2-5.2); ALT/SGPT 497 U/L (12-78); BILIRUBIN,DIRECT 2.2 MG/DL (0.0-0.2); BILIRUBIN,TOTAL 2.6 MG/DL (0.2-1.0); BLOOD UREA NITROGEN 14 MG/DL (7-18); CALCIUM LEVEL 9.3 MG/DL (8.8-10.2); CARBON DIOXIDE LEVEL 28 MEQ/L (21-32); CHLORIDE LEVEL 104 MEQ/L (98-107); CK-MB VALUE MASS < 1.0 NG/ML (<3.6); CPK CREATINE PHOSPHOKINASE 36 U/L (39-308); CREATININE FOR GFR 1.03 MG/DL (0.70-1.30); GLOMERULAR FILTRATION RATE > 60.0 (>49); GLUCOSE, FASTING 100 MG/DL (70-100); LIPASE 1014 U/L (73-393); MB/CK RELATIVE INDEX 2.78 (< OR =4); POTASSIUM SERUM 4.3 MEQ/L (3.5-5.1); SODIUM LEVEL 139 MEQ/L (136-145); TROPONIN I < 0.02 NG/ML (< 0.10)
[2021-04-29] MEDS ORDERED: SIMV20TA22 PO (12:35)
[2021-04-29] MEDS ORDERED: MYRB50TA PO (12:35)
[2021-04-29] MEDS ORDERED: VITMTA PO (12:35)
[2021-04-29] MEDS ORDERED: STEG5TAB PO (12:35)
[2021-04-29] MEDS ORDERED: METF-954 PO (12:35)
[2021-04-29] MEDS ORDERED: D31000TA2 PO (12:35)
[2021-04-29] MEDS ORDERED: GLUCOSE 4GM CHEW TABLET PO PRN (13:20)
[2021-04-29] MEDS ORDERED: ACETAMINOPHEN TAB 650MG DOSE (2X325MG) PO PRN ×2 (13:20→19:58)
[2021-04-29] MEDS ORDERED: GLUCAGON INJ 1MG VIAL SC PRN (13:20)
[2021-04-29] MEDS ORDERED: MOM 30ML SUSPENSION UDC PO PRN (13:20)
[2021-04-29] MEDS ORDERED: DEXTROSE 50% 50 ML SYRINGE IV PRN (13:20)
[2021-04-29] MEDS: COMBIVENT RESPIMAT 100-20MCG INHALER 4GM INH SCH ×2 (14:00→19:47)
--- NOTE | 2021-04-29 14:06 | HPEPDOC ---
[facility] Medical History & Physical Date of Admission Apr 29, 2021 Date of Service: Apr 29, 2021 History and Physical Chief complaint: Who presented to the ER with R upper abdominal pain History of present illness: Patient is a 65-year-old male who presented to the emergency room complaints of right upper abdominal pain that started yesterday after dinner. Patient reports that after he ate dinner. He was experiencing right upper quadrant pain described as 8/10, sharp, achy, non-radiating, alleviated by staying still and aggravated movement. Patient slept the night and came to the emergency room this morning for further evaluation. Currently, he reports the pain as 2/10. Patient denies any fevers, chills. Reports nausea without vomiting. Reports constipated. Last bowel movement was 2-3 days ago. Denies any urinary discomfort. Denies any chest pain, palpitations. Denies any changes baseline shortness of breath or cough. Patient reports his last meal was yesterday at 5 PM, he did have sips of water this morning. Patient was recently admitted from 04/10 to 04/16 for the similar complaint. At that point. Patient was suspected of having choledocholithiasis. An MRCP was completed that was negative. General surgery was on consultation. Patient had an attempted cholecystostomy tube placement, however was unsuccessful. Patient was subsequently discharged home with instructions to follow up with gastroenterology and general surgery as an outpatient. Patient reported that he was discharged with antibiotics (Cefdinir and Flagyl) and has just completed them last week. Past Medical History: Diastolic CHF NIDDM2 DLP COPD Chronic hypoxic respiratory failure (on 2L of [place] oxygen) Central Sleep Apnea on BIPAP Cirrhosis / Fatty liver disease Hx of Nicotine dependence (Quit 2014) Hx of Alcohol dependence (Quit 2010) Bipolar II Chronic back pain 2/2 Lumbar and cervical spinal stenosis Neuropathy BPH Testosterone deficiency Tremors / Tardive dyskinesia 2/2 Depakote / Risperdal GERD Past Surgical History: Colonoscopy w/ Bowel perforation followed by exploratory laparotomy (2009) Vasectomy 1977 Hernia repair 1956 Allergies: See below Medications: See below Family History: - Family history of melanoma Social History: - Denies illicit drugs; quit smoking 2014 quit alcohol 2010 - Denies recent travel or sick contacts; reports hes cut both doses of COVID19 vaccine - Lives with - 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; 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 Review of Systems: 10 point review of systems complete, all negative otherwise stated in HPI Physical exam: - Vitals: BP [133/72], HR [94], RR [20], Sat [100%NC2L], Temp [97.0F] - General: Lying in bed, No acute distress, Speaking in full sentences, AAOx3 - HEENT: NC, AT, PERRLA - CVS: RRR, +S1S2, - Murmurs / rubs / gallops - Lungs: Fair air entry bilaterally, No appreciable wheezing / rales / rhonchi - Abdomen: Soft, Non-distended, Slight tenderness appreciated at RUQ - Extremities: No lower extremity edema, No calf tenderness - Neuro: No focal motor or sensory deficit - Skin: No visible rashes Labs: See below Imaging: Gallbladder US 04/29: Findings consistent with acute cholecystitis and correlation is recommended. Hepatosteatosis. EKG: See below Assessment and Plan: Abdominal pain / Transaminitis - likely 2/2 choledocholithiasis - Patient presented to emergency room with complaints of RUQ pain that started yesterday - Physical reveals right upper quadrant tenderness - Afebrile. Hemodynamically stable - No leukocytosis - Will check blood cultures / lactic acid / procalcitonin - Will start Meropenem for intra-abdominal coverage - MRCP is currently pending - Consulted GI and General surgery for likely ERCP followed by laparoscopic removal of GB - Will keep patient NPO and start gentle IV fluid hydration Chronic Diastolic CHF - No evidence of decompensation - Patient reports that he does not take any diuretics as an outpatient NIDDM2 - Will start ISS DLP - c/w Simvastatin Chronic COPD - Chronic hypoxic respiratory failure (on 2L of [place] oxygen) - Currently patient is on baseline level of oxygen - No evidence of exacerbation - Continue with inhaled therapy as ordered Central Sleep Apnea on BIPAP - May allow home BIPAP use while inpatient Cirrhosis / Fatty liver disease - c/w Rifaxamin Hx of Nicotine dependence (Quit 2014) Hx of Alcohol dependence (Quit 2010) Bipolar II - Reported tremors / tardive dyskinesia 2/2 current medications hes on - c/w Risperidone - c/w Divalproex on hold (re: Transaminitis) Chronic back pain 2/2 Lumbar and cervical spinal stenosis / Neuropathy - c/w Tylenol PRN BPH - c/w Tamsulosin and Finasteride Gout - c/w Allopurinol Testosterone deficiency GERD - c/w Omeprazole DVT prophylaxis - Will start TEDs/Sequentials (will hold Heparin pending decision for ERCP) Vital Signs Vital Signs Date Time Temp Pulse Resp B/P (MAP) Pulse Ox O2 Delivery O2 Flow Rate FiO2 04/29/21 09:30 94 20 133/72 (92) 100 Nasal Cannula 2.0 04/29/21 09:03 97.0 Laboratory Data Labs 24H Laboratory Tests 2 04/29/21 09:28: Immature Granulocyte % (Auto) 0.5, Neutrophils (%) (Auto) 79.4H, Lymphocytes (%) (Auto) 9.9L, Monocytes (%) (Auto) 8.2H, Eosinophils (%) (Auto) 1.5, Basophils (%) (Auto) 0.5, Neutrophils # (Auto) 6.8, Lymphocytes # (Auto) 0.9L, Monocytes # (Auto) 0.7, Eosinophils # (Auto) 0.1, Basophils # (Auto) 0.0, Nucleated Red Blood Cells % (auto) 0.0 04/29/21 10:13: Anion Gap 7L, Glomerular Filtration Rate > 60.0, Calcium Level 9.3, Total Bilirubin 2.6H, Direct Bilirubin 2.2H, Aspartate Amino Transf (AST/SGOT) 673H, Alanine Aminotransferase (ALT/SGPT) 497H, Alkaline Phosphatase 273H, Total Creatine Kinase 36L, Creatine Kinase MB < 1.0, Creatine Kinase MB Relative Index 2.78, Troponin I < 0.02, Total Protein 7.0, Albumin 3.3, Albumin/Globulin Ratio 0.9, Lipase 1014H 04/29/21 10:31: Urine Color KARLY, Urine Appearance CLEAR, Urine pH 5.0, Urine Specific [place] 1.023, Urine Protein 1+H, Urine Glucose (UA) NEGATIVE, Urine Ketones TRACEH, Urine Blood NEGATIVE, Urine Nitrite NEGATIVE, Urine Bilirubin 2+H, Urine Urobilinogen 4.0H, Urine Leukocyte Esterase NEGATIVE, Urine WBC (Auto) 0, Urine RBC (Auto) 1, Urine Hyaline Casts (Auto) 0, Urine Bacteria (Auto) NEGATIVE, Urine Squamous Epithelial Cells 0, Urine Mucus (Auto) SMALL, Urine Sperm (Auto) 04/29/21 11:33: Coronavirus (COVID-19)(PCR) NEGATIVE, Influenza Type A (RT-PCR) NEGATIVE, Influenza Type B (RT-PCR) NEGATIVE, Respiratory Syncytial Virus (PCR) NEGATIVE CBC/BMP Laboratory Tests 04/29/21 09:28 04/29/21 10:13 Home Medications Scheduled Allopurinol (Allopurinol) 100 Mg Tablet, 100 MG PO QHS Cholecalciferol (Vitamin D3) (Vitamin D3) 1,000 Unit Tablet, 1,000 UNITS PO DAILY Divalproex Sodium (Divalproex Sodium ER) 500 Mg Tab.er.24h, 1,000 MG PO DAILY Divalproex Sodium (Divalproex Sodium ER) 500 Mg Tab.er.24h, 500 MG PO QHS Ertugliflozin Pidolate (Steglatro) 5 Mg Tablet, 5 MG PO DAILY Esomeprazole Magnesium (Esomeprazole Magnesium Dr) 40 Mg Capsule.dr, 40 MG PO DAILY Finasteride (Proscar) 5 Mg Tablet, 5 MG PO QPM Folic Acid (Folic Acid) 1 Mg Tablet, 1 MG PO QHS Ipratropium/Albuterol Sulfate (Combivent Respimat 20-100 Mcg) 4 Gm Mist.inhal, 1 PUFF INH TID Metformin HCl (Metformin HCl) 850 Mg Tablet, 850 MG PO BID Mirabegron (Myrbetriq) 50 Mg Tab.er.24h, 50 MG PO QHS Multivitamins (Thera M Plus Tablet) 1 Each Tablet, 1 TAB PO DAILY Rifaximin (Xifaxan) 550 Mg Tablet, 550 MG PO BID Risperidone (Risperidone) 4 Mg Tablet, 4 MG PO QHS Simvastatin (Simvastatin) 20 Mg Tablet, 20 MG PO QHS Tamsulosin Hcl (Tamsulosin HCl) 0.4 Mg Capsule, 0.4 MG PO QPM Umeclidinium Brm/Vilanterol Tr (Anoro Ellipta 62.5-25 Mcg INH) 1 Each Blst.w.de v, 1 PUFF INH DAILY Allergies Coded Allergies: clindamycin (Verified Allergy, Intermediate, ITCHING, SWELLING, FACIAL EDEMA, 11/07/20) regadenoson (Verified Allergy, Intermediate, COPD EXACERBATION, 11/07/20) amoxicillin (Verified Allergy, Mild, ITCHING, SWELLING, 11/07/20) clavulanic acid (Verified Allergy, Mild, ITCHING, SWELLING, 11/07/20) benztropine (Verified Adverse Reaction, Intermediate, AGITATION, CONFUSION, 11/07/20) naproxen (Verified Adverse Reaction, Intermediate, DEPRESSION, 11/07/20) pseudoephedrine (Verified Adverse Reaction, Intermediate, TACHYCARDIA, 11/07/20) MARY LOU ORTA MD Apr 29, 2021 14:06
[2021-04-29 14:55] VITALS: BP 133/65
[2021-04-29 16:00] VITALS: BP 118/62
[2021-04-29] MEDS: NS 1,000 ML IV SCH (17:23)
[2021-04-29] MEDS: MEROPENEM INJ 1 GM in IV 1 EA IV SCH ×2 (17:23→23:00)
[2021-04-29] MEDS: HumaLOG INSULIN (NovoLOG) PER UNIT SC SCH ×2 (17:30→20:19)
--- NOTE | 2021-04-29 17:51 | REPVR ---
PROCEDURE INFORMATION: Exam: MR Abdomen Without Contrast Exam date and time: 04/29/2021 4:32 PM Age: 65 years old Clinical indication: Abdominal pain; Patient HX: Epigastric pain, HX stones; Additional info: RO stone in duct TECHNIQUE: Imaging protocol: MR of the abdomen without contrast. COMPARISON: MRI ABDOMEN WITHOUT CONTRAST 04/11/2021 7:53 PM FINDINGS: Liver: The liver is enlarged measuring 18.9 cm in the craniocaudad dimension. The liver is incompletely imaged. No hepatic mass, as visualized. Gallbladder and bile ducts: Gallbladder wall thickening is identified with a hypointense gallstone and pericholecystic stranding and possible fluid. These findings are concerning for acute cholecystitis. No definitive filling defect identified within the common bile duct to suggest a common bile duct stone. No significant biliary dilatation. The common bile duct measures 4-5 mm in diameter. Pancreas: Unremarkable as visualized. No ductal dilation. Spleen: Incompletely imaged. Mild splenomegaly. Adrenal glands: No mass. Kidneys and ureters: A few simple appearing left renal cysts are identified. At the upper pole of the left kidney, this measures 4.1 cm in diameter. A few subcentimeter T2 hyperintense lesions are identified within the kidneys bilaterally, which are too small to characterize further. Nonspecific perinephric stranding bilaterally. No hydronephrosis. Stomach and bowel: Stranding is identified adjacent to the proximal duodenum, suggestive of duodenitis Intraperitoneal space: See above. Arteries: No abdominal aortic aneurysm. Bones/joints: Mild convexity of the lumbar spine to the left. Degenerative changes are identified at multiple lumbar levels. Modic endplate changes are identified within the lower lumbar spine. Soft tissues: Unremarkable. Other findings: Minimal bilateral pleural effusions. IMPRESSION: 1. Gallbladder wall thickening is identified with a hypointense gallstone and pericholecystic stranding and possible fluid. These findings are concerning for acute cholecystitis. Similar findings are visualized on the prior study. Clinical correlation is recommended. 2. Stranding is identified adjacent to the proximal duodenum, suggestive of duodenitis 3. No definitive filling defect identified within the common bile duct to suggest a common bile duct stone. No significant biliary dilatation. 4. Mild hepatosplenomegaly. 5. Left renal cysts. A few subcentimeter T2 hyperintense lesions are identified within the kidneys bilaterally, which are too small to characterize further. 6. Minimal bilateral pleural effusions. 7. Additional findings described above. COMMENTS: Consistent with the [employer]'s Incidental Findings Committee white paper (J Am Gudelia Radiol 2018): Any incidental renal lesion less than 1 cm or classified as too small to characterize, or any incidental cystic renal lesion characterized as simple-appearing, is likely benign. No follow-up imaging is recommended for these lesions per consensus recommendations based on imaging criteria. Electronically signed by: Man Meza On 04/29/2021 17:51:06 PM
[2021-04-29] MEDS: ADVAIR HFA 115/21MCG INHALER INH SCH (19:47)
--- NOTE | 2021-04-29 19:49 | ECGEPIP ---
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
[2021-04-29 20:00] VITALS: BP 116/59
[2021-04-29] MEDS: SIMVASTATIN 20 MG TAB PO SCH (20:17)
[2021-04-29] MEDS: allopurinoL 100 MG TAB PO SCH (20:17)
[2021-04-29] MEDS: FINASTERIDE 5 MG TAB PO SCH (20:17)
[2021-04-29] MEDS: TAMSULOSIN 0.4 MG CAP PO SCH (20:17)
[2021-04-29] MEDS: FOLIC ACID 1 MG TAB PO SCH (20:18)
[2021-04-29] MEDS: rifAXIMin 550 MG TAB (XIFAXAN) PO SCH (20:21)
[2021-04-29] MEDS: risperiDONE 2 MG TAB PO SCH (20:21)
[2021-04-29] MEDS ORDERED: DIVALPROEX 500MG *ER* TAB PO SCH (21:00)
[2021-04-29] MEDS ORDERED: SODIUM CHLORIDE 0.9% INJ 10 ML SYR IV ONE (21:45)
[2021-04-30] VITALS (8 sets, daily range): BP systolic 108–142; BP diastolic 65–70; O2SAT 93–96
[2021-04-30 05:05] LABS: BASO # 0.1 10^3/uL (0.0-0.2); BASO % 1.1 % (0.0-1.0); EOS # 0.2 10^3/uL (0.0-0.5); EOS % 3.3 % (0.0-3.0); HEMATOCRIT 41.7 % (42.0-52.0); HEMOGLOBIN 13.5 g/dl (13.5-17.5); LYMPH # 0.9 10^3/uL (1.5-5.0); LYMPH % 15.7 % (24.0-44.0); MEAN CORPUSCULAR HEMOGLOBIN 33.7 pg (27.0-33.0); MEAN CORPUSCULAR HGB CONC 32.4 g/dl (32.0-36.5); MONO # 0.5 10^3/uL (0.0-0.8); MONO % 9.2 % (2.0-8.0); NEUTROPHILS % 70.2 % (36.0-66.0); PLATELET COUNT, AUTOMATED 296 10^3/uL (150-450); RED BLOOD COUNT 4.01 10^6/uL (4.30-6.10); WHITE BLOOD COUNT 5.7 10^3/uL (4.0-10.0)
[2021-04-30] MEDS: NS 1,000 ML IV SCH (05:07)
[2021-04-30 05:27] LABS: ALBUMIN 3.2 GM/DL (3.2-5.2); ALT/SGPT 809 U/L (12-78); BILIRUBIN,TOTAL 2.4 MG/DL (0.2-1.0); BLOOD UREA NITROGEN 12 MG/DL (7-18); CALCIUM LEVEL 9.1 MG/DL (8.8-10.2); CARBON DIOXIDE LEVEL 27 MEQ/L (21-32); CHLORIDE LEVEL 106 MEQ/L (98-107); CREATININE FOR GFR 1.02 MG/DL (0.70-1.30); GLOMERULAR FILTRATION RATE > 60.0 (>49); GLUCOSE, FASTING 98 MG/DL (70-100); MAGNESIUM LEVEL 2.2 MG/DL (1.8-2.4); POTASSIUM SERUM 3.9 MEQ/L (3.5-5.1); SODIUM LEVEL 140 MEQ/L (136-145); TOTAL PROTEIN 7.2 GM/DL (6.4-8.2)
[2021-04-30] MEDS ORDERED: INDOCYANINE GREEN 25MG VIAL (IC-GREEN) IV ONE (06:00)
[2021-04-30] MEDS: MEROPENEM INJ 1 GM in IV 1 EA IV SCH ×2 (06:54→17:16)
[2021-04-30] MEDS: HumaLOG INSULIN (NovoLOG) PER UNIT SC SCH ×4 (07:30→21:00)
[2021-04-30 07:56] LABS: LIPASE 236 U/L (73-393)
[2021-04-30] MEDS: COMBIVENT RESPIMAT 100-20MCG INHALER 4GM INH SCH ×3 (08:00→19:35)
[2021-04-30] MEDS: ADVAIR HFA 115/21MCG INHALER INH SCH ×2 (08:00→19:35)
[2021-04-30] MEDS ORDERED: ROCURONIUM BROMIDE 50 MG/5 ML VIAL As Ordered ONE ×3 (08:01→12:48)
[2021-04-30] MEDS ORDERED: propofoL 200 MG/20 ML VIAL As Ordered ONE (08:01)
[2021-04-30] MEDS ORDERED: fentaNYL 250 MCG/5 ML INJECTION (J3010) As Ordered ONE (08:01)
[2021-04-30] MEDS ORDERED: MIDAZOLAM INJ 2MG/2ML VIAL (J2250 PER 1MG) As Ordered ONE (08:01)
[2021-04-30] MEDS ORDERED: LIDOCAINE 2% 100MG/5ML SDV (FOR ANES.) As Ordered ONE (08:01)
[2021-04-30] MEDS ORDERED: LIDOCAINE 1% SDV 30ML VIAL As Ordered ONE (08:40)
[2021-04-30] MEDS ORDERED: BUPIVACAINE HCL 0.25% 30ML VIAL As Ordered ONE (08:40)
--- NOTE | 2021-04-30 08:42 | IPNPDOC ---
Text Note Date of Service The patient was seen on 04/30/21. NOTE Patient admitted for cholecystitis, choledocholithiasis 2 weeks ago resolved all this nonoperatively. (GI was not available, and he was due for transfer to [place] when he improved). He was supposed to see us in the clinic but returned yesterday with another onset of epigastric and ruq abdominal pain and nausea and found to have biliary pancreatitis, abnormal LFTs suspicious for another stone in the bile ducts. MRCP did not see any stone in the biliary tree nor any significant biliary obstruction, some inflammation at the duodenum as well as evidence for cholecystitis. His pain has resolved, morning labs still show some mild elevation of his bilirubin up to 2.4 also persistent mild elevation of the AST and ALT. His lipase has returned to normal. He does not have any le ukocytosis. Overnight he is hemodynamically stable, afebrile. On examination he looks comfortable He has anicteric sclerae Abdomen is round, soft, nondistended and nontender on palpation Impression and plan Cholelithiasis with acute over subacute cholecystitis Most likely choledocholithiasis which may have passed out Biliary pancreatitis, pain has resolved After discussion with Dr. John collins, that prompted incision to bring him sooner than later for laparoscopic cholecystectomy. We'll use the da Biju robot and ICG I anticipate that there will be a good amount of both chronic and acute inflammation. If possible we will try to do an intraoperative cholangiogram to make sure that the ducts have been cleared. I discussed with the patient the details of the procedure, risks and benefits with particular attention to risks for possible bile duct injury, bile leakage, injury to nearby bowels or blood vessels. He has concerns about him tolerating general anesthesia as he tells me that he does drop his oxygen and increase his blood pressure due to his sleep apnea. He has been using CPAP on seeing settings 4 years. Consent was obtained. Patient already on meropenem for antibiotic coverage which should be sufficient. VS,Fishbone, I+O VS, Fishbone, I+O Laboratory Tests 04/29/21 09:28 04/29/21 10:13 04/30/21 04:36 Vital Signs Date Time Temp Pulse Resp B/P (MAP) Pulse Ox O2 Delivery O2 Flow Rate FiO2 04/30/21 04:00 2.0 04/30/21 00:00 97.3 101 20 108/65 (79) 98 NIPPV (BIPAP/CPAP) I&O- Last 24 Hours up to 6 AM0 04/30/21 06:00 Intake Total 0 ml Output Total 150 ml Balance -150 ml AUTUMN MAK MD Apr 30, 2021 08:42
[2021-04-30] MEDS: VITAMIN D 1,000 INTERNATIONAL UNITS TABLET PO SCH (09:00)
[2021-04-30] MEDS: MULTIVITAMINS/MINERALS THERAP 1 TAB PO SCH (09:00)
[2021-04-30] MEDS: OMEPRAZOLE 20 MG CAP PO SCH (09:00)
[2021-04-30] MEDS: rifAXIMin 550 MG TAB (XIFAXAN) PO SCH ×2 (09:00→21:23)
[2021-04-30] MEDS ORDERED: DIVALPROEX 500MG *ER* TAB PO SCH (09:00)
--- NOTE | 2021-04-30 09:25 | IPNPDOC ---
Text Note Date of Service The patient was seen on 04/30/21. NOTE Subjective: Patient is a 65-year-old male who presented to the emergency room complaints of right upper abdominal pain that started yesterday after dinner. Patient reports that after he ate dinner. He was experiencing right upper quadrant pain described as 8/10, sharp, achy, non-radiating, alleviated by staying still and aggravated movement. Patient slept the night and came to the ER this morning for further evaluation. . She was admitted to hospital service for further evaluation and treatment. Gastroenterology and general surgery were called on consultation. Patient was recently admitted from 04/10 to 04/16 for the similar complaint. At that point. Patient was suspected of having choledocholithiasis. An MRCP was completed that was negative. General surgery was on consultation. Patient had an attempted cholecystostomy tube placement, however was unsuccessful. Patient was subsequently discharged home with instructions to follow up with gastr oenterology and general surgery as an outpatient. Patient reported that he was discharged with antibiotics (Cefdinir and Flagyl) and has just completed them last week. Patient was seen and examined at the bedside. Patient reports that his abdominal pain has essentially resolved. He denies any nausea or vomiting. Denies chest pain, shortness breath, palpitations. Reports some constipation. Denies any urinary discomfort. Objective: Vitals (See below) General: Lying in bed, appears comfortable, AAOx3 HEENT: NC, AT CVS: RRR, +S1S2 Lungs: Fair air entry b/l, no wheezing, rales or rhonchi Abdomen: Soft, ND, NT, obese Extremities: - Edema, - Calf tenderness Imaging: Gallbladder US 04/29: Findings consistent with acute cholecystitis and correlation is recommended. Hepatosteatosis. MRCP 04/29: 1. Gallbladder wall thickening is identified with a hypointense gallstone and pericholecystic stranding and possible fluid. These findings are concerning for acute cholecystitis. Similar findings are visualized on the prior study. Clinical correlation is recommended. 2. Stranding is identified adjacent to the proximal duodenum, suggestive of duodenitis 3. No definitive filling defect identified within the common bile duct to suggest a common bile duct stone. No significant biliary dilatation. 4. Mild hepatosplenomegaly. 5. Left renal cysts. A few subcentimeter T2 hyperintense lesions are identified within the kidneys bilaterally, which are too small to characterize further. 6. Minimal bilateral pleural effusions. 7. Additional findings described above. Assessment and plan: Abdominal pain / Transaminitis - likely multifactorial; 2/2 recently passed stone and cholecystitis, component of acute pancreatitis, possibly 2/2 choledocholithiasis (but likely passed) - Presented to ER with abdominal pain / currently reports resolution of abdominal pain - Physical without any significant tenderness - Remains hemodynamically stable and afebrile - Transaminitis persists - No leukocytosis / no lactic acidosis - Lipase normalized - Blood cultures 04/29: Pending - MRCP negative for any stone within the biliary system - c/w Meropenem for intra-abdominal coverage (Day #2) - GI and General surgery on consultation; plan for laparoscopic cholecystectomy today - c/w NPO Chronic Diastolic CHF - No evidence of decompensation - Patient reports that he does not take any diuretics as an outpatient - Will DC IV fluids NIDDM2 - c/w ISS DLP - c/w Simvastatin Chronic COPD - Chronic hypoxic respiratory failure (on 2L of NC oxygen) - Currently patient is on baseline level of oxygen - No evidence of exacerbation - c/w inhaled therapy as ordered Central Sleep Apnea on BIPAP - May allow home BIPAP use while inpatient Cirrhosis / Fatty liver disease - c/w Rifaxamin Hx of Nicotine dependence (Quit 2014) Hx of Alcohol dependence (Quit 2010) Bipolar II - Reported tremors / tardive dyskinesia 2/2 current medications hes on - c/w Risperidone - c/w Divalproex on hold (re: Transaminitis) Chronic back pain 2/2 Lumbar and cervical spinal stenosis / Neuropathy - c/w Tylenol PRN BPH - c/w Tamsulosin and Finasteride Gout - c/w Allopurinol Testosterone deficiency GERD - c/w Omeprazole DVT prophylaxis - c/w TEDs/Sequentials (will hold Heparin pending decision for ERCP) Disposition: - Will be taken to the OR today Eb RUSS, I+O Eb RUSS I+O Laboratory Tests 04/29/21 09:28 04/29/21 10:13 04/30/21 04:36 Vital Signs Date Time Temp Pulse Resp B/P (MAP) Pulse Ox O2 Delivery O2 Flow Rate FiO2 04/30/21 08:00 97.8 92 20 128/66 (86) 91 Nasal Cannula 2.0 I&O- Last 24 Hours up to 6 AM 04/30/21 06:00 Intake Total 0 ml Output Total 150 ml Balance -150 ml MARY LOU ORTA MD Apr 30, 2021 09:25
[2021-04-30] MEDS ORDERED: dexameTHASONE 4 MG/ML 1ML VIAL (J1100 PER 1MG) As Ordered ONE (09:33)
[2021-04-30] MEDS ORDERED: PHENYLephrine 500MCG 5ML (100MCG/ML) SYRINGE As Ordered ONE (09:39)
[2021-04-30] MEDS ORDERED: ONDANSETRON 4MG/2ML VIAL As Ordered ONE (09:39)
[2021-04-30] MEDS ORDERED: SUGAMMADEX SODIUM 500 MG/5 ML VIAL (BRIDION) As Ordered ONE (09:40)
[2021-04-30] MEDS ORDERED: HYDROmorphone HCL 2 MG/ML 1ML VIAL (J1170) As Ordered ONE (10:20)
[2021-04-30] MEDS ORDERED: BUPIVACAINE LIPOSOME/PF 1.3% 20ML VIAL (13.3MG/ML)(EXPAREL)(C9290 PER1MG) As Ordered ONE (13:29)
[2021-04-30] MEDS ORDERED: BUPIVACAINE HCL 0.25% 10ML VIAL As Ordered ONE (13:29)
[2021-04-30] MEDS ORDERED: fentaNYL 100 MCG/2 ML INJECTION (J3010) As Ordered ONE ×3 (13:56→15:33)
[2021-04-30] MEDS ORDERED: LABETALOL 100MG/20ML VIAL As Ordered ONE (14:46)
[2021-04-30] MEDS: LR 1,000 ML IV SCH (15:30)
[2021-04-30] MEDS: fentaNYL 100 MCG/2 ML INJECTION (J3010) IV PRN ×3 (15:35→15:50)
[2021-04-30] MEDS ORDERED: METOCLOPRAMIDE INJ 10MG/2ML VIAL (J2765 PER 1) IV PRN (16:00)
[2021-04-30] MEDS ORDERED: ONDANSETRON 4MG/2ML VIAL IV PRN (16:00)
[2021-04-30] MEDS ORDERED: oxyCODONE 5MG TAB PO PRN (16:00)
[2021-04-30] MEDS ORDERED: LR 1,000 ML IV SCH (16:00)
[2021-04-30] MEDS: HYDROMORPHONE HCL 0.5 MG/ 0.5 ML SYRINGE (J1170 PER 1) IV PRN ×3 (16:03→16:19)
[2021-04-30] MEDS ORDERED: PERCOCET 5MG/325MG TAB PO PRN (18:35)
[2021-04-30] MEDS: KETOROLAC 30 MG/ML 1ML VIAL IV SCH (19:40)
[2021-04-30] MEDS: TAMSULOSIN 0.4 MG CAP PO SCH (21:23)
[2021-04-30] MEDS: FOLIC ACID 1 MG TAB PO SCH (21:23)
[2021-04-30] MEDS: SIMVASTATIN 20 MG TAB PO SCH (21:23)
[2021-04-30] MEDS: allopurinoL 100 MG TAB PO SCH (21:23)
[2021-04-30] MEDS: risperiDONE 2 MG TAB PO SCH (21:23)
[2021-04-30] MEDS: FINASTERIDE 5 MG TAB PO SCH (21:23)
[2021-04-30] MEDS: PERCOCET 5MG/325MG TAB PO PRN (21:25)
[2021-05-01] VITALS (14 sets, daily range): BP systolic 103–147; BP diastolic 56–75; O2SAT 91–96
[2021-05-01] MEDS: LR 1,000 ML IV SCH ×3 (00:08→20:19)
[2021-05-01] MEDS: MEROPENEM INJ 1 GM in IV 1 EA IV SCH ×4 (00:08→23:14)
[2021-05-01] MEDS: KETOROLAC 30 MG/ML 1ML VIAL IV SCH ×4 (00:51→19:58)
--- NOTE | 2021-05-01 05:12 | ROOPDOC ---
[facility] Report Of Operation Report of Operation DATE OF PROCEDURE: 04/30/21 PREPROCEDURE DIAGNOSES: acute cholecystitis. POSTPROCEDURE DIAGNOSES: acute over chronic cholecystitis, extensive bowel adhesions to abdominal wall. PROCEDURE: Robotic. assisted laparoscopic lysis of adhesions, cholecystectomy, small bowel resection with anastomosis. SURGEON: Regino Casey MD ANESTHESIA: General Endotracheal Anesthesia. ESTIMATED BLOOD LOSS: Approximately 100 mL. COMPLICATIONS: none. REMARKS: 65 M who has had two admissions in the past month for acute cholecystitis, presumed choledocholithiasis that has passed and biliary pancreatitis now for laparoscopic cholecystectomy. He has a prior midline incision from a previous exlap. Known diagnosis of stable cirrhosis, RUBIO on CPAP and obesity. PROCEDURE NOTE: extensive midline adhesions including a loop of small bowel that is flat and densely adhered to the midline at the level of the umbilcus. DESCRIPTION OF PROCEDURE: Patient is on scheduled meropenem doses. He was brought to the operating room,, placed supine on the table, arms out on an armboard. Bilateral SCDs placed on both lower extremities for dvt prophylaxis. General endotracheal anesthesia started. His abdomen widely prepped and draped in the usual fashion. [insert timeout] Patient has a widely protuberant, moderately rounded. He has a prior midline incision with the lower portion (infraumbilical) part of the incision with a wide scar slightly thickened tissue underneath the scar. He appears mildly distended. I started with a left upper quadrant approach. A veress needle is inserted in a controlled fashion. Intraabdominal placement confirmed with saline drop technique. CO2 insufflation started to a pressure of 15 mm Hg. Insufflation seems to be uniform throughout the abdomen. A 5 mm optical port is placed under direct vision. On insertion I immediately noticed that I am within intraabdominal fat tissue, most likely omentum. I tried to reposition the port to get to an open area but was not successful. I then placed another 5 mm optical trocar through the ruq/subcostal area. This area was free of adhesions. On initial survey, There were moderate adhesions throughout the midline attached to the falciform ligament and through to the pelvis/abdominal wall. The left side of the abdomen including the 5 mm luq port was not initially visible. Liver appears mildly enlarged, roughed texture but not nodular. Gallbladder is not visible covered with omentum, with a small amount of exudates visible b/w the edge of the liver and the attached omentum. No visible ascites. I turned my attention to the abdominal wall adhesions. I placed a rlq 8 mm robotic port at about the anterior Axillary line and started the lysis of adhesions. using laparoscopic scissors attached to monopolar cautery. The omental adhesions starting those attached to the falciform ligament including part of the falciform. This enabled to see the LUQ. The omental adhesions continue through to the LUQ area where the LUQ port is located. I brought this down to reveal the LUQ port and this indeed went through the omentum. There were no active bleeding, nor signs of injury to nearby bowels (colon) which is not close to the insertion point. I continued coming down to the lower adhesions which now involves bowel (wasnt clear which type of bowel it is). There is a loop or loops of bowels that is den sely adhered and flattened to the abdominal wall. This is at an area with the widened scar around and inferior to the umbilicus. I took a close look at the area and this seems to have some serosal tears probably from traction with separation of the omentum with the LUQ abdominal wall earlier on as the omentum is also adhered to the bowels at the area. At some point I thought there were full thickness tear/hole in the bowel but I see no active spillage of succus or stool. I continued to bring down the bowels close to the umbilicus enough to place another 8 mm port near the umbilicus. Using these 3 ports I continued working on the adhered bowel. This is densely adhered to the abdominal wall/scar and I actually had to take part of the peritoneum/scar to get around the bowels. This seems to enlarged the inolved segment of the bowel with the serosal tearing and at one point thought I had a full bowel tear though I did not see any succus or stool come out. At this point I concentrated on taking apart the bowel and omental adhesions to the left side of the abdomen above the umbilicus to enable me to place my left sided ports for the cholecystectomy and leave the bowels adhered and later take a look at this with the robot for possible repair or resection. The third robotic 8 mm trocar port was placed over at the midclavicular area at the left side of the abdomen. The da Biju robot has a malfunctioning arm so I'm only able to use 3 arms. I used the prior 5 mm left upper quadrant port as my physician assistant surgery port for gallbladder wall retraction. I later on enlarged distal and 8 mm robotic trocar to allow for passage of sponges. The robotic tower was then positioned in place and the arms docked to the robot. The patient was positioned roughly about 12 reverse Trendelenburg tilted towards the left side for the cholecystectomy portion. I then left the field and went to the surgeon's console and took control of the robotic camera and instruments at the surgeon's console. I primarily used a robotic hook connected to a monopolar cautery and a forced bipolar forceps connected to bipolar cautery thereon exchanged with a [place] and instrument as well as a pro-grasp for retraction. I turned my attention towards the liver and gallbladder. As mentioned earlier the gallbladder was not fully visible due to the inflamed omentum covering the gallbladder. I worked on the inflamed omentum from the gallbladder. This revealed an erythematous/purplish thickened gallbladder wall. There is no out right perforation or full-thickness necrosis. There are serous fluid as well as some greenish thin fluid surrounding the wall of the gallbladder. Due to the thickness of the gallbladder wall, retracting the gallbladder superiorly is not doable with my instruments. I then proceeded with a fundus down approach. I placed some cottonoids around the gallbladder to retract the duodenum as well as the omentum away from the gallbladder. The thickened peritoneum overlying the gallbladder over the fundus was dissected and I proceeded going down posteriorly to separate the gallbladder from the liver bed. I did this both laterally and medially slowly going down towards the mid body of the gallbladder. When I encountered some bleeding as well as denser adhesions I switched to the typical infundibular dissection by pushing the gallbladder superiorly and working at the lower body and presumably the neck of the gallbladder starting medially by opening up the peritoneum and later on connecting the inferior dissection to the superior dissection. The lower body and neck the gallbladder has thickened adipose tissues that made it hard for me to determine the course of the past cystic structure especially. Using firefly as I have given the patient ICG, the gallbladder does not light up. The thickening at the jayne hepatis also prevents visualization of the course of the common bile duct. I switch back and forth the superior and inferior dissection. I had some what looks like venous bleeding directly from the liver at the medial mid body at the posterior gallbladder wall which was controlled with the bipolar cautery. At this point I was able to make up the curvature of the infundibulum of the gallbladder and I followed this. There was also able to determine the location of the hepatocystic node and started dissecting this area to start to reveal the course of the cystic duct. Further dissection reveals slight opacification or lighting up of the cystic duct with firefly. The course of the cystic artery was likewise defined further with dissection of the fibrosed hepatocystic triangle and division of the fibroadipose tissue connecting the hepatocystic lymph node. As I was able to define the course of the cystic lymph node with firefly, is able to come around this much better. I initially placed a clip right by posterior to the hepatocystic note thinking that is the cystic artery but on causing it this seems to be some lymphatic structures but this further reveals a pumping cystic artery. The cystic artery was clipped 3 times and I divided this sharply which let me get behind further at the cystic plate at the lower body next the gallbladder essentially releasing the gallbladder off the liver bed where it is only attached by the cystic duct. This was further skeletonized to allow for placement of clips. I placed 3 large clips at the cystic duct and this was divided. Visualization with firefly after to full dissection and removal of the gallbladder shows no evidence for bile leakage. I irrigated at the area underneath the liver to ascertain that there was no active bleeding. The gallbladder was then temporarily placed above the liver and the cottonoids that I used for retraction removed. The robot was then undocked to the trochars and swung the opposite direction. The patient was placed on a mild Trendelenburg position. The robot was redocked and this time we are centering at the loops of bowel adhered to the abdominal wall to the umbilicus and below. Still there was no evidence of any active leakage of any succus contents with the loop of bowel that was flatly adhered to the abdominal wall now appears more small bowel that rather than colon. I continued dissecting the bowel off the abdominal wall mainly with sharp dissection without any energy involved. Eventually was able to take this off the abdominal wall. Further loops of bowel adhered to the lower abdominal wall anteriorly was likewise divided. Some of the interloop adhesions likewise were divided to allow me to run the bowel both antegrade and retrograde to the area of the small bowel that was scarred in and that I knew had some sort of serosal injuries. There were loops of the left colon likewise today removed from the left side of the abdominal wall. I did not go deep down into the pelvis as my port positions were not optimally placed for this. Soft elemental adhesions to the small bowel was likewise removed. Once I knew I have adequate length of bowel for me to be able to pull this out of the abdomen and make a decision whether to resect or not, I scrubbed back and and the da Biju robot tower was removed. I made a periumbilical vertical incision essentially removing the scar tissue at the skin. This was taken through to the thin abdominal wall and the abdomen was opened. The loops of small bowel was delivered and I was able to examine this further. There is about an 8-10 cm of slightly distended loop of small bowel with denuded serosa at the antimesenteric portion bowel but there was actually no full-thickness perforation. I decided to resect this portion of the bowel. The 2 ends of the bowel were divided with 75 mm stapler with a TRISTA load and the mesentery divided with LigaSure device. This was aligned in an antimesenteric fashion. The ends of the staple lines were cut off and another firing of the 75 mm linear stapler was done. The enterotomy was closed with 2 OV lock. The mesentery was closed with 2-0 Vicryl. The anastomosis was examined and tested and noted to be intact. This was placed back in the abdomen. The abdominal fascia is thin so I freed up the abdominal fascia (thin subcutaneous tissue. This was closed with running suture of #1 strata fix. Subcutaneous tissue was irrigated and skin was closed with luis. The port sites were closed with 4-0 Monocryl in subcuticular fashion. Patient tolerated procedure well. He remained stable throughout the procedure. He was successfully awakened extubated and brought to recovery room in stable condition. REGINO CASEY MD May 01, 2021 05:12
[2021-05-01] MEDS: PERCOCET 5MG/325MG TAB PO PRN ×3 (05:20→20:13)
[2021-05-01 05:39] LABS: BASO % 0.4 % (0.0-1.0); EOS # 0.1 10^3/uL (0.0-0.5); EOS % 0.7 % (0.0-3.0); HEMATOCRIT 37.3 % (42.0-52.0); HEMOGLOBIN 12.1 g/dl (13.5-17.5); LYMPH # 0.8 10^3/uL (1.5-5.0); LYMPH % 12.1 % (24.0-44.0); MEAN CORPUSCULAR HEMOGLOBIN 34.2 pg (27.0-33.0); MEAN CORPUSCULAR HGB CONC 32.4 g/dl (32.0-36.5); MEAN CORPUSCULAR VOLUME 105.4 fl (80.0-96.0); MONO # 0.8 10^3/uL (0.0-0.8); MONO % 11.5 % (2.0-8.0); NEUTROPHILS # 5.1 10^3/uL (1.5-8.5); NEUTROPHILS % 74.7 % (36.0-66.0); PLATELET COUNT, AUTOMATED 259 10^3/uL (150-450); RED BLOOD COUNT 3.54 10^6/uL (4.30-6.10); WHITE BLOOD COUNT 6.9 10^3/uL (4.0-10.0)
[2021-05-01 05:56] LABS: ALBUMIN 2.8 GM/DL (3.2-5.2); ALT/SGPT 624 U/L (12-78); BILIRUBIN,TOTAL 1.3 MG/DL (0.2-1.0); BLOOD UREA NITROGEN 17 MG/DL (7-18); CALCIUM LEVEL 8.1 MG/DL (8.8-10.2); CARBON DIOXIDE LEVEL 25 MEQ/L (21-32); CHLORIDE LEVEL 106 MEQ/L (98-107); CREATININE FOR GFR 0.89 MG/DL (0.70-1.30); GLOMERULAR FILTRATION RATE > 60.0 (>49); GLUCOSE, FASTING 96 MG/DL (70-100); POTASSIUM SERUM 4.4 MEQ/L (3.5-5.1); SODIUM LEVEL 139 MEQ/L (136-145); TOTAL PROTEIN 5.9 GM/DL (6.4-8.2)
[2021-05-01] MEDS: HumaLOG INSULIN (NovoLOG) PER UNIT SC SCH ×4 (07:30→19:58)
[2021-05-01] MEDS: ADVAIR HFA 115/21MCG INHALER INH SCH ×2 (08:02→20:46)
[2021-05-01] MEDS: COMBIVENT RESPIMAT 100-20MCG INHALER 4GM INH SCH ×3 (08:02→20:46)
--- NOTE | 2021-05-01 08:30 | IPNPDOC ---
Text Note Date of Service The patient was seen on 05/01/21. NOTE Patient complaining of soreness at his incision sites otherwise denies any joseph sea. He has been stable overnight. He has been breathing comfortably on his own, in the evening on his CPAP regular settings. Valve signs. Are stable. His non-tachycardic. He is at 2 L nasal cannula at the time [id number]%. Overall looks comfortable and exam Anicteric sclerae No jugular venous distention Lung sounds are fairly clear, no rales. No wheezing. Limited chest expansion Regular heart rate and rhythm Abdomen is markedly rounded and seems to be moderately distended, tympanitic to percussion. He has several port sites covered with small 2 x 2's and Tegaderm. The looked clean and dry. The infraumbilical midline incision is about 4 or 5 cm. Small staining at the middle. Otherwise clean and dry. Bowel sounds are relatively hypoactive. Mildly tender mostly at the midline incision. No significant extremity edema Labs were reviewed LFTs are better. Total bilirubin down to 1.3 Impression and plan He is postop day 1 after robotic-assisted laparoscopic cholecystectomy, extensive lysis of adhesion, resection of small portion of small bowel with anastomosis He still has some ongoing ileus I think I will keep him on clears for now. I have encouraged him to ambulate the hallways to try to help him pass gas. Also advised him to take deep breathing exercises, incentive spirometer. I will discontinue Tovar catheter today Come down on IV fluids to 75 miles an hour Suggest keeping the antibiotics for a short course only. Await bowel function before advancing diet further. I'll start him on Entereg. I placed him on Lovenox for DVT prophylaxis. VS,Fishbone, I+O VS, Fishbone, I+O Laboratory Tests 05/01/21 04:52 Vital Signs Date Time Temp Pulse Resp B/P (MAP) Pulse Ox O2 Delivery O2 Flow Rate FiO2 05/01/21 05:50 18 05/01/21 05:43 97.9 83 126/75 (92) 94 Nasal Cannula 2.0 04/30/21 15:07 100 I&O- Last 24 Hours up to 6 AM 05/01/21 06:00 Intake Total 2170 ml Output Total 885 ml Balance 1285 ml AUTUMN MAK MD May 01, 2021 08:30
[2021-05-01] MEDS: ENOXAPARIN 40MG/0.4ML SYRINGE (J1650 PER 10MG) SC SCH (09:15)
[2021-05-01] MEDS: OMEPRAZOLE 20 MG CAP PO SCH (09:16)
[2021-05-01] MEDS: VITAMIN D 1,000 INTERNATIONAL UNITS TABLET PO SCH (09:16)
[2021-05-01] MEDS: MULTIVITAMINS/MINERALS THERAP 1 TAB PO SCH (09:16)
[2021-05-01] MEDS: MORPHINE 4 MG/ML 1ML VIAL/SYRINGE (J2270) IV PRN ×3 (09:16→21:36)
[2021-05-01] MEDS: rifAXIMin 550 MG TAB (XIFAXAN) PO SCH ×2 (09:17→20:13)
[2021-05-01] MEDS: ALVIMOPAN 12 MG CAPSULE (ENTEREG) PO SCH ×2 (10:13→20:12)
--- NOTE | 2021-05-01 12:46 | IPNPDOC ---
Text Note Date of Service The patient was seen on 05/01/21. NOTE Subjective: Patient is a 65-year-old male who presented to the emergency room complaints of right upper abdominal pain that started yesterday after dinner. Patient reports that after he ate dinner. He was experiencing right upper quadrant pain described as 8/10, sharp, achy, non-radiating, alleviated by staying still and aggravated movement. Patient slept the night and came to the ER this morning for further evaluation. . She was admitted to hospital service for further evaluation and treatment. Gastroenterology and general surgery were called on consultation. Patient was recently admitted from 04/10 to 04/16 for the similar complaint. At that point. Patient was suspected of having choledocholithiasis. An MRCP was completed that was negative. General surgery was on consultation. Patient had an attempted cholecystostomy tube placement, however was unsuccessful. Patient was subsequently discharged home with instructions to follow up with gastr oenterology and general surgery as an outpatient. Patient reported that he was discharged with antibiotics (Cefdinir and Flagyl) and has just completed them last week. Patient was seen and examined at the bedside. Patient reported some abdominal discomfort. He denies any nausea, vomiting. Denies chest pain, shortness breath, palpitations. Reports that he has not yet had a bowel movement. Has not passed any gas since surgery. Objective: Vitals (See below) General: Patient is sitting up in bed, appears to be comfortable, in any acute distress, is oriented to person, place and time HEENT: Normal cephalic and atraumatic CVS: +S1S2 Lungs: Air entry is fair bilaterally without evidence of wheezing, crackles or rhonchi Abdomen: Soft, obese, diffuse tenderness, YOBANI drain noted. Laparoscopic incisions noted Extremities: No evidence of edema Imaging: Gallbladder US 04/29: Findings consistent with acute cholecystitis and correlation is recommended. Hepatosteatosis. MRCP 04/29: 1. Gallbladder wall thickening is identified with a hypointense gallstone and pericholecystic stranding and possible fluid. These findings are concerning for acute cholecystitis. Similar findings are visualized on the prior study. Clinical correlation is recommended. 2. Stranding is identified adjacent to the proximal duodenum, suggestive of duodenitis 3. No definitive filling defect identified within the common bile duct to suggest a common bile duct stone. No significant biliary dilatation. 4. Mild hepatosplenomegaly. 5. Left renal cysts. A few subcentimeter T2 hyperintense lesions are identified within the kidneys bilaterally, which are too small to characterize further. 6. Minimal bilateral pleural effusions. 7. Additional findings described above. Assessment and plan: Abdominal pain / Transaminitis - likely multifactorial; 2/2 recently passed stone and cholecystitis, component of acute pancreatitis, possibly 2/2 choledocholithiasis (but likely passed) - Presented to ER with abdominal pain; patient still reports some persistent abdominal discomfort - Physical without any significant tenderness - Hemodynamically stable and afebrile - Transaminitis has been improving - No leukocytosis / no lactic acidosis - Lipase normalized - Blood cultures 04/29: Negative at 24 hours - MRCP negative for any stone within the biliary system - s/p robotic-assisted laparoscopic lysis of adhesions, cholecystectomy, small bowel resection with anastomosis with Dr. Casey on 04/30/21 - c/w Meropenem for intra-abdominal coverage (Day #3) - GI / General surgery on consultation; appreciate their input Chronic Diastolic CHF - No evidence of decompensation - Patient reports that he does not take any diuretics as an outpatient - s/p IV fluids NIDDM2 - c/w ISS DLP - c/w Simvastatin Chronic COPD - Chronic hypoxic respiratory failure (on 2L of [place] oxygen) - Currently patient is on baseline level of oxygen - No evidence of exacerbation - c/w inhaled therapy as ordered Central Sleep Apnea on BIPAP - May allow home BIPAP use while inpatient Cirrhosis / Fatty liver disease - c/w Rifaximin Hx of Nicotine dependence (Quit 2014) Hx of Alcohol dependence (Quit 2010) Bipolar II - Reported tremors / tardive dyskinesia 2/2 current medications hes on - c/w Risperidone - c/w Divalproex on hold (re: Transaminitis) Chronic back pain 2/2 Lumbar and cervical spinal stenosis / Neuropathy - c/w Tylenol PRN BPH - c/w Tamsulosin and Finasteride Gout - c/w Allopurinol Testosterone deficiency GERD - c/w Omeprazole DVT prophylaxis - c/w Lovenox Disposition: - c/w PT and OT - Awaiting clinical improvement VS,Fishbone, I+O VS, Fishbone, I+O Laboratory Tests 05/01/21 04:52 Vital Signs Date Time Temp Pulse Resp B/P (MAP) Pulse Ox O2 Delivery O2 Flow Rate FiO2 05/01/21 11:53 18 05/01/21 08:00 97.5 88 103/57 (72) 95 Nasal Cannula 2.0 04/30/21 15:07 100 I&O- Last 24 Hours up to 6 AM 05/01/21 05:59 Intake Total 2170 ml Output Total 1010 ml Balance 1160 ml MARY LOU ORTA MD May 01, 2021 12:46
[2021-05-01] MEDS: FOLIC ACID 1 MG TAB PO SCH (20:12)
[2021-05-01] MEDS: allopurinoL 100 MG TAB PO SCH (20:12)
[2021-05-01] MEDS: FINASTERIDE 5 MG TAB PO SCH (20:12)
[2021-05-01] MEDS: TAMSULOSIN 0.4 MG CAP PO SCH (20:12)
[2021-05-01] MEDS: SIMVASTATIN 20 MG TAB PO SCH (20:13)
[2021-05-01] MEDS: risperiDONE 2 MG TAB PO SCH (20:19)
[2021-05-02] VITALS (8 sets, daily range): BP systolic 120–147; BP diastolic 58–71; O2SAT 93
[2021-05-02] MEDS: KETOROLAC 30 MG/ML 1ML VIAL IV SCH ×4 (00:25→18:23)
[2021-05-02] MEDS: MORPHINE 4 MG/ML 1ML VIAL/SYRINGE (J2270) IV PRN ×3 (01:25→17:44)
[2021-05-02 05:54] LABS: BASO % 0.7 % (0.0-1.0); EOS # 0.2 10^3/uL (0.0-0.5); HEMATOCRIT 35.4 % (42.0-52.0); HEMOGLOBIN 11.5 g/dl (13.5-17.5); LYMPH # 0.8 10^3/uL (1.5-5.0); LYMPH % 13.2 % (24.0-44.0); MEAN CORPUSCULAR HGB CONC 32.5 g/dl (32.0-36.5); MEAN CORPUSCULAR VOLUME 104.7 fl (80.0-96.0); MONO # 0.6 10^3/uL (0.0-0.8); MONO % 10.2 % (2.0-8.0); NEUTROPHILS # 4.4 10^3/uL (1.5-8.5); NEUTROPHILS % 72.6 % (36.0-66.0); PLATELET COUNT, AUTOMATED 224 10^3/uL (150-450); RED BLOOD COUNT 3.38 10^6/uL (4.30-6.10)
[2021-05-02] MEDS: MEROPENEM INJ 1 GM in IV 1 EA IV SCH (06:15)
[2021-05-02 06:22] LABS: ALBUMIN 2.7 GM/DL (3.2-5.2); ALT/SGPT 430 U/L (12-78); BILIRUBIN,TOTAL 0.9 MG/DL (0.2-1.0); BLOOD UREA NITROGEN 11 MG/DL (7-18); CALCIUM LEVEL 8.1 MG/DL (8.8-10.2); CARBON DIOXIDE LEVEL 27 MEQ/L (21-32); CHLORIDE LEVEL 105 MEQ/L (98-107); CREATININE FOR GFR 0.68 MG/DL (0.70-1.30); GLOMERULAR FILTRATION RATE > 60.0 (>49); GLUCOSE, FASTING 86 MG/DL (70-100); MAGNESIUM LEVEL 2.1 MG/DL (1.8-2.4); POTASSIUM SERUM 4.2 MEQ/L (3.5-5.1); SODIUM LEVEL 138 MEQ/L (136-145); TOTAL PROTEIN 5.8 GM/DL (6.4-8.2)
[2021-05-02] MEDS: ADVAIR HFA 115/21MCG INHALER INH SCH ×2 (07:20→19:27)
[2021-05-02] MEDS: COMBIVENT RESPIMAT 100-20MCG INHALER 4GM INH SCH ×3 (07:20→19:27)
[2021-05-02] MEDS: HumaLOG INSULIN (NovoLOG) PER UNIT SC SCH ×4 (07:30→20:48)
[2021-05-02] MEDS ORDERED: MIRALAX *UNIT DOSE* 17GM PACKET PO ONE (08:00)
[2021-05-02] MEDS: MULTIVITAMINS/MINERALS THERAP 1 TAB PO SCH (08:44)
[2021-05-02] MEDS: OMEPRAZOLE 20 MG CAP PO SCH (08:44)
[2021-05-02] MEDS: ALVIMOPAN 12 MG CAPSULE (ENTEREG) PO SCH ×2 (08:44→20:46)
[2021-05-02] MEDS: ENOXAPARIN 40MG/0.4ML SYRINGE (J1650 PER 10MG) SC SCH (08:44)
[2021-05-02] MEDS: rifAXIMin 550 MG TAB (XIFAXAN) PO SCH ×2 (08:45→20:47)
[2021-05-02] MEDS: PERCOCET 5MG/325MG TAB PO PRN ×2 (08:45→20:47)
[2021-05-02] MEDS: VITAMIN D 1,000 INTERNATIONAL UNITS TABLET PO SCH (08:45)
--- NOTE | 2021-05-02 08:53 | IPNPDOC ---
Text Note Date of Service The patient was seen on 05/02/21. NOTE Gen. surgery. Dr. Mak The patient is a 65-year-old male postop day 2 robotic-assisted laparoscopic cholecystectomy, extensive lysis of adhesion, resection of small portion of small bowel with anastomosis as per Dr. Mak. The patient is up out of bed to the chair. He just finished clear liquids for breakfast. Denies nausea or vomiting. Still feels bloated. States he is passing a small amount of gas. No bowel movement yet. States he is using incentive spirometer. He was evaluated by physical therapy yesterday, he walked 10 feet with rolling walker. Afebrile. Blood pressure 120/58, heart rate 96, respiratory rate 18, 92% 2 L nasal cannula. MMM Lungs with good air entry, no wheezing or rales noted. S1-S2 regular rate and rhythm. Abdomen is obese, distended, tympanic with percussion, incisions are covered with gauze and Tegaderm, no drainage, clean, dry and intact. Midline incision with a small amount of staining on the dressing however this appears to be u nchanged from yesterday. YOBANI with serosanguineous drainage. WBC 6.0, hemoglobin 11.5, platelets 224. LFTs trending downward. Assessment/plan Postop day 2 robotic-assisted laparoscopic cholecystectomy, extensive lysis of adhesion, resection of small portion of small bowel with anastomosis as per Dr. Mak. Reports pain is reasonably controlled. Reports a small amount of flatus, still with abdominal distention. Continue clear liquids. IVF 75cc/hr. Entereg. Encourage out of bed and ambulation. The patient is out of bed to the chair. He walked a short distance with physical therapy yesterday. Continue to monitor progress with physical therapy. Continue incentive spirometer. DVT px. Lovenox. VS,Fishbone, I+O VS, Fishbone, I+O Laboratory Tests 05/02/21 05:02 Vital Signs Date Time Temp Pulse Resp B/P (MAP) Pulse Ox O2 Delivery O2 Flow Rate FiO2 05/02/21 07:30 97.0 05/02/21 07:16 96 18 120/58 (78) 92 Nasal Cannula 2.0 04/30/21 15:07 100 I&O- Last 24 Hours up to 6 AM 05/02/21 06:00 Intake Total 1615 ml Output Total 1230 ml Balance 385 ml Attending Note Attending Note Patient seen with his at the bedside. He was sitting on the chair. He looks comfortable. He reports he is burping mildly but is having flatus. No BMs yet. He denies any nausea. He is tolerating clear liquids. He has been afebrile. Non-tachycardic. He still is on 2 L nasal cannula with sats above 9495%. On examination Breathing seems normal. Good respirations. Clear breath sounds He's been tachycardic. Abdomen remains to be moderately distended but less so than it was yesterday. His dressings save for the midline incision which has a small amount of staining are clean dry and intact. He is draining spots or cyanosis.. Impression and plan He is postop day 2 following robotic-assisted laparoscopic cholecystectomy, extensive lysis of adhesions. He needed a small bowel resection of short segment small bowel with multiple serosal tears from the lysis of adhesions I will keep him on clear liquids. I told him that if he continues to pass more flatus and decompressed I will advance his diet slowly. Otherwise he seems to be doing well. His LFTs continued to trend down. His discomfort seems to be adequately controlled. We are keeping Toradol and scheduled doses up till through tomorrow. He has started to work with physical therapy. Adeline Telles May 02, 2021 08:53 AUTUMN MAK MD May 03, 2021 09:44
[2021-05-02] MEDS: LR 1,000 ML IV SCH (09:31)
--- NOTE | 2021-05-02 15:54 | IPNPDOC ---
Text Note Date of Service The patient was seen on 05/02/21. NOTE Subjective: -No acute events overnight -Passing flatus, no BM yet Objective: Vitals: See below General: In any acute distress, is oriented to person, place and time HEENT: Normocephalic and atraumatic, EOMI, MMM CVS: RRR, +S1S2 Lungs: Air entry is fair bilaterally without evidence of wheezing, crackles or rhonchi Abdomen: Soft, obese, diffuse tenderness, YOBANI drain noted wit serosanguinous small amount of drainage. Laparoscopic incisions noted Extremities: No evidence of edema Labs: WBC 6 Hgb 11.5 platelets 224 Na 138 K 4.2 Cr 0.68 AST 143 ALT 430 T bili 0.9 Alk phos 205 Imaging: Gallbladder US 04/29: Findings consistent with acute cholecystitis and correlation is recommended. Hepatosteatosis. MRCP 04/29: 1. Gallbladder wall thickening is identified with a hypointense gallstone and pericholecystic stranding and possible fluid. These findings are concerning for acute cholecystitis. Similar findings are visualized on the prior study. Clinical correlation is recommended. 2. Stranding is identified adjacent to the proximal duodenum, suggestive of duodenitis 3. No definitive filling defect identified within the common bile duct to suggest a common bile duct stone. No significant biliary dilatation. 4. Mild hepatosplenomegaly. 5. Left renal cysts. A few subcentimeter T2 hyperintense lesions are identified within the kidneys bilaterally, which are too small to characterize further. 6. Minimal bilateral pleural effusions. 7. Additional findings described above. Assessment: 65-year-old M who presented to the emergency room complaints of acute right upp er abdominal pain i/s/o recent admission of choledocholithiasis who was now admitted for priscila cholecystitis and is POD 2 s/p robotic-assisted laparoscopic cholecystectomy, extensive lysis of adhesion, resection of small portion of small bowel with anastomosis by Dr. Casey. Plan: Acute cholecystitis: - POD 2 s/p robotic-assisted laparoscopic cholecystectomy, extensive lysis of adhesion, resection of small portion of small bowel with anastomosis by Dr. Casey on 04/30/2021 - Transaminitis improving - No leukocytosis / no lactic acidosis - Lipase normalized - Blood cultures 04/29: Negative at 24 hours - MRCP negative for any stone within the biliary system - c/w Meropenem for intra-abdominal coverage (Day #3) - General surgery on consultation; appreciate their input Chronic Diastolic CHF - No evidence of decompensation - Patient reports that he does not take any diuretics as an outpatient - s/p IV fluids NIDDM2 - c/w ISS DLP - c/w Simvastatin Chronic COPD - Chronic hypoxic respiratory failure (on 2L of [place] oxygen) - Currently patient is on baseline level of oxygen - No evidence of exacerbation - c/w inhaled therapy as ordered Central Sleep Apnea on BIPAP - May allow home BIPAP use while inpatient Cirrhosis / Fatty liver disease - c/w Rifaximin Hx of Nicotine dependence (Quit 2014) Hx of Alcohol dependence (Quit 2010) Bipolar II - Reported tremors / tardive dyskinesia 2/2 current medications hes on - c/w Risperidone - c/w Divalproex that had been held Chronic back pain 2/2 Lumbar and cervical spinal stenosis / Neuropathy - c/w Tylenol PRN BPH - c/w Tamsulosin and Finasteride Gout - c/w Allopurinol Testosterone deficiency GERD - c/w Omeprazole DVT prophylaxis - c/w Lovenox Disposition: - c/w PT and OT - Awaiting clinical improvement VS,Nestorbone, I+O VS, Fishbone, I+O Laboratory Tests 05/02/21 05:02 Vital Signs Date Time Temp Pulse Resp B/P (MAP) Pulse Ox O2 Delivery O2 Flow Rate FiO2 05/02/21 08:45 18 05/02/21 07:30 97.0 05/02/21 07:16 96 120/58 (78) 92 Nasal Cannula 2.0 04/30/21 15:07 100 I&O- Last 24 Hours up to 6 AM 05/02/21 06:00 Intake Total 1615 ml Output Total 1230 ml Balance 385 ml TOM TAO MD May 02, 2021 09:09
[2021-05-02] MEDS: FINASTERIDE 5 MG TAB PO SCH (20:46)
[2021-05-02] MEDS: TAMSULOSIN 0.4 MG CAP PO SCH (20:46)
[2021-05-02] MEDS: risperiDONE 2 MG TAB PO SCH (20:46)
[2021-05-02] MEDS: FOLIC ACID 1 MG TAB PO SCH (20:47)
[2021-05-02] MEDS: allopurinoL 100 MG TAB PO SCH (20:47)
[2021-05-02] MEDS: SIMVASTATIN 20 MG TAB PO SCH (20:47)
[2021-05-02] MEDS: DIVALPROEX 500MG *ER* TAB PO SCH (20:47)
[2021-05-03] VITALS (7 sets, daily range): BP systolic 114–147; BP diastolic 57–81; O2SAT 93
[2021-05-03] MEDS: KETOROLAC 30 MG/ML 1ML VIAL IV SCH ×3 (00:24→13:21)
[2021-05-03] MEDS: PERCOCET 5MG/325MG TAB PO PRN ×2 (04:44→17:35)
[2021-05-03 05:57] LABS: BASO % 0.7 % (0.0-1.0); EOS # 0.3 10^3/uL (0.0-0.5); EOS % 5.6 % (0.0-3.0); HEMOGLOBIN 11.8 g/dl (13.5-17.5); LYMPH # 1.1 10^3/uL (1.5-5.0); LYMPH % 18.2 % (24.0-44.0); MEAN CORPUSCULAR HEMOGLOBIN 33.6 pg (27.0-33.0); MEAN CORPUSCULAR HGB CONC 32.8 g/dl (32.0-36.5); MEAN CORPUSCULAR VOLUME 102.6 fl (80.0-96.0); MONO # 0.8 10^3/uL (0.0-0.8); MONO % 12.4 % (2.0-8.0); NEUTROPHILS # 3.8 10^3/uL (1.5-8.5); NEUTROPHILS % 62.8 % (36.0-66.0); PLATELET COUNT, AUTOMATED 236 10^3/uL (150-450); RED BLOOD COUNT 3.51 10^6/uL (4.30-6.10)
[2021-05-03 06:25] LABS: ALBUMIN 2.7 GM/DL (3.2-5.2); ALT/SGPT 293 U/L (12-78); BILIRUBIN,TOTAL 0.7 MG/DL (0.2-1.0); BLOOD UREA NITROGEN 8 MG/DL (7-18); CALCIUM LEVEL 8.5 MG/DL (8.8-10.2); CARBON DIOXIDE LEVEL 26 MEQ/L (21-32); CHLORIDE LEVEL 105 MEQ/L (98-107); CREATININE FOR GFR 0.77 MG/DL (0.70-1.30); GLOMERULAR FILTRATION RATE > 60.0 (>49); GLUCOSE, FASTING 101 MG/DL (70-100); MAGNESIUM LEVEL 2.1 MG/DL (1.8-2.4); POTASSIUM SERUM 3.7 MEQ/L (3.5-5.1); SODIUM LEVEL 138 MEQ/L (136-145); TOTAL PROTEIN 6.6 GM/DL (6.4-8.2)
[2021-05-03] MEDS: COMBIVENT RESPIMAT 100-20MCG INHALER 4GM INH SCH ×3 (07:15→21:00)
[2021-05-03] MEDS: ADVAIR HFA 115/21MCG INHALER INH SCH ×2 (07:16→21:00)
[2021-05-03] MEDS ORDERED: MOM 30ML SUSPENSION UDC PO ONE (07:20)
[2021-05-03] MEDS: HumaLOG INSULIN (NovoLOG) PER UNIT SC SCH ×4 (07:30→21:00)
[2021-05-03] MEDS: MULTIVITAMINS/MINERALS THERAP 1 TAB PO SCH (08:15)
[2021-05-03] MEDS: DIVALPROEX 500MG *ER* TAB PO SCH ×2 (08:15→20:26)
[2021-05-03] MEDS: OMEPRAZOLE 20 MG CAP PO SCH (08:15)
[2021-05-03] MEDS: rifAXIMin 550 MG TAB (XIFAXAN) PO SCH ×2 (08:15→20:26)
[2021-05-03] MEDS: VITAMIN D 1,000 INTERNATIONAL UNITS TABLET PO SCH (08:16)
[2021-05-03] MEDS: ENOXAPARIN 40MG/0.4ML SYRINGE (J1650 PER 10MG) SC SCH (08:16)
--- NOTE | 2021-05-03 08:33 | IPNPDOC ---
Text Note Date of Service The patient was seen on 05/03/21. NOTE Gen. surgery. Dr. Mak The patient is a 65-year-old male postop day 3 robotic-assisted laparoscopic cholecystectomy, extensive lysis of adhesion, resection of small portion of small bowel with anastomosis as per Dr. Mak. The patient is in the chair, states he sleeps in the chair at home. Tolerating clears, denies nausea or vomiting. Still feels bloated. States he is passing more gas. No bowel movement yet. States he is using incentive spirometer. He was evaluated by physical therapy yesterday, walked 30 feet. Afebrile. VSS, 100% 2 L nasal cannula. MMM Lungs with good air entry, no wheezing or rales noted. S1-S2 regular rate and rhythm. Abdomen is obese, distended, still tympanic, appears about the same as yesterday, incisions are covered with gauze and Tegaderm, no drainage, clean, dry and intact. Midline incision with a small amount of staining on the dressing however this appears to be unchanged. YOBANI with serosanguineous drainage. WBC 6.0, hemoglobin 11.8, LFTs trending downward. Assessment/plan Postop day 3 robotic-assisted laparoscopic cholecystectomy, extensive lysis of adhesion, resection of small portion of small bowel with anastomosis as per Dr. Mak. Reports pain is controlled. Reports more flatus, but still no BM, still with abdominal distention. Had MOM and Miralax yesterday. Continue clear liquids. IVF 75cc/hr. Entereg. Encourage out of bed and ambulation. He walked 30 ft with physical therapy yesterday. Continue to monitor progress with physical therapy. Continue incentive spirometer. DVT px. Lovenox. VS,Fishbone, I+O VS, Fishbone, I+O Laboratory Tests 05/03/21 05:33 Vital Signs Date Time Temp Pulse Resp B/P (MAP) Pulse Ox O2 Delivery O2 Flow Rate FiO2 05/03/21 07:40 97.7 83 18 121/59 (79) 100 Nasal Cannula 2.0 04/30/21 15:07 100 I&O- Last 24 Hours up to 6 AM 05/03/21 05:59 Intake Total 3105 ml Output Total 1055 ml Balance 2050 ml Attending Note Attending Note I evaluated Mr. Godinez. He reports he is feeling better, passing more flatus. He sitting on the chair. He sleeps in a recliner at home. Pain seems to be well- controlled. On examination his lungs are clear. He is breathing normally. He is not tachycardic. Abdomen is moderately rounded, still mildly distended but a lot softer than it was the last couple of days. He has some mild tenderness mainly centered at the midline incision. His drain is getting manager english in color more serious than serosanguineous. He has no significant extremity edema. Labs were reviewed. He does not have any leukocytosis. His LFTs continue to improve not normal yet. Impression and plan: He is now postop day 3 after robotic-assisted laparoscopic cholecystectomy, also needing bowel resection of short segment due to serosal injuries from the lysis of adhesions I will advance him to soft diet His IV fluids have already been removed. The meropenem has been discontinued. I encouraged him to continue to work with physical therapy to increase his activity level. DVT prophylaxis in place. Adeline Telles May 03, 2021 08:12 AUTUMN MAK MD May 03, 2021 09:41
[2021-05-03] MEDS: ALVIMOPAN 12 MG CAPSULE (ENTEREG) PO SCH ×2 (09:19→20:26)
--- NOTE | 2021-05-03 13:49 | IPNPDOC ---
Text Note Date of Service The patient was seen on 05/03/21. NOTE Subjective: -No acute events overnight -Passing flatus, no BM yet -Was advanced to soft diet by surgical team Objective: Vitals: See below General: In any acute distress, is oriented to person, place and time HEENT: Normocephalic and atraumatic, EOMI, MMM CVS: RRR, +S1S2 Lungs: Air entry is fair bilaterally without evidence of wheezing, crackles or rhonchi Abdomen: Soft, obese, diffuse tenderness, YOBANI drain still present with serosanguinous small amount of drainage. Laparoscopic incisions noted. Normoactive sounds Extremities: No evidence of edema Labs: WBC 6 Hgb 11.8 platelets 236 Na 138 K 3.7 Cr 0.77 AST 71 ALT 293 Alk phos 190 Imaging: Gallbladder US 04/29: Findings consistent with acute cholecystitis and correlation is recommended. Hepatosteatosis. MRCP 04/29: 1. Gallbladder wall thickening is identified with a hypointense gallstone and pericholecystic stranding and possible fluid. These findings are concerning for acute cholecystitis. Similar findings are visualized on the prior study. Clinical correlation is recommended. 2. Stranding is identified adjacent to the proximal duodenum, suggestive of duodenitis 3. No definitive filling defect identified within the common bile duct to suggest a common bile duct stone. No significant biliary dilatation. 4. Mild hepatosplenomegaly. 5. Left renal cysts. A few subcentimeter T2 hyperintense lesions are identified within the kidneys bilaterally, which are too small to characterize further. 6. Minimal bilateral pleural effusions. 7. Additional findings described above. Assessment: 65-year-old M who presented to the emergency room complaints of acute right upper abdominal pain i/s/o recent admission of choledocholithiasis who was now admitted for priscila cholecystitis and is POD 2 s/p robotic-assisted laparoscopic cholecystectomy, extensive lysis of adhesion, resection of small portion of small bowel with anastomosis by Dr. Casey. Plan: Acute cholecystitis: - POD 3 s/p robotic-assisted laparoscopic cholecystectomy, extensive lysis of adhesion, resection of small portion of small bowel with anastomosis by Dr. Casey on 04/30/2021 - Transaminitis resolving - No leukocytosis / no lactic acidosis - Lipase normalized - Blood cultures 04/29: Negative at 24 hours - MRCP negative for any stone within the biliary system - s/p Meropenem for intra-abdominal coverage, dc'd 05/02 after 4d - General surgery on consultation; appreciate their input, advanced to soft diet, on bowel regimen Chronic Diastolic CHF - No evidence of decompensation - Patient reports that he does not take any diuretics as an outpatient - s/p IV fluids NIDDM2 - c/w ISS DLP - c/w Simvastatin Chronic COPD - Chronic hypoxic respiratory failure (on 2L of [place] oxygen) - Currently patient is on baseline level of oxygen - No evidence of exacerbation - c/w inhaled therapy as ordered Central Sleep Apnea on BIPAP - May allow home BIPAP use while inpatient Cirrhosis / Fatty liver disease - c/w Rifaximin Hx of Nicotine dependence (Quit 2014) Hx of Alcohol dependence (Quit 2010) Bipolar II - Reported tremors / tardive dyskinesia 2/2 current medications hes on - c/w Risperidone - c/w Divalproex Chronic back pain 2/2 Lumbar and cervical spinal stenosis / Neuropathy - c/w Tylenol PRN BPH - c/w Tamsulosin and Finasteride Gout - c/w Allopurinol Testosterone deficiency GERD - c/w Omeprazole DVT prophylaxis - c/w Lovenox Disposition: - c/w PT and OT - Awaiting clinical improvement VSEb, I+O VSEb I+O Laboratory Tests 05/03/21 05:33 Vital Signs Date Time Temp Pulse Resp B/P (MAP) Pulse Ox O2 Delivery O2 Flow Rate FiO2 05/03/21 07:40 97.7 83 18 121/59 (79) 100 Nasal Cannula 2.0 04/30/21 15:07 100 I&O- Last 24 Hours up to 6 AM 05/03/21 06:00 Intake Total 3105 ml Output Total 1055 ml Balance 2050 ml TOM TAO MD May 03, 2021 09:48
[2021-05-03] MEDS: TAMSULOSIN 0.4 MG CAP PO SCH (20:25)
[2021-05-03] MEDS: risperiDONE 2 MG TAB PO SCH (20:25)
[2021-05-03] MEDS: allopurinoL 100 MG TAB PO SCH (20:25)
[2021-05-03] MEDS: FOLIC ACID 1 MG TAB PO SCH (20:25)
[2021-05-03] MEDS: FINASTERIDE 5 MG TAB PO SCH (20:26)
[2021-05-03] MEDS: SIMVASTATIN 20 MG TAB PO SCH (20:26)
[2021-05-04] MEDS: PERCOCET 5MG/325MG TAB PO PRN ×3 (02:13→15:16)
[2021-05-04 06:00] VITALS: BP 123/66
[2021-05-04 06:32] LABS: BASO % 0.5 % (0.0-1.0); EOS # 0.3 10^3/uL (0.0-0.5); EOS % 4.8 % (0.0-3.0); HEMATOCRIT 36.7 % (42.0-52.0); HEMOGLOBIN 12.2 g/dl (13.5-17.5); LYMPH # 1.2 10^3/uL (1.5-5.0); LYMPH % 18.3 % (24.0-44.0); MEAN CORPUSCULAR HEMOGLOBIN 34.2 pg (27.0-33.0); MEAN CORPUSCULAR HGB CONC 33.2 g/dl (32.0-36.5); MEAN CORPUSCULAR VOLUME 102.8 fl (80.0-96.0); MONO # 0.7 10^3/uL (0.0-0.8); MONO % 10.3 % (2.0-8.0); NEUTROPHILS # 4.3 10^3/uL (1.5-8.5); NEUTROPHILS % 65.5 % (36.0-66.0); PLATELET COUNT, AUTOMATED 256 10^3/uL (150-450); RED BLOOD COUNT 3.57 10^6/uL (4.30-6.10); WHITE BLOOD COUNT 6.6 10^3/uL (4.0-10.0)
[2021-05-04 07:05] LABS: ALBUMIN 2.8 GM/DL (3.2-5.2); ALT/SGPT 220 U/L (12-78); BILIRUBIN,TOTAL 0.7 MG/DL (0.2-1.0); BLOOD UREA NITROGEN 11 MG/DL (7-18); CALCIUM LEVEL 8.2 MG/DL (8.8-10.2); CARBON DIOXIDE LEVEL 27 MEQ/L (21-32); CHLORIDE LEVEL 104 MEQ/L (98-107); CREATININE FOR GFR 0.73 MG/DL (0.70-1.30); GLOMERULAR FILTRATION RATE > 60.0 (>49); GLUCOSE, FASTING 110 MG/DL (70-100); MAGNESIUM LEVEL 2.5 MG/DL (1.8-2.4); POTASSIUM SERUM 4.2 MEQ/L (3.5-5.1); SODIUM LEVEL 139 MEQ/L (136-145); TOTAL PROTEIN 6.1 GM/DL (6.4-8.2)
[2021-05-04] MEDS: HumaLOG INSULIN (NovoLOG) PER UNIT SC SCH ×2 (07:30→12:00)
[2021-05-04] MEDS: COMBIVENT RESPIMAT 100-20MCG INHALER 4GM INH SCH ×2 (07:58→13:38)
[2021-05-04] MEDS: ADVAIR HFA 115/21MCG INHALER INH SCH (07:59)
[2021-05-04] MEDS: rifAXIMin 550 MG TAB (XIFAXAN) PO SCH (08:03)
[2021-05-04] MEDS: ENOXAPARIN 40MG/0.4ML SYRINGE (J1650 PER 10MG) SC SCH (08:03)
[2021-05-04] MEDS: OMEPRAZOLE 20 MG CAP PO SCH (08:03)
[2021-05-04] MEDS: DIVALPROEX 500MG *ER* TAB PO SCH (08:04)
[2021-05-04] MEDS: MULTIVITAMINS/MINERALS THERAP 1 TAB PO SCH (08:04)
[2021-05-04] MEDS: VITAMIN D 1,000 INTERNATIONAL UNITS TABLET PO SCH (08:04)
[2021-05-04] MEDS: ALVIMOPAN 12 MG CAPSULE (ENTEREG) PO SCH (08:04)
--- NOTE | 2021-05-04 08:54 | IPNPDOC ---
Text Note Date of Service The patient was seen on 05/04/21. NOTE Gen. surgery. Dr. Mak The patient is a 65-year-old male postop day 4 robotic-assisted laparoscopic cholecystectomy, extensive lysis of adhesion, resection of small portion of small bowel with anastomosis as per Dr. Mak. The patient is in the chair, states he sleeps in the chair at home. Tolerating soft diet, denies nausea or vomiting. States had large bowel movement this morning followed by another bowel movement. Afebrile. VSS, 95% 2 L nasal cannula. MMM Abdomen is obese, soft and less distended today, incisions are covered with gauze and Tegaderm, no drainage, clean, dry and intact. Midline incision with a small amount of staining on the dressing however this appears to be unchanged. YOBANI with serosanguineous drainage. WBC 6.6, hemoglobin 12.2, LFTs continue trending downward. Assessment/plan Postop day 4 robotic-assisted laparoscopic cholecystectomy, extensive lysis of adhesion, resection of small portion of small bowel with anastomosis as per Dr. Mak. The patient is reviewed as per Dr. Mak. Pain has been controlled. 2 bowel movements this morning. Tolerating soft diet, plan is to advance to regular diet today. DC YOBANI drain. Entereg. Continue PT and out of bed and ambulation. Continue incentive spirometer. DVT px. Lovenox. VS,Fishbone, I+O VS, Fishbone, I+O Laboratory Tests 05/04/21 06:03 Vital Signs Date Time Temp Pulse Resp B/P (MAP) Pulse Ox O2 Delivery O2 Flow Rate FiO2 05/04/21 08:25 2.0 05/04/21 08:24 18 05/04/21 06:00 96.9 85 123/66 (85) 94 NIPPV (BIPAP/CPAP) 04/30/21 15:07 100 I&O- Last 24 Hours up to 6 AM 05/04/21 06:00 Intake Total 278 ml Output Total 330 ml Balance -52 ml Adeline Telles May 04, 2021 08:54 AUTUMN MAK MD May 18, 2021 13:26
--- NOTE | 2021-05-04 12:17 | IPNPDOC ---
Text Note Date of Service The patient was seen on 05/04/21. NOTE Subjective: -No acute events overnight -had 2BMs overnight -Tolerating a soft diet Objective: Vitals: See below General: In any acute distress, is oriented to person, place and time HEENT: Normocephalic and atraumatic, EOMI, MMM CVS: RRR, +S1S2 Lungs: Air entry is fair bilaterally without evidence of wheezing, crackles or rhonchi Abdomen: Soft, obese, diffuse tenderness, YOBANI drain was discontinued. Laparoscopic incisions c/d/i. Normoactive sounds Extremities: No evidence of edema Labs: Reviewed Imaging: Gallbladder US 04/29: Findings consistent with acute cholecystitis and correlation is recommended. Hepatosteatosis. MRCP 04/29: 1. Gallbladder wall thickening is identified with a hypointense gallstone and pericholecystic stranding and possible fluid. These findings are concerning for acute cholecystitis. Similar findings are visualized on the prior study. Clinical correlation is recommended. 2. Stranding is identified adjacent to the proximal duodenum, suggestive of duodenitis 3. No definitive filling defect identified within the common bile duct to suggest a common bile duct stone. No significant biliary dilatation. 4. Mild hepatosplenomegaly. 5. Left renal cysts. A few subcentimeter T2 hyperintense lesions are identified within the kidneys bilaterally, which are too small to characterize further. 6. Minimal bilateral pleural effusions. 7. Additional findings described above. Assessment: 65-year-old M who presented to the emergency room complaints of acute right upper abdominal pain i/s/o recent admission of choledocholithiasis who was now a dmitted for priscila cholecystitis and is POD 2 s/p robotic-assisted laparoscopic cholecystectomy, extensive lysis of adhesion, resection of small portion of small bowel with anastomosis by Dr. Casey. Plan: Acute cholecystitis: - POD 4 s/p robotic-assisted laparoscopic cholecystectomy, extensive lysis of adhesion, resection of small portion of small bowel with anastomosis by Dr. Casey on 04/30/2021 - Transaminitis resolving - No leukocytosis / no lactic acidosis - Lipase normalized - Blood cultures 04/29: Negative - MRCP negative for any stone within the biliary system - s/p Meropenem for intra-abdominal coverage, dc'd 05/02 after 4d - General surgery on consultation; appreciate their input, advanced to soft diet, on bowel regimen and having BMs Chronic Diastolic CHF - No evidence of decompensation - Patient reports that he does not take any diuretics as an outpatient - s/p IV fluids NIDDM2 - c/w ISS DLP - c/w Simvastatin Chronic COPD - Chronic hypoxic respiratory failure (on 2L of [place] oxygen) - Currently patient is on baseline level of oxygen - No evidence of exacerbation - c/w inhaled therapy as ordered Central Sleep Apnea on BIPAP - May allow home BIPAP use while inpatient Cirrhosis / Fatty liver disease - c/w Rifaximin Hx of Nicotine dependence (Quit 2014) Hx of Alcohol dependence (Quit 2010) Bipolar II - Reported tremors / tardive dyskinesia 2/2 current medications hes on - c/w Risperidone - c/w Divalproex Chronic back pain 2/2 Lumbar and cervical spinal stenosis / Neuropathy - c/w Tylenol PRN BPH - c/w Tamsulosin and Finasteride Gout - c/w Allopurinol Testosterone deficiency GERD - c/w Omeprazole DVT prophylaxis - c/w Lovenox Disposition: Home VS,Eb, I+O VS, Eb, I+O Laboratory Tests 05/04/21 06:03 Vital Signs Date Time Temp Pulse Resp B/P (MAP) Pulse Ox O2 Delivery O2 Flow Rate FiO2 05/04/21 08:54 16 05/04/21 08:25 2.0 05/04/21 06:00 96.9 85 123/66 (85) 94 NIPPV (BIPAP/CPAP) 04/30/21 15:07 100 I&O- Last 24 Hours up to 6 AM 05/04/21 06:00 Intake Total 278 ml Output Total 330 ml Balance -52 ml TOM TAO MD May 04, 2021 12:17
--- NOTE | 2021-05-04 12:46 | DS.PDOC ---
Discharge Summary General Date of Admission Apr 29, 2021 at 13:20 Date of Discharge 05/04/2021 Attending Physician: TOM TAO MD Discharge Summary PROCEDURES PERFORMED DURING STAY: Robotic-assisted laparoscopic cholecystectomy, extensive lysis of adhesion, resection of small portion of small bowel with anastomosis by Dr. Casey on 04/30/2021. ADMITTING DIAGNOSES: CHOLEDOCHOLITHIASIS & ELEVATED LFTs. DISCHARGE DIAGNOSES: Cholelithiasis with acute over subacute cholecystitis Most likely choledocholithiasis which may have passed Biliary pancreatitis Chronic Diastolic CHF NIDDM2 DLP COPD Chronic hypoxic respiratory failure (on 2L of [place] oxygen) Central Sleep Apnea on BIPAP Cirrhosis / Fatty liver disease Hx of Nicotine dependence (Quit 2014) Hx of Alcohol dependence (Quit 2010) Bipolar II Chronic back pain 2/2 Lumbar and cervical spinal stenosis Neuropathy BPH Testosterone deficiency Tremors / Tardive dyskinesia 2/2 Depakote / Risperdal GERD COMPLICATIONS/CHIEF COMPLAINT: CHOLEDOCHOLITHIASIS & ELEVATED LFTs. HISTORY OF PRESENT ILLNESS: 65-year-old M who presented to the emergency room complaining of right upper abdominal pain that started the day prior after dinner. The pain was in the RUQ and was described as 8/10, sharp, achy, non-radiating, alleviated by staying still and aggravated by movement. He denied fevers, chills. He did have nausea without vomiting. Of note, he was recently admitted from 04/10 to 04/16 for the same complaint. At that point, he was suspected of having choledocholithiasis. An MRCP was done that was negative. General surgery was consulted. He had an attempted cholecystostomy tube placement, however that was unsuccessful. He was subsequently discharged home with instructions to follow up with gastroenterology and general surgery as an outpatient. Patient reported that he was discharged with antibiotics (Cefdinir and Flagyl) and has just completed them a few days prior to this presentation. HOSPITAL COURSE: In the ED he was found to have biliary pancreatitis, abnormal LFTs suspicious for another stone in the bile ducts. MRCP did not see any stone in the biliary tree nor any significant biliary obstruction, but did show inflammation at the duodenum as well as evidence for cholecystitis. His pain did improve with medical management and antibiotics but he had persisting hyperbilirubinemia and elevation of the AST and ALT. His lipase returned to normal and he did not have leukocytosis. He was empirically covered by meropenem and eventually taken to the OR for a robotic-assisted laparoscopic cholecystectomy, extensive lysis of adhesion, resection of small portion of small bowel with anastomosis by Dr. Casey on 04/30/2021. He had a YOBANI drain placed that was discontinued the morning of discharge on 05/04. He was empirically covered with meropenem for 4 days today. He worked with PT and was deemed safe to return home and refused home PT. He will follow up with PCP within 1 week and surgery within 2w. DISCHARGE MEDICATIONS: Please see below. ALLERGIES: Please see below. PHYSICAL EXAMINATION ON DISCHARGE: VITAL SIGNS: Please see below. General: In any acute distress, is oriented to person, place and time HEENT: Normocephalic and atraumatic, EOMI, MMM CVS: RRR, +S1S2 Lungs: Air entry is fair bilaterally without evidence of wheezing, crackles or rhonchi, on 2L [place] per baseline Abdomen: Soft, obese, diffuse tenderness. Laparoscopic incisions noted c/d/i. Normoactive sounds Extremities: No evidence of edema LABORATORY DATA: Please see below. IMAGING: Gallbladder US 04/29: Findings consistent with acute cholecystitis and correlation is recommended. Hepatosteatosis. MRCP 04/29: 1. Gallbladder wall thickening is identified with a hypointense gallstone and pericholecystic stranding and possible fluid. These findings are concerning for acute cholecystitis. Similar findings are visualized on the prior study. Clinical correlation is recommended. 2. Stranding is identified adjacent to the proximal duodenum, suggestive of duodenitis 3. No definitive filling defect identified within the common bile duct to suggest a common bile duct stone. No significant biliary dilatation. 4. Mild hepatosplenomegaly. 5. Left renal cysts. A few subcentimeter T2 hyperintense lesions are identified within the kidneys bilaterally, which are too small to characterize further. 6. Minimal bilateral pleural effusions. 7. Additional findings described above. PROGNOSIS: Good ACTIVITY: As tolerated DIET: consistent carb DISCHARGE PLAN: Home with close PCP and surgery follow up DISPOSITION: home DISCHARGE INSTRUCTIONS: Home with close PCP and surgery follow up ITEMS TO FOLLOWUP ON ON OUTPATIENT: PCP post discharge follow up Surgery follow up DISCHARGE CONDITION: Stable TIME SPENT ON DISCHARGE: 45 minutes. Vital Signs/I&Os Vital Signs Date Time Temp Pulse Resp B/P (MAP) Pulse Ox O2 Delivery O2 Flow Rate FiO2 05/04/21 08:54 16 05/04/21 08:25 2.0 05/04/21 06:00 96.9 85 123/66 (85) 94 NIPPV (BIPAP/CPAP) 04/30/21 15:07 100 I&O- Last 24 Hours up to 6 AM 05/04/21 06:00 Intake Total 278 ml Output Total 330 ml Balance -52 ml Laboratory Data Labs 24H Laboratory Tests 2 05/03/21 17:28: Bedside Glucose (Misc Panel) 112 05/03/21 20:39: Bedside Glucose (Misc Panel) 110 05/04/21 06:03: Immature Granulocyte % (Auto) 0.6, Neutrophils (%) (Auto) 65.5, Lymphocytes (%) (Auto) 18.3L, Monocytes (%) (Auto) 10.3H, Eosinophils (%) (Auto) 4.8H, Basophils (%) (Auto) 0.5, Neutrophils # (Auto) 4.3, Lymphocytes # (Auto) 1.2L, Monocytes # (Auto) 0.7, Eosinophils # (Auto) 0.3, Basophils # (Auto) 0.0, Nucleated Red Blood Cells % (auto) 0.0, Anion Gap 8, Glomerular Filtration Rate > 60.0, Calcium Level 8.2L, Magnesium Level 2.5H, Total Bilirubin 0.7, Aspartate Amino Transf (AST/SGOT) 52H, Alanine Aminotransferase (ALT/SGPT) 220H, Alkaline Phosphatase 189H, Total Protein 6.1L, Albumin 2.8L, Albumin/Globulin Ratio 0.8 05/04/21 11:51: Bedside Glucose (Misc Panel) 115 CBC/BMP Laboratory Tests 05/04/21 06:03 FSBS Laboratory Tests Test 05/03/21 17:28 05/03/21 20:39 05/04/21 11:51 Range/Units Bedside Glucose (Misc Panel) 112 110 115 80-115 MG/DL Microbiology Microbiology 04/29/21 Blood Culture - Preliminary, Resulted No Growth after 72 hours. All specime... Discharge Medications Scheduled Allopurinol (Allopurinol) 100 Mg Tablet, 100 MG PO QHS, (Reported) Cholecalciferol (Vitamin D3) (Vitamin D3) 1,000 Unit Tablet, 1,000 UNITS PO DAILY, (Reported) Divalproex Sodium (Divalproex Sodium ER) 500 Mg Tab.er.24h, 1,000 MG PO DAILY, (Reported) Divalproex Sodium (Divalproex Sodium ER) 500 Mg Tab.er.24h, 500 MG PO QHS, (Reported) Ertugliflozin Pidolate (Steglatro) 5 Mg Tablet, 5 MG PO DAILY, (Reported) Esomeprazole Magnesium (Esomeprazole Magnesium Dr) 40 Mg Capsule.dr, 40 MG PO DAILY, (Reported) Finasteride (Proscar) 5 Mg Tablet, 5 MG PO QPM, (Reported) Folic Acid (Folic Acid) 1 Mg Tablet, 1 MG PO QHS, (Reported) Ipratropium/Albuterol Sulfate (Combivent Respimat 20-100 Mcg) 4 Gm Mist.inhal, 1 PUFF INH TID, (Reported) Metformin HCl (Metformin HCl) 850 Mg Tablet, 850 MG PO BID, (Reported) Mirabegron (Myrbetriq) 50 Mg Tab.er.24h, 50 MG PO QHS, (Reported) Multivitamins (Thera M Plus Tablet) 1 Each Tablet, 1 TAB PO DAILY, (Reported) Rifaximin (Xifaxan) 550 Mg Tablet, 550 MG PO BID, (Reported) Risperidone (Risperidone) 4 Mg Tablet, 4 MG PO QHS, (Reported) Simvastatin (Simvastatin) 20 Mg Tablet, 20 MG PO QHS, (Reported) Tamsulosin Hcl (Tamsulosin HCl) 0.4 Mg Capsule, 0.4 MG PO QPM, (Reported) Umeclidinium Brm/Vilanterol Tr (Anoro Ellipta 62.5-25 Mcg INH) 1 Each Blst.w.dev, 1 PUFF INH DAILY, (Reported) Allergies Coded Allergies: clindamycin (Verified Allergy, Intermediate, ITCHING, SWELLING, FACIAL EDEMA, 11/07/20) regadenoson (Verified Allergy, Intermediate, COPD EXACERBATION, 11/07/20) amoxicillin (Verified Allergy, Mild, ITCHING, SWELLING, 11/07/20) clavulanic acid (Verified Allergy, Mild, ITCHING, SWELLING, 11/07/20) benztropine (Verified Adverse Reaction, Intermediate, AGITATION, CONFUSION, 11/07/20) naproxen (Verified Adverse Reaction, Intermediate, DEPRESSION, 11/07/20) pseudoephedrine (Verified Adverse Reaction, Intermediate, TACHYCARDIA, 11/07/20) TOM TAO MD May 04, 2021 12:46
[2021-05-04] MEDS ORDERED: PERCOCET PO (12:49)
[2021-05-04 14:00] VITALS: BP 132/80
== END 2021-05-04 17:00 | disposition home or self-care (01) | DRG 417 ==
LOC: M ED 08:54 → M ED INP 13:20 → ENRESERV 13:44 → M PCU 14:40 → M MSPAV 05-03 17:15
PROVIDERS: ADMIT Internal Medicine; ATTEND Internal Medicine
PROC: 0DNU4ZZ Release Omentum, Percutaneous Endoscopic Approach (ICD-10-PCS; 2021-04-30)
PROC: 0DB84ZZ Excision of Small Intestine, Percutaneous Endoscopic Approach (ICD-10-PCS; 2021-04-30)
PROC: 8E0W4CZ Robotic Assisted Procedure of Trunk Region, Percutaneous Endoscopic Approach (ICD-10-PCS; 2021-04-30)
PROC: 0FT44ZZ Resection of Gallbladder, Percutaneous Endoscopic Approach (ICD-10-PCS; principal; 2021-04-30 08:30)
DX: K80.42 Calculus of bile duct with acute cholecystitis without obstruction (principal); K85.10 Biliary acute pancreatitis without necrosis or infection; I50.32 Chronic diastolic (congestive) heart failure; J96.11 Chronic respiratory failure with hypoxia; F31.81 Bipolar II disorder; E11.9 Type 2 diabetes mellitus without complications; E78.5 Hyperlipidemia, unspecified; J44.9 Chronic obstructive pulmonary disease, unspecified; K66.0 Peritoneal adhesions (postprocedural) (postinfection); G47.31 Primary central sleep apnea; K74.60 Unspecified cirrhosis of liver; K76.0 Fatty (change of) liver, not elsewhere classified; G24.01 Drug induced subacute dyskinesia; M48.061 Spinal stenosis, lumbar region without neurogenic claudication; M48.02 Spinal stenosis, cervical region; N40.0 Benign prostatic hyperplasia without lower urinary tract symptoms; M10.9 Gout, unspecified; E29.1 Testicular hypofunction; T42.6X5A Adverse effect of other antiepileptic and sedative-hypnotic drugs, initial encounter; K21.9 Gastro-esophageal reflux disease without esophagitis; Z20.822 Contact with and (suspected) exposure to COVID-19; Z79.84 Long term (current) use of oral hypoglycemic drugs; Z79.899 Other long term (current) drug therapy; Z99.81 Dependence on supplemental oxygen; Z87.891 Personal history of nicotine dependence; Z88.1 Allergy status to other antibiotic agents; Z88.0 Allergy status to penicillin; Z88.6 Allergy status to analgesic agent; Z88.8 Allergy status to other drugs, medicaments and biological substances

== ENCOUNTER → 2021-06-26 | Outpatient (REF) | payer MEDICARE, OTHER ==
[~2021-06-26] MED LIST changes: +METF-1191 PO; +PERCOCET PO
[2021-06-26 13:50] LABS: HEMOGLOBIN A1c 5.1 %
[2021-06-26 14:00] LABS: BLOOD UREA NITROGEN 21 MG/DL (7-18); CALCIUM LEVEL 10.3 MG/DL (8.8-10.2); CARBON DIOXIDE LEVEL 29 MEQ/L (21-32); CHLORIDE LEVEL 105 MEQ/L (98-107); CREATININE FOR GFR 1.21 MG/DL (0.70-1.30); GLOMERULAR FILTRATION RATE > 60.0 (>49); GLUCOSE, FASTING 99 MG/DL (70-100); SODIUM LEVEL 141 MEQ/L (136-145)
== END ==
LOC: M SFHCADAM 08:35
PROVIDERS: ATTEND Family Medicine
DX: E11.9 Type 2 diabetes mellitus without complications (principal)

== ENCOUNTER → 2021-08-09 | Outpatient (REF) | payer MEDICARE, OTHER ==
[~2021-08-09] MED LIST changes: -METF-1191 PO; +METF-954 PO
== END ==
LOC: M LAB REF 19:27
PROVIDERS: ATTEND Physician Assistant
DX: C76.0 Malignant neoplasm of head, face and neck (principal)
CPT/HCPCS: 11102; 88305; G0463

== ENCOUNTER → 2021-09-25 | Outpatient (REF) | payer MEDICARE, OTHER ==
[~2021-09-25] MED LIST changes: +METF-1191 PO; -METF-954 PO
[2021-09-25 13:05] LABS: HEMATOCRIT 53.4 % (42.0-52.0); HEMOGLOBIN 17.3 g/dl (13.5-17.5); MEAN CORPUSCULAR HEMOGLOBIN 32.7 pg (27.0-33.0); MEAN CORPUSCULAR HGB CONC 32.4 g/dl (32.0-36.5); MEAN CORPUSCULAR VOLUME 100.9 fl (80.0-96.0); PLATELET COUNT, AUTOMATED 224 10^3/uL (150-450); RED BLOOD COUNT 5.29 10^6/uL (4.30-6.10); WHITE BLOOD COUNT 6.7 10^3/uL (4.0-10.0)
[2021-09-25 13:22] LABS: HEMOGLOBIN A1c 5.4 %
[2021-09-25 13:50] LABS: ALBUMIN 3.8 GM/DL (3.2-5.2); BILIRUBIN,TOTAL 0.5 MG/DL (0.2-1.0); CREATININE FOR GFR 1.44 MG/DL (0.70-1.30); FREE T4 0.91 NG/DL (0.76-1.46); GLOMERULAR FILTRATION RATE 51.9 (>49); POTASSIUM SERUM 5.1 MEQ/L (3.5-5.1); THYROID STIMULATING HORMONE 2.27 uIU/ML (0.358-3.740); TOTAL PROTEIN 8.1 GM/DL (6.4-8.2); VALPROIC ACID (DEPAKOTE) 80.2 UG/ML (50.0-100.0)
== END ==
LOC: M SFHCADAM 08:50
PROVIDERS: ATTEND Family Medicine
DX: R59.0 Localized enlarged lymph nodes (principal); E11.9 Type 2 diabetes mellitus without complications; E78.5 Hyperlipidemia, unspecified

== ENCOUNTER → 2022-01-04 | Outpatient (REF) | payer MEDICARE, OTHER ==
[2022-01-04 11:48] LABS: CALCIUM LEVEL 10.2 MG/DL (8.8-10.2); CREATININE FOR GFR 1.29 MG/DL (0.70-1.30); POTASSIUM SERUM 4.8 MEQ/L (3.5-5.1)
[2022-01-04 13:14] LABS: HEMOGLOBIN A1c 5.5 %
== END ==
LOC: M SFHCPLAZ 08:06
PROVIDERS: ATTEND Family Medicine
DX: Z12.5 Encounter for screening for malignant neoplasm of prostate (principal); E11.9 Type 2 diabetes mellitus without complications
CPT/HCPCS: 80048; 83036; G0103

== ENCOUNTER → 2022-05-23 | Outpatient (CLI) | payer MEDICARE, OTHER ==
[~2022-05-23] MED LIST changes: -D31000TA2 PO; +VITA100093 PO
== END ==
LOC: M ADAMS 09:11
PROVIDERS: ATTEND Nurse Practitioner Family
DX: F31.89 Other bipolar disorder (principal)

== ENCOUNTER → 2022-05-23 | Outpatient (REF) | payer MEDICARE, OTHER ==
[2022-05-23 13:03] LABS: HEMOGLOBIN A1c 5.8 %
[2022-05-23 13:33] LABS: ALBUMIN 3.8 GM/DL (3.2-5.2); ALT/SGPT 45 U/L (12-78); BILIRUBIN,TOTAL 0.6 MG/DL (0.2-1.0); BLOOD UREA NITROGEN 14 MG/DL (7-18); CALCIUM LEVEL 9.8 MG/DL (8.8-10.2); CARBON DIOXIDE LEVEL 26 MEQ/L (21-32); CHLORIDE LEVEL 107 MEQ/L (98-107); CREATININE FOR GFR 1.25 MG/DL (0.70-1.30); GLOMERULAR FILTRATION RATE > 60.0 (>49); GLUCOSE, FASTING 110 MG/DL (70-100); POTASSIUM SERUM 4.7 MEQ/L (3.5-5.1); SODIUM LEVEL 141 MEQ/L (136-145); TOTAL PROTEIN 7.7 GM/DL (6.4-8.2)
== END ==
LOC: M SFHCADAM 09:10
PROVIDERS: ATTEND Family Medicine
DX: E11.9 Type 2 diabetes mellitus without complications (principal); K70.30 Alcoholic cirrhosis of liver without ascites

== ENCOUNTER 2022-06-18 08:57 | Emergency (ER) | payer MEDICARE, OTHER ==
[~2022-06-18] VITALS: Ht 177.8 cm; Wt 128.9 kg
[2022-06-18] MEDS ORDERED: VALB40CA (09:11)
[2022-06-18 10:48] LABS: BASO # 0.1 10^3/uL (0.0-0.2); BASO % 0.7 % (0.0-1.0); EOS # 0.1 10^3/uL (0.0-0.5); HEMATOCRIT 48.8 % (42.0-52.0); HEMOGLOBIN 16.2 g/dl (13.5-17.5); LYMPH # 1.2 10^3/uL (1.5-5.0); LYMPH % 16.7 % (24.0-44.0); MEAN CORPUSCULAR HEMOGLOBIN 33.9 pg (27.0-33.0); MEAN CORPUSCULAR HGB CONC 33.2 g/dl (32.0-36.5); MEAN CORPUSCULAR VOLUME 102.1 fl (80.0-96.0); MONO # 0.9 10^3/uL (0.0-0.8); MONO % 12.8 % (2.0-8.0); NEUTROPHILS % 68.5 % (36.0-66.0); PLATELET COUNT, AUTOMATED 186 10^3/uL (150-450); RED BLOOD COUNT 4.78 10^6/uL (4.30-6.10); WHITE BLOOD COUNT 7.4 10^3/uL (4.0-10.0)
[2022-06-18 11:08] LABS: INR 0.86; PROTHROMBIN TIME 12.1 SECONDS (12.7-14.5)
[2022-06-18 11:09] LABS: PARTIAL THROMBOPLASTIN TIME 24.5 SECONDS (25.9-37.0)
[2022-06-18 11:25] LABS: ALBUMIN 3.5 GM/DL (3.2-5.2); ALT/SGPT 31 U/L (12-78); BILIRUBIN,DIRECT 0.2 MG/DL (0.0-0.2); BILIRUBIN,TOTAL 0.4 MG/DL (0.2-1.0); BLOOD UREA NITROGEN 17 MG/DL (7-18); CARBON DIOXIDE LEVEL 24 MEQ/L (21-32); CHLORIDE LEVEL 108 MEQ/L (98-107); CREATININE FOR GFR 1.15 MG/DL (0.70-1.30); GLOMERULAR FILTRATION RATE > 60.0 (>49); GLUCOSE, FASTING 127 MG/DL (70-100); NT-PRO BNP 23 PG/ML (<125); POTASSIUM SERUM 4.8 MEQ/L (3.5-5.1); SODIUM LEVEL 140 MEQ/L (136-145); TOTAL PROTEIN 7.5 GM/DL (6.4-8.2)
[2022-06-18 11:26] LABS: CK-MB VALUE MASS < 1.0 NG/ML (<3.6); CPK CREATINE PHOSPHOKINASE 82 U/L (39-308); MB/CK RELATIVE INDEX 1.22 (< OR =4)
[2022-06-18 12:23] LABS: CK-MB VALUE MASS 1.2 NG/ML (<3.6); MB/CK RELATIVE INDEX 1.76 (< OR =4)
[2022-06-18 12:58] LABS: RSV AMPLIFICATION NEGATIVE (NEGATIVE)
[2022-06-18 13:30] VITALS: BP 124/72
== END 2022-06-18 13:42 | disposition home or self-care (01) ==
LOC: M ED 08:57
DX: R22.41 Localized swelling, mass and lump, right lower limb (principal); R22.42 Localized swelling, mass and lump, left lower limb; R06.02 Shortness of breath; T88.7XXA Unspecified adverse effect of drug or medicament, initial encounter; I50.9 Heart failure, unspecified; E11.9 Type 2 diabetes mellitus without complications; J44.9 Chronic obstructive pulmonary disease, unspecified; K21.9 Gastro-esophageal reflux disease without esophagitis; N40.0 Benign prostatic hyperplasia without lower urinary tract symptoms; Z90.49 Acquired absence of other specified parts of digestive tract; Z88.1 Allergy status to other antibiotic agents; Z88.8 Allergy status to other drugs, medicaments and biological substances; Z87.891 Personal history of nicotine dependence; Z79.84 Long term (current) use of oral hypoglycemic drugs; Z79.899 Other long term (current) drug therapy

== ENCOUNTER → 2022-06-22 | Outpatient (CLI) | payer MEDICARE, OTHER ==
[~2022-06-22] MED LIST changes: +SIMV-253 PO; +VALB40CA; -ZOCO20TA PO
== END ==
LOC: M RAD 08:02
PROVIDERS: ATTEND Family Medicine
DX: K76.0 Fatty (change of) liver, not elsewhere classified (principal); K86.89 Other specified diseases of pancreas

== ENCOUNTER → 2022-08-06 | Outpatient (CLI) | payer MEDICARE, OTHER | LOC: M RAD 07:53 | PROVIDERS: ATTEND Family Medicine | DX: Z87.891 Personal history of nicotine dependence (principal) ==

== ENCOUNTER → 2022-09-19 | Outpatient (REF) | payer MEDICARE, OTHER ==
[2022-09-19 12:57] LABS: HEMATOCRIT 48.9 % (42.0-52.0); MEAN CORPUSCULAR HEMOGLOBIN 34.5 pg (27.0-33.0); MEAN CORPUSCULAR HGB CONC 34.8 g/dl (32.0-36.5); MEAN CORPUSCULAR VOLUME 99.2 fl (80.0-96.0); PLATELET COUNT, AUTOMATED 275 10^3/uL (150-450); RED BLOOD COUNT 4.93 10^6/uL (4.30-6.10); WHITE BLOOD COUNT 7.6 10^3/uL (4.0-10.0)
[2022-09-19 13:20] LABS: INR 0.82; PROTHROMBIN TIME 11.5 SECONDS (12.5-14.5)
[2022-09-19 16:21] LABS: ALBUMIN 3.9 GM/DL (3.2-5.2); ALT/SGPT 37 U/L (12-78); BILIRUBIN,TOTAL 0.6 MG/DL (0.2-1.0); BLOOD UREA NITROGEN 11 MG/DL (7-18); CALCIUM LEVEL 10.2 MG/DL (8.8-10.2); CARBON DIOXIDE LEVEL 29 MEQ/L (21-32); CHLORIDE LEVEL 94 MEQ/L (98-107); CHOLESTEROL LEVEL 193 MG/DL (<200); CHOLESTEROL RISK RATIO 3.216 (<5); CREATININE FOR GFR 1.22 MG/DL (0.70-1.30); GLOMERULAR FILTRATION RATE > 60.0 (>49); GLUCOSE, FASTING 128 MG/DL (70-100); HDL CHOLESTEROL 60 MG/DL (>40); LDL CHOLESTEROL 95 MG/DL (<100); NON-HDL-C 133 MG/DL; POTASSIUM SERUM 3.8 MEQ/L (3.5-5.1); RHEUMATOID FACTOR QUANT < 10.0 IU/ML (<15.0); SODIUM LEVEL 132 MEQ/L (136-145); TOTAL PROTEIN 7.9 GM/DL (6.4-8.2); TRIGLYCERIDES LEVEL 192 MG/DL (<150)
[2022-09-19 20:01] LABS: HEMOGLOBIN A1c 5.9 %
[2022-09-21 23:07] LABS: ANA (HEP2) Negative (.); CYCLIC CITRULLINATED PEPTIDE 3 units (0-19)
== END ==
LOC: M SFHCADAM 08:46
PROVIDERS: ATTEND Family Medicine
DX: E11.9 Type 2 diabetes mellitus without complications (principal); I11.9 Hypertensive heart disease without heart failure; K70.30 Alcoholic cirrhosis of liver without ascites; M25.60 Stiffness of unspecified joint, not elsewhere classified

== ENCOUNTER → 2022-12-06 | Outpatient (REF) | payer MEDICARE, OTHER ==
[2022-12-06 13:36] LABS: HEMATOCRIT 46.9 % (42.0-52.0); HEMOGLOBIN 15.8 g/dl (13.5-17.5); MEAN CORPUSCULAR HEMOGLOBIN 34.1 pg (27.0-33.0); MEAN CORPUSCULAR HGB CONC 33.7 g/dl (32.0-36.5); MEAN CORPUSCULAR VOLUME 101.3 fl (80.0-96.0); PLATELET COUNT, AUTOMATED 227 10^3/uL (150-450); RED BLOOD COUNT 4.63 10^6/uL (4.30-6.10); WHITE BLOOD COUNT 6.3 10^3/uL (4.0-10.0)
[2022-12-06 13:44] LABS: HEMOGLOBIN A1c 5.8 % (4.0-6.0)
[2022-12-06 14:03] LABS: ALBUMIN 3.7 G/DL (3.2-5.2); ALKALINE PHOSPHATASE 72 U/L (46-116); ALT/SGPT 33 U/L (7.0-40); AST/SGOT 20 U/L (<34); BILIRUBIN,TOTAL 0.7 MG/DL (0.3-1.2); BLOOD UREA NITROGEN 13 MG/DL (9-23); CALCIUM LEVEL 9.5 MG/DL (8.3-10.6); CARBON DIOXIDE LEVEL 26 MMOL/L (20-31); CHLORIDE LEVEL 96 MMOL/L (98-107); CHOLESTEROL LEVEL 188 MG/DL (<200); CHOLESTEROL RISK RATIO 3.76 (<5); CREATININE FOR GFR 1.06 MG/DL (0.70-1.30); GLOMERULAR FILTRATION RATE > 60.0 (>49); GLUCOSE, FASTING 122 MG/DL (74-106); LDL CHOLESTEROL 105.4 MG/DL (<100); NON-HDL-C 138 MG/DL; POTASSIUM SERUM 3.7 MMOL/L (3.5-5.1); SODIUM LEVEL 135 MMOL/L (136-145); TOTAL PROTEIN 7.2 G/DL (5.7-8.2); TRIGLYCERIDES LEVEL 163 MG/DL (<150)
[2022-12-06 14:05] LABS: FOLATE > 24.00 NG/ML (>5.4)
== END ==
LOC: M SFHCADAM 08:46
PROVIDERS: ATTEND Family Medicine
DX: I50.33 Acute on chronic diastolic (congestive) heart failure (principal); E11.9 Type 2 diabetes mellitus without complications; E78.5 Hyperlipidemia, unspecified; D52.9 Folate deficiency anemia, unspecified

== ENCOUNTER → 2022-12-06 | Outpatient (CLI) | payer MEDICARE, OTHER | LOC: M ADAMS 09:05 | PROVIDERS: ATTEND Family Medicine | DX: I50.33 Acute on chronic diastolic (congestive) heart failure (principal) ==

== ENCOUNTER → 2022-12-24 | Outpatient (REF) | payer MEDICARE, OTHER ==
[2022-12-24 14:40] LABS: VALPROIC ACID (DEPAKOTE) 90.6 UG/ML (50.0-100.0)
[2022-12-24 14:42] LABS: CALCIUM LEVEL 9.8 MG/DL (8.3-10.6); CREATININE FOR GFR 1.29 MG/DL (0.70-1.30); GLOMERULAR FILTRATION RATE 58.8 (>49); POTASSIUM SERUM 4.1 MMOL/L (3.5-5.1)
== END ==
LOC: M SFHCADAM 09:24
PROVIDERS: ATTEND Family Medicine
DX: K70.30 Alcoholic cirrhosis of liver without ascites (principal); I50.33 Acute on chronic diastolic (congestive) heart failure; F31.9 Bipolar disorder, unspecified; Z51.81 Encounter for therapeutic drug level monitoring

== ENCOUNTER → 2023-02-01 | Outpatient (CLI) | payer MEDICARE, OTHER ==
[~2023-02-01] MED LIST changes: -DICL0.1S; +[UNRECOGNIZED DRUG - CODE]
== END ==
LOC: M EKG 09:45
PROVIDERS: ATTEND Nurse Practitioner Family
DX: I49.9 Cardiac arrhythmia, unspecified (principal); I45.2 Bifascicular block; R94.31 Abnormal electrocardiogram [ECG] [EKG]; Z79.899 Other long term (current) drug therapy

== ENCOUNTER → 2023-04-15 | Outpatient (REF) | payer MEDICARE, OTHER ==
[~2023-04-15] MED LIST changes: +DICL0.1S12; -[UNRECOGNIZED DRUG - CODE]
[2023-04-15 14:05] LABS: VALPROIC ACID (DEPAKOTE) 70.2 UG/ML (50.0-100.0)
[2023-04-15 14:07] LABS: BLOOD UREA NITROGEN 14 MG/DL (9-23); CALCIUM LEVEL 9.8 MG/DL (8.3-10.6); CARBON DIOXIDE LEVEL 27 MMOL/L (20-31); CHLORIDE LEVEL 103 MMOL/L (98-107); CREATININE FOR GFR 1.12 MG/DL (0.70-1.30); GLOMERULAR FILTRATION RATE > 60.0 (>49); GLUCOSE, FASTING 113 MG/DL (74-106); POTASSIUM SERUM 4.6 MMOL/L (3.5-5.1); SODIUM LEVEL 139 MMOL/L (136-145)
== END ==
LOC: M SFHCADAM 08:46
PROVIDERS: ATTEND Family Medicine
DX: F31.9 Bipolar disorder, unspecified (principal)

== ENCOUNTER → 2023-07-05 | Outpatient (REF) | payer MEDICARE, OTHER ==
[~2023-07-05] MED LIST changes: +FINA-48 PO; -PROS5TAB PO
[2023-07-05 13:14] LABS: ALBUMIN 3.6 G/DL (3.2-5.2); ALKALINE PHOSPHATASE 55 U/L (46-116); ALT/SGPT 35 U/L (7.0-40); AST/SGOT 14 U/L (<34); BILIRUBIN,TOTAL 0.5 MG/DL (0.3-1.2); BLOOD UREA NITROGEN 15 MG/DL (9-23); CALCIUM LEVEL 9.7 MG/DL (8.3-10.6); CARBON DIOXIDE LEVEL 31 MMOL/L (20-31); CHLORIDE LEVEL 104 MMOL/L (98-107); CREATININE FOR GFR 1.14 MG/DL (0.70-1.30); GLOMERULAR FILTRATION RATE > 60.0 (>42); GLUCOSE, FASTING 130 MG/DL (74-106); POTASSIUM SERUM 4.9 MMOL/L (3.5-5.1); SODIUM LEVEL 141 MMOL/L (136-145)
[2023-07-05 13:16] LABS: BASO % 0.7 % (0.0-1.0); EOS # 0.1 10^3/uL (0.0-0.5); EOS % 1.2 % (0.0-3.0); HEMATOCRIT 48.4 % (42.0-52.0); HEMOGLOBIN 15.9 g/dl (13.5-17.5); LYMPH # 1.1 10^3/uL (1.5-5.0); LYMPH % 19.4 % (24.0-44.0); MEAN CORPUSCULAR HEMOGLOBIN 33.8 pg (27.0-33.0); MEAN CORPUSCULAR HGB CONC 32.9 g/dl (32.0-36.5); MEAN CORPUSCULAR VOLUME 102.8 fl (80.0-96.0); MONO # 0.6 10^3/uL (0.0-0.8); MONO % 10.6 % (2.0-8.0); NEUTROPHILS % 67.6 % (36.0-66.0); PLATELET COUNT, AUTOMATED 242 10^3/uL (150-450); RED BLOOD COUNT 4.71 10^6/uL (4.30-6.10); WHITE BLOOD COUNT 5.9 10^3/uL (4.0-10.0)
[2023-07-05 13:36] LABS: HEMOGLOBIN A1c 6.5 % (4.0-6.0)
== END ==
LOC: M SFHCADAM 09:50
PROVIDERS: ATTEND Physician Assistant
DX: E11.9 Type 2 diabetes mellitus without complications (principal); I11.9 Hypertensive heart disease without heart failure; F31.9 Bipolar disorder, unspecified

== ENCOUNTER → 2023-10-01 | Outpatient (REF) | payer MEDICARE, OTHER ==
[2023-10-01 13:41] LABS: BLOOD UREA NITROGEN 14 MG/DL (9-23); CALCIUM LEVEL 9.6 MG/DL (8.3-10.6); CARBON DIOXIDE LEVEL 30 MMOL/L (20-31); CHLORIDE LEVEL 102 MMOL/L (98-107); CREATININE FOR GFR 1.15 MG/DL (0.70-1.30); GLOMERULAR FILTRATION RATE > 60.0 (>42); GLUCOSE, FASTING 120 MG/DL (74-106); POTASSIUM SERUM 4.7 MMOL/L (3.5-5.1); SODIUM LEVEL 139 MMOL/L (136-145)
[2023-10-01 14:10] LABS: HEMOGLOBIN A1c 5.7 % (4.0-6.0)
== END ==
LOC: M SFHCADAM 08:18
PROVIDERS: ATTEND Family Medicine
DX: E11.9 Type 2 diabetes mellitus without complications (principal)

== ENCOUNTER → 2024-10-13 | Outpatient (REF) | payer MEDICARE, OTHER ==
[~2024-10-13] MED LIST changes: +GABA-1172 PO; -GABA-282 PO; -RISP-11 PO; +RISP4TAB95 PO
[2024-10-13 13:47] LABS: BASO % 0.5 % (0.0-1.0); EOS % 0.7 % (0.0-3.0); HEMOGLOBIN 16.1 g/dl (13.5-17.5); LYMPH % 16.2 % (24.0-44.0); MEAN CORPUSCULAR HEMOGLOBIN 34.8 pg (27.0-33.0); MEAN CORPUSCULAR HGB CONC 34.3 g/dl (32.0-36.5); MEAN CORPUSCULAR VOLUME 101.5 fl (80.0-96.0); MONO # 0.6 10^3/uL (0.0-0.8); MONO % 10.1 % (2.0-8.0); NEUTROPHILS # 4.4 10^3/uL (1.5-8.5); NEUTROPHILS % 72.2 % (36.0-66.0); PLATELET COUNT, AUTOMATED 195 10^3/uL (150-450); RED BLOOD COUNT 4.63 10^6/uL (4.30-6.10); WHITE BLOOD COUNT 6.1 10^3/uL (4.0-10.0)
[2024-10-13 13:53] LABS: VALPROIC ACID (DEPAKOTE) 95.1 UG/ML (50.0-100.0)
[2024-10-13 13:55] LABS: ALBUMIN 3.5 G/DL (3.2-5.2); ALKALINE PHOSPHATASE 64 U/L (40-129); ALT/SGPT 30 U/L (7.0-40); AST/SGOT 18 U/L (<34); BILIRUBIN,TOTAL 0.8 MG/DL (0.3-1.2); BLOOD UREA NITROGEN 16 MG/DL (9-23); CALCIUM LEVEL 10.1 MG/DL (8.3-10.6); CARBON DIOXIDE LEVEL 28 MMOL/L (20-31); CHLORIDE LEVEL 106 MMOL/L (98-107); CHOLESTEROL LEVEL 171 MG/DL (<200); CHOLESTEROL RISK RATIO 3.04 (<5); GLOMERULAR FILTRATION RATE > 60.0 (>42); GLUCOSE, FASTING 116 MG/DL (74-106); HDL CHOLESTEROL 56.2 MG/DL (>40); LDL CHOLESTEROL 86.2 MG/DL (<100); NON-HDL-C 114.8 MG/DL; POTASSIUM SERUM 3.9 MMOL/L (3.5-5.1); PSA SCREENING 0.14 NG/ML (< 4.00); SODIUM LEVEL 142 MMOL/L (136-145); THYROID STIMULATING HORMONE 2.842 uIU/ML (0.55-4.78); TOTAL 25(OH) VITAMIN D 47.8 NG/ML (20.0-100.0); TOTAL PROTEIN 7.5 G/DL (5.7-8.2); TRIGLYCERIDES LEVEL 143 MG/DL (<150)
[2024-10-13 13:56] LABS: FREE T4 1.04 NG/DL (0.89-1.76)
[2024-10-13 14:02] LABS: HEMOGLOBIN A1c 5.8 % (4.0-6.0)
== END ==
LOC: M SFHCADAM 10:10
PROVIDERS: ATTEND Family Medicine
DX: J44.9 Chronic obstructive pulmonary disease, unspecified (principal); E11.9 Type 2 diabetes mellitus without complications; E55.9 Vitamin D deficiency, unspecified; F31.9 Bipolar disorder, unspecified; G25.1 Drug-induced tremor; K70.30 Alcoholic cirrhosis of liver without ascites; E78.5 Hyperlipidemia, unspecified; Z12.5 Encounter for screening for malignant neoplasm of prostate
CPT/HCPCS: 80053; 80061; 80164; 82105; 82306; 83036; 84439; 84443; 85025; G0103

== ENCOUNTER → 2025-01-08 | Outpatient (REF) | payer MEDICARE, OTHER ==
[~2025-01-08] MED LIST changes: -ADV500INH INH; +ADVA1AER10 INH
[2025-01-08 14:12] LABS: HEMATOCRIT 47.1 % (42.0-52.0); HEMOGLOBIN 15.7 g/dl (13.5-17.5); MEAN CORPUSCULAR HEMOGLOBIN 34.4 pg (27.0-33.0); MEAN CORPUSCULAR HGB CONC 33.3 g/dl (32.0-36.5); MEAN CORPUSCULAR VOLUME 103.3 fl (80.0-96.0); PLATELET COUNT, AUTOMATED 202 10^3/uL (150-450); RED BLOOD COUNT 4.56 10^6/uL (4.30-6.10); WHITE BLOOD COUNT 6.7 10^3/uL (4.0-10.0)
[2025-01-08 14:13] LABS: VALPROIC ACID (DEPAKOTE) 77.9 UG/ML (50.0-100.0)
[2025-01-08 14:16] LABS: ALBUMIN 3.5 G/DL (3.2-5.2); ALKALINE PHOSPHATASE 67 U/L (40-129); ALT/SGPT 27 U/L (7.0-40); AST/SGOT 19 U/L (<34); BILIRUBIN,TOTAL 0.9 MG/DL (0.3-1.2); BLOOD UREA NITROGEN 14 MG/DL (9-23); CALCIUM LEVEL 9.6 MG/DL (8.3-10.6); CARBON DIOXIDE LEVEL 30 MMOL/L (20-31); CHLORIDE LEVEL 108 MMOL/L (98-107); CREATININE FOR GFR 1.24 MG/DL (0.70-1.30); GLOMERULAR FILTRATION RATE > 60.0 (>42); GLUCOSE, FASTING 120 MG/DL (74-106); POTASSIUM SERUM 4.5 MMOL/L (3.5-5.1); SODIUM LEVEL 145 MMOL/L (136-145); TOTAL PROTEIN 7.4 G/DL (5.7-8.2)
[2025-01-08 14:17] LABS: VITAMIN B12 LEVEL 536 PG/ML (211-911)
[2025-01-08 14:20] LABS: FOLATE > 24.00 NG/ML (>5.4)
[2025-01-08 14:56] LABS: HEMOGLOBIN A1c 5.8 % (4.0-6.0)
== END ==
LOC: M SFHCADAM 09:37
PROVIDERS: ATTEND Family Medicine
DX: R60.0 Localized edema (principal); E11.9 Type 2 diabetes mellitus without complications; D52.9 Folate deficiency anemia, unspecified; F31.9 Bipolar disorder, unspecified; I50.32 Chronic diastolic (congestive) heart failure

== ENCOUNTER → 2025-06-24 | Outpatient (REF) | payer MEDICARE, OTHER ==
[~2025-06-24] MED LIST changes: +AMMO12CR4 TOP; -AMMO12CR7 TOP; -FLOM0.4C39 PO; +TAMS-18 PO
[2025-06-24 11:52] LABS: INR 0.93
[2025-06-24 12:15] LABS: PLATELET COUNT, AUTOMATED 208 10^3/uL (150-450)
[2025-06-24 12:48] LABS: ALT/SGPT 24.0 U/L (7.0-40); AST/SGOT 21.0 U/L (<34); CALCIUM LEVEL 9.1 MG/DL (8.3-10.6); CARBON DIOXIDE LEVEL 24.0 MMOL/L (20-31); CHLORIDE LEVEL 104.0 MMOL/L (98-107); CHOLESTEROL LEVEL 147.0 MG/DL (<200); CHOLESTEROL RISK RATIO 3.1 (<5); CREATININE FOR GFR 1.08 MG/DL (0.70-1.30); GLOMERULAR FILTRATION RATE 72.9 (>42); LDL CHOLESTEROL 75.7 MG/DL (<100); NON-HDL-C 99.7 MG/DL; POTASSIUM SERUM 4.0 MMOL/L (3.5-5.1); SODIUM LEVEL 143.0 MMOL/L (136-145); TRIGLYCERIDES LEVEL 120.0 MG/DL (<150)
[2025-06-24 12:49] LABS: FREE T4 1.09 NG/DL (0.89-1.76); VITAMIN B12 LEVEL 492.0 PG/ML (211-911)
[2025-06-24 12:59] LABS: ESTIMATED AVERAGE GLUCOSE 114.0 MG/DL (60-110)
== END ==
LOC: M LAB REF 11:19
PROVIDERS: ATTEND Family Medicine
DX: F31.89 Other bipolar disorder (principal); Z51.81 Encounter for therapeutic drug level monitoring; E78.5 Hyperlipidemia, unspecified; E11.9 Type 2 diabetes mellitus without complications

== ENCOUNTER → 2025-06-24 | Outpatient (REF) | payer MEDICARE, OTHER ==
[2025-06-24 12:45] LABS: ALT/SGPT 25.0 U/L (7.0-40); AST/SGOT 23.0 U/L (<34)
[2025-06-24 12:48] LABS: VALPROIC ACID (DEPAKOTE) 93.9 UG/ML (50.0-100.0)
== END ==
LOC: M LAB REF 11:21
PROVIDERS: ATTEND Nurse Practitioner Family
DX: F31.89 Other bipolar disorder (principal); Z51.81 Encounter for therapeutic drug level monitoring

== ENCOUNTER 2025-08-20 00:10 | Inpatient (IN) | payer MEDICARE, OTHER ==
[~2025-08-20] VITALS: Ht 175.3 cm; Wt 127.4 kg
[2025-08-20] MEDS: ACETAMINOPHEN *IV* 1,000 MG in IV 1 EA IV ONE (01:05)
[2025-08-20 01:09] LABS: BASO # 0.0 10^3/uL (0.0-0.2); BASO % 0.2 % (0.0-1.0); EOS # 0.0 10^3/uL (0.0-0.5); EOS % 0.2 % (0.0-3.0); LYMPH # 1.1 10^3/uL (1.5-5.0); LYMPH % 8.1 % (24.0-44.0); MONO # 1.9 10^3/uL (0.0-0.8); MONO % 14.2 % (2.0-8.0); NEUTROPHILS # 10.1 10^3/uL (1.5-8.5); NEUTROPHILS % 76.9 % (36.0-66.0); PLATELET COUNT, AUTOMATED 206 10^3/uL (150-450)
[2025-08-20] MEDS: NS (Normal Saline) 0.9% 1,000 ML IV ONE (01:09)
[2025-08-20 01:33] LABS: CK-MB VALUE MASS 1.3 NG/ML (<3.6)
[2025-08-20 01:35] LABS: ALT/SGPT 27.0 U/L (7.0-40); AST/SGOT 34.0 U/L (<34)
[2025-08-20 01:43] LABS: CPK CREATINE PHOSPHOKINASE 60.0 U/L (46-171); MB/CK RELATIVE INDEX 2.16 (< OR =4)
[2025-08-20 02:16] LABS: KETONE, URINE AUTO RFX 1+ mg/dL (NEGATIVE); MUCUS, URINE RFX SMALL (NEGATIVE); NITRITE, URINE AUTO RFX NEGATIVE (NEGATIVE); RBC, URINE AUTO RFX TNTC /HPF (0-3); SQUAM EPITHELIAL CELL UR AURFX 23 /HPF (0-6)
[2025-08-20 02:17] LABS: LEUKOCYTE ESTERASE UR AUTO RFX 1+ (NEGATIVE); WBC, URINE AUTO RFX 98 /HPF (0-3)
[2025-08-20 02:42] LABS: CPK CREATINE PHOSPHOKINASE 46.0 U/L (46-171)
[2025-08-20 02:43] LABS: CALCIUM LEVEL 8.5 MG/DL (8.3-10.6); CARBON DIOXIDE LEVEL 24.0 MMOL/L (20-31); CHLORIDE LEVEL 105.0 MMOL/L (98-107); CK-MB VALUE MASS 1.0 NG/ML (<3.6); CREATININE FOR GFR 1.07 MG/DL (0.70-1.30); GLOMERULAR FILTRATION RATE 73.7 (>42); MB/CK RELATIVE INDEX 2.17 (< OR =4); POTASSIUM SERUM 3.7 MMOL/L (3.5-5.1); SODIUM LEVEL 138.0 MMOL/L (136-145)
[2025-08-20] MEDS: cefTRIAXone SOD 2 GM in DEXTROSE 5% (D5W) ADV/MINI-BAG 50 ML IV ONE (03:21)
[2025-08-20] MEDS ORDERED: IPRATROPIUM 0.5 MG/ALBUTEROL 2.5 MG INH SOL UD 3 ML NEB PRN (04:45)
[2025-08-20] MEDS ORDERED: DEXTROSE 50% 50 ML SYRINGE IV PRN (04:50)
[2025-08-20] MEDS ORDERED: GLUCOSE 4 GM CHEW PO PRN (04:50)
[2025-08-20] MEDS ORDERED: GLUCAGON INJ 1 MG VIAL SC PRN (04:50)
[2025-08-20 07:35] LABS: INR 0.88
[2025-08-20 07:47] LABS: CALCIUM LEVEL 8.6 MG/DL (8.3-10.6); CARBON DIOXIDE LEVEL 25.0 MMOL/L (20-31); CHLORIDE LEVEL 104.0 MMOL/L (98-107); CREATININE FOR GFR 1.15 MG/DL (0.70-1.30); GLOMERULAR FILTRATION RATE 67.6 (>42); POTASSIUM SERUM 4.1 MMOL/L (3.5-5.1); SODIUM LEVEL 143.0 MMOL/L (136-145)
[2025-08-20 07:50] LABS: PLATELET COUNT, AUTOMATED 174 10^3/uL (150-450)
[2025-08-20 08:00] VITALS: BP 150/80; TEMP 97.2; O2SAT 97
[2025-08-20] MEDS: IPRATROPIUM 0.5 MG/ALBUTEROL 2.5 MG INH SOL UD 3 ML NEB SCH (08:16)
[2025-08-20] MEDS ORDERED: DIVALPROEX 500 MG *ER* TAB PO SCH ×2 (09:00→21:00)
[2025-08-20] MEDS ORDERED: PARO10TA3 PO (09:14)
[2025-08-20] MEDS: SENNOSIDES/DOCUSATE SODIUM 8.6 MG/50MG TAB PO SCH (09:15)
[2025-08-20] MEDS: INSULIN LISPRO (NovoLOG) PER UNIT SC SCH ×2 (09:15→20:38)
[2025-08-20] MEDS: PANTOPRAZOLE 40MG TAB PO SCH (09:15)
[2025-08-20] MEDS: MIRALAX *UNIT DOSE* 17 GM PACKET PO SCH (09:15)
[2025-08-20] MEDS ORDERED: MULT-40 PO (09:16)
[2025-08-20] MEDS: NS (Normal Saline) 0.9% 1,000 ML IV SCH (09:16)
[2025-08-20] MEDS ORDERED: HOME MED LIST COMPLETE! XX SCH (09:20)
[2025-08-20] MEDS ORDERED: ALBUTEROL 90 MCG/ACT 8 GM HFA INHALER INH PRN (10:05)
[2025-08-20] MEDS: VITAMIN D 1,000 INTERNATIONAL UNITS TABLET PO SCH (10:57)
[2025-08-20] MEDS: PARoxetine 10MG TABLET PO SCH (11:03)
[2025-08-20] MEDS: ENOXAPARIN 40 MG/0.4 ML SYRINGE (J1650 PER 10MG) SC SCH (11:03)
[2025-08-20 12:09] VITALS: BP 144/70; TEMP 97.7; O2SAT 97
[2025-08-20] MEDS ORDERED: DIVALPROEX 500 MG *ER* TAB PO ONE (13:00)
[2025-08-20] MEDS: DIVALPROEX 500 MG *ER* TAB PO SCH ×2 (13:47→20:36)
[2025-08-20] MEDS ORDERED: COMBIVENT RESPIMAT 100-20 MCG INHALER 4 GM INH SCH (16:00)
[2025-08-20 17:00] VITALS: BP 125/76; TEMP 97.3; O2SAT 93
[2025-08-20] MEDS: FINASTERIDE 5 MG TAB PO SCH (17:22)
[2025-08-20] MEDS: TAMSULOSIN 0.4 MG CAP PO SCH (17:22)
[2025-08-20 19:43] VITALS: BP 126/63; TEMP 97.3; O2SAT 92
[2025-08-20 19:57] VITALS: BP 152/85; TEMP 97.7; O2SAT 95
[2025-08-20 20:30] VITALS: TEMP 99.3
[2025-08-20] MEDS: SIMVASTATIN 20 MG TAB PO SCH (20:36)
[2025-08-20] MEDS: FOLIC ACID 1 MG TAB PO SCH (20:37)
[2025-08-20] MEDS: ACETAMINOPHEN 325 MG TAB PO PRN (20:37)
[2025-08-21] MEDS: cefTRIAXone SOD 2 GM in DEXTROSE 5% (D5W) ADV/MINI-BAG 50 ML IV SCH (00:02)
[2025-08-21 00:12] VITALS: BP 132/71; TEMP 97.2; O2SAT 90
[2025-08-21 04:49] VITALS: BP 141/72; TEMP 97.2; O2SAT 93
[2025-08-21 06:55] LABS: PLATELET COUNT, AUTOMATED 193 10^3/uL (150-450)
[2025-08-21 07:18] LABS: CALCIUM LEVEL 8.0 MG/DL (8.3-10.6); CARBON DIOXIDE LEVEL 27.0 MMOL/L (20-31); CHLORIDE LEVEL 103.0 MMOL/L (98-107); CREATININE FOR GFR 1.03 MG/DL (0.70-1.30); GLOMERULAR FILTRATION RATE 77.2 (>42); POTASSIUM SERUM 3.7 MMOL/L (3.5-5.1); SODIUM LEVEL 140.0 MMOL/L (136-145)
[2025-08-21 08:00] VITALS: BP 138/58; TEMP 97; O2SAT 92
[2025-08-21] MEDS ORDERED: DIVALPROEX 500 MG *ER* TAB PO SCH (09:00)
[2025-08-21 12:00] VITALS: BP 133/65; TEMP 97.5; O2SAT 95
[2025-08-21 16:00] VITALS: BP 112/63; TEMP 97.7; O2SAT 94
[2025-08-21] MEDS: SYMBICORT 80/4.5MCG INHALER 6GM INH SCH (19:51)
[2025-08-21 20:43] VITALS: BP 117/51; TEMP 97.5; O2SAT 93
[2025-08-21] MEDS: NYSTATIN 100,000 UNITS/GM TOPICAL PWD 15 GM TOP SCH (21:24)
[2025-08-22 06:20] VITALS: BP 125/66; TEMP 97.2; O2SAT 95
[2025-08-22 12:00] VITALS: BP 130/59; TEMP 97.5; O2SAT 94
[2025-08-22 20:11] VITALS: BP 138/63; TEMP 97.3; O2SAT 35; O2SAT 95
[2025-08-22] MEDS ORDERED: SODIUM CHLORIDE 0.9% NASAL GEL 15GM (AYR) PRN (23:25)
[2025-08-23 03:28] VITALS: BP 128/70; TEMP 96.8; O2SAT 97
[2025-08-23 06:12] LABS: BASO # 0.0 10^3/uL (0.0-0.2); BASO % 0.6 % (0.0-1.0); EOS # 0.2 10^3/uL (0.0-0.5); EOS % 4.0 % (0.0-3.0); LYMPH # 0.9 10^3/uL (1.5-5.0); LYMPH % 19.1 % (24.0-44.0); MONO # 1.0 10^3/uL (0.0-0.8); MONO % 21.8 % (2.0-8.0); NEUTROPHILS # 2.5 10^3/uL (1.5-8.5); NEUTROPHILS % 53.7 % (36.0-66.0); PLATELET COUNT, AUTOMATED 205 10^3/uL (150-450)
[2025-08-23 06:31] LABS: CALCIUM LEVEL 8.8 MG/DL (8.3-10.6); CARBON DIOXIDE LEVEL 28.0 MMOL/L (20-31); CHLORIDE LEVEL 100.0 MMOL/L (98-107); CREATININE FOR GFR 1.03 MG/DL (0.70-1.30); GLOMERULAR FILTRATION RATE 77.2 (>42); POTASSIUM SERUM 4.0 MMOL/L (3.5-5.1); SODIUM LEVEL 138.0 MMOL/L (136-145)
[2025-08-23 08:42] VITALS: O2SAT 94
[2025-08-23 13:33] VITALS: BP 118/72; TEMP 98.2; O2SAT 93
[2025-08-24 04:00] VITALS: BP 126/74; TEMP 97.8; O2SAT 96
[2025-08-24] MEDS ORDERED: BISACODYL 10 MG SUPP PR PRN (12:50)
[2025-08-24 20:12] VITALS: O2SAT 94
[2025-08-25 04:00] VITALS: BP 133/71; TEMP 97; O2SAT 92
[2025-08-25] MEDS ORDERED: LEVO75TAB PO (10:11)
== END 2025-08-25 12:46 | disposition home health service (06) | DRG 872 ==
LOC: M ED 00:10 → M ED INP 04:37 → M MSPAV 07:51
PROVIDERS: ADMIT Student in an Organized Health Care Education/Training Program; ATTEND Student in an Organized Health Care Education/Training Program
DX: A41.9 Sepsis, unspecified organism (principal); N39.0 Urinary tract infection, site not specified; F31.81 Bipolar II disorder; J96.11 Chronic respiratory failure with hypoxia; I50.32 Chronic diastolic (congestive) heart failure; E66.2 Morbid (severe) obesity with alveolar hypoventilation; Z68.41 Body mass index [BMI] 40.0-44.9, adult; K59.00 Constipation, unspecified; K74.60 Unspecified cirrhosis of liver; K76.0 Fatty (change of) liver, not elsewhere classified; J44.9 Chronic obstructive pulmonary disease, unspecified; J43.9 Emphysema, unspecified; E11.9 Type 2 diabetes mellitus without complications; E55.9 Vitamin D deficiency, unspecified; M10.9 Gout, unspecified; N40.0 Benign prostatic hyperplasia without lower urinary tract symptoms; E78.5 Hyperlipidemia, unspecified; K21.9 Gastro-esophageal reflux disease without esophagitis; Z99.3 Dependence on wheelchair; G24.01 Drug induced subacute dyskinesia; F10.21 Alcohol dependence, in remission; R31.9 Hematuria, unspecified; G89.29 Other chronic pain; M48.02 Spinal stenosis, cervical region; M48.061 Spinal stenosis, lumbar region without neurogenic claudication; Z99.81 Dependence on supplemental oxygen; Z79.84 Long term (current) use of oral hypoglycemic drugs; Z79.899 Other long term (current) drug therapy; Z88.1 Allergy status to other antibiotic agents; Z88.0 Allergy status to penicillin; Z88.8 Allergy status to other drugs, medicaments and biological substances; Z88.6 Allergy status to analgesic agent; Z87.891 Personal history of nicotine dependence

== ENCOUNTER → 2025-09-09 | Outpatient (REF) | payer MEDICARE, OTHER ==
[~2025-09-09] MED LIST changes: +LEVO75TAB PO; +MULT-40 PO; +PARO10TA3 PO
[2025-09-09 13:02] LABS: APPEARANCE, URINE CLEAR (CLEAR); BACTERIA, URINE AUTO NEGATIVE (NEGATIVE); BILIRUBIN, URINE AUTO NEGATIVE (NEGATIVE); BLOOD, URINE BLOOD NEGATIVE (NEGATIVE); GLUCOSE, URINE (UA) AUTO NEGATIVE (NEGATIVE); KETONE, URINE AUTO NEGATIVE (NEGATIVE); LEUKOCYTE ESTERASE, URINE AUTO NEGATIVE (NEGATIVE); MUCUS, URINE SMALL (NEGATIVE); NITRITE, URINE AUTO NEGATIVE (NEGATIVE); PROTEIN, URINE AUTO NEGATIVE (NEGATIVE); RBC, URINE AUTO 0 /HPF (0-3); SPECIFIC GRAVITY URINE AUTO 1.019 (1.002-1.035); SQUAMOUS EPITHELIAL CELL UR AU 3 /HPF (0-6); UROBILINOGEN, URINE AUTO 2.0 mg/dL (0.0-2.0); WBC, URINE AUTO 0 /HPF (0-3)
== END ==
LOC: M LAB REF 12:10
PROVIDERS: ATTEND Family Medicine
DX: R35.0 Frequency of micturition (principal)